=== PATIENT | male | born 1940 | race Caucasian/White ===

== ENCOUNTER → 2017-08-25 08:46 | Outpatient (CLI) | payer MEDICARE, OTHER, SELFPAY ==
[2017-08-25 14:05] LABS: Absolute Lymphocyte Count 1.41 X10^3/ul (0.83-4.51); Absolute Neutrophil Count 3.9 X10^3/uL (2.0-7.7); Basophil# 0.04 X10^3/uL; Basophil% 0.6 % (0-1); Eosinophil# 0.16 X10^3/uL; Eosinophils% 2.5 % (0-5); Hematocrit 42.9 % (40-54); Hemoglobin 13.5 g/dl (13.0-16.5); Lymphocyte # 1.41 X10^3/ul (4.0); Lymphocyte % 21.8 % (19-41); Mean Corp Hgb Conc 31.5 g/gl (32-36); Mean Corpuscular Hgb 29.1 pg (27.0-32.0); Mean Corpuscular Volume 92.5 fL (80-94); Mean Platelet Vol. 12.3 fl (6.2-12.0); Monocyte# 0.94 X10^3/uL; Monocyte% 14.6 % (0-10); Neutrophil % 60.3 % (47-70); Platelet Count 220 K/mm3 (150-450); RBC Distribution Width CV 14.9 % (11.6-14.6); RBC Distribution Width SD 48.9 fl (35.1-43.9); Red Blood Count 4.64 M/mm3 (4.6-6.2); White Blood Count 6.5 K/mm3 (4.4-11.0)
[2017-08-25 14:14] LABS: POSITIVE COUNT NO; POSITIVE DIFFERENTIAL NO; POSITIVE MORPHOLOGY NO
[2017-08-25 14:37] LABS: ALB/GLOB Ratio 0.9 RATIO (0.9-2.4); AST(SGOT) 18 U/L (15-37); Alanine Aminotransfer ALT/SGPT 31 U/L (16-61); Albumin, Serum 3.5 g/dL (3.2-5.0); Alkaline Phosphatase 128 U/L (45-117); Anion Gap 8 (5-15); BUN 23 mg/dL (7-18); BUN/Creat Ratio 13.1 RATIO (10-20); Calcium,Total 8.6 mg/dL (8.5-10.1); Chloride 105 mmol/L (98-107); Creatinine, Serum 1.75 mg/dL (0.70-1.30); EST Glomerular Filtration Rate 40 mL/min (>60); Est Glom Filt Rate - Afr Amer 49 mL/min (>60); Glucose 99 mg/dL (74-106); Potassium 4.3 mmol/L (3.5-5.1); Protein, Total 7.5 g/dL (6.4-8.2); Sodium Level 139 mmol/L (136-145); Thyroid Stim Hormone (TSH) 3.28 uIU/mL (0.358-3.74)
== END ==
PROVIDERS: Family Provider Family Medicine Geriatric Medicine; PCP Family Medicine Geriatric Medicine; Visit Provider Family Medicine Geriatric Medicine
DX: I10 Essential (primary) hypertension (principal)
CPT/HCPCS: 36415; 80053; 84443; 85025

== ENCOUNTER → 2017-09-16 11:05 | Outpatient (CLI) | payer MEDICARE, OTHER, SELFPAY ==
--- NOTE | 2017-09-16 11:10 | RAD_ITS ---
XR Spine Lumbar 2 or 3 Views INDICATION: LOW BACK PAIN X 3 DAYS COMPARISON: None TECHNIQUE: Frontal and lateral views of the lumbar spine and coned-down view of the lumbosacral junction FINDINGS: There are 5 lumbar type nonrib-bearing vertebral bodies. There is normal lumbar lordosis and no evidence of scoliosis. Height of the vertebral bodies is preserved. Disc spaces are decreased at multiple levels and marginal osteophytes are present. RAD/Lumbar Spine 2 or 3 Views IMPRESSION: Findings suggestive of degenerative disc disease at multiple levels. Consider further evaluation with MRI if clinical symptoms persist. at 2008 Reported and signed by: Elis Kan MD Electronically Signed: Elis Kan MD at 19:06 EST Tel , Service support ,
== END ==
PROVIDERS: Family Provider Family Medicine Geriatric Medicine; PCP Family Medicine Geriatric Medicine; Visit Provider Family Medicine Geriatric Medicine
DX: M54.5 Low back pain (principal)
CPT/HCPCS: 72100

== ENCOUNTER → 2017-10-08 07:41 | Outpatient (CLI) | payer MEDICARE, OTHER, SELFPAY ==
[2017-10-08 08:45] VITALS: PULSE 100; PULSE 102; PULSE 111; PULSE 112; PULSE 114; PULSE 117; O2SAT 84; O2SAT 86; O2SAT 89; O2SAT 90; O2SAT 91; O2SAT 98
--- NOTE | 2017-10-08 09:30 | CPS ---
PT ARRIVED ON ROOM AIR. TESTING INITIATED ON ROOM AIR. AT THE ONE MINUTE CHECK PT SPO2 WAS 84% AND WAS PLACED ON 2L WITH LITTLE IMPROVEMENT AND WAS INCREASED TO 3L TO RECOVER. THE WALK WAS THEN CONTINUED AND AT MINUTE THREE PT HAD TO BE INCREASED TO 4L. AT MINUTE FIVE PT ONCE AGAIN HAD TO BE INCREASED TO 6L DUE TO LOW SPO2. PT TOLERATED WELL AND JESSE BINGO CALLER WAS CALLED FOR FACE TO FACE. [facility] ALSO CALLED FOR NEW OXYGEN SET UP. PT THEN TAKEN TO WAITING ROOM FOR CHEST X-RAY THAT WAS ORDERED TODAY WELL.
--- NOTE | 2017-10-08 09:30 | RAD_ITS ---
STUDY: X-RAY CHEST REASON FOR EXAM: Male, 77 years old. Increased shortness of breath x1 month TECHNIQUE: PA and lateral views of the chest. COMPARISON: 12/11/2016 FINDINGS: There is hyperinflation of the lungs consistent with chronic obstructive lung disease (COPD). Slightly increased interstitial prominence in the lung bases since 2017, this may be worsening of chronic interstitial disease versus superimposed mild pulmonary edema. Continued blunting of the left costophrenic angle. Sternal cerclage wires are present from a prior sternotomy. Mild cardiomegaly. Normal mediastinum and edward. Normal visualized pulmonary arteries. Normal visualized aortic arch and descending thoracic aorta. There are diffuse degenerative changes of the visualized thoracic spine. There is degenerative osteoarthritis of the bilateral shoulders. There is no demonstrated abnormality of the visualized soft tissue structures of the upper abdomen. RAD/Chest PA and Lateral IMPRESSION: Increased interstitial prominence in the lung bases since 2017; this may represent worsening chronic interstitial disease versus superimposed mild pulmonary edema. Continued blunting of the left costophrenic angle. Electronically Signed: Ole Ramirez DO at 10:53 EDT Tel , Service support ,
--- NOTE | 2017-10-09 07:49 | WT_ITS ---
PSN 6 Minute Walk Test - 6 Minute Walk Test 6 Minute Walk Test: 6 Minute Walk Test PSN:6-Minute Walk Test Start: 10/08/17 09: 34 Freq: Status: Active Protocol: [id number] Document 10/08/17 08:45 [facility] (Rec: 10/08/17 09:41 [facility] [id number]) 6 Minute Walk Test Date Performed 10/08/17 Time Performed 08:45 Height 6 ft Weight: 240 lb 1.75 oz Weight in Pounds 240.[address]: Justyna Falcon Assistive device used: None Pre-test Oxygen Delivery Method Room Air Pulse Ox (%) 90 Pulse Rate (60-100 beats/min) 102 H Dyspnea Vinnie Scale (0-10) 0 Exertion Vinnie Scale (6-20) 6 1st minute Oxygen Delivery Method Room Air Pulse Ox (%) 84 Number of Rests Taken 0 2nd minute Oxygen Flow Rate (L/min) (L/min) 3 Oxygen Delivery Method Nasal Cannula Pulse Ox (%) 91 Pulse Rate (60-100 beats/min) 112 H Number of Rests Taken 0 3rd minute Oxygen Flow Rate (L/min) (L/min) 3 Oxygen Delivery Method Nasal Cannula Pulse Ox (%) 86 Pulse Rate (60-100 beats/min) 114 H Number of Rests Taken 0 4th minute Oxygen Flow Rate (L/min) (L/min) 4 Oxygen Delivery Method Nasal Cannula Pulse Ox (%) 89 Pulse Rate (60-100 beats/min) 112 H Number of Rests Taken 0 5th minute Oxygen Flow Rate (L/min) (L/min) 4 Oxygen Delivery Method Nasal Cannula Pulse Ox (%) 86 Pulse Rate (60-100 beats/min) 111 H Number of Rests Taken 0 6th minute Oxygen Flow Rate (L/min) (L/min) 6 Oxygen Delivery Method Nasal Cannula Pulse Ox (%) 90 Pulse Rate (60-100 beats/min) 117 H Number of Rests Taken 0 Post-test Oxygen Flow Rate (L/min) (L/min) 6 Oxygen Delivery Method Nasal Cannula Pulse Ox (%) 98 Pulse Rate (60-100 beats/min) 100 Dyspnea Vinnie Scale (0-10) 3 Exertion Vinnie Scale (6-20) 12 Full Laps Walked 14 Partial Lap, Number of Tiles Walked 0 Total Distance Walked (ft) 826 10/08/17 09:30 (created 10/08/17 09:38) Cardiopulmonary Services by Yanni Patiño PT ARRIVED ON ROOM AIR. TESTING INITIATED ON ROOM AIR. AT THE ONE MINUTE CHECK PT SPO2 WAS 84% AND WAS PLACED ON 2L WITH LITTLE IMPROVEMENT AND WAS INCREASED TO 3L TO RECOVER. THE WALK WAS THEN CONTINUED AND AT MINUTE THREE PT HAD TO BE INCREASED TO 4L. AT MINUTE FIVE PT ONCE AGAIN HAD TO BE INCREASED TO 6L DUE TO LOW SPO2. PT TOLERATED WELL AND JESSE BRIDGE GAME DIRECTOR WAS CALLED FOR FACE TO FACE. [facility] [place]SO CALLED FOR NEW OXYGEN SET UP. PT THEN TAKEN TO WAITING ROOM FOR CHEST X- RAY THAT WAS ORDERED TODAY WELL. Initialized on 10/08/17 09:38 - END OF NOTE - Interpretation Interpretation: The patient ambulated 826 feet over the course of 6 minutes beginning on room air without assistive devices or breaks. Pretesting oxygen saturation was noted to be 90% on room air. With ambulation, the patient experienced significant exertional oxygen desaturation at multiple points throughout testing , requiring the initiation and subsequent upward titration of supplemental oxygen. At 6 L/min, the patient was able to complete testing while maintaining oxygen saturations at or above 88%. The patient was notably tachycardic throughout the test. - Recommendations Recommendations: 6 L/min of supplemental oxygen should be utilized with exertion.
== END ==
PROVIDERS: Family Provider Family Medicine Geriatric Medicine; PCP Family Medicine Geriatric Medicine; Visit Provider Nurse Practitioner Acute Care
DX: R06.09 Other forms of dyspnea (principal)
CPT/HCPCS: 71046; 94618

== ENCOUNTER → 2017-10-21 07:37 | Outpatient (CLI) | payer MEDICARE, OTHER, SELFPAY ==
--- NOTE | 2017-10-22 08:42 | PFT ---
INTRODUCTION: The patient is a 77-year-old male currently under the care of Justyna Falcon NP that presents for pulmonary function testing secondary to a diagnosis of dyspnea. Respiratory therapy reports good patient effort and reports no other concerns. Bronchodilators were used during testing. INTERPRETATION: Forced expiration spirometry demonstrates no evidence of a large airways obstructive ventilatory defect. There was no significant response to aerosolized bronchodilators, based upon strict ATS criteria. Spirograms are of good quality and plateau normally. The respiratory flow volume loop appears normal. Body plethysmography was performed and reveals a decreased TLC to 4.49 L, 65% of predicted, indicative of a moderate restrictive ventilatory defect. The remainder of the lung volumes are symmetrically reduced. Diffusing capacity by single breath CO is severely reduced at 33% of predicted. When compared to previous pulmonary function studies from 2017, the patient has had a significant reduction in FEV1, TLC and DLCO. IMPRESSION: These pulmonary function studies demonstrate the presence of a moderate restrictive ventilatory impairment with a disproportionate severe reduction in diffusing capacity. There has been significant worsening since PFTs were last completed in 2017.
== END ==
PROVIDERS: Family Provider Family Medicine Geriatric Medicine; PCP Family Medicine Geriatric Medicine; Visit Provider Nurse Practitioner Acute Care
DX: R06.09 Other forms of dyspnea (principal)
CPT/HCPCS: 94060; 94726; 94729

== ENCOUNTER → 2017-10-23 08:36 | Outpatient (CLI) | payer MEDICARE, OTHER, SELFPAY ==
--- NOTE | 2017-10-23 08:37 | ECHOCS_ITS ---
Reason For Study: DYSPNEA/SOB Procedure This was a 2D Doppler, Color Flow transthoracic echocardiogram. The exam was of poor technical quality due to body habitus. The study was technically difficult. Contrast injection was performed. Exam performed in department. Left Ventricle Normal LV size. Left ventricular systolic function is normal. The estimated ejection fraction is 60 %. No evidence for diastolic dysfunction. No regional wall motion abnormalities noted. Right Ventricle Normal RV size. Normal systolic function. Atria The left atrium is mildly enlarged. Normal right atrium. No doppler evidence for ASD. Mitral Valve There is mild mitral annular calcification. Normal mitral valve. Tricuspid Valve Normal tricuspid valve. Trivial tricuspid valve insufficiency. Right ventricular systolic pressure estimated to be 24 mmHg. Aortic Valve Trisinus/trileaflet aortic valve. Mild focal aortic valve thickening. Moderate focal aortic valve calcification. Trivial aortic valve insufficiency. Pulmonic Valve The pulmonic valve is not well visualized. Trivial pulmonic valve insufficiency. Great Vessels Normal sized aortic root. Pericardium/Pleural No pericardial effusion. Medication Diluted definity 3.0ml given slow IV push to enhance endocardial definition. MMode/2D Measurements & Calculations LVIDd: 4.6 cm IVSd: 1.3 cm Ao root diam: 3.3 cm LVIDs: 3.2 cm LVPWd: 1.2 cm LA dimension: 5.3 cm RVDd: 3.4 cm FS: 30.5 % LAV(MOD-bp): 63.1 ml LA A4 area: 21.2 cm2 RA A4 area: 13.3 cm2 LAV(MOD-bp) Indexed: 27.9 ml/m2 LAV(MOD-sp2): 60.6 ml LAV(MOD-sp4): 61.0 ml Doppler Measurements & Calculations MV E max von: 57.1 cm/sec Lat Peak E' Von: 6.6 cm/sec Med Peak E' Von: 6.9 cm/sec MV A max von: 81.8 cm/sec E/E' lat: 8.6 E/E' med: 8.3 MV E/A: 0.70 Ao V2 max: 118.1 cm/sec LV V1 max: 100.7 cm/sec PA V2 max: 80.0 cm/sec Ao max P.6 mmHg LV V1 max P.1 mmHg TR max von: 229.9 cm/sec TR max P.1 mmHg Interpretation Summary The study was technically difficult. Contrast injection was performed. Left ventricular systolic function is normal. The estimated ejection fraction is 60 %. The left atrium is mildly enlarged. There is mild mitral annular calcification. Trivial tricuspid valve insufficiency. Mild focal aortic valve thickening. Moderate focal aortic valve calcification. Trivial pulmonic valve insufficiency. Right ventricular systolic pressure estimated to be 24 mmHg. No evidence for diastolic dysfunction. Ordering Physician: Justyna Falcon Referring Physician: Daniel Samayoa Chi Performed By: Belle Avila, IRAIS, RVT
== END ==
PROVIDERS: Family Provider Family Medicine Geriatric Medicine; PCP Family Medicine Geriatric Medicine; Visit Provider Nurse Practitioner Acute Care
DX: R06.09 Other forms of dyspnea (principal); R06.02 Shortness of breath
CPT/HCPCS: 93306; Q9957; A4216; C8929

== ENCOUNTER → 2017-10-25 08:32 | Outpatient (CLI) | payer MEDICARE, OTHER, SELFPAY ==
--- NOTE | 2017-10-25 08:36 | CT_ITS ---
STUDY: CT CHEST WITHOUT CONTRAST REASON FOR EXAM: Male, 77 years old. Shortness of breath follow-up nodule from CT chest prior year. RADIATION DOSAGE (If Supplied By Facility): CTDIvol = ( 19.10 ) mGy, DLP = ( 649.24 ) mGycm TECHNIQUE: Transaxial imaging was performed without the administration of intravenous contrast material. Multiplanar coronal and sagittal images were reformatted. Individualized dose optimization techniques were used for this CT. COMPARISON: Chest x-ray October 08, 2017, June 13, 2017 CT scan chest FINDINGS: There is a pattern of peripheral interseptal thickening. There is mild bronchiectasis within the right lung base. There is bronchiectasis in the remaining left lung base and postoperative change with a swirl-like fluid or scarlike collection in the left lung base which is stable since the prior study. When compared to the prior study the peripheral interstitial prominence subtle groundglass opacity appears worse allowing for differences in technique. There are dense coronary calcifications. There is a AP window lymph node measuring 1.2 x 1.2 cm. This is slightly smaller than the prior study. There are multiple subcentimeter paratracheal lymph nodes. There is a lymph node between the esophagus and the knee medial side of the pulmonary artery measuring 1.2 x 1.1 cm stable since prior study. There is a subcarinal lymph node measuring 8 x 8 mm also stable since prior study. Normal hilar regions. Normal unenhanced pulmonary arteries. There is atherosclerotic calcification of the aortic arch with tortuosity and elongation of the aortic arch and descending thoracic aorta. There are multi-level degenerative changes of the thoracic spine. Tenotomy wires are seen midline. The kidneys are of the [id number] on this study today. Surgical clips are seen in the gallbladder fossa status post cholecystectomy. There are old left-sided rib fractures or postoperative change.. CT/Chest without Contrast IMPRESSION: Since the prior study there is a relative worsened appearance of the peripheral interstitial nodularity and subtle groundglass of pattern. Could consider worsening chronic process versus a superimposed atypical infiltrate or potentially hypersensitivity pneumonitis. Recommend correlation with history. There is stable postoperative change left lower lobe fluid. There is no definitive particular focal consolidation or air bronchograms. Multiple small mediastinal lymph nodes one of which is smaller than prior study. Status post sternotomy Dense coronary calcifications. Status post cholecystectomy Degenerative changes of thoracolumbar spine. Electronically Signed: Danae Lee MD at 9:33 EDT Tel , Service support ,
== END ==
PROVIDERS: Family Provider Family Medicine Geriatric Medicine; PCP Family Medicine Geriatric Medicine; Visit Provider Nurse Practitioner Acute Care
DX: R06.09 Other forms of dyspnea (principal)
CPT/HCPCS: 71250

== ENCOUNTER → 2017-10-29 09:57 | Outpatient (CLI) | payer MEDICARE, OTHER, SELFPAY ==
[2017-10-29 11:18] LABS: Rheumatoid Factor < 10.0 IU/mL (<15)
[2017-10-29 11:24] LABS: BNP,B-Type NATRIURETIC PEPTIDE 83.3 pg/mL (0-100)
[2017-10-31 03:07] LABS: Cytoplasmic Ab (C-ANCA) <1:20 titer (Neg:<1:20)
[2017-10-31 11:17] LABS: CCP IgG Antibodies 6 units (0-19); Perinuclear Ab (P-ANCA) <1:20 titer (Neg:<1:20)
== END ==
PROVIDERS: Family Provider Family Medicine Geriatric Medicine; PCP Family Medicine Geriatric Medicine; Visit Provider Internal Medicine Critical Care Medicine
DX: R06.09 Other forms of dyspnea (principal)
CPT/HCPCS: 83880; 86200; 86256; 86431

== ENCOUNTER → 2017-11-17 06:48 | Outpatient (CLI) | payer MEDICARE, OTHER, SELFPAY ==
[2017-11-17 08:06] LABS: AST(SGOT) 21 U/L (15-37); Alanine Aminotransfer ALT/SGPT 32 U/L (16-61); Albumin, Serum 3.3 g/dL (3.2-5.0); Alkaline Phosphatase 92 U/L (45-117); Bilirubin, Direct 0.29 mg/dL (0.00-0.30); Cholesterol 168 mg/dL (200); Globulin 3.6 g/dL (2.2-4.2); High Density Lipoprotein 51 mg/dL; Protein, Total 6.9 g/dL (6.4-8.2); T4 Total, Thyroxin 11.6 ug/dL (4.5-12.1); Thyroid Stim Hormone (TSH) 2.04 uIU/mL (0.358-3.74); Triglycerides 176 mg/dL; Very Low Density Lipoprotein 35 mg/dL (5-40)
[2017-11-18 17:17] LABS: ANTINUCLEAR ANTIBODIES DIRECT Negative (Negative)
== END ==
PROVIDERS: Internal Medicine Critical Care Medicine; Family Provider Family Medicine Geriatric Medicine; PCP Family Medicine Geriatric Medicine; Visit Provider Internal Medicine Cardiovascular Disease
DX: I48.0 Paroxysmal atrial fibrillation (principal); I25.810 Atherosclerosis of coronary artery bypass graft(s) without angina pectoris; I10 Essential (primary) hypertension; E78.5 Hyperlipidemia, unspecified; R09.02 Hypoxemia; Z79.899 Other long term (current) drug therapy
CPT/HCPCS: 36415; 80061; 80076; 84436; 84443; 86038; 86225; 86235

== ENCOUNTER → 2018-01-05 14:02 | Outpatient (CLI) | payer MEDICARE, OTHER, SELFPAY ==
[2018-01-05 14:39] LABS: Erythrocyte Sedimentation Rate 18 mm/hr (0-20)
[2018-01-05 14:41] LABS: Absolute Lymphocyte Count 1.79 X10^3/ul (0.83-4.51); Absolute Neutrophil Count 5.5 X10^3/uL (2.0-7.7); Basophil# 0.03 X10^3/uL; Basophil% 0.4 % (0-1); Eosinophil# 0.11 X10^3/uL; Eosinophils% 1.4 % (0-5); Hematocrit 43.6 % (40-54); Hemoglobin 13.4 g/dl (13.0-16.5); Lymphocyte # 1.79 X10^3/ul (4.0); Lymphocyte % 22.2 % (19-41); Mean Corp Hgb Conc 30.7 g/gl (32-36); Mean Corpuscular Hgb 29.5 pg (27.0-32.0); Mean Corpuscular Volume 95.8 fL (80-94); Mean Platelet Vol. 12.1 fl (6.2-12.0); Monocyte# 0.57 X10^3/uL; Monocyte% 7.1 % (0-10); Neutrophil # 5.54 X10^3/uL (2.7-7.7); Neutrophil % 68.8 % (47-70); Platelet Count 220 K/mm3 (150-450); RBC Distribution Width CV 14.6 % (11.6-14.6); RBC Distribution Width SD 51.2 fl (35.1-43.9); Red Blood Count 4.55 M/mm3 (4.6-6.2); White Blood Count 8.1 K/mm3 (4.4-11.0)
[2018-01-05 14:42] LABS: POSITIVE COUNT NO; POSITIVE DIFFERENTIAL NO; POSITIVE MORPHOLOGY NO
[2018-01-05 15:05] LABS: Anion Gap 7 (5-15); BUN 24 mg/dL (7-18); BUN/Creat Ratio 14.2 RATIO (10-20); CPK Total, Creatine Kinase 49 U/L (39-308); Calcium,Total 8.8 mg/dL (8.5-10.1); Chloride 110 mmol/L (98-107); Creatinine, Serum 1.69 mg/dL (0.70-1.30); EST Glomerular Filtration Rate 42 mL/min (>60); Est Glom Filt Rate - Afr Amer 51 mL/min (>60); Glucose 108 mg/dL (74-106); Sodium Level 144 mmol/L (136-145)
[2018-01-05 15:13] LABS: D-Dimer Quantitative (DVT/PE) 1.61 FEU/ug/m (0.27-0.49)
[2018-01-05 15:26] LABS: BNP,B-Type NATRIURETIC PEPTIDE 101.2 pg/mL (0-100)
[2018-01-06 10:51] LABS: Myoglobin, Serum 41 ng/mL (28-72)
== END ==
PROVIDERS: Family Provider Family Medicine Geriatric Medicine; PCP Family Medicine Geriatric Medicine; Visit Provider Family Medicine Geriatric Medicine
DX: M10.9 Gout, unspecified (principal); R06.02 Shortness of breath; R07.9 Chest pain, unspecified
CPT/HCPCS: 36415; 80048; 82550; 83874; 83880; 84484; 85025; 85379; 85652; 86140

== ENCOUNTER → 2018-01-05 14:27 | Outpatient (CLI) | payer MEDICARE, OTHER, SELFPAY ==
--- NOTE | 2018-01-05 14:33 | CT_ITS ---
STUDY: CT ABDOMEN AND PELVIS WITH CONTRAST REASON FOR EXAM: Male, 77 years old. Abdominal pain RADIATION DOSAGE (If Supplied By Facility): CTDIvol = ( ) mGy, DLP = ( 2123.77 ) mGycm TECHNIQUE: Transaxial images were obtained from the dome of the diaphragm to the symphysis pubis without oral contrast. 100ML ml of Isovue 370 contrast was administered. Sagittal and coronal images were reconstructed. Individualized dose optimization techniques were used for this CT. COMPARISON: None. FINDINGS: There is a small left pleural effusion and atelectasis in left lower lobe. There are multiple subcentimeter nodules at the right lung base.. Heart is enlarged and there is multivessel coronary artery calcification. The liver is normal size. There are multiple hypodense nodules the largest of which are clearly simple cysts. The smaller nodules are too small to adequately characterize due to volume averaging. Gallbladder has been removed surgically.. Normal spleen. The mid to distal body of the pancreas demonstrates a slightly hypoattenuated appearance. Possibility of neoplasm not excluded as there are no signs of acute inflammation observed... Would recommend MRI/MRCP for further assessment Normal bilateral adrenal glands. There are 3 nonobstructing calculi in left kidney. There is also mild pelvocaliectasis in association with extrarenal pelvis. Cannot exclude coexisting parapelvic cysts.. Right kidney is normal. Normal visualized stomach. Normal small intestine. Normal colon. The appendix is visualized and appears normal. Atherosclerotic changes of the aorta without evidence for aneurysm. Normal inferior vena cava. Normal retroperitoneum. Nonspecific enlargement of the prostate encroaching upon the base of the bladder which is incompletely distended Small bilateral fat-containing inguinal hernias. Lumbar spine demonstrates spondylosis CT/Abdomen/Pelvis WITH Contrast IMPRESSION: Multiple hepatic nodules largest of which are clearly cystic. The others are too small to adequately characterize. Status post cholecystectomy Hypoattenuated nonspecific appearance to the mid to distal body of the pancreas. Cannot exclude possibility of neoplasm. MRI/MRCP recommended Electronically Signed: Kapil Carter MD at 18:34 EDT , Service support ,
--- NOTE | 2018-01-05 16:00 | CT_ITS ---
STUDY: CTA CHEST REASON FOR EXAM: Male, 77 years old. Elevated d-dimer Status post CABG and left lobectomy RADIATION DOSAGE (If Supplied By Facility): CTDIvol = ( 19.63 ) mGy, DLP = ( 2123.77 ) mGycm TECHNIQUE: The examination was performed with the intravenous administration of 75ML ml of Isovue 370 contrast material. Post-processing of the angiographic images was performed, with multiplanar reformation and 3D reconstruction. Individualized dose optimization techniques were used for this CT. COMPARISON: October 25, 2017 FINDINGS: Normal enhancement of the main pulmonary artery and right and left pulmonary arteries. There are linear filling defects within a proximal segmental branch of the left pulmonary artery consistent with thrombus Atherosclerotic changes of the aorta without evidence for aneurysm. There is no demonstrated aortic dissection. Heart is normal size and there is multivessel coronary artery calcification There is a node in the anterior prevascular space measuring 1.27 cm which may be consistent with neoplasm. This also a node in the aortopulmonary window measuring 9 mm in size.. There are smaller pretracheal right paratracheal and subcarinal nodes. Normal visualized trachea and bronchi. The lungs are well expanded. Mild nonspecific interstitial thickening is seen. There appears to be traction bronchiectasis at the right base. There is a small compressive atelectasis at the left base.. There are tiny noncalcified nodules in the right lower lobe measuring in the 4 to 5 mm size range. There is a larger 9.6 mm nodule in the right lower lobe Status post median sternotomy and CABG. Dorsal spine demonstrates moderate spondylosis Gallbladder has been removed surgically. CT/CTA Chest W/WO Contrast IMPRESSION: Pulmonary embolus to the subsegmental vessels of the left lower lobe. Incidental finding of tiny subcentimeter nodules in the right lung and mildly enlarged nodes. Possibility of neoplasm not excluded. PET scan would be helpful for further evaluation if indicated. Electronically Signed: Kapil Carter MD at 18:24 EDT , Service support ,
== END ==
PROVIDERS: Family Provider Family Medicine Geriatric Medicine; PCP Family Medicine Geriatric Medicine; Visit Provider Family Medicine Geriatric Medicine
DX: R10.9 Unspecified abdominal pain (principal); R07.9 Chest pain, unspecified; M10.9 Gout, unspecified; R06.02 Shortness of breath
CPT/HCPCS: 36415; 71275; 74177; 80048; 82550; 83874; 83880; 84484; 85025; 85379; 85652; 86140; Q9967

== ENCOUNTER → 2018-01-08 06:07 | Outpatient (CLI) | payer MEDICARE, OTHER, SELFPAY ==
--- NOTE | 2018-01-08 06:36 | MRI_ITS ---
STUDY: MRI ABDOMEN WITH AND WITHOUT CONTRAST REASON FOR EXAM: Male, 77 years old. Abdominal pain. Pancreatic cyst. Abnormal CT. Prior cholecystectomy TECHNIQUE: Standardized fat and water weighted pulse sequences were obtained in all 3 orthogonal planes post contrast administration. 10 ml of Gadavist contrast material was administered intravenously for the contrast portion of the examination. COMPARISON: CT January 05, 2018 FINDINGS: There is left lower lung airspace consolidation with small pleural effusion. The visualized portions of the heart are within normal limits. There is hepatomegaly with diffuse hepatic enlargement. There are multiple, at least 10, peripherally enhancing mild T2 signal hyperintensity lesions in the right and left lobe of the liver measuring 1.0 to 1.6 cm. There are surgical clips in the gallbladder fossa consistent with a prior cholecystectomy. There is mild splenomegaly. There is 1.7 cm mass at the medial aspect of the spleen. There is heterogeneously enhancing 5.0 cm mass of the body of the pancreas, series 1101 image 60/100. Normal bilateral adrenal glands. There are parapelvic cysts of the kidneys.. Normal visualized stomach. Normal small intestine. Normal colon. There is non-visualization of the appendix. Normal abdominal aorta. Normal inferior vena cava. Normal retroperitoneum. Normal abdominal wall. Degenerative change of the spine. There are sternal wires. MRI/MRI Abd WITH and W/O Contrast IMPRESSION: Mass of the body of the pancreas with multiple hepatic masses consistent with metastatic pancreatic cancer. Mass of the spleen with possible metastasis. There is left pleural effusion and lower lung consolidation. Hepatosplenomegaly. N.B. : The above information has been verbally conveyed by Wilfrid Reed MD to Dr. Samayoa , Referring Physician, on 01/08/2018 20:14:18 (ET). Electronically Signed: Wilfrid Reed MD at 17:13 EDT , Service support , N.B. : The above information has been verbally conveyed by Wilfrid Reed MD to Dr. Samayoa , Referring Physician, on 01/08/2018 20:14:18 (ET).
== END ==
PROVIDERS: Family Provider Family Medicine Geriatric Medicine; PCP Family Medicine Geriatric Medicine; Visit Provider Family Medicine Geriatric Medicine
DX: K86.2 Cyst of pancreas (principal); R93.3 Abnormal findings on diagnostic imaging of other parts of digestive tract
CPT/HCPCS: 74183; A9585

== ENCOUNTER → 2018-01-13 06:38 | Outpatient (CLI) | payer MEDICARE, OTHER, SELFPAY ==
--- NOTE | 2018-01-13 14:48 | PFT ---
INTRODUCTION: The patient is a 77-year-old male that presents for pulmonary function testing secondary to a diagnosis of history of malignant neoplasm. Respiratory therapy reports good patient effort. Bronchodilators were used during testing. INTERPRETATION: Forced expiration spirometry demonstrates no evidence of a large airways obstructive ventilatory impairment. There was no significant response to aerosolized bronchodilators. Spirograms are of good quality and plateau normally. Body plethysmography was performed and reveals evidence of a mild restrictive ventilatory impairment. The remainder of the lung volumes are symmetrically reduced. The significantly reduced ERV could be a consequence of the patient's body habitus. Diffusing capacity by single breath CO is moderately reduced at 49% of predicted. When compared to previous pulmonary function studies dated November 2016 there has been symmetric reductions in the patient's FVC and FEV1. DLCO has decreased by 31%. IMPRESSION: These pulmonary function studies demonstrate the presence of a mild restrictive ventilatory impairment with a moderate reduction in diffusing capacity.
== END ==
PROVIDERS: Family Provider Family Medicine Geriatric Medicine; PCP Family Medicine Geriatric Medicine; Visit Provider Internal Medicine Critical Care Medicine
DX: Z85.118 Personal history of other malignant neoplasm of bronchus and lung (principal)
CPT/HCPCS: 94060; 94726; 94729

== ENCOUNTER → 2018-01-19 09:07 | Outpatient (CLI) | payer MEDICARE, OTHER, SELFPAY ==
--- NOTE | 2018-01-19 09:26 | PET_ITS ---
EXAMINATION: FDG PET CT INDICATIONS: A 77-year-old male with history of carcinoma of the lung presenting for restaging examination. COMPARISON EXAMINATION: CT of the chest, abdomen and pelvis report dated 01/05/18, previous FDG PET study dated 10/21/16. INDEX LESION SIZE SUV INTERPRETATION NEW: Mid abdominal retroperitoneum pancreatic body-tail 4.5 cm x 2.8 cm (frame 166) 6.2 Fulfills quantitative criteria for viable neoplasm NEW: Left and right lobe hepatic parenchyma 32.3 mm largest (frame 186) 4.7 (max) ratio > 2.0 Fulfills quantitative criteria for viable neoplasm NEW: Right lower hemithorax pulmonary parenchyma, right lower lobe 10.4 mm (frame 196) 2.3 Fulfills borderline quantitative criteria for viable neoplasm PREVIOUS: Left lower hemithorax pulmonary parenchyma, left lower lobe Demonstrates metabolic resolution on the current examination TECHNIQUE: Following the intravenous administration of 14.5 mCi of F-18 deoxyglucose via the right antecubital fossa, multiplanar image acquisitions of the neck, chest, abdomen and pelvis to level of mid thigh, obtained at one hour post radiopharmaceutical administration contemporaneously interpreted with the current CT of the neck, chest, abdomen and pelvis to level of mid thigh, dated 01/19/[address] of the chest, abdomen and pelvis report dated 01/05/18, previous FDG PET study dated 10/21/16 reveal: SERUM GLUCOSE LEVEL: 102 mg/dl. HEIGHT: 72 inches. WEIGHT: 230 lbs. FINDINGS: 1. Persistently defined increased glucose metabolism is manifest in the left paramedian abdominal retroperitoneum demonstrating a calculated maximum standard uptake value of 6.2 compared 3.0 defined on the FDG PET study dated 10/21/16. The maximal axial diameter of the corresponding metabolic, morphologic abnormality, which appears contiguous to the pancreatic body-tail is 4.5 cm (transverse) x 28. Cm (AP). 2. Multiple foci of increased glucose concentration are presently visualized in the left and right lobe of the hepatic parenchyma (3.7/2.8) generating a calculated maximum standard uptake value of 4.7 with a lesion to liver background ratio greater than 2.0. The maximal axial diameter of the largest individual hypermetabolic abnormality on review of CT of the abdomen dated 01/19/18 is 32.3 mm (transverse). 3. Focal increased glucose concentration is currently visualized in the right lower posteromedial hemithorax pulmonary parenchyma, right lower lobe rendering a calculated maximum standard uptake value of 2.3. The maximal axial diameter of the corresponding nodular parenchymal density on review of CT of the thorax dated 01/19/18 is 10.4 mm (transverse). 4. Normal physiologic distribution of the radiopharmaceutical is apparent in the splenic parenchyma, both renal units, bladder and visualized intestinal tract. There is uniform distribution of the radiopharmaceutical concentration compared on the cerebellar hemispheres and cerebral cortex. Diffuse intestinal tract activity is noted throughout all four quadrants of the abdominal-pelvic retroperitoneum, mesentery consistent with normal physiologic distribution of the radiopharmaceutical. Prominent glucose metabolism is demonstrated in the descending thoracic, as well as abdominal aorta. Pooling of the radiopharmaceutical appears evident in the distribution of the prostatic urethra. The previously identified left lower hemithorax pulmonary parenchymal, left lower lobe hypermetabolic abnormality noted on the FDG PET study dated 10/21/16 is not apparent on the current examination. Pertinent CT findings are as follows. CHEST: Additional parenchymal changes noted in the right lower hemithorax, right lower lobe demonstrate no evidence of increased glucose metabolism. Atherosclerotic calcification is defined in the thoracic aorta without evidence of dilatation, aneurysm formation. Coronary arterial calcification is observed. There is evidence of prior median sternotomy. Bilateral axillary and mediastinal soft tissue densities with fatty hilus formation are non-glucose avid. The left hemithorax pleural effusion demonstrates no evidence quantitatively significant enhanced glucose metabolism. ABDOMEN AND PELVIS: The gallbladder is surgically absent. There is borderline fatty metamorphosis defined within the hepatic parenchyma. Atherosclerotic calcification is defined in the abdominal aorta without evidence of dilatation, aneurysm formation. Abdominal-pelvic arterial calcification is observed. There is evidence of an apparent peripelvic cyst formation involving the left kidney. Calcifications are noted within the left renal unit. Bilateral fat-containing inguinal hernias are demonstrated. Subcentimeter right and left inguinal soft tissue densities are ametabolic. SKELETAL: Degenerative changes defined in the cervical, thoracic and lumbar spine demonstrate no evidence for glucose hypermetabolism. PET/PET/CT Tumor Base -Thigh Init IMPRESSION: 1. Increased glucose metabolism manifest in the mid abdominal retroperitoneum contiguous to the pancreatic body-tail fulfills quantitative criteria for viable neoplasm. Definitive histopathologic analysis is recommended. 2. Multifocal increased radiopharmaceutical concentration observed in the left and right lobe hepatic parenchyma fulfills quantitative criteria for viable neoplasm. (Delbeke et al, Archives of Surgery, 133:510 1998). 3. Facilitated FDG uptake presently noted in the right lower posteromedial lung zone, right lower lobe fulfills borderline quantitative criteria for viable neoplasm. (Sapna et al, Annals of Internal Medicine, 138:724, 2003). 4. Enhanced glucose metabolism manifest in the descending thoracic, as well as abdominal aorta is commensurate with activated leukocytes associated with atherosclerotic plaque formation. (James et al, Clinical Nuclear Medicine 29:93, 2004). 5. There is interim metabolic resolution of the prior defined left lower lung zone, left lower lobe hypermetabolic abnormality. 6. Overall, compared to the prior FDG PET study dated 10/21/16, there is current evidence of defined viable neoplastic disease within the context of the pancreatic body-tail, as well as right-left lobe of the hepatic parenchyma. Borderline quantitative criteria for viable neoplasm are currently defined in the right lower posteromedial lung zone, right lower lobe hypermetabolic focus. Electronic Signature Armando Crisostomo D.O. Electronically Signed: Armando Crisostomo DO at 7:23 EDT Tel , Service support ,
[2018-01-20 08:22] LABS: Carbohydrate AG 19-9 16 U/mL (0-35); Carcinoembryonic Antigen 18.8 ng/mL (0.0-4.7)
== END ==
PROVIDERS: Family Provider Family Medicine Geriatric Medicine; PCP Family Medicine Geriatric Medicine; Visit Provider Family Medicine Geriatric Medicine
DX: C34.90 Malignant neoplasm of unspecified part of unspecified bronchus or lung (principal); R91.1 Solitary pulmonary nodule; C25.9 Malignant neoplasm of pancreas, unspecified
CPT/HCPCS: 36415; 78815; 82378; 86301; A9552; A4216

== ENCOUNTER → 2018-01-29 08:24 | Outpatient (CLI) | payer MEDICARE, OTHER, SELFPAY ==
[2018-01-29] VITALS (9 sets, daily range): BP systolic 116–147; BP diastolic 67–109; PULSE 73–84; RESP 14–25; O2SAT 95–98; BMI 31.1
--- NOTE | 2018-01-29 | ASPIGT_PTH ---
PATIENT: VONNIE BLOCK LOC: CT U#:[id number] AGE/SX: 84/M ROOM: RE01/29/[address]: Dr. Randall Pederson MD : 1940 BED: DIS: SPEC #: [id number] RECD: 01/29/18 11:53 STATUS: SAMARIA REShayy #: [id number] CHRISTOPHER: 01/29/18 00:[address]: Randall Pederson DEPT: SURGICAL PATHOLOGY RECD BY: Armando Echols ENTERED: 01/29/18 11:53 SP TYPE: ASP RAD OTHR DR: Dr. Daniel Samayoa MD Tissues: Liver, NOS Procedures: PAS with Diastase (control) FNA Specimen Adequacy Trichrome (control) Special Stain Group II PAS Stain (control) Surgery Specimen Level V Retic (control) Iron Stain (control) Imprint (control) HEADER OPERATION: CT-guided liver biopsy PRE-OP DIAGNOSIS: Liver mass TISSUE SUBMITTED: Right lobe liver 18g core x6 MICROSCOPIC DIAGNOSIS Right lobe liver, CT-guided core biopsy: Negative for malignancy. Liver parenchymal tissue with steatosis and mild lobular and portal chronic inflammation. See microscopic description and comment. SJ:lizzeth 01/30/18 COMMENT The specimen is evaluated at the time of liver biopsy by Dr. Maxwell. Immediate Evaluation: Set #1 - Negative for malignant cells. Hepatocytes noted. Set #2 ? A few atypical hepatocytes are noted. Clinical correlation and appropriate follow up are necessary. If there is a high suspicion of malignancy, rebiopsy is suggested if clinically indicated. MICROSCOPIC DESCRIPTION Slides are reviewed. The specimen shows liver parenchymal tissue with preserved lobular architecture. The hepatocytes show moderate macrovesicular steatosis. Mild lobular chronic inflammation is also noted. Portal area also shows mild chronic inflammation. Focal dilatation of sinusoid is also noted. Iron stain show absent iron. Reticulin stain is unremarkable. Trichrome stain shows mild increase of portal, focal minimal bridging fibrosis. No evidence of cirrhosis is noted. PAS with and without diastase does not show any abnormal accumulation of protein. All stains were performed with appropriate matched controls. No evidence of malignancy. GROSS DESCRIPTION Received in fixative is one container labeled with the patient's name and designated liver. The specimen consists of multiple elongated fragments of bronson soft tissue that in aggregate measure 2 x 0.5 x 0.1 cm. The specimen is totally submitted in one cassette. Two smears were obtained at the time of biopsy, both stained with DQ. / YADY:lizzeth 01/29/18 TC:5 CPT: 08053, 90901, 20493, 51886 x5
--- NOTE | 2018-01-29 08:38 | CT_ITS ---
PROCEDURE: CT DIRECTED CORE LIVER BIOPSY INDICATION: Male, 77 years old. January 29, 2018. PHYSICIAN: Dr. Stephon HOOVER CONSENT: Written informed consent was obtained having explained the risks, benefits and alternatives in detail with the patient who accepted the risks and agreed to proceed. Laboratory review and clinical assessment was performed. CONSCIOUS SEDATION PROTOCOL: The Drugs used were: 2 mg Versed, IV., and 50 mcg Fentanyl, IV. The sedation time was: 28 minutes. Conscious sedation was started at 9:59 AM and terminated at 10:27 AM. The conscious sedation protocol was independently monitored. RADIATION DOSAGE (If Supplied By Facility): CTDIvol = ( 16 ) mGy, DLP = ( 410.86 ) mGycm Individualized dose optimization techniques were used for this CT. TECHNIQUE: Using CT image guidance with image documentation, a suitable location in the right lobe of the liver was identified. Using a right lateral approach, puncture of the liver was uneventful with an 18-gauge core needle system. Six 18-gauge core samples were obtained of the small hypodense nodule in the inferior aspect of the right lobe of the liver, and submitted in formalin to the pathologist for further assessment. Followup CT scan revealed no distinct sequelae. CT/Biopsy/Inj or Needle Placement IMPRESSION: 1. CT directed core needle biopsy of the liver, using CT image guidance with image documentation as described. 2. Conscious Sedation protocol utilized with independent monitoring. Electronically Signed: Charles Szymanski MD at 10:55 EDT Tel [phone], Service support ,
[2018-01-29 08:54] LABS: International Normalized Ratio 1.1; Prothrombin Time (Protime)PT. 13.7 SECONDS (11.7-14.9)
[2018-01-29 08:55] LABS: Partial Thromboplast Time 28.3 Seconds (24.1-36.2)
== END ==
PROVIDERS: Family Provider Family Medicine Geriatric Medicine; PCP Family Medicine Geriatric Medicine; Visit Provider Internal Medicine Hematology & Oncology
DX: Z01.812 Encounter for preprocedural laboratory examination (principal); K76.0 Fatty (change of) liver, not elsewhere classified; K76.89 Other specified diseases of liver; K86.9 Disease of pancreas, unspecified; I25.10 Atherosclerotic heart disease of native coronary artery without angina pectoris; I25.2 Old myocardial infarction; E66.9 Obesity, unspecified; Z68.32 Body mass index [BMI] 32.0-32.9, adult; M19.90 Unspecified osteoarthritis, unspecified site; J84.10 Pulmonary fibrosis, unspecified; I12.9 Hypertensive chronic kidney disease with stage 1 through stage 4 chronic kidney disease, or unspecified chronic kidney disease; N18.9 Chronic kidney disease, unspecified; Z85.118 Personal history of other malignant neoplasm of bronchus and lung; Z86.711 Personal history of pulmonary embolism; Z86.79 Personal history of other diseases of the circulatory system; Z86.39 Personal history of other endocrine, nutritional and metabolic disease; Z87.19 Personal history of other diseases of the digestive system; Z86.2 Personal history of diseases of the blood and blood-forming organs and certain disorders involving the immune mechanism; Z90.49 Acquired absence of other specified parts of digestive tract; Z95.1 Presence of aortocoronary bypass graft
CPT/HCPCS: 47000; 36415; 77012; 85610; 85730; 88172; 88305; 88307; 88313; 99156; 99157; J7040; A4216

== ENCOUNTER → 2018-02-11 07:36 | Outpatient (CLI) | payer MEDICARE, OTHER, SELFPAY ==
[2018-02-11] VITALS (9 sets, daily range): BP systolic 118–181; BP diastolic 64–86; PULSE 59–82; RESP 12–27; TEMP 36.7; O2SAT 89–100; BMI 31.1
--- NOTE | 2018-02-11 | ASPIGT_PTH ---
PATIENT: VONNIE BLOCK LOC: AR U#:[id number] AGE/SX: 84/M ROOM: RE02/11/[address]: Dr. Randall Pederson MD : 1940 BED: DIS: SPEC #: [id number] RECD: 02/11/18 12:05 STATUS: SAMARIA YASMINE #: [id number] CHRISTOPHER: 02/11/18 00:[address]: Ranadll Pederson DEPT: SURGICAL PATHOLOGY RECD BY: Claudia Contreras ENTERED: 02/11/18 12:06 SP TYPE: ASP RAD OTHR DR: Dr. Daniel Samayoa MD Tissues: Liver, NOS Procedures: FNA Specimen Adequacy Special Stain Group II Surgery Specimen Level V Diff Quik Stain (control) Imprint (control) HEADER OPERATION: CT-guided liver biopsy PRE-OP DIAGNOSIS: Liver lesion TISSUE SUBMITTED: Liver lesion, CT-guided core biopsy MICROSCOPIC DIAGNOSIS Liver lesion, CT-guided core biopsy: Metastatic non-small cell carcinoma. See comment. YADY:lizzeth 02/12/18 COMMENT The specimen is evaluated at the time of CT-guided liver biopsy by Dr. Maxwell. Immediate Evaluation: Set 1 (3 smears) - Negative for malignant cells. Hepatocytes present. Set 2 (2 smears) - Negative for malignant cells. Hepatocytes present. Set 3 (1 smear) ? Malignant cells present. Immunohistochemistry ([id number]) supports the above diagnosis. The IHC favors upper gastrointestinal tract and pancreatic primary. Clinical correlation and appropriate follow up are necessary. This case has been reviewed in consultation with Dr. Echeverria who concurs with the above diagnosis. MICROSCOPIC DESCRIPTION Slides are reviewed. GROSS DESCRIPTION Received in fixative is one container labeled with the patient's name and designated liver, CT-guided core biopsy. The specimen consists of multiple elongated fragments of bronson soft tissue that in aggregate measure 2 x 0.5 x 0.1 cm. The specimen is totally submitted in one cassette. Six smears stained with Diff-Quik were obtained at the time of biopsy. / YADY:lizzeth 02/11/18 TC:0 CPT: 20051, 27058, 53150 x2
--- NOTE | 2018-02-11 | IMM_PTH ---
PATIENT: VONNIE BLOCK LOC: CT U#:[id number] AGE/SX: 84/M ROOM: RE02/11/[address]: Dr. Randall Pederson MD : 1940 BED: DIS: SPEC #: [id number] RECD: 02/12/18 11:22 STATUS: SAMARIA REShayy #: [id number] CHRISTOPHER: 02/11/18 00:[address]: Randall Pederson DEPT: IMMUNOHISTOCHEMISTRY RECD BY: Della Hill ENTERED: 02/12/18 11:24 SP TYPE: IMMUNO OTHR DR: Dr. Daniel Samayoa MD Tissues: Liver, NOS Procedures: RCC (add) NAPSIN A (add) CK20 (add) CK5-6 (add) CK8 (add) GUPTA-2 (add) HEP PAR (add) PSA (add) TTF1 (add) P40 (add) CDX2 (add) CK7 (initial) PHYSICIAN & [place] [phone] SPECIMEN INFORMATION: Tissue Source: Liver lesion Clinical Info: Liver lesion Specimen Number: [id number] CPT code: 98898, 30044 x11 METHODOLOGY: Deparaffinized sections of prefer/formalin-fixed tissue or PAP/DQ stained slides are incubated with monoclonal/polyclonal antibodies/oligonucleotide probes. Localization is made via biotin free immunoperoxidase method. Appropriate controls are performed and reacted as expected. Results on target cell population are indicated in the following table: RESULTS: ANTIBODY / CLONE RESULT CK7 (OV-TL12/30) positive CK8 (49bqnpT18) positive CK20 (KS20.8) positive, focal CDX2 (APG4632N) positive, focal and weak TTF-1 (8G7G3/1) negative Napsin A (Rabbit Polyclonal) negative HepPar (OCh1E5) negative RCC (PN-15) negative PSA (ER-PR8) negative CK5-6 (D5 & 1684) positive, focal P40 (BC28) positive, rare cells, weak GUPTA-2 (SP21) positive, weak These tests were developed and their performance characteristics determined by [facility]. They may not have been cleared or approved by the U.S. Food and Drug Administration. The FDA has determined that such clearance or approval is not necessary. INTERPRETATION: Liver lesion, CT-guided core biopsy: Non-small carcinoma, favor adenocarcinoma. SJ:lizzeth 02/13/18 The IHC profile favors upper gastrointestinal tract or pancreatic primary. Case has been reviewed in consultation with Dr. Echeverria who concurs with the above diagnosis. IDC:[email or web address]
--- NOTE | 2018-02-11 07:48 | CT_ITS ---
PROCEDURE: CT DIRECTED CORE LIVER BIOPSY INDICATION: Male, 77 years old. Liver lesions. PHYSICIAN: Dr. Stephon HOOVER. CONSENT: Written informed consent was obtained having explained the risks, benefits and alternatives in detail with the patient who accepted the risks and agreed to proceed. Laboratory review and clinical assessment was performed. CONSCIOUS SEDATION PROTOCOL: The Drugs used were: 2 mg Versed, IV., and 50 mcg Fentanyl, IV. The sedation time was: 28 minutes. Conscious sedation was started at 8:27 AM and terminated at 8:55 AM. The conscious sedation protocol was independently monitored. RADIATION DOSAGE (If Supplied By Facility): CTDIvol = ( 16.6 ) mGy, DLP = ( 382.05 ) mGycm Individualized dose optimization techniques were used for this CT. TECHNIQUE: Using CT image guidance with image documentation, a suitable location in the lateral inferior aspect of the right lobe of the liver was identified. Using a right lateral approach, puncture of the liver was uneventful with an 18-gauge core needle system. [id number] core samples were obtained, and submitted in formalin to the pathologist for further assessment. Followup CT scan revealed no distinct sequelae. CT/Biopsy/Inj or Needle Placement IMPRESSION: 1. CT directed core needle biopsy of the liver, using CT image guidance with image documentation as described. 2. Conscious Sedation protocol utilized with independent monitoring. Electronically Signed: Charles Szymanski MD at 10:58 EDT Tel [phone], Service support ,
== END ==
PROVIDERS: Family Provider Family Medicine Geriatric Medicine; PCP Family Medicine Geriatric Medicine; Visit Provider Internal Medicine Hematology & Oncology
DX: K76.9 Liver disease, unspecified (principal); K86.9 Disease of pancreas, unspecified; Z85.118 Personal history of other malignant neoplasm of bronchus and lung
CPT/HCPCS: 47000; 77012; 88172; 88307; 88313; 88341; 88342; 99156; 99157; J7040; A4216

== ENCOUNTER → 2018-02-26 10:17 | Outpatient (CLI) | payer MEDICARE, OTHER, SELFPAY ==
[2018-02-26 13:05] LABS: ALB/GLOB Ratio 0.7 RATIO (0.9-2.4); AST(SGOT) 41 U/L (15-37); Alanine Aminotransfer ALT/SGPT 43 U/L (16-61); Albumin, Serum 3.1 g/dL (3.2-5.0); Alkaline Phosphatase 147 U/L (45-117); Anion Gap 7 (5-15); BUN 36 mg/dL (7-18); BUN/Creat Ratio 21.8 RATIO (10-20); Calcium,Total 8.6 mg/dL (8.5-10.1); Chloride 110 mmol/L (98-107); Creatinine, Serum 1.65 mg/dL (0.70-1.30); EST Glomerular Filtration Rate 43 mL/min (>60); Est Glom Filt Rate - Afr Amer 52 mL/min (>60); Globulin 4.2 g/dL (2.2-4.2); Glucose 125 mg/dL (74-106); Potassium 4.4 mmol/L (3.5-5.1); Protein, Total 7.3 g/dL (6.4-8.2); Sodium Level 142 mmol/L (136-145); Thyroid Stim Hormone (TSH) 1.55 uIU/mL (0.358-3.74)
[2018-02-26 14:08] LABS: Absolute Lymphocyte Count 0.83 X10^3/ul (0.83-4.51); Absolute Neutrophil Count 7.5 X10^3/uL (2.0-7.7); Basophil# 0.02 X10^3/uL; Basophil% 0.2 % (0-1); Eosinophil# 0.08 X10^3/uL; Eosinophils% 0.8 % (0-5); Hematocrit 40.8 % (40-54); Hemoglobin 12.7 g/dl (13.0-16.5); Lymphocyte # 0.83 X10^3/ul (4.0); Lymphocyte % 8.5 % (19-41); Mean Corp Hgb Conc 31.1 g/gl (32-36); Mean Corpuscular Hgb 29.7 pg (27.0-32.0); Mean Corpuscular Volume 95.6 fL (80-94); Mean Platelet Vol. 12.7 fl (6.2-12.0); Monocyte% 14.3 % (0-10); Neutrophil # 7.45 X10^3/uL (2.7-7.7); Platelet Count 230 K/mm3 (150-450); RBC Distribution Width CV 14.1 % (11.6-14.6); RBC Distribution Width SD 47.4 fl (35.1-43.9); Red Blood Count 4.27 M/mm3 (4.6-6.2); White Blood Count 9.8 K/mm3 (4.4-11.0)
[2018-02-26 14:09] LABS: POSITIVE COUNT NO; POSITIVE DIFFERENTIAL NO; POSITIVE MORPHOLOGY NO
[2018-02-27 08:33] LABS: Vitamin D,25 Hydroxy 26.2 ng/mL (29.95-100.01)
== END ==
PROVIDERS: Family Provider Family Medicine Geriatric Medicine; PCP Family Medicine Geriatric Medicine; Visit Provider Family Medicine Geriatric Medicine
DX: I10 Essential (primary) hypertension (principal); E55.9 Vitamin D deficiency, unspecified
CPT/HCPCS: 36415; 80053; 82306; 84443; 85025

== ENCOUNTER 2018-03-10 12:38 | Day surgery (SDC) | payer MEDICARE, OTHER, SELFPAY ==
[2018-03-10] VITALS (7 sets, daily range): BP systolic 86–148; BP diastolic 45–137; PULSE 89–103; RESP 16–24; TEMP 36.3–36.6; O2SAT 94–95; BMI 30.5
[2018-03-10] MEDS: Cefazolin 2 GM in 0.9% Normal Saline 100 ML IV (14:20)
[2018-03-10] MEDS: Bupivacaine Mpf 0.5% 30 ML VIAL (14:40)
--- NOTE | 2018-03-10 15:10 | PCM.DC.POR ---
Discharge Diet: No Restrictions - Pain medication may cause nausea. You should typically eat light foods as you take your pain medication. Discharge Activity: Return to Normal Activity, May Shower - with your bandage in place in 1-2 days after surgery. DO NOT SHOWER WHEN YOUR PORT IS ACCESSED. Call your doctor if your incision/area has: Continuous Slow Oozing, Sudden Increased Bleeding, Increased Pain/ Swelling, Increased Redness Call your doctor if you observe: Fever of 101 or Higher Remove Dressing in (days):: 3 - When you remove the bandage, leave the steri-strips intact until they fall off. Additional Instructions: Resume Xarelto Allergies/Adverse Reactions: Allergies niacin Allergy (Mild, Verified 03/10/18 13:04) Rash atorvastatin calcium [From Lipitor] Adverse Reaction (Intermediate, Verified 03/10/18 13:04) Swelling Medications to take at Discharge [place]-3 Fatty Acids/Fish Oil [[place] 3 Fish Oil Softgel] 1 ea PO BID 05/13/15 isosorbide mononitrate ER 60 mg tablet,extended release 24 hr 60 mg PO DAILY #90 tab 08/18/17 lovastatin 20 mg tablet 20 mg PO QHS #90 tab 08/18/17 metoprolol tartrate 50 mg tablet 50 mg PO BID #180 tab 12/23/17 levothyroxine 50 mcg tablet 50 mcg PO DAILY #90 tab 02/16/18 Lisinopril [Zestril] 20 mg PO DAILY 03/04/18 Lidocaine/Prilocaine [Lidocaine-Prilocaine Cream] 30 gm TP DAILY PRN PRN 30 Days #1 cream..g. 03/09/18 Rivaroxaban [Xarelto] 20 mg PO DAILY 03/09/18 Hydrocodone/Acetaminophen [[place] 5-325 Tablet] 1 each PO Q6H PRN PRN 7 Days #5 tablet 03/10/18 The following prescriptions were given: Hydrocodone/Acetaminophen [[place] 5-325 Tablet] 1 each PO Q6H PRN PRN 7 Days #5 tablet PRN Reason: Pain Primary Care Physician: Daniel Samayoa Chi, MD [Primary Care Provider] - Test Results: Test results from this visit will be discussed in further detail at your follow-up appointment, if applicable. Please Follow Up With: Noah Gupta MD When: Call tomorrow for 7-10 day appt for suture removal [phone]
--- NOTE | 2018-03-10 15:20 | PCM.OPRPT ---
Problem List (1) Encounter for insertion of venous access port Status: Acute (2) Pancreas cancer Status: Acute Qualifiers: Pancreatic malignancy location: unspecified Report of Operation Date of Procedure: 03/10/18 Pre-Operative Diagnosis: 1. Pancreatic cancer. 2. Need for vascular access device Post-Operative Diagnosis: Same Surgery/Procedure Performed:: Ultrasound and fluoroscopy-guided right chest port placement utilizing right IJ Description of Procedure: After obtaining informed consent patient was brought back to the operating room MAC anesthesia was induced and the right chest and neck were prepped in normal sterile fashion. Ultrasound was used to evaluate both IJ is in the right IJ was selected. Next, using a needle, the right IJ was accessed and a guidewire was passed on into the superior vena cava under fluoroscopy guidance. A small incision was made over the puncture site and the dilator introducer was placed over the guidewire. Next this was capped and the pocket was made for the port. 1% lidocaine with epinephrine was injected in the proposed port site. An incision was made with scalpel. Electrocautery was used to make a pocket under the skin and subcutaneous tissue. Hemostasis was obtained. Next, the catheter was tunneled up to the neck incision site and placed through the introducer. The peel-away introducer was removed and the position of the catheter was confirmed on fluoroscopy. Next, the catheter was trimmed and attached to the port with the locking device. Interrupted 2-0 Vicryl sutures were used to anchor the port to the chest wall and then the port was placed inside the pocket. The pocket was then flushed with saline and the port irrigated with saline. There was good blood return and the port flushed easily. Next, heparin was injected into the port. The skin was closed with subcutaneous interrupted 3-0 Vicryl sutures and interrupted skin 3-0 nylon sutures. A single 3-0 Vicryl sutures placed under the skin at the neck incision site. Steri-Strips were placed as well as op sites. Patient tolerated procedure well, was taken to PACU in stable condition. Chest x-ray will be obtained. Grafts/Implants Used: 8 [employer]
== END 2018-03-10 16:17 | disposition hospice, home (50) ==
LOC: SDC 12:41 → AC 13:22
PROVIDERS: Family Provider Family Medicine Geriatric Medicine; PCP Family Medicine Geriatric Medicine; Visit Provider Surgery
PROC: (CPT 36561; principal; 2018-03-10 14:15)
DX: C25.9 Malignant neoplasm of pancreas, unspecified (principal); Z45.2 Encounter for adjustment and management of vascular access device; I48.91 Unspecified atrial fibrillation; I25.10 Atherosclerotic heart disease of native coronary artery without angina pectoris; I10 Essential (primary) hypertension; E78.5 Hyperlipidemia, unspecified; E03.2 Hypothyroidism due to medicaments and other exogenous substances; N40.0 Benign prostatic hyperplasia without lower urinary tract symptoms; M19.90 Unspecified osteoarthritis, unspecified site; E66.9 Obesity, unspecified; Z68.32 Body mass index [BMI] 32.0-32.9, adult; I25.2 Old myocardial infarction; Z86.711 Personal history of pulmonary embolism; Z79.01 Long term (current) use of anticoagulants; Z79.899 Other long term (current) drug therapy; Z85.118 Personal history of other malignant neoplasm of bronchus and lung; Z87.19 Personal history of other diseases of the digestive system; Z95.1 Presence of aortocoronary bypass graft; Z95.5 Presence of coronary angioplasty implant and graft; Z90.2 Acquired absence of lung [part of]
CPT/HCPCS: 36561; 76937; 71045; 77001; J7120; C1788

== ENCOUNTER 2018-03-19 15:32 | Inpatient (IN) | payer MEDICARE, OTHER, SELFPAY ==
[2018-03-19] VITALS (13 sets, daily range): BP systolic 97–121; BP diastolic 54–74; PULSE 95–162; RESP 16–30; TEMP 37.7–38.8; O2SAT 95–98; BMI 30.9
--- NOTE | 2018-03-19 16:09 | ED.VISSUMM ---
- ER Visit Summary Date of Service: 03/19/18 Chief Complaint: Fever History of Present Illness: The patient is a 77 M history of pancreatic CA with liver metastases. Also history of prior IA with cardiac stents. Patient underwent his first chemotherapy on 03/17. Developed a fever today of 102.1. Also chills. No significant cough. Physical Examination: Vital signs are stable. The patient is a fever 102.1.. Pulse ox 98% room air no signs of hypoxia. Patient does not look septic or toxic. No distress. HEENT exam unremarkable. Neck nontender. Lungs clear to auscultation bilaterally. Heart tachycardic no murmur. Abdomen soft nontender. Normal bowel sounds no peritoneal signs. Moving all 4 extremities. Neurovascularly intact. Neurologically is awake alert with no focal motor deficits. Back nontender. Skin no rashes. Test Results: While the patient was in the ER he developed a tachycardia and EKG was obtained that was A. fib RVR. CBC shows a white count of 9.6 hemoglobin 10.5 hematocrit 33. No bands electrolytes unremarkable get a BUN of 38 and creatinine 1.5 consistent with his chronic renal insufficiency. Liver enzymes are elevated today. UA is negative. Troponin is 0.053 and his chest x-ray shows small left pleural effusion prominent markings. Read both myself the radiologist. Emergency Department Course and Treatment: Gentleman under chemotherapy for pancreatic CA with metastases with a fever. Treated with IV fluids and p.o. Tylenol. Multiple repeat exams patient is doing well. Currently his heart rates between 101 20. Treatment Plan: Due to the patient's A. fib RVR he will be admitted on a Cardize drip. I have already spoken to the hospitalist will be admitted to PCU. The hospice may choose to start him on antibiotics due to his fever. Disposition: Admission Impression: Acute Fever of uncertain etiology. Hx of Pancreatic Ca with Mets just started chemotherapy A. fib RVR Chronic renal insufficiency This note was generated with [employer] dictation software. It may contain incorrect words, spelling, and punctuation that were not noted in review of the chart prior to signing ED Disposition - Plan for ED Patient: Chief Complaint: Fever Referrals: Daniel Samayoa Chi, MD [Primary Care Provider] -
[2018-03-19] MEDS: Acetaminophen 500 MG Tablet 1000 MG PO (16:19)
[2018-03-19] MEDS: 0.9% Normal Saline 1,000 ML 999 ML IV ×2 (16:19→18:00)
--- NOTE | 2018-03-19 16:21 | ED.DCSUM_ITS ---
- ER Visit Summary Date of Service: 03/19/18 Chief Complaint: Fever History of Present Illness: The patient is a 77 M history of pancreatic CA with liver metastases. Also history of prior NE with cardiac stents. Patient underwent his first chemotherapy on 03/17. Developed a fever today of 102.1. Also chills. No significant cough. Physical Examination: Vital signs are stable. The patient is a fever 102.1.. Pulse ox 98% room air no signs of hypoxia. Patient does not look septic or toxic. No distress. HEENT exam unremarkable. Neck nontender. Lungs clear to auscultation bilaterally. Heart tachycardic no murmur. Abdomen soft nontender. Normal bowel sounds no peritoneal signs. Moving all 4 extremities. Neurovascularly intact. Neurologically is awake alert with no focal motor deficits. Back nontender. Skin no rashes. Test Results: While the patient was in the ER he developed a tachycardia and EKG was obtained that was A. fib RVR. CBC shows a white count of 9.6 hemoglobin 10.5 hematocrit 33. No bands electrolytes unremarkable get a BUN of 38 and creatinine 1.5 consistent with his chronic renal insufficiency. Liver enzymes are elevated today. UA is negative. Troponin is 0.053 and his chest x- ray shows small left pleural effusion prominent markings. Read both myself the radiologist. Emergency Department Course and Treatment: Gentleman under chemotherapy for pancreatic CA with metastases with a fever. Treated with IV fluids and p.o. Tylenol. Multiple repeat exams patient is doing well. Currently his heart rates between 101 20. Treatment Plan: Due to the patient's A. fib RVR he will be admitted on a Cardize drip. I have already spoken to the hospitalist will be admitted to PCU. The hospice may choose to start him on antibiotics due to his fever. Disposition: Admission Impression: Acute Fever of uncertain etiology. Hx of Pancreatic Ca with Mets just started chemotherapy A. fib RVR Chronic renal insufficiency This note was generated with Edgeware dictation software. It may contain incorrect words, spelling, and punctuation that were not noted in review of the chart prior to signing ED Disposition - Plan for ED Patient: Chief Complaint: Fever Referrals: Daniel Samayoa Chi, MD [Primary Care Provider] -
--- NOTE | 2018-03-19 16:25 | EKG12_ITS ---
Test Reason : TACHYCARDIA Blood Pressure : / mmHG Vent. Rate : 170 BPM Atrial Rate : 163 BPM P-R Int : 000 ms QRS Dur : 072 ms QT Int : 240 ms P-R-T Axes : 000 -14 196 degrees QTc Int : 403 ms Atrial fibrillation with rapid ventricular response with premature ventricular or aberrantly conducte d complexes Inferior infarct , age undetermined ST & T wave abnormality, consider lateral ischemia Abnormal ECG Confirmed by MARKUS RANGEL ([id number]), clinical editor HERIBERTO MELTON ([id number]) on 03/24/2018 2:48:48 PM Referred By: Yg Oneil Confirmed By:MARKUS RANGEL
[2018-03-19] MEDS: dilTIAZem 25 MG/5 ML Vial IV BOLUS (16:46)
[2018-03-19 17:30] LABS: Absolute Lymphocyte Count 0.43 X10^3/ul (0.83-4.51); Eosinophil# 0.01 X10^3/uL; Eosinophils% 0.1 % (0-5); Hematocrit 33.9 % (40-54); Hemoglobin 10.5 g/dl (13.0-16.5); Lymphocyte # 0.43 X10^3/ul (4.0); Lymphocyte % 4.5 % (19-41); Mean Corpuscular Hgb 28.5 pg (27.0-32.0); Mean Corpuscular Volume 91.9 fL (80-94); Mean Platelet Vol. 12.3 fl (6.2-12.0); Monocyte# 0.19 X10^3/uL; Neutrophil # 8.97 X10^3/uL (2.7-7.7); Neutrophil % 93.3 % (47-70); Platelet Count 146 K/mm3 (150-450); RBC Distribution Width CV 14.2 % (11.6-14.6); RBC Distribution Width SD 47.7 fl (35.1-43.9); Red Blood Count 3.69 M/mm3 (4.6-6.2); White Blood Count 9.6 K/mm3 (4.4-11.0)
[2018-03-19 17:31] LABS: POSITIVE COUNT NO; POSITIVE MORPHOLOGY NO
[2018-03-19 17:42] LABS: ALB/GLOB Ratio 0.7 RATIO (0.9-2.4); AST(SGOT) 93 U/L (15-37); Alanine Aminotransfer ALT/SGPT 73 U/L (16-61); Albumin, Serum 2.4 g/dL (3.2-5.0); Alkaline Phosphatase 162 U/L (45-117); Anion Gap 10 (5-15); BUN 38 mg/dL (7-18); BUN/Creat Ratio 24.5 RATIO (10-20); Calcium,Total 7.7 mg/dL (8.5-10.1); Chloride 112 mmol/L (98-107); Creatinine, Serum 1.55 mg/dL (0.70-1.30); EST Glomerular Filtration Rate 46 mL/min (>60); Est Glom Filt Rate - Afr Amer 56 mL/min (>60); Globulin 3.5 g/dL (2.2-4.2); Glucose 105 mg/dL (74-106); Potassium 4.3 mmol/L (3.5-5.1); Protein, Total 5.9 g/dL (6.4-8.2); Sodium Level 145 mmol/L (136-145)
[2018-03-19 19:10] LABS: POSITIVE DIFFERENTIAL YES
[2018-03-19 19:11] LABS: Platelet Estimate ADEQUATE (ADEQ)
[2018-03-19 19:19] LABS: Color, Urine Yellow (Yellow); Glucose, Dipstick Normal (Normal); Ketone-Dipstick Negative (Negative); Leukocyte Esterase-Dipstick 25 /ul (Negative); Nitrite-Dipstick Negative (Negative); Occult Blood-Urine 25 /ul (Negative); Protein-Dipstick 15 mg/dl (Negative); Specific Gravity, Urine 1.015 (1.002-1.030); Urine Bilirubin Dipstick Negative (Negative); Urine Clarity Clear (Clear); Urine Urobilinogen 1 mg/dl (Normal)
[2018-03-19 19:46] LABS: Bacteria RARE /hpf (None Seen); Mucous, Urine RARE /hpf (<or=2+); Red Blood Cells-Urine 0-5 SEEN /hpf (0-5); Squamous Epithelial Cells - UA 0-5 SEEN /hpf (0-5); White Blood Cells 0-5 SEEN /hpf (0-5)
--- NOTE | 2018-03-19 20:36 | NURSING ---
Called [facility] charge nursepawan to send patient to the floor.
--- NOTE | 2018-03-19 20:58 | PCM.HP.STD ---
Problem List (1) Fever Status: Acute (2) Metastasis from pancreatic cancer Status: Chronic (3) Encounter for insertion of venous access port Status: Inactive (4) Educational circumstance Status: Chronic (5) Hypoxia Status: Resolved (6) HORN (dyspnea on exertion) Status: Inactive History of Present Illness Date of Admission: 03/20/18 Chief Complaint: Fever and chills ?1 day. The patient is a 77 year old M with a significant history of pancreatic cancer with metastatic to the liver;.CKD stage IIIA; prior DVT ; A. fib;CAD with stents and CABG on chronic Xarelto use who came in with fever and chills ?1 day. At home his measured temperature increased from 101 to 102. Patient is on chemotherapy for pancreatic cancer. Last time he received chemotherapy was 03/17/2018. Patient follows up with Dr. Pederson; oncologist for pancreatic cancer. At emergency department patient was found out to be in A. fib with rapid response with ventricular rate of 170 Past Medical History Past Medical History (Chronic Problems): Chronic Problems (Last Reviewed 03/20/18 @ 09:36 by Yg Oneil MD) Metastasis from pancreatic cancer (Chronic) Educational circumstance (Chronic) A-fib (Chronic) Atherosclerosis of coronary artery bypass graft without angina pectoris (Chronic) CAD (coronary artery disease) (Chronic) 02/16/99 x 2 MARTINEZ to LAD, SVG to diagonal HTN (hypertension) (Chronic) Hyperlipidemia (Chronic) Obesity (Chronic) CAD (coronary artery disease) (Chronic) History of lung cancer (Chronic) s/p left lower lobectomy Medical History: Medical History (Last Reviewed 03/20/18 @ 09:36 by Yg Oneil MD) A-fib (Chronic) I48.91 Atherosclerosis of coronary artery bypass graft without angina pectoris (Chronic) I25.810 CAD (coronary artery disease) (Chronic) I25.10 02/16/99 x 2 MARTINEZ to LAD, SVG to diagonal HTN (hypertension) (Chronic) I10 Hyperlipidemia (Chronic) E78.5 History of lung cancer (Chronic) Z85.118 s/p left lower lobectomy GI bleed K92.2 Hx of myocardial infarction I25.2 non Q wave Lung cancer C34.90 Abnormal pulmonary function test R94.2 Anemia D64.9 BMI 32.0-32.9,adult Z68.32 BPH (benign prostatic hyperplasia) N40.0 Chest pain, unspecified R07.9 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 Ischemic colitis K55.9 Malignant neoplasm C80.1 Nonspecific abnormal unspecified cardiovascular function study R94.30 Obesity E66.9 Osteoarthritis M19.90 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 Pulmonary nodule R91.1 Renal disease N28.9 Renal insufficiency N28.9 Restrictive lung disease J98.4 Allergies niacin Allergy (Mild, Verified 03/19/18 15:36) Rash atorvastatin calcium [From Lipitor] Adverse Reaction (Intermediate, Verified 03/19/18 15:36) Swelling Home Medications: Ambulatory Orders Medication Instructions Recorded isosorbide mononitrate ER 60 mg 60 mg PO DAILY #90 tab 08/18/17 tablet,extended release 24 hr lovastatin 20 mg tablet 20 mg PO QHS #90 tab 08/18/17 metoprolol tartrate 50 mg tablet 50 mg PO BID #180 tab 12/23/17 levothyroxine 50 mcg tablet 50 mcg PO DAILY #90 tab 02/16/18 Lisinopril [Zestril] 20 mg PO DAILY 03/04/18 Lidocaine/Prilocaine 30 gm TP DAILY PRN PRN 30 Days #1 03/09/18 [Lidocaine-Prilocaine Cream] cream..g. Rivaroxaban [Xarelto] 20 mg PO DAILY 03/09/18 Hydrocodone/Acetaminophen [[place] 1 tab PO Q6H PRN PRN 03/19/18 5-325 Tablet] Linacolotide [Linzess] 145 mcg PO PRN PRN 03/19/18 Surgical History: Surgical History (Last Reviewed 03/20/18 @ 09:36 by Yg Oneil MD) History of liver biopsy (Resolved) H54.40 Aortocoronary bypass status Z95.1 H/O angioplasty Z98.62 02/15/06 angioplasty/stent of CX, 11/20/05 drug eluting stent placement H/O coronary angioplasty Z98.61 percut transluminal cor angplsty sts Hx of CABG Z95.1 02/16/99 x 2 MARTINEZ to LAD, SVG to diagonal S/P cholecystectomy Z90.49 S/P lobectomy of lung Z90.2 left lower Lives: Spouse/ Significant Other Smoking Status: Never smoker - *Family History Maternal Family History: Family History (Last Reviewed 03/20/18 @ 09:39 by Yg Oneil MD) Brother Diabetes Heart disease Hypertension Father Cancer Review of Systems Constitutional: Reports: Chills, Fever HEENT: Denies: Head Aches, Sinus Congestion, Sinus Drainage Cardiovascular: Denies: Chest Pain, Palpitations Respiratory: Denies: Cough, Shortness of breath at rest, Sputum production Gastrointestinal: Denies: Abdominal Pain, Nausea, Vomiting Genitourinary: Denies: Dysuria Musculoskeletal: Denies: Joint Pain, Joint Tenderness Skin: Denies: Rash, Wounds Neurological: Denies: Numbness, Tingling, Focal weakness Psychiatric: Denies: Anxiety, Depression, Homicidal Ideations, Suicidal Ideations Hematologic/ Lymphatic: Denies: Easy Bruising, Easy Bleeding VTE Information - Inpt Only VTE Present on Admission: No VTE Mechan Device Prophylaxis: None VTE Pharm Prophylaxis ordered?: Yes Patient Problems: Active and Suspected Problems (Last Reviewed 03/20/18 @ 09:36 by Yg Oneil MD) Fever (Acute) - Physical Exam General: Alert, Oriented x3, Cooperative HEENT: Atraumatic, PERRLA, EOMI, Normocephalic Neck: Supple, No JVD, Negative Carotid Bruits Lungs: Clear to auscultation Cardiovascular: Irregular Rate, Tachycardic Abdomen: Bowel Sounds Present, Soft, Non Tender Extremities: No edema, Capillary Refill Less than 3 Seconds Skin: No rashes, No breakdown Musculoskeletal: No Tenderness to Palpation of Joints or Extremities Neurological: Cranial nerves II-XII grossly intact Psych/Mental Status: Normal Affect, Appropriate Vital Signs Temp Pulse Resp BP Pulse Ox 99.9 F H 128 H 25 H 111/69 95 03/19/18 17:34 03/19/18 19:11 03/19/18 19:11 03/19/18 19:11 03/19/18 18:35 Assessment/Plan All Active Problems (Last Reviewed 03/20/18 @ 09:36 by Yg Oneil MD) Fever (Acute) Liver metastases (Acute) Pancreas cancer (Acute) History of liver biopsy (Resolved) Liver lesion (Acute) Hypoxia (Resolved) The patient is a 77 year old M with a significant history of pancreatic cancer with metastatic to the liver;. CKD stage IIIA; prior DVT; A. fib; CAD with stents and CABG on chronic Xarelto use who came in with fever and chills and found to be in A. fib with RVR. Fever and chills Highest temperature at the hospital is 102.7 Because of increased risk factors of age and cancer; Zosyn started. Blood cultures pending Respiratory pathogen panel ordered Trend CBC Trend vitals Tylenol 325?2 times was given for fever A. fib with RVR The patient takes Xarelto. Family report that patient was on Plavix but oncologist wanted anticoagulation; after port placement. Xarelto continued. Started on a Cardizem bolus and drip for emergency department; Cardizem continued Patient is a known patient of Dr. Rodriguez; Dr. Rodriguez, blanket weaver consulted. Review of previous records showed that last echocardiogram was on 0 18 showed normal EF with no diastolic function. It had mild left atrial enlargement and mild mitral annular calcification. TSH unremarkable Hypothyroidism TSH unremarkable Synthroid continued Hypertension blood pressure within range of admission Lisinopril and Imdur continued Hyperlipidemia lovastatin continued Metastatic pancreatic cancer. As needed Kirby continued Oncology consult CKD stage IIIA Creatinine stable Constipation Linzess continue DVT prophylaxis On Xarelto. Code Visit Inpatient E&M: 34342 Init Hosp L3
[2018-03-19] MEDS: Metoprolol Tartrate 50 MG Tablet PO (21:55)
[2018-03-19] MEDS: Piperacil/Tazobactam 3.375 GM/50 ML ML IV (22:15)
[2018-03-19 22:24] LABS: Magnesium 2.2 mg/dL (1.6-2.6); Thyroid Stim Hormone (TSH) 1.55 uIU/mL (0.358-3.74)
[2018-03-20] VITALS (36 sets, daily range): BP systolic 97–133; BP diastolic 42–77; PULSE 74–125; RESP 14–35; TEMP 37.2–39.3; O2SAT 90–98
[2018-03-20] MEDS: 0.9% NaCl Peripheral Flush Adult/Peds IV ×3 (00:15→18:57)
[2018-03-20] MEDS: Acetaminophen 325 MG Tablet PO ×2 (00:22→05:29)
[2018-03-20] MEDS: 0.9% Normal Saline 1,000 ML 100 ML IV ×3 (01:33→23:01)
[2018-03-20 02:10] LABS: Lactic Acid 1.9 mmol/L (0.4-2.0)
[2018-03-20 04:04] LABS: Anion Gap 11 (5-15); BUN 33 mg/dL (7-18); Calcium,Total 7.5 mg/dL (8.5-10.1); Chloride 115 mmol/L (98-107); Creatinine, Serum 1.57 mg/dL (0.70-1.30); EST Glomerular Filtration Rate 46 mL/min (>60); Est Glom Filt Rate - Afr Amer 55 mL/min (>60); Estimated Creatinine Clearance 43.25 ml/min; Glucose 128 mg/dL (74-106); Potassium 4.3 mmol/L (3.5-5.1); Sodium Level 148 mmol/L (136-145)
[2018-03-20] MEDS: Levothyroxine 50 MCG Tablet PO (05:29)
[2018-03-20] MEDS: Piperacil/Tazobactam 3.375 GM/50 ML ML IV ×3 (05:30→22:59)
--- NOTE | 2018-03-20 05:53 | EKG12_ITS ---
Test Reason : RHYTHM CHANGE Blood Pressure : / mmHG Vent. Rate : 110 BPM Atrial Rate : 117 BPM P-R Int : 000 ms QRS Dur : 068 ms QT Int : 340 ms P-R-T Axes : 000 -06 226 degrees QTc Int : 460 ms Atrial fibrillation with rapid ventricular response Inferior infarct , age undetermined ST & T wave abnormality, consider anterolateral ischemia Abnormal ECG When compared with ECG of 20-MAR-2018 06:57, MANUAL COMPARISON REQUIRED, DATA IS UNCONFIRMED Confirmed by KINGS HOOVER, NIKKI ([id number]), acquisitions editor HERIBERTO MELTON ([id number]) on 03/25/2018 2:02:12 PM Referred By: Yg Oneil Confirmed By:NIKKI KU MD
[2018-03-20] MEDS: Lisinopril 20 MG Tablet PO (09:30)
[2018-03-20] MEDS: Rivaroxaban 20 MG Tablet PO (09:30)
[2018-03-20] MEDS: Metoprolol Tartrate 50 MG Tablet PO ×2 (09:30→18:29)
[2018-03-20] MEDS: Isosorbide Mononitrate 60 MG Tablet PO (09:30)
[2018-03-20] MEDS: Acetaminophen 325 MG Tablet 650 MG PO ×2 (11:17→22:56)
--- NOTE | 2018-03-20 12:15 | ONC.CONS.INP ---
Subjective Date of Service:: 03/20/18 Chief Complaint: Fever History of Present Illness: Patient is a 77-year-old male with a past medical history notable for coronary artery disease status post CABG and stent more than 10 years earlier and carcinoma of the left lower lobe of the lung status post resection at [facility] in November 2016 (left lower lobe adenocarcinoma measuring 2.2 cm in maximum diameter involve the visceral pleura and no rhea metastases) who presented in December 2017 with intermittent upper abdominal pain and an acute onset shortness of breath. CTA of the chest January 05, 2018 showed pulmonary embolus to the subsegmental vessels of the left lower lobe. (On Xarelto) Incidental finding of tiny subcentimeter nodules in the right lung and mildly enlarged nodes. PET CT obtained 01/19/18 demonstrated evidence of defined viable neoplastic disease within the context of the pancreatic body-tail, as well as right-left lobe of the hepatic parenchyma. Borderline quantitative criteria for viable neoplasm are currently defined in the right lower posteromedial lung zone, right lower lobe hypermetabolic focus. CT-guided liver biopsy (second attempt) 02/11/18 confirmed metastatic adenocarcinoma most consistent with a pancreatic or GI origin by IHC. Received cycle 1 day 1 Gemzar/Abraxane in the context of palliative therapy on 03/17/18. Patient presented to [facility] ED yesterday subsequent to call made from his spouse to our clinic noting patient c/o fever/chills and headache. Found to be in A fib with RVR and admitted for management. Upon assessment, endorsing frontal headaches daily accompanied by worsening forgetfulness x 2 weeks. In fact, patient cannot recall experiencing a fever or the events that occurred yesterday prior to going to ED. Denies blurring vision, N/V, unsteady gait and numbness/tingling of his extremities. Further denies dysuria, hematuria, urinary frequency, urgency and incontinence. Appetite good. Past Medical History: Chronic Problems (Last Reviewed 03/20/18 @ 09:36 by Yg Oneil MD) Metastasis from pancreatic cancer (Chronic) Educational circumstance (Chronic) A-fib (Chronic) Atherosclerosis of coronary artery bypass graft without angina pectoris (Chronic) CAD (coronary artery disease) (Chronic) 02/16/99 x 2 MARTINEZ to LAD, SVG to diagonal HTN (hypertension) (Chronic) Hyperlipidemia (Chronic) Obesity (Chronic) CAD (coronary artery disease) (Chronic) History of lung cancer (Chronic) s/p left lower lobectomy Past Medical/Surgical History: Past Medical History - Most Recent Inpatient Visit Past Medical History Start: 03/19/18 21:26 Text: Status: Complete Freq: ONCE Protocol: Document 03/19/18 22:58 MAGDALENA (Rec: 03/19/18 23:02 MAGDALENA [id number]) BMI Required to complete PMH What is Patient's BMI 30.9 Past Medical History Unable History Recalled Yes Query Text:Pt Unable/Family Not Present Neurologic Medical History Hx Stroke/TIA No Hx Dementia/Alzheimer's No Hx Parkinson's Disease No Hx Seizures No Hx Multiple Sclerosis No Hx Migraines No Cardiac Medical History VTE Present on Admission No Hx of Deep Vein Thrombosis/VTE/PE Yes Hx Hypertension Yes: ON MEDS, CONTROLLED Hx Chest Pain/Angina No Hx Heart Attack Yes Hx Cardiac Surgery/Stents/Etc. Yes: CABG 1998, STENTS 2005 Hx Heart Failure No Hx Pacemaker/AICD No Hx Irregular Heartbeat and/or Afib Yes: Frederick MOTA [id number] Hx Pain in Legs when Walking/Leg Cramps No Respiratory Medical History Hx COPD No: left lower lobectomy Hx Emphysema No Hx Smoking No: pt denies Smoking Status Never smoker Hx Tobacco Use in last 12 months No Hx Sleep Apnea No Do you snore loudly (louder than talking No or can be heard through closed doors)? Do you often feel tired/ fatigued/ Yes sleepy during daytime? Has anyone observed you stop breathing No during sleep? STOP Results Positive GI Medical History Hx Ulcer No Hx Hepatitis No Hx Cirrhosis No Hx GI Bleed Yes: PER HISTORY Hx Unplanned Weight Loss Yes: 10 pounds Genitourinary Medical History Indwelling Catheter in Place on Arrival/ No Admission Hx Renal Disease No Hx Dialysis No Musculoskeletal History Hx Arthritis Yes: OA Hx Rheumatoid Arthritis No Endocrine Medical History Hx Diabetes No Hx Thyroid Disease Yes: ON MED Hematologic Medical History Hx of Blood Transfusion No Hx of Transfusion in last 3 Months No Ever experience any problems with No transfusion(s)? Hx of Preganancy in last 3 Months N/A Nurse Filling Out Transfusion & ZBEAM Questions: Date: 03/19/18 Time: 22:58 Psycho/Social Medical History Hx Depression No Hx Anxiety No Hx Behavior Disorder No Hx Alcohol Use No Hx Substance Use No Other Medical History Hx Blood Disorders No Hx Anemia Yes: PER HX Hx Cancer Yes: pancreatic w/ liver mets- lung cancer w/ lobectomy Hx Drug Resistant Organism No Wound/Pressure Injury Present on Arrival No: to be assessed per primary /Admission rn Query Text:If yes, chart assessment in Shift/Clinical Findings Central Line/PICC/VAD Present on Arrival Yes /Admission Antibiotics within last 7 days? No Risk for Readmission Number of Risk Factors 6 At Risk for Readmission Patient is At Risk For Readmission Patient is eligible for Call Back Y Past Medical History (Last Reviewed 03/20/18 @ 09:36 by Yg Oneil MD) A-fib (Chronic) Atherosclerosis of coronary artery bypass graft without angina pectoris (Chronic) CAD (coronary artery disease) (Chronic) HTN (hypertension) (Chronic) Hyperlipidemia (Chronic) History of lung cancer (Chronic) GI bleed (Acute) Hx of myocardial infarction (Acute) Lung cancer (Acute) Abnormal pulmonary function test (Chronic) Anemia (Chronic) BMI 32.0-32.9,adult (Chronic) BPH (benign prostatic hyperplasia) (Chronic) Chest pain, unspecified (Chronic) Iatrogenic hypothyroidism (Chronic) Ischemic colitis (Chronic) Malignant neoplasm (Chronic) Nonspecific abnormal unspecified cardiovascular function study (Chronic) Obesity (Chronic) Osteoarthritis (Chronic) Pulmonary interstitial fibrosis (Chronic) Pulmonary nodule (Chronic) Renal disease (Chronic) Renal insufficiency (Chronic) Restrictive lung disease (Chronic) Past Surgical History (Last Reviewed 03/20/18 @ 09:36 by Yg Oneil MD) History of liver biopsy (Resolved) Aortocoronary bypass status (Resolved) H/O angioplasty (Resolved) H/O coronary angioplasty (Resolved) Hx of CABG (Resolved) S/P cholecystectomy (Resolved) S/P lobectomy of lung (Resolved) Maternal Family History: Family History (Last Reviewed 03/20/18 @ 09:39 by Yg Oneil MD) Brother Diabetes Heart disease Hypertension Father Cancer - Social History Lives: Spouse/ Significant Other Smoking Status: Never smoker Allergies/Adverse Reactions: Allergy/AdvReac Type Severity Reaction Status Date / Time niacin Allergy Mild Rash Verified 03/19/18 15:36 atorvastatin calcium AdvReac Intermediate Swelling Verified 03/19/18 15:36 [From Lipitor] Review of Systems Constitutional:: Reports: Weakness, Fatigue, Weight loss. Denies: Fever, Sweats, Appetite change, Chills Cardiovascular:: Denies: Chest pain, Palpitations, Dyspnea on exertion, Orthopnea, PND, Shortness of breath Respiratory: Denies: Cough, Hemoptysis, Shortness of Breath, Wheezing Gastrointestinal:: Denies: Abdominal pain, Nausea, Vomiting, Diarrhea, Constipation - LBM 03/19/18, Melena, Hematochezia Genitourinary: Denies: Incontinence, Dysuria, Hematuria, Urinary frequency, Flank pain Skin: Denies: Rash, Skin Changes, Wounds Neurological:: Reports: Headache. Denies: Dizziness, Numbness, Tingling, Visual changes, Tinnitus, Hearing loss Psychiatric: Denies: Anxiety, Depression, Homicidal Ideations, Suicidal Ideations Vital Signs Height 6 ft 0.83 in Weight: 233 lb 7.512 oz Weight in Pounds 233.5 lbs Pulse Ox 95 Temperature 100.8 F Pulse Rate 87 Respiratory Rate 18 Blood Pressure [BP] 122/53 Blood Pressure 114/60 Blood Pressure Position [BP] Semi-Fowlers Blood Pressure Position Semi-Fowlers - Physical Exam General: Alert, Oriented x3, No apparent distress HEENT: Atraumatic, Normocephalic Oropharynx:: Negative for: Dry mucosa, Ulcerated lesions Neck:: Supple, Trachea midline. Negative for: JVD, bilateral Cardiac:: Normal S1, Normal S2. Negative for: Regular rhythm Lungs: Clear to auscultation, Excusion symmetrical. Negative for: Rhonchi, Wheezes Abdomen:: Bowel sounds x 4, Soft, Non-tender, Non-distended. Negative for: Hepatosplenomegaly Extremities:: Negative for: Cyanosis, Edema Neurological: Neuro grossly intact Skin:: Negative for: Lesions, Rash, Petechiae, Ecchymosis Psychiatric:: Poor memory, Appropriate affect, Euthymic Lymphatics:: Negative for: Cervical lymphadenopathy, Supraclavicular lymphadenopathy, Axillary lymphadenopathy Laboratory Data: Microbiology 03/19/18 22:48 Respiratory Panel (PCR) - Final Mucosa - Nasopharyngeal Laboratory Tests 03/20/18 03/20/18 03/20/18 Range/Units 03:30 03:30 01:35 Sodium 148 H (136-145) mmol/L Potassium 4.3 (3.5-5.1) mmol/L Chloride 115 H (98-107) mmol/L Carbon Dioxide 22.0 (21.0-32.0) mmol/L Anion Gap 11 (5-15) BUN 33 H (7-18) mg/dL Creatinine 1.57 H (0.70-1.30) mg/dL Estim Creat Clear Calc 43.25 ml/min Est GFR (MDRD) Af Amer 55 L (>60) mL/min Est GFR (MDRD) Non-Af 46 L (>60) mL/min BUN/Creatinine Ratio 21.0 H (10-20) RATIO Glucose 128 H (74-106) mg/dL Lactic Acid 1.9 (0.4-2.0) mmol/L Calcium 7.5 L (8.5-10.1) mg/dL Magnesium (1.6-2.6) mg/dL Troponin I 0.049 H (<0.045) ng/mL TSH (0.358-3.74) uIU/mL 03/20/18 03/19/18 Range/Units 00:10 21:41 Sodium (136-145) mmol/L Potassium (3.5-5.1) mmol/L Chloride (98-107) mmol/L Carbon Dioxide (21.0-32.0) mmol/L Anion Gap (5-15) BUN (7-18) mg/dL Creatinine (0.70-1.30) mg/dL Estim Creat Clear Calc ml/min Est GFR (MDRD) Af Amer (>60) mL/min Est GFR (MDRD) Non-Af (>60) mL/min BUN/Creatinine Ratio (10-20) RATIO Glucose (74-106) mg/dL Lactic Acid (0.4-2.0) mmol/L Calcium (8.5-10.1) mg/dL Magnesium 2.2 (1.6-2.6) mg/dL Troponin I 0.052 H 0.052 H (<0.045) ng/mL TSH 1.55 (0.358-3.74) uIU/mL Diagnostic Data: Diagnostic Data Chest X-Ray 03/19/18 15:58 IMPRESSION: 1. Mildly prominent markings in lungs unchanged from prior study. 2. Small left pleural effusion. 3. No other interval change. Electronically Signed: Travis Wilsk DO at 17:15 EDT Tel [phone], Service support , Assessment and Plan 77-year-old gentleman who presented with abdominal pain and unprovoked pulmonary embolism in December 2017. Abdominal imaging reveals a pancreatic mass and multiple lesions involving both lobes of the liver. 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 He received one dose of palliative systemic chemotherapy, Gemzar/Abraxane on 03/17/18. Developed fever/chills and headache which prompted presentation to [facility] ED 03/19/18. 1. Stage IV pancreatic adenocarcinoma- Presently receiving systemic chemotherapy with a palliative and a modest survival benefit. Cycle 1 day 1 Gemzar/Abraxane administered on 03/17/18. Next clinic OV and tentatively scheduled for c1 d8 03/24/18. Advised chemotherapy will not be given in the presence of an active infection. 2. Fever/chills- ANC 9. Highest temperature at the hospital has been 102.7. Receiving Zosyn. Blood cultures pending. Repeat CBC with diff daily. May consider sending urine for culture given UA positive for blood, leuks and protein. Defer management to primary team. 3. PE- The patient takes Xarelto as was found to have PE 01/05/18. Systemic anticoagulation continue long-term Xarelto due to malignancy induced hypercoagulability. May continue ASA and Xarelto as long as platelet >50,000. 4. Daily headaches- Describes as mainly frontal accompanied by worsening forgetfulness x 2 weeks. No imbalance, no N/V. Will obtain MRI brain to r/o ART OBJECTS SUPERVISOR involvement. Patient and spouse were in agreement with the aforementioned plan. Cassia Kumar, NANETTE, EXTRUSION PROCESS OPERATOR-C, AOCNP Medications: Prescriptions This Visit Medication Instructions Recorded Hydrocodone/Acetaminophen [[place] 1 tab PO Q6H PRN PRN 03/19/18 5-325 Tablet] Linacolotide [Linzess] 145 mcg PO PRN PRN 03/19/18 Medications Added to Medication List This Visit Category Date Time Status Acetaminophen [Tylenol] Med 03/20/18 10:39 Active 650 mg PO Q6H PRN PRN Isosorbide Mononitrate [Imdur] Med 09/07/18 10:00 Active 60 mg PO DAILY Levothyroxine [Synthroid] Med 03/20/18 06:00 Active 50 mcg PO DAILY@0600 Lisinopril [Zestril] Med 03/20/18 10:00 Active 20 mg PO DAILY Rivaroxaban [Xarelto] Med 03/20/18 08:00 Active 20 mg PO DAILYCM Primary Care Provider: Daniel Samayoa Referring Provider: Yg Oneil MD - Problem List (1) Metastasis from pancreatic cancer Status: Chronic (2) Fever Status: Acute Qualifiers: Qualified Code(s): R50.81 - Fever presenting with conditions classified elsewhere (3) Pancreas cancer Status: Acute Qualifiers: Qualified Code(s): C25.9 - Malignant neoplasm of pancreas, unspecified
--- NOTE | 2018-03-20 12:20 | CON.PCM_ITS ---
Subjective Date of Service:: 03/20/18 Chief Complaint: Fever History of Present Illness: Patient is a 77-year-old male with a past medical history notable for coronary artery disease status post CABG and stent more than 10 years earlier and carcinoma of the left lower lobe of the lung status post resection at [facility] in November 2016 (left lower lobe adenocarcinoma measuring 2.2 cm in maximum diameter involve the visceral pleura and no rhea metastases) who presented in December 2017 with intermittent upper abdominal pain and an acute onset shortness of breath. CTA of the chest January 05, 2018 showed pulmonary embolus to the subsegmental vessels of the left lower lobe. (On Xarelto) Incidental finding of tiny subcentimeter nodules in the right lung and mildly enlarged nodes. PET CT obtained 01/19/18 demonstrated evidence of defined viable neoplastic disease within the context of the pancreatic body-tail, as well as right-left lobe of the hepatic parenchyma. Borderline quantitative criteria for viable neoplasm are currently defined in the right lower posteromedial lung zone, right lower lobe hypermetabolic focus. CT-guided liver biopsy (second attempt) 02/11/18 confirmed metastatic adenocarcinoma most consistent with a pancreatic or GI origin by IHC. Received cycle 1 day 1 Gemzar /Abraxane in the context of palliative therapy on 03/17/18. Patient presented to [facility] ED yesterday subsequent to call made from his spouse to our clinic noting patient c/o fever/chills and headache. Found to be in A fib with RVR and admitted for management. Upon assessment, endorsing frontal headaches daily accompanied by worsening forgetfulness x 2 weeks. In fact, patient cannot recall experiencing a fever or the events that occurred yesterday prior to going to ED. Denies blurring vision, N/V, unsteady gait and numbness/tingling of his extremities. Further denies dysuria, hematuria, urinary frequency, urgency and incontinence. Appetite good. Past Medical History: Chronic Problems (Last Reviewed 03/20/18 @ 09:36 by Yg Oneil MD) Metastasis from pancreatic cancer (Chronic) Educational circumstance (Chronic) A-fib (Chronic) Atherosclerosis of coronary artery bypass graft without angina pectoris (Chronic ) CAD (coronary artery disease) (Chronic) 02/16/99 x 2 MARTINEZ to LAD, SVG to diagonal HTN (hypertension) (Chronic) Hyperlipidemia (Chronic) Obesity (Chronic) CAD (coronary artery disease) (Chronic) History of lung cancer (Chronic) s/p left lower lobectomy Past Medical/Surgical History: Past Medical History - Most Recent Inpatient Visit Past Medical History Start: 03/19/18 21: 26 Text: Status: Complete Freq: ONCE Protocol: Document 03/19/18 22:58 MAGDALENA (Rec: 03/19/18 23:02 MAGDALENA [id number]) BMI Required to complete PMH What is Patient's BMI 30.9 Past Medical History Unable History Recalled Yes Query Text:Pt Unable/Family Not Present Neurologic Medical History Hx Stroke/TIA No Hx Dementia/Alzheimer's No Hx Parkinson's Disease No Hx Seizures No Hx Multiple Sclerosis No Hx Migraines No Cardiac Medical History VTE Present on Admission No Hx of Deep Vein Thrombosis/VTE/PE Yes Hx Hypertension Yes: ON MEDS, CONTROLLED Hx Chest Pain/Angina No Hx Heart Attack Yes Hx Cardiac Surgery/Stents/Etc. Yes: CABG 1998, STENTS 2005 Hx Heart Failure No Hx Pacemaker/AICD No Hx Irregular Heartbeat and/or Afib Yes: Frederick MOTA [id number] Hx Pain in Legs when Walking/Leg Cramps No Respiratory Medical History Hx COPD No: left lower lobectomy Hx Emphysema No Hx Smoking No: pt denies Smoking Status Never smoker Hx Tobacco Use in last 12 months No Hx Sleep Apnea No Do you snore loudly (louder than talking No or can be heard through closed doors)? Do you often feel tired/ fatigued/ Yes sleepy during daytime? Has anyone observed you stop breathing No during sleep? STOP Results Positive GI Medical History Hx Ulcer No Hx Hepatitis No Hx Cirrhosis No Hx GI Bleed Yes: PER HISTORY Hx Unplanned Weight Loss Yes: 10 pounds Genitourinary Medical History Indwelling Catheter in Place on Arrival/ No Admission Hx Renal Disease No Hx Dialysis No Musculoskeletal History Hx Arthritis Yes: OA Hx Rheumatoid Arthritis No Endocrine Medical History Hx Diabetes No Hx Thyroid Disease Yes: ON MED Hematologic Medical History Hx of Blood Transfusion No Hx of Transfusion in last 3 Months No Ever experience any problems with No transfusion(s)? Hx of Preganancy in last 3 Months N/A Nurse Filling Out Transfusion & ZBEAM Questions: Date: 03/19/18 Time: 22:58 Psycho/Social Medical History Hx Depression No Hx Anxiety No Hx Behavior Disorder No Hx Alcohol Use No Hx Substance Use No Other Medical History Hx Blood Disorders No Hx Anemia Yes: PER HX Hx Cancer Yes: pancreatic w/ liver mets- lung cancer w/ lobectomy Hx Drug Resistant Organism No Wound/Pressure Injury Present on Arrival No: to be assessed per primary /Admission rn Query Text:If yes, chart assessment in Shift/Clinical Findings Central Line/PICC/VAD Present on Arrival Yes /Admission Antibiotics within last 7 days? No Risk for Readmission Number of Risk Factors 6 At Risk for Readmission Patient is At Risk For Readmission Patient is eligible for Call Back Y Past Medical History (Last Reviewed 03/20/18 @ 09:36 by Yg Oneil MD) A-fib (Chronic) Atherosclerosis of coronary artery bypass graft without angina pectoris (Chronic ) CAD (coronary artery disease) (Chronic) HTN (hypertension) (Chronic) Hyperlipidemia (Chronic) History of lung cancer (Chronic) GI bleed (Acute) Hx of myocardial infarction (Acute) Lung cancer (Acute) Abnormal pulmonary function test (Chronic) Anemia (Chronic) BMI 32.0-32.9,adult (Chronic) BPH (benign prostatic hyperplasia) (Chronic) Chest pain, unspecified (Chronic) Iatrogenic hypothyroidism (Chronic) Ischemic colitis (Chronic) Malignant neoplasm (Chronic) Nonspecific abnormal unspecified cardiovascular function study (Chronic) Obesity (Chronic) Osteoarthritis (Chronic) Pulmonary interstitial fibrosis (Chronic) Pulmonary nodule (Chronic) Renal disease (Chronic) Renal insufficiency (Chronic) Restrictive lung disease (Chronic) Past Surgical History (Last Reviewed 03/20/18 @ 09:36 by Yg Oneil MD) History of liver biopsy (Resolved) Aortocoronary bypass status (Resolved) H/O angioplasty (Resolved) H/O coronary angioplasty (Resolved) Hx of CABG (Resolved) S/P cholecystectomy (Resolved) S/P lobectomy of lung (Resolved) Maternal Family History: Family History (Last Reviewed 03/20/18 @ 09:39 by Yg Oneil MD) Brother Diabetes Heart disease Hypertension Father Cancer - Social History Lives: Spouse/ Significant Other Smoking Status: Never smoker Allergies/Adverse Reactions: Allergy/AdvReac Type Severity Reaction Status Date / Time niacin Allergy Mild Rash Verified 03/19/18 15:36 atorvastatin calcium AdvReac Intermediate Swelling Verified 03/19/18 15:36 [From Lipitor] Review of Systems Constitutional:: Reports: Weakness, Fatigue, Weight loss. Denies: Fever, Sweats , Appetite change, Chills Cardiovascular:: Denies: Chest pain, Palpitations, Dyspnea on exertion, Orthopnea, PND, Shortness of breath Respiratory: Denies: Cough, Hemoptysis, Shortness of Breath, Wheezing Gastrointestinal:: Denies: Abdominal pain, Nausea, Vomiting, Diarrhea, Constipation - LBM 03/19/18, Melena, Hematochezia Genitourinary: Denies: Incontinence, Dysuria, Hematuria, Urinary frequency, Flank pain Skin: Denies: Rash, Skin Changes, Wounds Neurological:: Reports: Headache. Denies: Dizziness, Numbness, Tingling, Visual changes, Tinnitus, Hearing loss Psychiatric: Denies: Anxiety, Depression, Homicidal Ideations, Suicidal Ideations Vital Signs Height 6 ft 0.83 in Weight: 233 lb 7.512 oz Weight in Pounds 233.5 lbs Pulse Ox 95 Temperature 100.8 F Pulse Rate 87 Respiratory Rate 18 Blood Pressure [BP] 122/53 Blood Pressure 114/60 Blood Pressure Position [BP] Semi-Fowlers Blood Pressure Position Semi-Fowlers - Physical Exam General: Alert, Oriented x3, No apparent distress HEENT: Atraumatic, Normocephalic Oropharynx:: Negative for: Dry mucosa, Ulcerated lesions Neck:: Supple, Trachea midline. Negative for: JVD, bilateral Cardiac:: Normal S1, Normal S2. Negative for: Regular rhythm Lungs: Clear to auscultation, Excusion symmetrical. Negative for: Rhonchi, Wheezes Abdomen:: Bowel sounds x 4, Soft, Non-tender, Non-distended. Negative for: Hepatosplenomegaly Extremities:: Negative for: Cyanosis, Edema Neurological: Neuro grossly intact Skin:: Negative for: Lesions, Rash, Petechiae, Ecchymosis Psychiatric:: Poor memory, Appropriate affect, Euthymic Lymphatics:: Negative for: Cervical lymphadenopathy, Supraclavicular lymphadenopathy, Axillary lymphadenopathy Laboratory Data: Microbiology 03/19/18 22:48 Respiratory Panel (PCR) - Final Mucosa - Nasopharyngeal Laboratory Tests 3 03/20/18 03/20/18 03/20/18 Range/Units 03:30 03:30 01:35 Sodium 148 H (136-145) mmol/L Potassium 4.3 (3.5-5.1) mmol/L Chloride 115 H (98-107) mmol/L Carbon Dioxide 22.0 (21.0-32.0) mmol/L Anion Gap 11 (5-15) BUN 33 H (7-18) mg/dL Creatinine 1.57 H (0.70-1.30) mg/dL Estim Creat Clear Calc 43.25 ml/min Est GFR (MDRD) Af Amer 55 L (>60) mL/min Est GFR (MDRD) Non-Af 46 L (>60) mL/min BUN/Creatinine Ratio 21.0 H (10-20) RATIO Glucose 128 H (74-106) mg/dL Lactic Acid 1.9 (0.4-2.0) mmol/L Calcium 7.5 L (8.5-10.1) mg/dL Magnesium (1.6-2.6) mg/dL Troponin I 0.049 H (<0.045) ng/mL TSH (0.358-3.74) uIU/mL 3 03/20/18 03/19/18 Range/Units 00:10 21:41 Sodium (136-145) mmol/L Potassium (3.5-5.1) mmol/L Chloride (98-107) mmol/L Carbon Dioxide (21.0-32.0) mmol/L Anion Gap (5-15) BUN (7-18) mg/dL Creatinine (0.70-1.30) mg/dL Estim Creat Clear Calc ml/min Est GFR (MDRD) Af Amer (>60) mL/min Est GFR (MDRD) Non-Af (>60) mL/min BUN/Creatinine Ratio (10-20) RATIO Glucose (74-106) mg/dL Lactic Acid (0.4-2.0) mmol/L Calcium (8.5-10.1) mg/dL Magnesium 2.2 (1.6-2.6) mg/dL Troponin I 0.052 H 0.052 H (<0.045) ng/mL TSH 1.55 (0.358-3.74) uIU/mL Diagnostic Data: Diagnostic Data Chest X-Ray 03/19/18 15:58 IMPRESSION: 1. Mildly prominent markings in lungs unchanged from prior study. 2. Small left pleural effusion. 3. No other interval change. Electronically Signed: Travis Wilks DO at 17:15 EDT Tel [phone], Service support , Assessment and Plan 77-year-old gentleman who presented with abdominal pain and unprovoked pulmonary embolism in December 2017. Abdominal imaging reveals a pancreatic mass and multiple lesions involving both lobes of the liver. 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 He received one dose of palliative systemic chemotherapy, Gemzar/Abraxane on 03/17/18. Developed fever/ chills and headache which prompted presentation to [facility] ED 03/19/18. 1. Stage IV pancreatic adenocarcinoma- Presently receiving systemic chemotherapy with a palliative and a modest survival benefit. Cycle 1 day 1 Gemzar/Abraxane administered on 03/17/18. Next clinic OV and tentatively scheduled for c1 d8 03/24/18. Advised chemotherapy will not be given in the presence of an active infection. 2. Fever/chills- ANC 9. Highest temperature at the hospital has been 102.7. Receiving Zosyn. Blood cultures pending. Repeat CBC with diff daily. May consider sending urine for culture given UA positive for blood, leuks and protein. Defer management to primary team. 3. PE- The patient takes Xarelto as was found to have PE 01/05/18. Systemic anticoagulation continue long-term Xarelto due to malignancy induced hypercoagulability. May continue ASA and Xarelto as long as platelet >50,000. 4. Daily headaches- Describes as mainly frontal accompanied by worsening forgetfulness x 2 weeks. No imbalance, no N/V. Will obtain MRI brain to r/o CAVALRY SCOUT involvement. Patient and spouse were in agreement with the aforementioned plan. Cassia Kumar, NANETTE, [employer]TER[employer], AOCNP Medications: Prescriptions This Visit Medication Instructions Recorded Hydrocodone/Acetaminophen [[place] 1 tab PO Q6H PRN PRN 03/19/18 5-325 Tablet] Linacolotide [Linzess] 145 mcg PO PRN PRN 03/19/18 Medications Added to Medication List This Visit Category Date Time Status Acetaminophen [Tylenol] Med 03/20/18 10:39 Active 650 mg PO Q6H PRN PRN Isosorbide Mononitrate [Imdur] Med 03/20/18 10:00 Active 60 mg PO DAILY Levothyroxine [Synthroid] Med 03/20/18 06:00 Active 50 mcg PO DAILY@0600 Lisinopril [Zestril] Med 03/20/18 10:00 Active 20 mg PO DAILY Rivaroxaban [Xarelto] Med 03/20/18 08:00 Active 20 mg PO DAILYCM Primary Care Provider: Daniel Samayoa Referring Provider: Yg Oneil MD - Problem List (1) Metastasis from pancreatic cancer Status: Chronic (2) Fever Status: Acute Qualifiers: Qualified Code(s): R50.81 - Fever presenting with conditions classified elsewhere (3) Pancreas cancer Status: Acute Qualifiers: Qualified Code(s): C25.9 - Malignant neoplasm of pancreas, unspecified
--- NOTE | 2018-03-20 13:02 | PCM.CONS.C ---
Problem List (1) A-fib Status: Chronic Qualifiers: Atrial fibrillation type: paroxysmal Qualified Code(s): I48.0 - Paroxysmal atrial fibrillation (2) Atherosclerosis of coronary artery bypass graft without angina pectoris Status: Chronic (3) CAD (coronary artery disease) Status: Chronic Comment: 02/16/99 x 2 MARTINEZ to LAD, SVG to diagonal (4) HTN (hypertension) Status: Chronic Qualifiers: Hypertension type: essential hypertension Qualified Code(s): I10 - Essential (primary) hypertension (5) Hyperlipidemia Status: Chronic Qualifiers: Hyperlipidemia type: pure hypercholesterolemia Qualified Code(s): E78.00 - Pure hypercholesterolemia, unspecified; E78.0 - Pure hypercholesterolemia Reason for Consult Date of Consultation: 03/20/18 Reason for Consultation: Coronary disease, status post CABG, paroxysmal atrial fibrillation, status post lung cancer with pancreatic metastases. History of Present Illness: Patient is a 77-year-old male with a past medical history notable for coronary artery disease status post CABG and stent more than 10 years earlier (He has a history of coronary artery disease with bypass surgery in 1998. He had an MARTINEZ to the LAD, SVG to the diagonal.) He also has a history of hypertension, hyperlipidemia and atrial fibrillation. and carcinoma of the left lower lobe of the lung status post resection at [facility] in November 2016 (left lower lobe adenocarcinoma measuring 2.2 cm in maximum diameter involving the visceral pleura and no rhea metastases) who presented in December 2017 with intermittent upper abdominal pain and an acute onset shortness of breath. CTA of the chest January 05, 2018 showed pulmonary embolus to the subsegmental vessels of the left lower lobe. (On Xarelto) Incidental finding of tiny subcentimeter nodules in the right lung and mildly enlarged nodes. PET CT obtained 01/19/18 demonstrated evidence of defined viable neoplastic disease within the context of the pancreatic body-tail, as well as right-left lobe of the hepatic parenchyma. Borderline quantitative criteria for viable neoplasm are currently defined in the right lower posteromedial lung zone, right lower lobe hypermetabolic focus. CT-guided liver biopsy (second attempt) 02/11/18 confirmed metastatic adenocarcinoma most consistent with a pancreatic or GI origin by IHC. Received cycle 1 day 1 Gemzar/Abraxane in the context of palliative therapy on 03/17/18. In addition he has a history of chronic renal insufficiency. Patient was in normal health up until this past week when he developed fevers and chills, as well as some confusion. He sought medical attention at [facility] ER where he was found to be in atrial fibrillation with rapid ventricular response, PVCs. He was placed on a Cardizem drip, and spontaneously converted to normal sinus rhythm. He is remained in normal sinus rhythm. He denies any chest pain, angina, or missing any medications. Patient underwent his first chemotherapy on 03/17/18 with subsequent fever yesterday evening. Patient underwent a 2D echo with Doppler which showed normal LV size and function, with an RVSP of 32 mmHg, no appreciable change from previous echocardiogram. Peak troponin thus far 0.05. Past Medical History Allergies/Adverse Reactions: Allergies niacin Allergy (Mild, Verified 03/19/18 15:36) Rash atorvastatin calcium [From Lipitor] Adverse Reaction (Intermediate, Verified 03/19/18 15:36) Swelling Home Medications: Ambulatory Orders Medication Instructions Recorded isosorbide mononitrate ER 60 mg 60 mg PO DAILY #90 tab 08/18/17 tablet,extended release 24 hr lovastatin 20 mg tablet 20 mg PO QHS #90 tab 08/18/17 metoprolol tartrate 50 mg tablet 50 mg PO BID #180 tab 12/23/17 levothyroxine 50 mcg tablet 50 mcg PO DAILY #90 tab 02/16/18 Lisinopril [Zestril] 20 mg PO DAILY 03/04/18 Lidocaine/Prilocaine 30 gm TP DAILY PRN PRN 30 Days #1 03/09/18 [Lidocaine-Prilocaine Cream] cream..g. Rivaroxaban [Xarelto] 20 mg PO DAILY 03/09/18 Hydrocodone/Acetaminophen [[place] 1 tab PO Q6H PRN PRN 03/19/18 5-325 Tablet] Linacolotide [Linzess] 145 mcg PO PRN PRN 03/19/18 Past Medical History (Chronic Problems): Chronic Problems (Last Reviewed 03/20/18 @ 09:36 by Yg Oneil MD) Metastasis from pancreatic cancer (Chronic) Educational circumstance (Chronic) A-fib (Chronic) Atherosclerosis of coronary artery bypass graft without angina pectoris (Chronic) CAD (coronary artery disease) (Chronic) 02/16/99 x 2 MARTINEZ to LAD, SVG to diagonal HTN (hypertension) (Chronic) Hyperlipidemia (Chronic) Obesity (Chronic) CAD (coronary artery disease) (Chronic) History of lung cancer (Chronic) s/p left lower lobectomy - *Family History Maternal Family History: Family History (Last Reviewed 03/20/18 @ 09:39 by Yg Oneil MD) Brother Diabetes Heart disease Hypertension Father Cancer Lives: Spouse/ Significant Other Smoking Status: Never smoker Review of Systems - Review of Systems General: Reports: Fever, Fatigue, Chills. Denies: Night Sweats Cardiovascular: Denies: Chest Discomfort, Shortness of Breath, Orthopnea, PND, Peripheral Edema, Palpitations, Lightheadedness, Dizziness, Near Syncope, Syncope Respiratory: Denies: Cough, Sputum Production, Hemoptysis Gastrointestinal: Denies: Hematemesis, Hematochezia, Melena Genitourinary: Denies: Dysuria, Hematuria Skin: Denies: Rash Subjectve: Patient laying in bed, no acute distress. Objective: Vital Signs Temp Pulse Resp BP Pulse Ox 100.8 F H 87 18 114/60 95 03/20/18 11:00 03/20/18 11:00 03/20/18 11:00 03/20/18 11:00 03/20/18 11:00 Oxygen Flow Rate (L/min) 2 Oxygen Delivery Method Room Air Weight: 233 lb 7.512 oz Body Mass Index (BMI) 30.9 Intake and Output for Last 24 Hours 03/18/18 03/19/18 03/20/18 23:59 23:59 23:59 Intake Total 120 / 120 1147 / 1147 Balance 120 / 120 1147 / 1147 03/19/18 21:41: Magnesium 2.2, Troponin I 0.052 H 03/20/18 00:10: Troponin I 0.052 H 03/20/18 01:35: Lactic Acid 1.9 03/20/18 03:30: Sodium 148 H, Potassium 4.3, Chloride 115 H, Carbon Dioxide 22.0, Anion Gap 11, BUN 33 H, Creatinine 1.57 H, Est GFR (MDRD) Af Amer 55 L, Est GFR (MDRD) Non-Af 46 L, BUN/Creatinine Ratio 21.0 H, Glucose 128 H, Calcium 7.5 L 03/20/18 03:30: Troponin I 0.049 H Rhythm: EKG: Normal sinus rhythm, no acute changes. ECHO: As above Stress Test: Cardiac Cath: PCI: CT Surgery: Holter monitor: EPS: PPM: CXR: Chest CT Scan: Assessment/Plan 1. Paroxysmal atrial fibrillation: Patient is converted to normal sinus rhythm with Cardizem therapy. This most likely was in response to his recent chemotherapy. His LV function is normal by echocardiogram and has no evidence of pericardial effusion. He is currently on Xarelto for previously diagnosed pulmonary emboli in January 2018. Would recommend continuing Lopressor 50 mg p.o. twice daily, lisinopril, Imdur, and discontinuation of Cardizem drip now that he is converted back to normal sinus rhythm. Recommend continuing lifelong Xarelto for his hypercoagulable state in light of his long and pancreatic cancers. No indication for stress testing or diagnostic catheterization at this time. TSH is normal. 2. Coronary artery disease: No anginal symptoms at this time. Continue baby aspirin, beta blockers, lisinopril and Imdur. 3. Thank you very much for the opportunity to participate in the cardiac care of your patient. We will sign off. Please contact if any questions. Consultation time took place between 845 and 9:15 AM. Code Visit Inpatient E&M: [id number] Init Hosp L2
--- NOTE | 2018-03-20 13:33 | CASEMGMT ---
RN CM assessment completed. See Link. -Intro role of CM to patient in room. He states he wears home O2 prn only, has walker but is independent in ADL's. Drives, and denies any dc needs at this time. -PT/OT evaluations pending. Deng LOGANN RN ACM
--- NOTE | 2018-03-20 13:37 | PCM.PROGNOTE ---
<Jose Thomas - Last Filed: 03/20/18 13:37> Patient Problems: Active and Suspected Problems (Last Reviewed 03/20/18 @ 09:36 by Yg Oneil MD) Fever (Acute) Subjective: Pt resting comfortably in bed no complaints. No subjective fevers or chills. No CP, palp, pressure, tightness. No cough/sob. No abdominal pain. No n/v/d. No dysuria. WEEKS and forgetfullness per . Recent all over rash post chemo has resolved per pt. - Physical Exam General: Alert, Oriented x3, Cooperative HEENT: Atraumatic, PERRLA, EOMI, Normocephalic Neck: Supple, No JVD, Negative Carotid Bruits Lungs: Clear to auscultation, Normal air movement Cardiovascular: Regular rate, No murmurs Abdomen: Bowel Sounds Present, Soft, Non Tender Extremities: No edema, Capillary Refill Less than 3 Seconds Skin: No rashes, No breakdown Musculoskeletal: No Tenderness to Palpation of Joints or Extremities Neurological: Cranial nerves II-XII grossly intact Psych/Mental Status: Normal Affect, Appropriate, Alert and oriented to time, place, person, mood and affect Vital Signs Temp Pulse Resp BP Pulse Ox 100.8 F H 87 18 114/60 95 03/20/18 11:00 03/20/18 11:00 03/20/18 11:00 03/20/18 11:00 03/20/18 11:00 Oxygen Flow Rate (L/min) 2 Oxygen Delivery Method Room Air Weight: 233 lb 7.512 oz Body Mass Index (BMI) 30.9 Intake and Output for Last 24 Hours 03/18/18 03/19/18 03/20/18 23:59 23:59 23:59 Intake Total 120 / 120 1147 / 1147 Balance 120 / 120 1147 / 1147 Microbiology Past 72 Hours 03/19/18 22:48 Respiratory Panel (PCR) - Final Mucosa - Nasopharyngeal Laboratory Tests Past 24 Hrs 03/19/18 03/20/18 03/20/18 21:41 00:10 01:35 Sodium Potassium Chloride Carbon Dioxide Anion Gap BUN Creatinine Estim Creat Clear Calc Est GFR (MDRD) Af Amer Est GFR (MDRD) Non-Af BUN/Creatinine Ratio Glucose Lactic Acid 1.9 Calcium Magnesium 2.2 Troponin I 0.052 H 0.052 H TSH 1.55 03/20/18 03/20/18 03:30 03:30 Sodium 148 H Potassium 4.3 Chloride 115 H Carbon Dioxide 22.0 Anion Gap 11 BUN 33 H Creatinine 1.57 H Estim Creat Clear Calc 43.25 Est GFR (MDRD) Af Amer 55 L Est GFR (MDRD) Non-Af 46 L BUN/Creatinine Ratio 21.0 H Glucose 128 H Lactic Acid Calcium 7.5 L Magnesium Troponin I 0.049 H TSH Medical Necessity - Tobacco Use Smoking Status: Never smoker Assessment/Plan All Active Problems (Last Reviewed 03/20/18 @ 09:36 by Yg Oneil MD) Fever (Acute) Liver metastases (Acute) Pancreas cancer (Acute) History of liver biopsy (Resolved) Liver lesion (Acute) Hypoxia (Resolved) 1. Fever of unknown etiology -zosyn. Fevers continue. Asymptomatic: CXR neg, ua nonspecific, blood cx pending, no wounds. Recent rash resolved. Cassia does not feel this is chemo induced. 2. Afib with RVR - off cardizem. NSR. Rate controlled 3. Indeterminate troponin - cardiology following. Echo EF65, RVSP 32, st1 diastolic, normal LV size/thickness, no wall abnormalities. 4. Pancreatic CA with known mets to liver, lung - care per Dr. Pederson. 1st round of chemo for pancreatic ca 3 days ago. 5. Confusion, Headache - MRI per onc. 6. CAD - asa, bb, leda, imdur 7. PE - xarelto. DVT ppx: xarelto DC planning: follow cx. PTOT. This patient was seen by Jose Thomas PA-C under the supervision of Doctor Kade. <Charlie Braun - Last Filed: 03/20/18 14:59> - Physical Exam General: Alert, Cooperative HEENT: Atraumatic, Normocephalic Oral: Moist Mucosa, No Gingival or Mucosal Lesions/ Ulcerations Neck: No JVD, Negative Hepatojugular Reflux Lungs: Clear to auscultation, Normal air movement, No rhonchi, No wheeze Cardiovascular: Regular rate, Regular Rhythm, Normal S1, Normal S2, No murmurs Abdomen: Bowel Sounds Present, Soft, Non Tender, Non-Distended Extremities: No edema, No Calf Tenderness Skin: No rashes, No breakdown Neurological: Cranial nerves II-XII grossly intact Psych/Mental Status: Normal Affect, Appropriate Vital Signs Temp Pulse Resp BP Pulse Ox 38.2 C H 87 18 114/60 95 03/20/18 11:00 03/20/18 11:00 03/20/18 11:00 03/20/18 11:00 03/20/18 11:00 Oxygen Flow Rate (L/min) 2 Oxygen Delivery Method Room Air Weight: 105.9 kg Body Mass Index (BMI) 30.9 Intake and Output for Last 24 Hours 03/18/18 03/19/18 03/20/18 23:59 23:59 23:59 Intake Total 120 / 120 1147 / 1147 Balance 120 / 120 1147 / 1147 Microbiology Past 72 Hours 03/19/18 22:48 Respiratory Panel (PCR) - Final Mucosa - Nasopharyngeal Laboratory Tests Past 24 Hrs 03/19/18 03/20/18 03/20/18 21:41 00:10 01:35 Sodium Potassium Chloride Carbon Dioxide Anion Gap BUN Creatinine Estim Creat Clear Calc Est GFR (MDRD) Af Amer Est GFR (MDRD) Non-Af BUN/Creatinine Ratio Glucose Lactic Acid 1.9 Calcium Magnesium 2.2 Troponin I 0.052 H 0.052 H TSH 1.55 03/20/18 03/20/18 03:30 03:30 Sodium 148 H Potassium 4.3 Chloride 115 H Carbon Dioxide 22.0 Anion Gap 11 BUN 33 H Creatinine 1.57 H Estim Creat Clear Calc 43.25 Est GFR (MDRD) Af Amer 55 L Est GFR (MDRD) Non-Af 46 L BUN/Creatinine Ratio 21.0 H Glucose 128 H Lactic Acid Calcium 7.5 L Magnesium Troponin I 0.049 H TSH Assessment/Plan Patient seen and examined independently. Data reviewed. I agree with the above note by the physician syrup mixer assistant. 1. FUO: work up so far negative continue Zosyn Infectious work up being pursued, but could be malignancy/VTE induced. 2. Afib w RVR Now NSR on Coreg and Dig anticoagulated with Dig 3. NTEMI likely a type 2 event d/t afib w RVR and FUO Code Visit Inpatient E&M: 51490 Subs Hosp L3
--- NOTE | 2018-03-20 14:26 | CASEMGMT ---
SW was told by extension service specialist in charge that patient's was asking for healthcare power of claims attorney and living will papers. SW spoke with patient and his . Introduced self and role at [facility]. SW explained documents. Patient's wanted to complete them. SW explained patient should not sign until there are 2 non family witnesses in the room. They verbalized understanding. They will ask for SW when they are ready. Rona WOO MSW
--- NOTE | 2018-03-20 17:24 | EKG12_ITS ---
Test Reason : CONVERTED Blood Pressure : / mmHG Vent. Rate : 092 BPM Atrial Rate : 092 BPM P-R Int : 142 ms QRS Dur : 072 ms QT Int : 376 ms P-R-T Axes : 034 000 -68 degrees QTc Int : 464 ms Sinus rhythm with occasional Premature ventricular complexes Cannot rule out Inferior infarct (cited on or before 21-MAY-2009) ST & T wave abnormality, consider anterolateral ischemia Abnormal ECG Confirmed by KINGS [place], NIKKI ([id number]), editorial cartoonist HERIBERTO MELTON ([id number]) on 03/25/2018 2:03:14 PM Referred By: Yg Oneil Confirmed By:NIKKI KU MD
[2018-03-20] MEDS: HYDROcodone Bitartrate/Apap 5/325 Tablet PO (18:29)
[2018-03-20] MEDS: dilTIAZem 25 MG/5 ML Vial 10 MG IV BOLUS (18:57)
[2018-03-21] VITALS (31 sets, daily range): BP systolic 94–128; BP diastolic 39–77; PULSE 94–157; RESP 18–30; TEMP 37.2–38.3; O2SAT 93–98
[2018-03-21] MEDS: Linacolotide 145 MCG CAPSULE PO (00:03)
[2018-03-21] MEDS: 0.9% NaCl Peripheral Flush Adult/Peds IV ×2 (04:58→19:36)
[2018-03-21] MEDS: Levothyroxine 50 MCG Tablet PO (05:18)
[2018-03-21 05:20] LABS: Absolute Lymphocyte Count 0.25 X10^3/ul (0.83-4.51); Absolute Neutrophil Count 6.1 X10^3/uL (2.0-7.7); Basophil# 0.01 X10^3/uL; Basophil% 0.2 % (0-1); Differential Indicated SCAN CRITERIA MET; Eosinophil# 0.08 X10^3/uL; Eosinophils% 1.2 % (0-5); Hematocrit 28.4 % (40-54); Lymphocyte # 0.25 X10^3/ul (4.0); Lymphocyte % 3.9 % (19-41); Mean Corp Hgb Conc 31.7 g/gl (32-36); Mean Corpuscular Hgb 29.5 pg (27.0-32.0); Mean Corpuscular Volume 93.1 fL (80-94); Mean Platelet Vol. 13.2 fl (6.2-12.0); Monocyte# 0.04 X10^3/uL; Monocyte% 0.6 % (0-10); Neutrophil # 6.08 X10^3/uL (2.7-7.7); Neutrophil % 93.9 % (47-70); POSITIVE COUNT NO; POSITIVE DIFFERENTIAL YES; POSITIVE MORPHOLOGY NO; Platelet Count 105 K/mm3 (150-450); RBC Distribution Width CV 14.2 % (11.6-14.6); Red Blood Count 3.05 M/mm3 (4.6-6.2); White Blood Count 6.5 K/mm3 (4.4-11.0)
[2018-03-21] MEDS: Piperacil/Tazobactam 3.375 GM/50 ML ML IV ×3 (05:20→22:08)
[2018-03-21 05:25] LABS: Anion Gap 9 (5-15); BUN 28 mg/dL (7-18); BUN/Creat Ratio 20.4 RATIO (10-20); Calcium,Total 7.6 mg/dL (8.5-10.1); Chloride 113 mmol/L (98-107); Creatinine, Serum 1.37 mg/dL (0.70-1.30); EST Glomerular Filtration Rate 54 mL/min (>60); Est Glom Filt Rate - Afr Amer 65 mL/min (>60); Estimated Creatinine Clearance 49.56 ml/min; Glucose 123 mg/dL (74-106); Potassium 4.4 mmol/L (3.5-5.1); Sodium Level 145 mmol/L (136-145)
[2018-03-21 05:34] LABS: Differential Comment SCANNED
[2018-03-21] MEDS: Isosorbide Mononitrate 60 MG Tablet PO (07:41)
[2018-03-21] MEDS: Metoprolol Tartrate 50 MG Tablet PO (07:41)
[2018-03-21] MEDS: Lisinopril 20 MG Tablet PO (07:41)
[2018-03-21] MEDS: Rivaroxaban 20 MG Tablet PO (07:41)
[2018-03-21] MEDS: 0.9% Normal Saline 1,000 ML 100 ML IV ×2 (07:42→19:35)
--- NOTE | 2018-03-21 09:21 | PCM.PN.CARD ---
Subjectve: Patient was doing well up until yesterday evening when he developed recurrent atrial fibrillation with rapid ventricular response. The patient was given IV Cardizem and his Lopressor early however his rhythm remained atrial fibrillation. His heart rate did improve but now is back up into the 1 teens. He denies any chest pain and is asymptomatic. Echocardiogram results yesterday showed normal LV size and function with an EF of 65%, RVSP of 32 mmHg. He is on chronic Xarelto therapy for history of pulmonary embolism and paroxysmal atrial fibrillation. Objective: Vital Signs Temp Pulse Resp BP Pulse Ox 99.4 F H 126 H 18 124/73 H 94 03/21/18 03:30 03/21/18 07:41 03/21/18 03:30 03/21/18 03:30 03/21/18 03:30 Oxygen Flow Rate (L/min) 2 Oxygen Delivery Method Room Air Weight: 233 lb 7.512 oz Body Mass Index (BMI) 30.9 Intake and Output for Last 24 Hours 03/19/18 03/20/18 03/21/18 23:59 23:59 23:59 Intake Total 120 / 120 2350 / 2350 1084 / 1084 Balance 120 / 120 2350 / 2350 1084 / 1084 General: Awake, Alert, Oriented x 3 HEENT: PERRL, EOMI, Sclera Non Icteric Neck: Supple, Good ROM, No Lymph Node Enlargement Lungs: Clear to auscultation Cardiovascular: Irregular Rhythm, Normal S1, Normal S2, No Murmurs, No Rubs, No Gallops Vascular: No Carotid Bruits, Normal Femoral Pulses, Normal Radial Pulses, Normal Dorsalis Pedal Pulse, Normal Posterior Tibial Pulses Abdomen: Bowel Sounds Present, Soft, Non Tender, No HSM, No Organomegaly Extremities: No Cyanosis, No Clubbing, No edema Neurological: No Focal Motor or Sensory Deficit 03/21/18 04:55: WBC 6.5, RBC 3.05 L, Hgb 9.0 L, Hct 28.4 L, MCV 93.1, MCH 29.5, MCHC 31.7 L, RDW 14.2, RDW Differential 47.0 H, Plt Count 105 L, MPV 13.2 H, Immature Gran % (Auto) 0.200, Neut % (Auto) 93.9 H, Lymph % (Auto) 3.9 L, [place] % (Auto) 0.6, Eos % (Auto) 1.2, Baso % (Auto) 0.2, Absolute Neuts (auto) 6.1, Total Counted Not Reportable 03/21/18 04:55: Sodium 145, Potassium 4.4, Chloride 113 H, Carbon Dioxide 23.0, Anion Gap 9, BUN 28 H, Creatinine 1.37 H, Est GFR (MDRD) Af Amer 65, Est GFR (MDRD) Non-Af 54 L, BUN/Creatinine Ratio 20.4 H, Glucose 123 H, Calcium 7.6 L Rhythm: EKG: ECHO: Stress Test: Cardiac Cath: PCI: CT Surgery: Holter monitor: EPS: PPM: CXR: Chest CT Scan: Medical Necessity - Tobacco Use Smoking Status: Never smoker Assessment/Plan 1. Paroxysmal atrial fibrillation: Patient is converted to normal sinus rhythm with Cardizem therapy initially, then reverted back to atrial fibrillation with RVR.. This most likely was in response to his recent chemotherapy. His LV function is normal by echocardiogram and has no evidence of pericardial effusion. He is currently on Xarelto for previously diagnosed pulmonary emboli in January 2018. Would recommend increasing Lopressor to 100 mg p.o. twice daily, and tingling his lisinopril, Imdur. Hopefully with time, and inflammation resolution he will revert back to normal sinus rhythm. If the patient becomes hypotensive with a higher dose of Lopressor, would recommend switching him back to Lopressor 50 mg p.o. twice daily and trying combination beta-lula and Cardizem CD 120 mg p.o. daily. I recommend continuing lifelong Xarelto for his hypercoagulable state in light of his long and pancreatic cancers. No indication for stress testing or diagnostic catheterization at this time. TSH is normal. 2. Coronary artery disease: No anginal symptoms at this time. Continue baby aspirin, beta blockers, lisinopril and Imdur. 3. Thank you very much for the opportunity to participate in the cardiac care of your patient. Will check in on patient tomorrow to see if he is converted back to normal sinus rhythm with elevated dose of beta-lula. Code Visit Inpatient E&M: 76650 Subs Hosp L2
--- NOTE | 2018-03-21 11:38 | CASEMGMT ---
SW completed advance directives with patient and his . Copies were made and a set of each placed in chart and other copies along with original given to patient and his . Rona WOO MSW
[2018-03-21] MEDS: Metoprolol Tartrate 100 MG Tablet PO ×2 (13:12→22:11)
--- NOTE | 2018-03-21 13:12 | PCM.PROGNOTE ---
<Jose Thomas - Last Filed: 03/21/18 13:12> Patient Problems: Active and Suspected Problems (Last Reviewed 03/20/18 @ 09:36 by Yg Oneil MD) Fever (Acute) Subjective: Pt resting comfortably in bed NAD. Did complain of diarrhea x1 this AM, none since. - no pain, distention, N/V. No fevers or chills. No dizziness, LH. No CP, pressure tightness, flutters. No swelling BLE. - Physical Exam General: Alert, Oriented x3, Cooperative HEENT: Atraumatic, PERRLA, EOMI, Normocephalic Neck: Supple, No JVD, Negative Carotid Bruits Lungs: Clear to auscultation, Normal air movement Cardiovascular: Irregular Rate Abdomen: Bowel Sounds Present, Soft, Non Tender Extremities: No edema, Capillary Refill Less than 3 Seconds Skin: No rashes, No breakdown Musculoskeletal: No Tenderness to Palpation of Joints or Extremities Neurological: Cranial nerves II-XII grossly intact Psych/Mental Status: Normal Affect, Appropriate, Alert and oriented to time, place, person, mood and affect Vital Signs Temp Pulse Resp BP Pulse Ox 99 F 118 H 18 123/55 H 95 03/21/18 09:20 03/21/18 10:54 03/21/18 09:20 03/21/18 09:20 03/21/18 09:20 Oxygen Flow Rate (L/min) 2 Oxygen Delivery Method Room Air Weight: 233 lb 7.512 oz Body Mass Index (BMI) 30.9 Intake and Output for Last 24 Hours 03/19/18 03/20/18 03/21/18 23:59 23:59 23:59 Intake Total 120 / 120 2350 / 2350 2048 Balance 120 / 120 2350 / 2350 2048 Microbiology Past 72 Hours 03/19/18 22:48 Respiratory Panel (PCR) - Final Mucosa - Nasopharyngeal Laboratory Tests Past 24 Hrs 03/21/18 03/21/18 04:55 04:55 WBC 6.5 RBC 3.05 L Hgb 9.0 L Hct 28.4 L MCV 93.1 MCH 29.5 MCHC 31.7 L RDW 14.2 RDW Differential 47.0 H Plt Count 105 L MPV 13.2 H Immature Gran % (Auto) 0.200 Neut % (Auto) 93.9 H Lymph % (Auto) 3.9 L [place] % (Auto) 0.6 Eos % (Auto) 1.2 Baso % (Auto) 0.2 Absolute Neuts (auto) 6.1 Absolute Lymphs (auto) 0.25 L Total Counted Not Reportable Differential Comment SCANNED Sodium 145 Potassium 4.4 Chloride 113 H Carbon Dioxide 23.0 Anion Gap 9 BUN 28 H Creatinine 1.37 H Estim Creat Clear Calc 49.56 Est GFR (MDRD) Af Amer 65 Est GFR (MDRD) Non-Af 54 L BUN/Creatinine Ratio 20.4 H Glucose 123 H Calcium 7.6 L Medical Necessity - Tobacco Use Smoking Status: Never smoker Assessment/Plan All Active Problems (Last Reviewed 03/20/18 @ 09:36 by Yg Oneil MD) Fever (Acute) Liver metastases (Acute) Pancreas cancer (Acute) History of liver biopsy (Resolved) Liver lesion (Acute) Hypoxia (Resolved) 1. Fever of unknown etiology -zosyn. last fever 101.3 last evening 2048. Asymptomatic: CXR neg, ua nonspecific, blood cx pending, no wounds. Recent rash resolved. 2. Afib with RVR - rate increased again, cardiology increased lopressor. on xarelto. 3. Indeterminate troponin/NSTEMI type 2 - cardiology following. No plans for further workup. Echo EF65, RVSP 32, st1 diastolic, normal LV size/thickness, no wall abnormalities. 4. Pancreatic CA with known mets to liver, lung - care per Dr. Pederson. 1st round of chemo for pancreatic ca 4 days ago. 5. 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 - He is on xarelto. We do not have a prior for comparison. 6. CAD - asa, bb, leda, imdur 7. PE - xarelto. 8. CKD III - stable. DVT ppx: xarelto DC planning: follow cx. PTOT. This patient was seen by Jose Thomas PA-C under the supervision of Doctor Kade. <Charlie Braun - Last Filed: 03/21/18 13:37> - Physical Exam General: Alert, Cooperative HEENT: Atraumatic, PERRLA, Normocephalic Neck: No Nuchal Rigidity, Thyroid Normal Size and Texture Lungs: - - bibasilar crackles Cardiovascular: Irregular Rate Abdomen: Bowel Sounds Present, Soft, Non Tender Skin: No rashes, No breakdown Musculoskeletal: No Tenderness to Palpation of Joints or Extremities Psych/Mental Status: Appropriate, Flat Affect Vital Signs Temp Pulse Resp BP Pulse Ox 37.2 C 103 H 18 123/55 H 95 03/21/18 09:20 03/21/18 13:12 03/21/18 09:20 03/21/18 09:20 03/21/18 09:20 Oxygen Flow Rate (L/min) 2 Oxygen Delivery Method Room Air Weight: 105.9 kg Body Mass Index (BMI) 30.9 Intake and Output for Last 24 Hours 03/19/18 03/20/18 03/21/18 23:59 23:59 23:59 Intake Total 120 / 120 2350 / 2350 2048 / 2048 Balance 120 / 120 2350 / 2350 2048 Microbiology Past 72 Hours 03/19/18 22:48 Respiratory Panel (PCR) - Final Mucosa - Nasopharyngeal Laboratory Tests Past 24 Hrs 03/21/18 03/21/18 04:55 04:55 WBC 6.5 RBC 3.05 L Hgb 9.0 L Hct 28.4 L MCV 93.1 MCH 29.5 MCHC 31.7 L RDW 14.2 RDW Differential 47.0 H Plt Count 105 L MPV 13.2 H Immature Gran % (Auto) 0.200 Neut % (Auto) 93.9 H Lymph % (Auto) 3.9 L [place] % (Auto) 0.6 Eos % (Auto) 1.2 Baso % (Auto) 0.2 Absolute Neuts (auto) 6.1 Absolute Lymphs (auto) 0.25 L Total Counted Not Reportable Differential Comment SCANNED Sodium 145 Potassium 4.4 Chloride 113 H Carbon Dioxide 23.0 Anion Gap 9 BUN 28 H Creatinine 1.37 H Estim Creat Clear Calc 49.56 Est GFR (MDRD) Af Amer 65 Est GFR (MDRD) Non-Af 54 L BUN/Creatinine Ratio 20.4 H Glucose 123 H Calcium 7.6 L Assessment/Plan Patient seen and examined independently. Data reviewed. I agree with the above note by the physician assistant infant toddler teacher. 1. FUO: Fever improved work up so far negative continue Zosyn Infectious work up being pursued, but could be malignancy/VTE induced. 2. Afib w RVR on Metoprolol 100 BID anticoagulated with Xarelto 3. NTEMI likely a type 2 event d/t afib w RVR and FUO 4. 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 Pancreatic cancer stage IV Had first cycle of chemo on 03/17. Remaining chemo on hold pending infectious work up. Palliative chemo Poor prognosis. Would prefer to defer life expectancy discussion to his oncology team. He does not seem to grasp that this a terminal diagnosis. 6. VTE on Xarelto DW family at bedside. Reviewed MRI findings with them. Code Visit Inpatient E&M: 97402 Subs Hosp L3
[2018-03-21] MEDS: HYDROcodone Bitartrate/Apap 5/325 Tablet PO (15:52)
[2018-03-21] MEDS: dilTIAZem 25 MG/5 ML Vial 5 MG IV BOLUS (19:35)
[2018-03-21] MEDS: Acetaminophen 325 MG Tablet 650 MG PO (20:18)
[2018-03-22] VITALS (34 sets, daily range): BP systolic 92–138; BP diastolic 50–73; PULSE 72–104; RESP 16–25; TEMP 36.6–37.3; O2SAT 94–979
[2018-03-22] MEDS: 0.9% NaCl Peripheral Flush Adult/Peds IV (05:51)
[2018-03-22] MEDS: Piperacil/Tazobactam 3.375 GM/50 ML ML IV ×3 (06:03→20:40)
[2018-03-22] MEDS: Levothyroxine 50 MCG Tablet PO (06:03)
[2018-03-22 06:11] LABS: Absolute Lymphocyte Count 0.31 X10^3/ul (0.83-4.51); Absolute Neutrophil Count 2.7 X10^3/uL (2.0-7.7); Eosinophil# 0.05 X10^3/uL; Eosinophils% 1.6 % (0-5); Hematocrit 28.7 % (40-54); Lymphocyte # 0.31 X10^3/ul (4.0); Lymphocyte % 9.8 % (19-41); Mean Corp Hgb Conc 31.4 g/gl (32-36); Mean Corpuscular Volume 92.6 fL (80-94); Mean Platelet Vol. 12.3 fl (6.2-12.0); Monocyte# 0.06 X10^3/uL; Monocyte% 1.9 % (0-10); Neutrophil # 2.68 X10^3/uL (2.7-7.7); Neutrophil % 85.1 % (47-70); Platelet Count 107 K/mm3 (150-450); RBC Distribution Width CV 14.4 % (11.6-14.6); RBC Distribution Width SD 47.2 fl (35.1-43.9); White Blood Count 3.2 K/mm3 (4.4-11.0)
[2018-03-22 06:21] LABS: Differential Indicated SCAN CRITERIA MET; POSITIVE COUNT NO; POSITIVE DIFFERENTIAL YES; POSITIVE MORPHOLOGY NO
[2018-03-22 06:44] LABS: Anion Gap 9 (5-15); BUN 27 mg/dL (7-18); BUN/Creat Ratio 19.7 RATIO (10-20); Calcium,Total 7.6 mg/dL (8.5-10.1); Chloride 113 mmol/L (98-107); Creatinine, Serum 1.37 mg/dL (0.70-1.30); EST Glomerular Filtration Rate 54 mL/min (>60); Est Glom Filt Rate - Afr Amer 65 mL/min (>60); Estimated Creatinine Clearance 49.56 ml/min; Glucose 122 mg/dL (74-106); Potassium 4.1 mmol/L (3.5-5.1); Sodium Level 144 mmol/L (136-145)
[2018-03-22] MEDS: Metoprolol Tartrate 100 MG Tablet PO ×2 (08:37→20:40)
[2018-03-22] MEDS: Lisinopril 20 MG Tablet PO (08:37)
[2018-03-22] MEDS: Isosorbide Mononitrate 60 MG Tablet PO (08:38)
[2018-03-22] MEDS: Rivaroxaban 20 MG Tablet PO (08:38)
[2018-03-22] MEDS: Acetaminophen 325 MG Tablet 650 MG PO ×3 (08:43→23:26)
--- NOTE | 2018-03-22 10:42 | PCM.PN.CARD ---
Subjectve: Patient sitting in a chair today, no acute distress. Telemetry still atrial fibrillation with controlled ventricular response. Objective: Vital Signs Temp Pulse Resp BP Pulse Ox 99.1 F 72 16 92/52 L 96 03/22/18 09:00 03/22/18 10:00 03/22/18 10:00 03/22/18 10:00 03/22/18 10:00 Oxygen Flow Rate (L/min) 2 Oxygen Delivery Method Room Air Weight: 233 lb 7.512 oz Body Mass Index (BMI) 30.9 Intake and Output for Last 24 Hours 03/20/18 03/21/18 03/22/18 23:59 23:59 23:59 Intake Total 2350 / 2350 3333.1 / 3333.1 390.3 / 390.3 Balance 2350 / 2350 3333.1 / 3333.1 390.3 / 390.3 General: Awake, Alert, Oriented x 3 HEENT: PERRL, EOMI, Sclera Non Icteric Neck: Supple, Good ROM, No Lymph Node Enlargement Lungs: Clear to auscultation Cardiovascular: Irregular Rhythm, Normal S1, Normal S2, No Murmurs, No Rubs, No Gallops Vascular: No Carotid Bruits, Normal Femoral Pulses, Normal Radial Pulses, Normal Dorsalis Pedal Pulse, Normal Posterior Tibial Pulses Abdomen: Bowel Sounds Present, Soft, Non Tender, No HSM, No Organomegaly Extremities: No Cyanosis, No Clubbing, No edema Neurological: No Focal Motor or Sensory Deficit 03/22/18 05:50: WBC 3.2 L, RBC 3.10 L, Hgb 9.0 L, Hct 28.7 L, MCV 92.6, MCH 29.0, MCHC 31.4 L, RDW 14.4, RDW Differential 47.2 H, Plt Count 107 L, MPV 12.3 H, Immature Gran % (Auto) 1.600 H, Neut % (Auto) 85.1 H, Lymph % (Auto) 9.8 L, [place] % (Auto) 1.9, Eos % (Auto) 1.6, Baso % (Auto) 0.0, Absolute Neuts (auto) 2.7, Total Counted Not Reportable 03/22/18 05:50: Sodium 144, Potassium 4.1, Chloride 113 H, Carbon Dioxide 22.0, Anion Gap 9, BUN 27 H, Creatinine 1.37 H, Est GFR (MDRD) Af Amer 65, Est GFR (MDRD) Non-Af 54 L, BUN/Creatinine Ratio 19.7, Glucose 122 H, Calcium 7.6 L Rhythm: EKG: ECHO: Stress Test: Cardiac Cath: PCI: CT Surgery: Holter monitor: EPS: PPM: CXR: Chest CT Scan: Medical Necessity - Tobacco Use Smoking Status: Never smoker Assessment/Plan 1. Paroxysmal atrial fibrillation: Patient is converted to normal sinus rhythm with Cardizem therapy initially, then reverted back to atrial fibrillation with RVR.. This most likely was in response to his recent chemotherapy. His LV function is normal by echocardiogram and has no evidence of pericardial effusion. He is currently on Xarelto for previously diagnosed pulmonary emboli in January 2018. Would recommend continuing Lopressor to 100 mg p.o. twice daily, and continuing his lisinopril, Imdur. Hopefully with time, and inflammation resolution he will revert back to normal sinus rhythm. If the patient becomes hypotensive with a higher dose of Lopressor, would recommend switching him back to Lopressor 50 mg p.o. twice daily and trying combination beta-lula and Cardizem CD 120 mg p.o. daily. I recommend continuing lifelong Xarelto for his hypercoagulable state in light of his lung and pancreatic cancers. No indication for stress testing or diagnostic catheterization at this time. TSH is normal. 2. Coronary artery disease: No anginal symptoms at this time. Continue baby aspirin, beta blockers, lisinopril and Imdur. 3. Thank you very much for the opportunity to participate in the cardiac care of your patient. Will check in on patient tomorrow to see if he is converted back to normal sinus rhythm with elevated dose of beta-lula. We will sign off. Please call with any questions. Code Visit Inpatient E&M: 48247 Subs Hosp L2
--- NOTE | 2018-03-22 13:37 | PCM.PROGNOTE ---
<Jose Thomas - Last Filed: 03/22/18 13:37> Patient Problems: Active and Suspected Problems (Last Reviewed 03/20/18 @ 09:36 by Yg Oneil MD) Fever (Acute) Subjective: Pt did have a headache this AM, however it improved with tylenol only. He denies dizziness/LH. He did continue to have rapid heart rate and tele shows Afib. He was restarted on cardizem drip with good response. He has not had palpitations this AM. No chest pain, tightness or heaviness. Last fever yesterday at 2044 up to 100.4. - Physical Exam General: Alert, Oriented x3, Cooperative HEENT: Atraumatic, PERRLA, EOMI, Normocephalic Neck: Supple, No JVD, Negative Carotid Bruits Lungs: Clear to auscultation, Normal air movement Cardiovascular: Regular rate, No murmurs Abdomen: Bowel Sounds Present, Soft, Non Tender Extremities: No edema, Capillary Refill Less than 3 Seconds Skin: No rashes, No breakdown Musculoskeletal: No Tenderness to Palpation of Joints or Extremities Neurological: Cranial nerves II-XII grossly intact Psych/Mental Status: Normal Affect, Appropriate, Alert and oriented to time, place, person, mood and affect Vital Signs Temp Pulse Resp BP Pulse Ox 98.0 F 83 18 107/60 97 03/22/18 13:13 03/22/18 13:13 03/22/18 13:13 03/22/18 13:13 03/22/18 13:13 Oxygen Flow Rate (L/min) 2 Oxygen Delivery Method Room Air Weight: 233 lb 7.512 oz Body Mass Index (BMI) 30.9 Intake and Output for Last 24 Hours 03/20/18 03/21/18 03/22/18 23:59 23:59 23:59 Intake Total 2350 / 2350 3333.1 / 3333.1 898.3 / 898.3 Balance 2350 / 2350 3333.1 / 3333.1 898.3 / 898.3 Microbiology Past 72 Hours 03/19/18 22:48 Respiratory Panel (PCR) - Final Mucosa - Nasopharyngeal Laboratory Tests Past 24 Hrs 03/22/18 03/22/18 05:50 05:50 WBC 3.2 L RBC 3.10 L Hgb 9.0 L Hct 28.7 L MCV 92.6 MCH 29.0 MCHC 31.4 L RDW 14.4 RDW Differential 47.2 H Plt Count 107 L MPV 12.3 H Immature Gran % (Auto) 1.600 H Neut % (Auto) 85.1 H Lymph % (Auto) 9.8 L [place] % (Auto) 1.9 Eos % (Auto) 1.6 Baso % (Auto) 0.0 Absolute Neuts (auto) 2.7 Absolute Lymphs (auto) 0.31 L Total Counted Not Reportable Differential Comment Sodium 144 Potassium 4.1 Chloride 113 H Carbon Dioxide 22.0 Anion Gap 9 BUN 27 H Creatinine 1.37 H Estim Creat Clear Calc 49.56 Est GFR (MDRD) Af Amer 65 Est GFR (MDRD) Non-Af 54 L BUN/Creatinine Ratio 19.7 Glucose 122 H Calcium 7.6 L Medical Necessity - Tobacco Use Smoking Status: Never smoker Assessment/Plan All Active Problems (Last Reviewed 03/20/18 @ 09:36 by Yg Oneil MD) Fever (Acute) Liver metastases (Acute) Pancreas cancer (Acute) History of liver biopsy (Resolved) Liver lesion (Acute) Hypoxia (Resolved) 1. Fever of unknown etiology -zosyn. last fever 100.4 last evening 2044 - again. Asymptomatic: CXR neg, ua nonspecific, no wounds. Recent rash resolved. WEEKS this AM resolved with tylenol. -Blood cx negative. 2. Afib with RVR - recurrent - converted with cardizem. Back to PO lopressor only. Xarelto. 3. Indeterminate troponin/NSTEMI type 2 - cardiology following. No plans for further workup. Echo EF65, RVSP 32, st1 diastolic, normal LV size/thickness, no wall abnormalities. 4. Pancreatic CA with known mets to liver, lung - care per Dr. Pederson. 1st round of chemo for pancreatic ca 5 days ago. 5. 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 - He is on xarelto. We do not have a prior for comparison. 6. CAD - asa, bb, leda, imdur 7. PE - xarelto. 8. CKD III - stable. DVT ppx: xarelto DC planning: follow cx. PTOT. This patient was seen by Jose Thomas PA-C under the supervision of Doctor Kade. <Charlie Braun - Last Filed: 03/22/18 13:52> - Physical Exam General: Alert, Cooperative HEENT: Atraumatic, Normocephalic Oral: Moist Mucosa, No Gingival or Mucosal Lesions/ Ulcerations Neck: No Nodes, Thyroid Normal Size and Texture Lungs: Normal air movement, - - RLL crackles. Cardiovascular: Regular rate, Regular Rhythm, Normal S1, Normal S2, No murmurs Abdomen: Bowel Sounds Present, Soft, Non Tender, Non-Distended Extremities: No edema, No Calf Tenderness Skin: No rashes, No breakdown Psych/Mental Status: Normal Affect, Appropriate Vital Signs Temp Pulse Resp BP Pulse Ox 36.7 C 83 18 107/60 97 03/22/18 13:13 03/22/18 13:13 03/22/18 13:13 03/22/18 13:13 03/22/18 13:13 Oxygen Flow Rate (L/min) 2 Oxygen Delivery Method Room Air Weight: 105.9 kg Body Mass Index (BMI) 30.9 Intake and Output for Last 24 Hours 03/20/18 03/21/18 03/22/18 23:59 23:59 23:59 Intake Total 2350 / 2350 3333.1 / 3333.1 898.3 / 898.3 Balance 2350 / 2350 3333.1 / 3333.1 898.3 / 898.3 Microbiology Past 72 Hours 03/19/18 22:48 Respiratory Panel (PCR) - Final Mucosa - Nasopharyngeal Laboratory Tests Past 24 Hrs 03/22/18 03/22/18 05:50 05:50 WBC 3.2 L RBC 3.10 L Hgb 9.0 L Hct 28.7 L MCV 92.6 MCH 29.0 MCHC 31.4 L RDW 14.4 RDW Differential 47.2 H Plt Count 107 L MPV 12.3 H Immature Gran % (Auto) 1.600 H Neut % (Auto) 85.1 H Lymph % (Auto) 9.8 L [place] % (Auto) 1.9 Eos % (Auto) 1.6 Baso % (Auto) 0.0 Absolute Neuts (auto) 2.7 Absolute Lymphs (auto) 0.31 L Total Counted Not Reportable Differential Comment Sodium 144 Potassium 4.1 Chloride 113 H Carbon Dioxide 22.0 Anion Gap 9 BUN 27 H Creatinine 1.37 H Estim Creat Clear Calc 49.56 Est GFR (MDRD) Af Amer 65 Est GFR (MDRD) Non-Af 54 L BUN/Creatinine Ratio 19.7 Glucose 122 H Calcium 7.6 L Assessment/Plan Patient seen and examined independently. Data reviewed. I agree with the above note by the physician assistant purchasing manager. 1. FUO: Fever improved work up so far negative, though CXR suggestive of infiltrate continue Zosyn Infectious work up being pursued, but could be malignancy/VTE induced. 2. Afib w RVR on Metoprolol 100 BID anticoagulated with Xarelto stop diltiazem gtt and monitor 3. NTEMI likely a type 2 event d/t afib w RVR and FUO 4. 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 Pancreatic cancer stage IV Had first cycle of chemo on 03/17. Remaining chemo on hold pending infectious work up. Palliative chemo Poor prognosis. Would prefer to defer life expectancy discussion to his oncology team. He does not seem to grasp that this a terminal diagnosis. 6. VTE on Xarelto Code Visit Inpatient E&M: 94692 Subs Hosp L3
[2018-03-22] MEDS: 0.9% Normal Saline 1,000 ML 75 ML IV (20:40)
[2018-03-23] VITALS (8 sets, daily range): BP systolic 105–127; BP diastolic 54–78; PULSE 90–123; RESP 14–16; TEMP 37.3–37.4; O2SAT 94–97
[2018-03-23 05:21] LABS: Absolute Lymphocyte Count 0.33 X10^3/ul (0.83-4.51); Absolute Neutrophil Count 3.5 X10^3/uL (2.0-7.7); Basophil# 0.01 X10^3/uL; Basophil% 0.2 % (0-1); Eosinophil# 0.09 X10^3/uL; Eosinophils% 2.2 % (0-5); Hematocrit 28.2 % (40-54); Lymphocyte # 0.33 X10^3/ul (4.0); Lymphocyte % 8.2 % (19-41); Mean Corp Hgb Conc 31.9 g/gl (32-36); Mean Corpuscular Hgb 29.4 pg (27.0-32.0); Mean Corpuscular Volume 92.2 fL (80-94); Mean Platelet Vol. 12.2 fl (6.2-12.0); Monocyte# 0.11 X10^3/uL; Monocyte% 2.7 % (0-10); Neutrophil # 3.47 X10^3/uL (2.7-7.7); Platelet Count 100 K/mm3 (150-450); RBC Distribution Width CV 14.5 % (11.6-14.6); RBC Distribution Width SD 47.8 fl (35.1-43.9); Red Blood Count 3.06 M/mm3 (4.6-6.2)
[2018-03-23 05:24] LABS: Anion Gap 10 (5-15); BUN 27 mg/dL (7-18); BUN/Creat Ratio 18.4 RATIO (10-20); Calcium,Total 7.8 mg/dL (8.5-10.1); Chloride 112 mmol/L (98-107); Creatinine, Serum 1.47 mg/dL (0.70-1.30); EST Glomerular Filtration Rate 49 mL/min (>60); Est Glom Filt Rate - Afr Amer 60 mL/min (>60); Estimated Creatinine Clearance 46.19 ml/min; Glucose 134 mg/dL (74-106); Potassium 4.2 mmol/L (3.5-5.1); Sodium Level 144 mmol/L (136-145)
--- NOTE | 2018-03-23 05:44 | NURSING ---
spoke with on the phone and gave her an update on patient.
[2018-03-23 05:55] LABS: POSITIVE COUNT NO; POSITIVE MORPHOLOGY NO
[2018-03-23] MEDS: 0.9% NaCl Peripheral Flush Adult/Peds IV ×2 (06:04→14:49)
[2018-03-23] MEDS: Levothyroxine 50 MCG Tablet PO (06:04)
[2018-03-23] MEDS: Piperacil/Tazobactam 3.375 GM/50 ML ML IV (06:04)
[2018-03-23 07:09] LABS: Differential Comment SCANNED; Differential Indicated SCAN CRITERIA MET; POSITIVE DIFFERENTIAL YES
[2018-03-23] MEDS: Rivaroxaban 20 MG Tablet PO (08:41)
[2018-03-23] MEDS: Lisinopril 20 MG Tablet PO (08:41)
[2018-03-23] MEDS: Metoprolol Tartrate 100 MG Tablet PO (08:41)
[2018-03-23] MEDS: HYDROcodone Bitartrate/Apap 5/325 Tablet PO (11:13)
[2018-03-23] MEDS: Ondansetron 8 MG Tablet PO (11:14)
[2018-03-23] MEDS: Isosorbide Mononitrate 60 MG Tablet PO (11:14)
--- NOTE | 2018-03-23 12:59 | PCM.DC ---
- Discharge Diagnoses Current Active Problems: Current Active and Chronic Problems (Last Reviewed 03/20/18 @ 09:36 by Yg Oneil MD) Fever (Acute) Metastasis from pancreatic cancer (Chronic) You will use the following diet at home:: No restrictions Your food should be the consistency of: Regular Your liquids should be the consistency of: Regular/Thin Discharge Activity: Return to Normal Activity Allergies/Adverse Reactions: Allergies niacin Allergy (Mild, Verified 03/19/18 15:36) Rash atorvastatin calcium [From Lipitor] Adverse Reaction (Intermediate, Verified 03/19/18 15:36) Swelling Medications to take at Discharge isosorbide mononitrate ER 60 mg tablet,extended release 24 hr 60 mg PO DAILY #90 tab 08/18/17 lovastatin 20 mg tablet 20 mg PO QHS #90 tab 08/18/17 levothyroxine 50 mcg tablet 50 mcg PO DAILY #90 tab 02/16/18 Lisinopril [Zestril] 20 mg PO DAILY 03/04/18 Lidocaine/Prilocaine [Lidocaine-Prilocaine Cream] 30 gm TP DAILY PRN PRN 30 Days #1 cream..g. 03/09/18 Rivaroxaban [Xarelto] 20 mg PO DAILY 03/09/18 Hydrocodone/Acetaminophen [[place] 5-325 Tablet] 1 tab PO Q6H PRN PRN 03/19/18 Linacolotide [Linzess] 145 mcg PO PRN PRN 03/19/18 Acetaminophen [Tylenol Tablet] 650 mg PO Q6H PRN PRN tablet 03/23/18 Metoprolol Tartrate [Lopressor (beta lula)] 100 mg PO BID #60 tab 03/23/18 Ondansetron [Zofran] 8 mg PO Q8H PRN PRN #21 tab 03/23/18 The following prescriptions were given: Metoprolol Tartrate [Lopressor (beta lula)] 100 mg PO BID #60 tab Ondansetron [Zofran] 8 mg PO Q8H PRN PRN #21 tab PRN Reason: NAUSEA Primary Care Physician: Daniel Samayoa Chi, MD [Primary Care Provider] - Please follow up with your Primary Care Physician in: 2 weeks Test Results: Test results from this visit will be discussed in further detail at your follow-up appointment, if applicable. Please Follow Up With: Randall Pedreson MD - Keep current appointment When: As directed Proposed Discharge Date: 03/23/18
--- NOTE | 2018-03-23 15:14 | PCM.DC.SUM ---
<Jose Thomas - Last Filed: 03/23/18 15:21> Discharge Date and Diagnosis Date of Admission: 03/20/18 Date of Discharge: 03/23/18 - Primary Discharge Diagnosis Fever of unknown etiology, suspect viral illness Metastatic pancreatic cancer Atrial fibrillation with rapid ventricular response NSTEMI type 2 2/2 AFib RVR CAD Known PE CKD III Old infarcts evident on MRI - Secondary Discharge Diagnosis Chronic Problems (Last Reviewed 03/20/18 @ 09:36 by Yg Oneil MD) Metastasis from pancreatic cancer (Chronic) Educational circumstance (Chronic) A-fib (Chronic) Atherosclerosis of coronary artery bypass graft without angina pectoris (Chronic) CAD (coronary artery disease) (Chronic) 02/16/99 x 2 MARTINEZ to LAD, SVG to diagonal HTN (hypertension) (Chronic) Hyperlipidemia (Chronic) Obesity (Chronic) CAD (coronary artery disease) (Chronic) History of lung cancer (Chronic) s/p left lower lobectomy Hospital Course and Treatment Imaging Results: Interpretation Summary The study was technically difficult. Left ventricular systolic function is normal. The estimated ejection fraction is 65 %. Moderate concentric left ventricular hypertrophy. Trivial mitral valve insufficiency. Trivial tricuspid valve insufficiency. Unable to estimate RV systolic pressure/pulmonary artery pressure due to technically difficult study. Unable to assess diastolic dysfunction. Echo: Interpretation Summary The estimated ejection fraction is 65 %. Stage 1 diastolic dysfunction. The left atrium is moderately enlarged. Trivial eccentric mitral valve insufficiency. Trivial tricuspid valve insufficiency. Right ventricular systolic pressure estimated to be 32 mmHg. Mild (1+) aortic valve insufficiency. Compared to echo report dated 10/23/2017, no appreciable changes noted. The study was technically difficult. Contrast injection was performed. MRI/Brain W/WO Contrast IMPRESSION: Multiple bilateral cerebral hemispheric white matter lesions and lesion within the right cerebellar hemisphere which demonstrate restricted diffusion without enhancement most likely representing ischemic changes due to embolic disease. No definitive evidence for metastatic disease or inflammatory process. Consults: [facility] - oncology [facility] - cardiology Operations: None Procedures: 2-D Echocardiogram Summary of Care Provided: Physical exam on day of discharge: General: Resting comfortably NAD Psych: A/Ox3 normal affect HEENT: PEARRLA AT NC Neck: Supple NT CV: RRR no m/t/r/g/h Resp: CTA Abd: [id number] Soft NT no guarding or rigidity Ext: DP2+= no edema Skin: W/D normal turgor Lymph/Heme: No active bleeding or adenopathy Neuro: CN2-12 intact Hospital course: The patient is a 77 year old M with a history of stage IV pancreatic cancer with metastases known to the liver and lung who had his first chemo treatment with Dr. Pederson several days prior to admission, also with a history of CAD, PE on Xarelto, CKD stage III, who presented to the emergency room with chief complaint of fever and chills ?1 day. He was found to have a fever and also atrial fibrillation with rapid ventricular response. His CBC did not reveal neutropenia. Troponin was indeterminate, and on repeat remained so. Cardiology and oncology were consulted. He was placed on a Cardizem drip and transition to Lopressor at a higher dose. He was placed on Zosyn for broad spectrum antibiotic coverage. His infectious workup was unremarkable. He was felt to have likely had a viral illness. He did have intermittent return of his rapid ventricular response but ultimately was stabilized on 100 mg of Lopressor twice daily. He did have some recurrent headaches and forgetfulness so an MRI was obtained which revealed old strokes, probably embolic from his history of A. fib. We will continue his Xarelto. His indeterminate troponins were likely secondary to non-ST segment elevation myocardial infarction type II from atrial fibrillation with RVR. An echocardiogram was obtained which revealed EF of 65%, normal LV size and thickness, stage I diastolic dysfunction. No further intervention or workup was indicated by cardiology. After resolution of his fevers antibiotics were discontinued and he was discharged home in stable condition. He will need to follow-up with oncology and resume chemotherapy as directed. Please also follow-up with cardiology and with your PCP. This patient was seen by Jose Thomas PA-C under the supervision of Doctor Turk . [] Discharge Diet: No Restrictions Discharge Activity: Return to Normal Activity Home Medications: Medications to take at Discharge isosorbide mononitrate ER 60 mg tablet,extended release 24 hr 60 mg PO DAILY #90 tab 08/18/17 lovastatin 20 mg tablet 20 mg PO QHS #90 tab 08/18/17 levothyroxine 50 mcg tablet 50 mcg PO DAILY #90 tab 02/16/18 Lisinopril [Zestril] 20 mg PO DAILY 03/04/18 Lidocaine/Prilocaine [Lidocaine-Prilocaine Cream] 30 gm TP DAILY PRN PRN 30 Days #1 cream..g. 03/09/18 Rivaroxaban [Xarelto] 20 mg PO DAILY 03/09/18 Hydrocodone/Acetaminophen [[place] 5-325 Tablet] 1 tab PO Q6H PRN PRN 03/19/18 Linacolotide [Linzess] 145 mcg PO PRN PRN 03/19/18 Acetaminophen [Tylenol Tablet] 650 mg PO Q6H PRN PRN tablet 03/23/18 Metoprolol Tartrate [Lopressor (beta lula)] 100 mg PO BID #60 tab 03/23/18 Ondansetron [Zofran] 8 mg PO Q8H PRN PRN #21 tab 03/23/18 Following Prescrptions Were Given to Patient: Metoprolol Tartrate [Lopressor (beta lula)] 100 mg PO BID #60 tab Ondansetron [Zofran] 8 mg PO Q8H PRN PRN #21 tab PRN Reason: NAUSEA Primary Care Physician: Daniel Samayoa Chi, MD [Primary Care Provider] - Please follow up with your Primary Care Physician in: 2 weeks Please Follow Up With: Randall Pederson MD When: As directed Please Follow Up With: Daniel Samayoa Chi, MD Please Follow Up With: Jay Shankar MD When: 1-2 weeks Disposition: Home Minutes spent on discharge:: 35 Patient Condition:: Stable Medical Necessity - Tobacco Use Smoking Status: Never smoker Meaningful Use Info Meaningful Use Diagnoses (Choose all that apply): None applicable <Bin Turk - Last Filed: 03/23/18 17:34> Discharge Date and Diagnosis - Secondary Discharge Diagnosis Chronic Problems (Last Reviewed 03/20/18 @ 09:36 by Yg Oneil MD) Metastasis from pancreatic cancer (Chronic) Educational circumstance (Chronic) A-fib (Chronic) Atherosclerosis of coronary artery bypass graft without angina pectoris (Chronic) CAD (coronary artery disease) (Chronic) 02/16/99 x 2 MARTINEZ to LAD, SVG to diagonal HTN (hypertension) (Chronic) Hyperlipidemia (Chronic) Obesity (Chronic) CAD (coronary artery disease) (Chronic) History of lung cancer (Chronic) s/p left lower lobectomy Hospital Course and Treatment Summary of Care Provided: Addendum: Dr. Turk I personally examined the patient and reviewed the chart. I agree with the above. H/o stage 4 pancreatic cancer and underwent his first chemo treatment. Fevers have resolved and he completed 5 days of zosyn as an inpatient. Likely d/t a virus and he was discharged with close PCP and oncology follow-up. Code Visit Inpatient E&M: 06392 Disch Hosp
--- NOTE | 2018-03-23 15:21 | DS.PCM_ITS ---
<Jose Thomas - Last Filed: 03/23/18 15:21> Discharge Date and Diagnosis Date of Admission: 03/20/18 Date of Discharge: 03/23/18 - Primary Discharge Diagnosis Fever of unknown etiology, suspect viral illness Metastatic pancreatic cancer Atrial fibrillation with rapid ventricular response NSTEMI type 2 2/2 AFib RVR CAD Known PE CKD III Old infarcts evident on MRI - Secondary Discharge Diagnosis Chronic Problems (Last Reviewed 03/20/18 @ 09:36 by Yg Oneil MD) Metastasis from pancreatic cancer (Chronic) Educational circumstance (Chronic) A-fib (Chronic) Atherosclerosis of coronary artery bypass graft without angina pectoris (Chronic ) CAD (coronary artery disease) (Chronic) 02/16/99 x 2 MARTINEZ to LAD, SVG to diagonal HTN (hypertension) (Chronic) Hyperlipidemia (Chronic) Obesity (Chronic) CAD (coronary artery disease) (Chronic) History of lung cancer (Chronic) s/p left lower lobectomy Hospital Course and Treatment Imaging Results: Interpretation Summary The study was technically difficult. Left ventricular systolic function is normal. The estimated ejection fraction is 65 %. Moderate concentric left ventricular hypertrophy. Trivial mitral valve insufficiency. Trivial tricuspid valve insufficiency. Unable to estimate RV systolic pressure/pulmonary artery pressure due to technically difficult study. Unable to assess diastolic dysfunction. Echo: Interpretation Summary The estimated ejection fraction is 65 %. Stage 1 diastolic dysfunction. The left atrium is moderately enlarged. Trivial eccentric mitral valve insufficiency. Trivial tricuspid valve insufficiency. Right ventricular systolic pressure estimated to be 32 mmHg. Mild (1+) aortic valve insufficiency. Compared to echo report dated 10/23/2017, no appreciable changes noted. The study was technically difficult. Contrast injection was performed. MRI/Brain W/WO Contrast IMPRESSION: Multiple bilateral cerebral hemispheric white matter lesions and lesion within the right cerebellar hemisphere which demonstrate restricted diffusion without enhancement most likely representing ischemic changes due to embolic disease. No definitive evidence for metastatic disease or inflammatory process. Consults: [facility] - oncology [facility] - cardiology Operations: None Procedures: 2-D Echocardiogram Summary of Care Provided: Physical exam on day of discharge: General: Resting comfortably NAD Psych: A/Ox3 normal affect HEENT: PEARRLA AT NC Neck: Supple NT CV: RRR no m/t/r/g/h Resp: CTA Abd: [id number] Soft NT no guarding or rigidity Ext: DP2+= no edema Skin: W/D normal turgor Lymph/Heme: No active bleeding or adenopathy Neuro: CN2-12 intact Hospital course: The patient is a 77 year old M with a history of stage IV pancreatic cancer with metastases known to the liver and lung who had his first chemo treatment with Dr. Pederson several days prior to admission, also with a history of CAD, PE on Xarelto, CKD stage III, who presented to the emergency room with chief complaint of fever and chills ?1 day. He was found to have a fever and also atrial fibrillation with rapid ventricular response. His CBC did not reveal neutropenia. Troponin was indeterminate, and on repeat remained so. Cardiology and oncology were consulted. He was placed on a Cardizem drip and transition to Lopressor at a higher dose. He was placed on Zosyn for broad spectrum antibiotic coverage. His infectious workup was unremarkable. He was felt to have likely had a viral illness. He did have intermittent return of his rapid ventricular response but ultimately was stabilized on 100 mg of Lopressor twice daily. He did have some recurrent headaches and forgetfulness so an MRI was obtained which revealed old strokes, probably embolic from his history of A. fib. We will continue his Xarelto. His indeterminate troponins were likely secondary to non-ST segment elevation myocardial infarction type II from atrial fibrillation with RVR. An echocardiogram was obtained which revealed EF of 65%, normal LV size and thickness, stage I diastolic dysfunction. No further intervention or workup was indicated by cardiology. After resolution of his fevers antibiotics were discontinued and he was discharged home in stable condition. He will need to follow-up with oncology and resume chemotherapy as directed. Please also follow-up with cardiology and with your PCP. This patient was seen by Jose Thomas PA-C under the supervision of Doctor Turk . [] Discharge Diet: No Restrictions Discharge Activity: Return to Normal Activity Home Medications: Medications to take at Discharge isosorbide mononitrate ER 60 mg tablet,extended release 24 hr 60 mg PO DAILY # 90 tab 08/18/17 lovastatin 20 mg tablet 20 mg PO QHS #90 tab 08/18/17 levothyroxine 50 mcg tablet 50 mcg PO DAILY #90 tab 02/16/18 Lisinopril [Zestril] 20 mg PO DAILY 03/04/18 Lidocaine/Prilocaine [Lidocaine-Prilocaine Cream] 30 gm TP DAILY PRN PRN 30 Days #1 cream..g. 03/09/18 Rivaroxaban [Xarelto] 20 mg PO DAILY 03/09/18 Hydrocodone/Acetaminophen [[place] 5-325 Tablet] 1 tab PO Q6H PRN PRN 03/19/18 Linacolotide [Linzess] 145 mcg PO PRN PRN 03/19/18 Acetaminophen [Tylenol Tablet] 650 mg PO Q6H PRN PRN tablet 03/23/18 Metoprolol Tartrate [Lopressor (beta lula)] 100 mg PO BID #60 tab 03/23/18 Ondansetron [Zofran] 8 mg PO Q8H PRN PRN #21 tab 03/23/18 Following Prescrptions Were Given to Patient: Metoprolol Tartrate [Lopressor (beta lula)] 100 mg PO BID #60 tab Ondansetron [Zofran] 8 mg PO Q8H PRN PRN #21 tab PRN Reason: NAUSEA Primary Care Physician: Daniel Samayoa Chi, MD [Primary Care Provider] - Please follow up with your Primary Care Physician in: 2 weeks Please Follow Up With: Randall Pederson MD When: As directed Please Follow Up With: Daniel Samayoa Chi, MD Please Follow Up With: Jay Shankar MD When: 1-2 weeks Disposition: Home Minutes spent on discharge:: 35 Patient Condition:: Stable Medical Necessity - Tobacco Use Smoking Status: Never smoker Meaningful Use Info Meaningful Use Diagnoses (Choose all that apply): None applicable <Bin Turk - Last Filed: 03/23/18 17:34> Discharge Date and Diagnosis - Secondary Discharge Diagnosis Chronic Problems (Last Reviewed 03/20/18 @ 09:36 by Yg Oneil MD) Metastasis from pancreatic cancer (Chronic) Educational circumstance (Chronic) A-fib (Chronic) Atherosclerosis of coronary artery bypass graft without angina pectoris (Chronic ) CAD (coronary artery disease) (Chronic) 02/16/99 x 2 MARTINEZ to LAD, SVG to diagonal HTN (hypertension) (Chronic) Hyperlipidemia (Chronic) Obesity (Chronic) CAD (coronary artery disease) (Chronic) History of lung cancer (Chronic) s/p left lower lobectomy Hospital Course and Treatment Summary of Care Provided: Addendum: Dr. Turk I personally examined the patient and reviewed the chart. I agree with the above. H/o stage 4 pancreatic cancer and underwent his first chemo treatment. Fevers have resolved and he completed 5 days of zosyn as an inpatient. Likely d/ t a virus and he was discharged with close PCP and oncology follow-up. Code Visit Inpatient E&M: 54457 Disch Hosp
--- NOTE | 2018-03-24 14:13 | CASEMGMT ---
LEE REICH DC PHONE CALL. DC DATE: 03/23/18 LACE 4 Disposition: home Intro role of CM. answered phone- No questions re: dc instructions, f/u appointments or medications. No concerns noted. 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 RN RACHANA thanked her for her time. Deng HOWARD CM ACM
== END 2018-03-23 14:49 | disposition home or self-care (01) | DRG 865 ==
LOC: ED 16:36 → PCU 21:32
PROVIDERS: Admitting Provider Hospitalist; Emergency Provider Emergency Medicine; Family Provider Family Medicine Geriatric Medicine; PCP Family Medicine Geriatric Medicine; Visit Provider Family Medicine
DX: B34.9 Viral infection, unspecified (principal); I21.A1 Myocardial infarction type 2; C25.9 Malignant neoplasm of pancreas, unspecified; C78.7 Secondary malignant neoplasm of liver and intrahepatic bile duct; I48.0 Paroxysmal atrial fibrillation; E03.2 Hypothyroidism due to medicaments and other exogenous substances; E78.5 Hyperlipidemia, unspecified; I12.9 Hypertensive chronic kidney disease with stage 1 through stage 4 chronic kidney disease, or unspecified chronic kidney disease; N18.3 Chronic kidney disease, stage 3 (moderate); I25.10 Atherosclerotic heart disease of native coronary artery without angina pectoris; E66.9 Obesity, unspecified; Z68.30 Body mass index [BMI] 30.0-30.9, adult; Z79.899 Other long term (current) drug therapy; Z95.1 Presence of aortocoronary bypass graft; Z95.5 Presence of coronary angioplasty implant and graft; Z79.01 Long term (current) use of anticoagulants; Z90.2 Acquired absence of lung [part of]; Z86.711 Personal history of pulmonary embolism; I25.2 Old myocardial infarction; Z85.118 Personal history of other malignant neoplasm of bronchus and lung; K59.00 Constipation, unspecified
CPT/HCPCS: 36415; 36591; 70553; 71046; 80048; 80053; 81001; 83605; 83735; 84443; 84484; 85025; 87040; 87633; 93005; 93306; 96367; 96368; 96413; 96417; 97110; 97116; 97162; 97166; 97535; 99283; A9585; J7030; J7040; J7050; Q9957; A4216; C8929; J2405; J3490; J9201; J9264

== ENCOUNTER 2018-03-28 09:53 | Inpatient (IN) | payer MEDICARE, OTHER, SELFPAY ==
[2018-03-28] VITALS (22 sets, daily range): BP systolic 88–139; BP diastolic 34–81; PULSE 70–171; RESP 17–33; TEMP 36.7–38.8; O2SAT 92–100; BMI 31.1; BMI 32.4
--- NOTE | 2018-03-28 10:03 | RAD_ITS ---
STUDY: X-RAY CHEST REASON FOR EXAM: Male, 77 years old. Sore throat x3 days with intermittent fever TECHNIQUE: Single AP portable view of the chest. COMPARISON: 03/19/2018 FINDINGS: Lungs are adequately inflated. Again noted is interstitial prominence throughout the lungs with mild interstitial edema. Appearance of pulmonary micronodules as well. Continued small left pleural effusion. Stable right chest wall Mediport. Sternal cerclage wires are present from a prior sternotomy. Mild cardiomegaly. Normal mediastinum and edward. Normal visualized pulmonary arteries. Normal visualized aortic arch and descending thoracic aorta. There are diffuse degenerative changes of the visualized thoracic spine. There is degenerative osteoarthritis of the bilateral shoulders. There is no demonstrated abnormality of the visualized soft tissue structures of the upper abdomen. RAD/Chest 1 View (Portable) IMPRESSION: Adequately inflated lungs with continued prominent lung markings throughout with questionable superimposed pulmonary micronodules. Metastatic involvement of the lungs cannot be excluded. Continued left lower lobe airspace disease with small effusion. Electronically Signed: Ole Ramirez DO at 10:23 EDT Tel , Service support ,
--- NOTE | 2018-03-28 10:04 | EKG12_ITS ---
Test Reason : SORE THROAT Blood Pressure : / mmHG Vent. Rate : 148 BPM Atrial Rate : 375 BPM P-R Int : 000 ms QRS Dur : 072 ms QT Int : 298 ms P-R-T Axes : 000 -05 169 degrees QTc Int : 467 ms Atrial fibrillation with rapid ventricular response Inferior infarct , age undetermined ST & T wave abnormality, consider anterior ischemia Abnormal ECG Confirmed by KINGS HOOVER, NIKKI ([id number]), managing editor HERIBERTO MELTON ([id number]) on 03/30/2018 3:29:22 PM Referred By: Daniel Samayoa Confirmed By:NIKKI KU MD
--- NOTE | 2018-03-28 10:10 | ED.VISSUMM ---
- ER Visit Summary Date of Service: 03/28/18 Chief Complaint: Fevers, chills, myalgias History of Present Illness: The patient is a 77 M with history of metastatic pancreatic cancer presents to the emergency department with fevers, chills, and myalgias. Patient had chemotherapy on the . He states over the past 2 days, has had intermittent fevers. states it was 102 last night. He is also complaining of increased sore throat and a scant cough. He states that he has had some body aches and generalized malaise. Patient was recently admitted on the sixth of this month for fever. He was given 5 days of Zosyn and had resolution of his symptoms. He states he doing well until 2 days ago. He has had some scant diarrhea. He denies any other systemic symptoms. Physical Examination: Vital signs reviewed General: Well-nourished, well-developed Head: Normocephalic, atraumatic Eyes: Pupils equal and reactive, extraocular muscles intact, scleral icterus Oropharynx: Mucous members are dry, there are adherent white plaques consistent with thrush in the posterior pharynx Neck, supple, no lymphadenopathy Heart: Regular rate and rhythm Respiratory: No distress, clear bilaterally Abdomen: Soft, nontender, mildly distended, no peritoneal signs Back: Nontender Extremities: Nontender, no edema, no cords Skin: Normal color no rash Neuro: Alert and oriented, no focal or lateralizing deficits Test Results: [] Emergency Department Course and Treatment: EKG was obtained on patient arrival. He was in atrial fibrillation with rapid ventricular response. I did not want to institute acute rate control as I do feel this is likely secondary to sepsis. He was given 2 L of IV fluid. Blood cultures were obtained. Screening labs do show worsening of his liver function tests. He also has a lactic acidosis of 4. I am unsure if this is because of hypoperfusion or his known liver metastases. With his worsening liver functions and no pink-red cancer, I did obtain a CT of his abdomen and pelvis. There is no evidence of obstruction of his biliary tree. There is worsening metastasis. He also has evidence of colitis. Patient was initially started on meropenem. He has spontaneously converted into sinus rhythm. He has maintained mean arterial pressures greater than 70. Given his significant neutropenia, fever, and evidence of colitis I do feel that he is going require admission. Patient was discussed with the hospitalist and will be admitted time. Treatment Plan: [] Disposition: Admission Impression: 1. Severe sepsis 2. Acute colitis 3. Neutropenic fever 4. Atrial fibrillation with rapid ventricular response This note was generated with [employer] dictation software. It may contain incorrect words, spelling, and punctuation that were not noted in review of the chart prior to signing ED Disposition - Plan for ED Patient: Chief Complaint: Sore Throat Referrals: Daniel Samayoa Chi, MD [Primary Care Provider] -
[2018-03-28] MEDS: Ondansetron 4 MG/2 ML Vial IV (10:25)
[2018-03-28] MEDS: fentaNYL 100 MCG/2 ML Ampul 25 MCG IV (10:25)
[2018-03-28] MEDS: 0.9% Normal Saline 1,000 ML 1000 ML IV (10:25)
[2018-03-28 10:50] LABS: Absolute Lymphocyte Count 0.06 X10^3/ul (0.83-4.51); Absolute Neutrophil Count 0.1 X10^3/uL (2.0-7.7); Basophil# 0.01 X10^3/uL; Eosinophil# 0.01 X10^3/uL; Hematocrit 24.9 % (40-54); Lymphocyte # 0.06 X10^3/ul (4.0); Mean Corp Hgb Conc 32.1 g/gl (32-36); Mean Corpuscular Hgb 28.8 pg (27.0-32.0); Mean Corpuscular Volume 89.6 fL (80-94); Neutrophil # 0.13 X10^3/uL (2.7-7.7); POSITIVE COUNT YES; POSITIVE DIFFERENTIAL YES; POSITIVE MORPHOLOGY YES; Platelet Count 64 K/mm3 (150-450); RBC Distribution Width CV 14.8 % (11.6-14.6); RBC Distribution Width SD 47.1 fl (35.1-43.9); Red Blood Count 2.78 M/mm3 (4.6-6.2)
[2018-03-28 10:51] LABS: Differential Indicated SCAN CRITERIA MET
[2018-03-28 10:54] LABS: ALB/GLOB Ratio 0.5 RATIO (0.9-2.4); AST(SGOT) 119 U/L (15-37); Alanine Aminotransfer ALT/SGPT 176 U/L (16-61); Albumin, Serum 1.7 g/dL (3.2-5.0); Alkaline Phosphatase 173 U/L (45-117); Anion Gap 12 (5-15); BUN 43 mg/dL (7-18); BUN/Creat Ratio 23.9 RATIO (10-20); Calcium,Total 7.5 mg/dL (8.5-10.1); Chloride 108 mmol/L (98-107); EST Glomerular Filtration Rate 39 mL/min (>60); Est Glom Filt Rate - Afr Amer 47 mL/min (>60); Estimated Creatinine Clearance 37.72 ml/min; Globulin 3.6 g/dL (2.2-4.2); Glucose 157 mg/dL (74-106); Potassium 4.4 mmol/L (3.5-5.1); Protein, Total 5.3 g/dL (6.4-8.2); Sodium Level 140 mmol/L (136-145)
--- NOTE | 2018-03-28 10:57 | CT_ITS ---
STUDY: CT ABDOMEN AND PELVIS WITH CONTRAST REASON FOR EXAM: Male, 77 years old. History of pancreatic cancer with liver metastases. RADIATION DOSAGE (If Supplied By Facility): CTDIvol = ( 15.38 ) mGy, DLP = ( 1436.77 ) mGycm TECHNIQUE: Transaxial images were obtained from the dome of the diaphragm to the symphysis pubis without oral contrast. 75 ml of Isovue 300 contrast was administered. Sagittal and coronal images were reconstructed. Individualized dose optimization techniques were used for this CT. COMPARISON: 01/05/2018. FINDINGS: The visualized portions of lung bases demonstrate multiple pulmonary nodules more on the right side, the largest measures about 1.8 cm increased in size and number since the previous exam. There are coronary calcifications. The heart size is normal. There are multiple low-density liver lesions increased in size and number since previous examination, the largest is in the left lobe of the liver measuring about 4 cm. There are surgical clips in the gallbladder fossa consistent with a prior cholecystectomy. Normal spleen. There again is a low-density area/mass in the distal body of the pancreas measuring at this time about 5.7 x 3.6 cm consistent with the known pancreatic cancer. Normal bilateral adrenal glands. There are atrophic changes in the right kidney and prominence of the right renal pelvis. There are atrophic changes in the left kidney. There again is a nonobstructing stone in the lower pole of the left kidney measuring about 8 mm. There is prominence of the left collecting system. Normal visualized stomach. There is no evidence of bowel obstruction. There is thickening of the colon particularly of the sigmoid colon. The remainder of the colon is also somewhat thickened. The appendix is visualized and appears normal. There is diffuse atherosclerotic calcification of the abdominal aorta, without a demonstrated aneurysm. Normal inferior vena cava. Normal retroperitoneum. The urinary bladder is suboptimally distended. The prostate is somewhat heterogeneous and slightly prominent. There are prostatic calcifications. Normal abdominal wall. There are diffuse degenerative changes of the visualized lumbar spine. CT/Abdomen/Pelvis W IV Cont ONLY IMPRESSION: 1. Multiple pulmonary nodules consistent with metastases increased in size and number since the previous exam. 2. Metastatic liver lesions again in size and number since previous exam. 3. Pancreatic mass increased in size. 4. Diffuse thickening of the colon particularly of the sigmoid colon which could be due to underdistention. Colitis cannot be excluded. 5. Persistent nonobstructing stone in the left kidney with mild prominence of the collecting system unchanged. Electronically Signed: Shai Sousa MD at 12:24 EDT Tel , Service support ,
--- NOTE | 2018-03-28 11:07 | ED.RN ---
lactic 4.0 called from the lab. dr li aware
[2018-03-28 11:21] LABS: White Blood Count 0.3 K/mm3 (4.4-11.0)
--- NOTE | 2018-03-28 11:24 | ED.RN ---
wbc 0.3 called from the lab. dr li aware
[2018-03-28 11:38] LABS: Color, Urine Amber (Yellow); Glucose, Dipstick Normal (Normal); Ketone-Dipstick 5 mg/dl (Negative); Leukocyte Esterase-Dipstick 25 /ul (Negative); Nitrite-Dipstick Negative (Negative); Occult Blood-Urine 25 /ul (Negative); Protein-Dipstick 30 mg/dl (Negative); Specific Gravity, Urine 1.025 (1.002-1.030); Urine Clarity Clear (Clear); Urine Urobilinogen 8 mg/dl (Normal)
[2018-03-28] MEDS: 0.9% Normal Saline 1,000 ML 999 ML IV ×4 (11:38→19:55)
[2018-03-28 11:40] LABS: Urine Bilirubin Dipstick 6 mg/dL (Negative)
[2018-03-28 11:45] LABS: Differential Comment SCANNED
[2018-03-28 11:48] LABS: Platelet Estimate MOD DEC (ADEQ)
[2018-03-28 14:29] LABS: Reflex Lactate? Y
[2018-03-28 15:26] LABS: Lactic Acid 3.1 mmol/L (0.4-2.0)
[2018-03-28] MEDS: TBO-FILGRASTIM 480 MCG/0.8 ML ML SC (16:49)
[2018-03-28] MEDS: HYDROcodone Bitartrate/Apap 5/325 Tablet PO (16:55)
--- NOTE | 2018-03-28 17:30 | PCM.RX.CS ---
Consult Pharmacy has been consulted to manage selected antiobiotic: Vancomycin Type of Consult: New start Suspected Infection: Other Prior Doses of Antibiotics Received/Current Regimen: Received 1500mg IV x1 in E.D. at 14:43 today. Labs: Sodium 140 mmol/L (136-145) 03/28/18 10:20 Potassium 4.4 mmol/L (3.5-5.1) 03/28/18 10:20 Chloride 108 mmol/L (98-107) H 03/28/18 10:20 Carbon Dioxide 20.0 mmol/L (21.0-32.0) L 03/28/18 10:20 Anion Gap 12 (5-15) 03/28/18 10:20 BUN 43 mg/dL (7-18) H 03/28/18 10:20 Creatinine 1.80 mg/dL (0.70-1.30) H 03/28/18 10:20 Est GFR (MDRD) Af Amer 47 mL/min (>60) L 03/28/18 10:20 Est GFR (MDRD) Non-Af 39 mL/min (>60) L 03/28/18 10:20 BUN/Creatinine Ratio 23.9 RATIO (10-20) H 03/28/18 10:20 Glucose 157 mg/dL (74-106) H 03/28/18 10:20 Weight used for dosin kg Estimated Creatinine Clearance: 38 ml/min Goal Trough: 15-20 mcg/mL Pharmacy Plan for Drug Dosing: After initial dose was given in the E.D., plan to continue at 1500mg IV q24h per [facility] pharmacist dosing protocol. Pharmacy Service will continue to monitor and adjust dosing as required. Follow-Up Labs: Trough Vancomycin Labs to be done on [date and time ordered]: 03/30/18 at 14:30 before the 3rd total dose
--- NOTE | 2018-03-28 17:34 | PHA.PHARE_ITS ---
Consult Pharmacy has been consulted to manage selected antiobiotic: Vancomycin Type of Consult: New start Suspected Infection: Other Prior Doses of Antibiotics Received/Current Regimen: Received 1500mg IV x1 in E.D. at 14:43 today. Labs: Sodium 140 mmol/L (136-145) 03/28/18 10:20 Potassium 4.4 mmol/L (3.5-5.1) 03/28/18 10:20 Chloride 108 mmol/L (98-107) H 03/28/18 10:20 Carbon Dioxide 20.0 mmol/L (21.0-32.0) L 03/28/18 10:20 Anion Gap 12 (5-15) 03/28/18 10:20 BUN 43 mg/dL (7-18) H 03/28/18 10:20 Creatinine 1.80 mg/dL (0.70-1.30) H 03/28/18 10:20 Est GFR (MDRD) Af Amer 47 mL/min (>60) L 03/28/18 10:20 Est GFR (MDRD) Non-Af 39 mL/min (>60) L 03/28/18 10:20 BUN/Creatinine Ratio 23.9 RATIO (10-20) H 03/28/18 10:20 Glucose 157 mg/dL (74-106) H 03/28/18 10:20 Weight used for dosin kg Estimated Creatinine Clearance: 38 ml/min Goal Trough: 15-20 mcg/mL Pharmacy Plan for Drug Dosing: After initial dose was given in the E.D., plan to continue at 1500mg IV q24h per [facility] pharmacist dosing protocol. Pharmacy Service will continue to monitor and adjust dosing as required. Follow-Up Labs: Trough Vancomycin Labs to be done on [date and time ordered]: 03/30/18 at 14:30 before the 3rd total dose
[2018-03-28] MEDS: Acetaminophen 325 MG Tablet 650 MG PO (17:47)
--- NOTE | 2018-03-28 17:56 | EKG12_ITS ---
Test Reason : Blood Pressure : / mmHG Vent. Rate : 169 BPM Atrial Rate : 166 BPM P-R Int : 000 ms QRS Dur : 076 ms QT Int : 264 ms P-R-T Axes : 000 019 202 degrees QTc Int : 442 ms Atrial fibrillation with rapid ventricular response with premature ventricular or aberrantly conducte d complexes Low voltage QRS ST & T wave abnormality, consider anterolateral ischemia Abnormal ECG When compared with ECG of 28-MAR-2018 10:18, MANUAL COMPARISON REQUIRED, DATA IS UNCONFIRMED Confirmed by KINGS HOOVER, NIKKI ([id number]), society editor HERIBERTO MELTON ([id number]) on 04/01/2018 3:28:31 PM Referred By: Daniel Samayoa Confirmed By:NIKKI KU MD
--- NOTE | 2018-03-28 18:11 | PCM.HP.STD ---
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 States that for the last few weeks he has had a fever but however in the last few days is worsened and he has felt more ill as well. Complains of anorexia, weakness, nausea, vomiting and diarrhea with several BMs a day. Admits to having a cough and SOB. Admits to abdominal pain and malaise In the ED patient was hypotensive and had to be bolused with 2L of crystalloids. i went ahead to order another 2L to be given in the ED. Known to have Afib and was in RVR transiently but at the time of my assessment is once again in RVR in the 140s - 170s [] Past Medical History Past Medical History (Chronic Problems): Chronic Problems (Last Reviewed 03/24/18 @ 09:19 by Smita Barth) Metastasis from pancreatic cancer (Chronic) Educational circumstance (Chronic) A-fib (Chronic) Atherosclerosis of coronary artery bypass graft without angina pectoris (Chronic) CAD (coronary artery disease) (Chronic) 02/16/99 x 2 MARTINEZ to LAD, SVG to diagonal HTN (hypertension) (Chronic) Hyperlipidemia (Chronic) Obesity (Chronic) CAD (coronary artery disease) (Chronic) History of lung cancer (Chronic) s/p left lower lobectomy Medical History: Medical History (Last Reviewed 03/24/18 @ 09:19 by Smita Barth) A-fib (Chronic) I48.91 Atherosclerosis of coronary artery bypass graft without angina pectoris (Chronic) I25.810 CAD (coronary artery disease) (Chronic) I25.10 02/16/99 x 2 MARTINEZ to LAD, SVG to diagonal HTN (hypertension) (Chronic) I10 Hyperlipidemia (Chronic) E78.5 History of lung cancer (Chronic) Z85.118 s/p left lower lobectomy GI bleed K92.2 Hx of myocardial infarction I25.2 non Q wave Lung cancer C34.90 Abnormal pulmonary function test R94.2 Anemia D64.9 BMI 32.0-32.9,adult Z68.32 BPH (benign prostatic hyperplasia) N40.0 Chest pain, unspecified R07.9 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 Ischemic colitis K55.9 Malignant neoplasm C80.1 Nonspecific abnormal unspecified cardiovascular function study R94.30 Obesity E66.9 Osteoarthritis M19.90 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 Pulmonary nodule R91.1 Renal disease N28.9 Renal insufficiency N28.9 Restrictive lung disease J98.4 Allergies niacin Allergy (Mild, Verified 03/28/18 09:54) Rash atorvastatin calcium [From Lipitor] Adverse Reaction (Intermediate, Verified 03/28/18 09:54) Swelling Home Medications: Ambulatory Orders Medication Instructions Recorded isosorbide mononitrate ER 60 mg 60 mg PO DAILY #90 tab 08/18/17 tablet,extended release 24 hr lovastatin 20 mg tablet 20 mg PO QHS #90 tab 08/18/17 levothyroxine 50 mcg tablet 50 mcg PO DAILY #90 tab 02/16/18 Lisinopril [Zestril] 20 mg PO DAILY 03/04/18 Lidocaine/Prilocaine 30 gm TP DAILY PRN PRN 30 Days #1 03/09/18 [Lidocaine-Prilocaine Cream] cream..g. Rivaroxaban [Xarelto] 20 mg PO DAILY 03/09/18 Hydrocodone/Acetaminophen [[place] 1 tab PO Q6H PRN PRN 03/19/18 5-325 Tablet] Linacolotide [Linzess] 145 mcg PO PRN PRN 03/19/18 Acetaminophen [Tylenol Tablet] 650 mg PO Q6H PRN PRN tablet 03/23/18 Metoprolol Tartrate [Lopressor 100 mg PO BID #60 tab 03/23/18 (beta lula)] Ondansetron [Zofran] 8 mg PO Q8H PRN PRN #21 tab 03/23/18 Surgical History: Surgical History (Last Reviewed 03/24/18 @ 09:19 by Smita Barth) History of liver biopsy (Resolved) H54.40 Aortocoronary bypass status Z95.1 H/O angioplasty Z98.62 02/15/06 angioplasty/stent of CX, 11/20/05 drug eluting stent placement H/O coronary angioplasty Z98.61 percut transluminal cor angplsty sts Hx of CABG Z95.1 02/16/99 x 2 MARTINEZ to LAD, SVG to diagonal S/P cholecystectomy Z90.49 S/P lobectomy of lung Z90.2 left lower Smoking Status: Never smoker Tobacco Use: Non-smoker Review of Systems Constitutional: Reports: Anorexia, Chills, Fever, Night Sweats, Malaise, Weakness, Fatigue Cardiovascular: Reports: Chest Pain, Chest Pressure, Chest Tightness, Heaviness Respiratory: Reports: Cough, Pleuritic Pain, Shortness of Breath, Shortness of breath at rest, Shortness of breath upon exertion Gastrointestinal: Reports: Abdominal Pain, Diarrhea, Nausea, Vomiting Skin: Reports: Jaundice Comment: rest of the ROS is negative VTE Information - Inpt Only VTE Present on Admission: No Patient Problems: Active and Suspected Problems (Last Reviewed 03/24/18 @ 09:19 by Smita Barth) WENDY (acute kidney injury) (Acute) Severe sepsis (Acute) Atrial fibrillation with rapid ventricular response (Acute) - Physical Exam General: Alert, Oriented x3, Cooperative - Acutely ill looking and in distress, chills and rigors noted, Lethargic HEENT: - - jaundiced sclera Oral: Dry Mucosa Neck: Supple Lungs: Tachypneic, - - crackles in both lung bases Cardiovascular: Irregular Rate, Tachycardic Abdomen: Soft, Obese - vague tenderness Extremities: No cyanosis Skin: - - icteric Neurological: Cranial nerves II-XII grossly intact, Neuro grossly intact Psych/Mental Status: Anxious, Restless Vital Signs Temp Pulse Resp BP Pulse Ox 101.8 F H 171 H 18 131/53 H 98 03/28/18 17:33 03/28/18 17:33 03/28/18 17:33 03/28/18 17:33 03/28/18 17:33 Oxygen Flow Rate (L/min) 4 Oxygen Delivery Method Nasal Cannula Weight: 108.409 kg Body Mass Index (BMI) 32.4 Intake and Output for Last 24 Hours 03/26/18 03/27/18 03/28/18 23:59 23:59 23:59 Intake Total 351 / 351 Balance 351 / 351 Laboratory Tests Past 24 Hrs 03/28/18 14:40 Lactic Acid 3.1 H Assessment/Plan All Active Problems (Last Reviewed 03/24/18 @ 09:19 by Smita Arney) Fever (Acute) WENDY (acute kidney injury) (Acute) Severe sepsis (Acute) Atrial fibrillation with rapid ventricular response (Acute) Liver metastases (Acute) Pancreas cancer (Acute) History of liver biopsy (Resolved) Liver lesion (Acute) Hypoxia (Resolved) 1. Severe sepsis. Patient immunocompromised with advanced, pancreatic cancer, chemotherapy and leukopenia. Lactic acidosis of 4 on presentation. Will transfer to ICU. Started on IV antibiotics. Trend lactic acid. Continue aggressive IVF resuscitation. Consult furniture technician 2. WENDY on CKD III. Secondary to severe sepsis and volume depletion from diarrhea. Expect to improve with treatment of sepsis and resuscitation. 3. Atrial fibrillation with RVR. RVR response secondary to sepsis. Will start rate control with amiodarone. Cardizem bolus of 20mg x 1 Consult cardiology. 4. Stage IV pancreatic cancer with mets to liver and lungs. Worsening liver function may be due to worsening mets or chemotherapy. Will monitor Consult oncology 5. Pancytopenia with leukopenia. May be secondary to recent chemotherapy and/or severe sepsis. Suspect the former. Will treat with Granix and erythropoietin. 6. Code status. Initiated discussion with patient. Son present in the room and angry and upset with this physician for having this discussion at this time. Explained that patient critically ill and no such document present or available at hand or in the chart. Patient initially says no to intubation or resuscitation. Nurse went back later when family left and patient alone in the room and he essentially states he would like to be full code. Greater than 65 mins of critical care time spent and includes face to face time evaluating patient, counselling and speaking with family and coordinating care for ultimate transfer to the ICU Code Visit Procedures: 00198 Critial Care 1st Hr
--- NOTE | 2018-03-28 18:17 | HP.PCM_ITS ---
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 States that for the last few weeks he has had a fever but however in the last few days is worsened and he has felt more ill as well. Complains of anorexia, weakness, nausea, vomiting and diarrhea with several BMs a day. Admits to having a cough and SOB. Admits to abdominal pain and malaise In the ED patient was hypotensive and had to be bolused with 2L of crystalloids. i went ahead to order another 2L to be given in the ED. Known to have Afib and was in RVR transiently but at the time of my assessment is once again in RVR in the 140s - 170s [] Past Medical History Past Medical History (Chronic Problems): Chronic Problems (Last Reviewed 03/24/18 @ 09:19 by Smita Barth) Metastasis from pancreatic cancer (Chronic) Educational circumstance (Chronic) A-fib (Chronic) Atherosclerosis of coronary artery bypass graft without angina pectoris (Chronic ) CAD (coronary artery disease) (Chronic) 02/16/99 x 2 MARTINEZ to LAD, SVG to diagonal HTN (hypertension) (Chronic) Hyperlipidemia (Chronic) Obesity (Chronic) CAD (coronary artery disease) (Chronic) History of lung cancer (Chronic) s/p left lower lobectomy Medical History: Medical History (Last Reviewed 03/24/18 @ 09:19 by Smita Barth) A-fib (Chronic) I48.91 Atherosclerosis of coronary artery bypass graft without angina pectoris (Chronic ) I25.810 CAD (coronary artery disease) (Chronic) I25.10 02/16/99 x 2 [place]ART[place]Z to LAD, SVG to diagonal HTN (hypertension) (Chronic) I10 Hyperlipidemia (Chronic) E78.5 History of lung cancer (Chronic) Z85.118 s/p left lower lobectomy GI bleed K92.2 Hx of myocardial infarction I25.2 non Q wave Lung cancer C34.90 Abnormal pulmonary function test R94.2 Anemia D64.9 BMI 32.0-32.9,adult Z68.32 BPH (benign prostatic hyperplasia) N40.0 Chest pain, unspecified R07.9 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 Ischemic colitis K55.9 Malignant neoplasm C80.1 Nonspecific abnormal unspecified cardiovascular function study R94.30 Obesity E66.9 Osteoarthritis M19.90 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 Pulmonary nodule R91.1 Renal disease N28.9 Renal insufficiency N28.9 Restrictive lung disease J98.4 Allergies niacin Allergy (Mild, Verified 03/28/18 09:54) Rash atorvastatin calcium [From Lipitor] Adverse Reaction (Intermediate, Verified 09:54) Swelling Home Medications: Ambulatory Orders Medication Instructions Recorded isosorbide mononitrate ER 60 mg 60 mg PO DAILY #90 tab 08/18/17 tablet,extended release 24 hr lovastatin 20 mg tablet 20 mg PO QHS #90 tab 08/18/17 levothyroxine 50 mcg tablet 50 mcg PO DAILY #90 tab 02/16/18 Lisinopril [Zestril] 20 mg PO DAILY 03/04/18 Lidocaine/Prilocaine 30 gm TP DAILY PRN PRN 30 Days #1 03/09/18 [Lidocaine-Prilocaine Cream] cream..g. Rivaroxaban [Xarelto] 20 mg PO DAILY 03/09/18 Hydrocodone/Acetaminophen [[place] 1 tab PO Q6H PRN PRN 03/19/18 5-325 Tablet] Linacolotide [Linzess] 145 mcg PO PRN PRN 03/19/18 Acetaminophen [Tylenol Tablet] 650 mg PO Q6H PRN PRN tablet 03/23/18 Metoprolol Tartrate [Lopressor 100 mg PO BID #60 tab 03/23/18 (beta lula)] Ondansetron [Zofran] 8 mg PO Q8H PRN PRN #21 tab 03/23/18 Surgical History: Surgical History (Last Reviewed 03/24/18 @ 09:19 by Smita Barth) History of liver biopsy (Resolved) H54.40 Aortocoronary bypass status Z95.1 H/O angioplasty Z98.62 02/15/06 angioplasty/stent of CX, 11/20/05 drug eluting stent placement H/O coronary angioplasty Z98.61 percut transluminal cor angplsty sts Hx of CABG Z95.1 02/16/99 x 2 MARTINEZ to LAD, SVG to diagonal S/P cholecystectomy Z90.49 S/P lobectomy of lung Z90.2 left lower Smoking Status: Never smoker Tobacco Use: Non-smoker Review of Systems Constitutional: Reports: Anorexia, Chills, Fever, Night Sweats, Malaise, Weakness, Fatigue Cardiovascular: Reports: Chest Pain, Chest Pressure, Chest Tightness, Heaviness Respiratory: Reports: Cough, Pleuritic Pain, Shortness of Breath, Shortness of breath at rest, Shortness of breath upon exertion Gastrointestinal: Reports: Abdominal Pain, Diarrhea, Nausea, Vomiting Skin: Reports: Jaundice Comment: rest of the ROS is negative VTE Information - Inpt Only VTE Present on Admission: No Patient Problems: Active and Suspected Problems (Last Reviewed 03/24/18 @ 09:19 by Smita Barth) WENDY (acute kidney injury) (Acute) Severe sepsis (Acute) Atrial fibrillation with rapid ventricular response (Acute) - Physical Exam General: Alert, Oriented x3, Cooperative - Acutely ill looking and in distress, chills and rigors noted, Lethargic HEENT: - - jaundiced sclera Oral: Dry Mucosa Neck: Supple Lungs: Tachypneic, - - crackles in both lung bases Cardiovascular: Irregular Rate, Tachycardic Abdomen: Soft, Obese - vague tenderness Extremities: No cyanosis Skin: - - icteric Neurological: Cranial nerves II-XII grossly intact, Neuro grossly intact Psych/Mental Status: Anxious, Restless Vital Signs Temp Pulse Resp BP Pulse Ox 101.8 F H 171 H 18 131/53 H 98 03/28/18 17:33 03/28/18 17:33 03/28/18 17:33 03/28/18 17:33 03/28/18 17:33 Oxygen Flow Rate (L/min) 4 Oxygen Delivery Method Nasal Cannula Weight: 108.409 kg Body Mass Index (BMI) 32.4 Intake and Output for Last 24 Hours 03/26/18 03/27/18 03/28/18 23:59 23:59 23:59 Intake Total 351 / 351 Balance 351 / 351 Laboratory Tests Past 24 Hrs 03/28/18 14:40 Lactic Acid 3.1 H Assessment/Plan All Active Problems (Last Reviewed 03/24/18 @ 09:19 by Smita Arney) Fever (Acute) WENDY (acute kidney injury) (Acute) Severe sepsis (Acute) Atrial fibrillation with rapid ventricular response (Acute) Liver metastases (Acute) Pancreas cancer (Acute) History of liver biopsy (Resolved) Liver lesion (Acute) Hypoxia (Resolved) 1. Severe sepsis. Patient immunocompromised with advanced, pancreatic cancer, chemotherapy and leukopenia. Lactic acidosis of 4 on presentation. Will transfer to ICU. Started on IV antibiotics. Trend lactic acid. Continue aggressive IVF resuscitation. 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 WENDY on CKD III. Secondary to severe sepsis and volume depletion from diarrhea. Expect to improve with treatment of sepsis and resuscitation. 3. Atrial fibrillation with RVR. RVR response secondary to sepsis. Will start rate control with amiodarone. Cardizem bolus of 20mg x 1 Consult cardiology. 4. Stage IV pancreatic cancer with mets to liver and lungs. Worsening liver function may be due to worsening mets or chemotherapy. Will monitor Consult oncology 5. Pancytopenia with leukopenia. May be secondary to recent chemotherapy and/or severe sepsis. Suspect the former. Will treat with Granix and erythropoietin. 6. Code status. Initiated discussion with patient. Son present in the room and angry and upset with this physician for having this discussion at this time. Explained that patient critically ill and no such document present or available at hand or in the chart. Patient initially says no to intubation or resuscitation. Nurse went back later when family left and patient alone in the room and he essentially states he would like to be full code. Greater than 65 mins of critical care time spent and includes face to face time evaluating patient, counselling and speaking with family and coordinating care for ultimate transfer to the ICU Code Visit Procedures: 09314 Critial Care 1st Hr
[2018-03-28] MEDS: dilTIAZem 25 MG/5 ML Vial 20 MG IV BOLUS (18:20)
[2018-03-28 18:35] LABS: Magnesium 2.2 mg/dL (1.6-2.6); Phosphorus 3.1 mg/dL (2.5-4.9)
[2018-03-28 19:22] LABS: Lactic Acid 2.6 mmol/L (0.4-2.0)
--- NOTE | 2018-03-28 19:30 | EKG12_ITS ---
Test Reason : TACHY Blood Pressure : / mmHG Vent. Rate : 161 BPM Atrial Rate : 187 BPM P-R Int : 000 ms QRS Dur : 080 ms QT Int : 290 ms P-R-T Axes : 000 -13 190 degrees QTc Int : 474 ms Atrial fibrillation Low voltage QRS Inferior infarct , age undetermined ST & T wave abnormality, consider lateral ischemia Abnormal ECG When compared with ECG of 28-MAR-2018 17:40, MANUAL COMPARISON REQUIRED, DATA IS UNCONFIRMED Confirmed by KINGS HOOVER, NIKKI ([id number]), market editor HERIBERTO MELTON ([id number]) on 04/01/2018 3:32:37 PM Referred By: Daniel Samayoa Confirmed By:NIKKI KU MD
[2018-03-28] MEDS: Metoprolol Tartrate 100 MG Tablet PO (21:51)
[2018-03-28] MEDS: 0.9% NaCl Peripheral Flush Adult/Peds IV (21:53)
[2018-03-28 22:36] LABS: Reflex Lactate? Y
[2018-03-29] VITALS (43 sets, daily range): BP systolic 91–173; BP diastolic 27–92; PULSE 88–147; RESP 19–34; TEMP 36.6–37.8; O2SAT 94–99
[2018-03-29] MEDS: HYDROcodone Bitartrate/Apap 5/325 Tablet PO (00:18)
[2018-03-29] MEDS: 0.9% NaCl Peripheral Flush Adult/Peds IV ×3 (02:00→05:11)
[2018-03-29] MEDS: dilTIAZem 25 MG/5 ML Vial 5 MG IV BOLUS (02:35)
[2018-03-29] MEDS: Loperamide 2 MG Capsule 4 MG PO (02:36)
[2018-03-29] MEDS: CHLORHEXIDINE GLUC 2% CLOTH 1 EACH TOWELETTE TOPICAL (02:48)
[2018-03-29] MEDS: Levothyroxine 50 MCG Tablet PO (05:11)
[2018-03-29 05:19] LABS: ALB/GLOB Ratio 0.4 RATIO (0.9-2.4); AST(SGOT) 84 U/L (15-37); Alanine Aminotransfer ALT/SGPT 126 U/L (16-61); Albumin, Serum 1.4 g/dL (3.2-5.0); Alkaline Phosphatase 155 U/L (45-117); Anion Gap 11 (5-15); BUN 38 mg/dL (7-18); Calcium,Total 6.9 mg/dL (8.5-10.1); Chloride 114 mmol/L (98-107); Creatinine, Serum 1.46 mg/dL (0.70-1.30); EST Glomerular Filtration Rate 50 mL/min (>60); Est Glom Filt Rate - Afr Amer 60 mL/min (>60); Estimated Creatinine Clearance 46.51 ml/min; Globulin 3.4 g/dL (2.2-4.2); Glucose 203 mg/dL (74-106); Phosphorus 2.6 mg/dL (2.5-4.9); Potassium 4.6 mmol/L (3.5-5.1); Protein, Total 4.8 g/dL (6.4-8.2); Sodium Level 144 mmol/L (136-145)
[2018-03-29 05:28] LABS: Hematocrit 23.9 % (40-54); Hemoglobin 7.5 g/dl (13.0-16.5); Mean Corp Hgb Conc 31.4 g/gl (32-36); Mean Corpuscular Hgb 27.7 pg (27.0-32.0); Mean Corpuscular Volume 88.2 fL (80-94); Mean Platelet Vol. 13.5 fl (6.2-12.0); Platelet Count 59 K/mm3 (150-450); RBC Distribution Width CV 15.4 % (11.6-14.6); RBC Distribution Width SD 49.5 fl (35.1-43.9); Red Blood Count 2.71 M/mm3 (4.6-6.2)
[2018-03-29 06:53] LABS: Differential Indicated MANUAL DIFF; POSITIVE COUNT YES; POSITIVE DIFFERENTIAL NO; POSITIVE MORPHOLOGY YES; White Blood Count 0.1 K/mm3 (4.4-11.0)
--- NOTE | 2018-03-29 07:02 | PCM.CON.CC ---
Problem List (1) Metastasis from pancreatic cancer Status: Chronic (2) WENDY (acute kidney injury) Status: Acute (3) Severe sepsis Status: Acute (4) Atrial fibrillation with rapid ventricular response Status: Acute (5) Liver metastases Status: Acute (6) Pancreas cancer Status: Acute Qualifiers: Pancreatic malignancy location: unspecified Qualified Code(s): C25.9 - Malignant neoplasm of pancreas, unspecified (7) Atherosclerosis of coronary artery bypass graft without angina pectoris Status: Chronic Qualifiers: [place] vs. transplanted heart: [place] heart Qualified Code(s): I25.810 - Atherosclerosis of coronary artery bypass graft(s) without angina pectoris (8) CAD (coronary artery disease) Status: Chronic Comment: 02/16/99 x 2 MARTINEZ to LAD, SVG to diagonal (9) Hyperlipidemia Status: Chronic Qualifiers: Hyperlipidemia type: pure hypercholesterolemia Qualified Code(s): E78.00 - Pure hypercholesterolemia, unspecified; E78.0 - Pure hypercholesterolemia (10) Obesity Status: Chronic Qualifiers: Obesity type: due to excess calories Obesity classification: adult class 1 (BMI 30 - 34.9) Serious obesity comorbidity presence: with serious comorbidity Body mass index: BMI 33.0-33.9 Qualified Code(s): E66.09 - Other obesity due to excess calories; Z68.33 - Body mass index (BMI) 33.0-33.9, adult (11) History of lung cancer Status: Chronic Comment: s/p left lower lobectomy Reason for Consult Date of Consultation: 03/29/18 Reason for Consultation: Severe sepsis, A. fib with RVR History of Present Illness: The patient is a 77 year old M, with past medical history listed below, who presented to [facility] on 03/28/2018 secondary to fever, chills and myalgias. Patient is currently on chemotherapy secondary to pancreatic cancer and had noted 2 days of intermittent fevers. Patient's noted a temperature of 102?F overnight and patient had reported sore throat and scant cough. Patient was admitted for a similar type of presentation earlier in the month where he received 5 days of Zosyn with complete resolution of his symptoms. In the emergency department, patient was noted to be in A. fib with RVR that was not responsive to fluid resuscitation. Patient did have a CT of the abdomen and pelvis showing worsening metastasis in all areas and of the pancreatic mass. There was no evidence of obstruction of the biliary tree noted. Patient was noted to have significant neutropenia and was admitted to the intensive care unit for further monitoring. Overnight, patient continued to have significant issues with A. fib with RVR. Patient was initiated on amiodarone drip with little improvement. Patient was then given a Cardizem bolus and placed on a Cardizem drip. Heart rate has been moderately controlled, but still spikes with any movement. Patient reports I feel awful. Patient is reporting some nausea and nursing has reported significant diarrhea overnight. C. difficile evaluation was negative. Patient has not had to be initiated on pressors, but has received a total of 4 L of IV fluids. Patient is not able to provide a significant review of systems at this time. Past Medical History Past Medical History (Chronic Problems): Chronic Problems (Last Reviewed 03/24/18 @ 09:19 by Smita Barth) Metastasis from pancreatic cancer (Chronic) Educational circumstance (Chronic) A-fib (Chronic) Atherosclerosis of coronary artery bypass graft without angina pectoris (Chronic) CAD (coronary artery disease) (Chronic) 02/16/99 x 2 MARTINEZ to LAD, SVG to diagonal HTN (hypertension) (Chronic) Hyperlipidemia (Chronic) Obesity (Chronic) CAD (coronary artery disease) (Chronic) History of lung cancer (Chronic) s/p left lower lobectomy Medical History: Medical History (Last Reviewed 03/24/18 @ 09:19 by Smita Barth) A-fib (Chronic) I48.91 Atherosclerosis of coronary artery bypass graft without angina pectoris (Chronic) I25.810 CAD (coronary artery disease) (Chronic) I25.10 02/16/99 x 2 MARTINEZ to LAD, SVG to diagonal HTN (hypertension) (Chronic) I10 Hyperlipidemia (Chronic) E78.5 History of lung cancer (Chronic) Z85.118 s/p left lower lobectomy GI bleed K92.2 Hx of myocardial infarction I25.2 non Q wave Lung cancer C34.90 Abnormal pulmonary function test R94.2 Anemia D64.9 BMI 32.0-32.9,adult Z68.32 BPH (benign prostatic hyperplasia) N40.0 Chest pain, unspecified R07.9 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 Ischemic colitis K55.9 Malignant neoplasm C80.1 Nonspecific abnormal unspecified cardiovascular function study R94.30 Obesity E66.9 Osteoarthritis M19.90 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 Pulmonary nodule R91.1 Renal disease N28.9 Renal insufficiency N28.9 Restrictive lung disease J98.4 Allergies niacin Allergy (Mild, Verified 03/28/18 09:54) Rash atorvastatin calcium [From Lipitor] Adverse Reaction (Intermediate, Verified 03/28/18 09:54) Swelling Home Medications: Ambulatory Orders Medication Instructions Recorded isosorbide mononitrate ER 60 mg 60 mg PO DAILY #90 tab 08/18/17 tablet,extended release 24 hr lovastatin 20 mg tablet 20 mg PO QHS #90 tab 08/18/17 levothyroxine 50 mcg tablet 50 mcg PO DAILY #90 tab 02/16/18 Lisinopril [Zestril] 20 mg PO DAILY 03/04/18 Lidocaine/Prilocaine 30 gm TP DAILY PRN PRN 30 Days #1 03/09/18 [Lidocaine-Prilocaine Cream] cream..g. Rivaroxaban [Xarelto] 20 mg PO DAILY 03/09/18 Hydrocodone/Acetaminophen [[place] 1 tab PO Q6H PRN PRN 03/19/18 5-325 Tablet] Linacolotide [Linzess] 145 mcg PO PRN PRN 03/19/18 Acetaminophen [Tylenol Tablet] 650 mg PO Q6H PRN PRN tablet 03/23/18 Metoprolol Tartrate [Lopressor 100 mg PO BID #60 tab 03/23/18 (beta lula)] Ondansetron [Zofran] 8 mg PO Q8H PRN PRN #21 tab 03/23/18 Surgical History: Surgical History (Last Reviewed 03/24/18 @ 09:19 by Smita Barth) History of liver biopsy (Resolved) H54.40 Aortocoronary bypass status Z95.1 H/O angioplasty Z98.62 02/15/06 angioplasty/stent of CX, 11/20/05 drug eluting stent placement H/O coronary angioplasty Z98.61 percut transluminal cor angplsty sts Hx of CABG Z95.1 02/16/99 x 2 MARTINEZ to LAD, SVG to diagonal S/P cholecystectomy Z90.49 S/P lobectomy of lung Z90.2 left lower Smoking Status: Never smoker Tobacco Use: Non-smoker Review of Systems Comment: See HPI Patient Problems: Active and Suspected Problems (Last Reviewed 03/24/18 @ 09:19 by Smita Barth) WENDY (acute kidney injury) (Acute) Severe sepsis (Acute) Atrial fibrillation with rapid ventricular response (Acute) Objective: All imaging was personally reviewed and I agree with formal interpretation. Patient does have multiple enlarging metastatic lesions noted in multiple organs. Chest x-ray shows multiple metastatic lesions and a probable left effusion. - Physical Exam General: Alert, Oriented x3, Cooperative, - - Mild distress. Obese. Speaking in full sentences. Slightly terse. HEENT: Atraumatic, PERRLA, EOMI, Normocephalic, - - No scleral icterus or injection noted. Oral: No Gingival or Mucosal Lesions/ Ulcerations, Dry Mucosa Neck: Supple, No JVD, No Nodes, Trachea Midline Lungs: No rhonchi, No wheeze, Diminished, Rales - Bilateral, - - Symmetric expansion. No dullness to percussion. Cardiovascular: Normal S1, Normal S2, No murmurs, Irregular Rate, No rub noted, No Gallop, Tachycardic Abdomen: Bowel Sounds Present, Soft, Non Tender, Non-Distended, Obese Extremities: No clubbing, No cyanosis, Edema - 2+ lower extremities Skin: No rashes, No breakdown Musculoskeletal: No Tenderness to Palpation of Joints or Extremities Lymphatic: No Cervical, Supraclavicular, or Inguinal Adenopathy Neurological: Cranial nerves II-XII grossly intact, Neuro grossly intact, Motor Exam 5/5 strength throughout Psych/Mental Status: Restless Vital Signs Temp Pulse Resp BP Pulse Ox 37.1 C 107 H 27 H 113/44 L 98 03/29/18 06:00 03/29/18 06:00 03/29/18 06:00 03/29/18 06:00 03/29/18 06:00 Oxygen Flow Rate (L/min) 3 Oxygen Delivery Method Nasal Cannula Weight: 112 kg Body Mass Index (BMI) 32.4 Intake and Output for Last 24 Hours 03/27/18 03/28/18 03/29/18 23:59 23:59 23:59 Intake Total 3904.6 / 3904.6 1075 / 1075 Output Total 275 / 275 300 / 300 Balance 3629.6 / 3629.6 775 / 775 Microbiology Past 72 Hours 03/28/18 23:30 C. difficile DNA Amplification - Final Stool Laboratory Tests Past 24 Hrs 03/28/18 03/28/18 03/29/18 14:40 18:35 04:40 WBC 0.1 L* RBC 2.71 L Hgb 7.5 L Hct 23.9 L MCV 88.2 MCH 27.7 MCHC 31.4 L RDW 15.4 H RDW Differential 49.5 H Plt Count 59 L MPV 13.5 H Neut % (Auto) Not Reportable Absolute Neuts (auto) Not Reportable Total Counted Pending Sodium Potassium Chloride Carbon Dioxide Anion Gap BUN Creatinine Estim Creat Clear Calc Est GFR (MDRD) Af Amer Est GFR (MDRD) Non-Af BUN/Creatinine Ratio Glucose Lactic Acid 3.1 H 2.6 H Calcium Phosphorus Total Bilirubin AST ALT Alkaline Phosphatase Total Protein Albumin Globulin Albumin/Globulin Ratio 03/29/18 04:40 WBC RBC Hgb Hct MCV MCH MCHC RDW RDW Differential Plt Count MPV Neut % (Auto) Absolute Neuts (auto) Total Counted Sodium 144 Potassium 4.6 Chloride 114 H Carbon Dioxide 19.0 L Anion Gap 11 BUN 38 H Creatinine 1.46 H Estim Creat Clear Calc 46.51 Est GFR (MDRD) Af Amer 60 Est GFR (MDRD) Non-Af 50 L BUN/Creatinine Ratio 26.0 H Glucose 203 H Lactic Acid Calcium 6.9 L Phosphorus 2.6 Total Bilirubin 3.20 H AST 84 H ALT 126 H Alkaline Phosphatase 155 H Total Protein 4.8 L Albumin 1.4 L Globulin 3.4 Albumin/Globulin Ratio 0.4 L Clinical Impression(s) from Imaging Studies Chest X-Ray 03/28/18 10:03 IMPRESSION: Adequately inflated lungs with continued prominent lung markings throughout with questionable superimposed pulmonary micronodules. Metastatic involvement of the lungs cannot be excluded. Continued left lower lobe airspace disease with small effusion. Electronically Signed: Ole Ramirez DO at 10:23 EDT Tel , Service support , Abdomen/Pelvis CT 03/28/18 10:57 IMPRESSION: 1. Multiple pulmonary nodules consistent with metastases increased in size and number since the previous exam. 2. Metastatic liver lesions again in size and number since previous exam. 3. Pancreatic mass increased in size. 4. Diffuse thickening of the colon particularly of the sigmoid colon which could be due to underdistention. Colitis cannot be excluded. 5. Persistent nonobstructing stone in the left kidney with mild prominence of the collecting system unchanged. Electronically Signed: Shai Sousa MD at 12:24 EDT Tel , Service support , Assessment/Plan Active and Suspected Problems (Last Reviewed 03/24/18 @ 09:19 by Smita Barth) WENDY (acute kidney injury) (Acute) Severe sepsis (Acute) Atrial fibrillation with rapid ventricular response (Acute) RECOMMENDATIONS: 1. Obtain MRSA screen, discontinue vancomycin if negative 2. Await cardiology recommendations, continue amiodarone and Cardizem 3. Continue aggressive fluid resuscitation 4. Consider oncology consultation for prognostic discussion 5. Cannot exclude the need for pressors in the next 24-48 hours 6. Initiate nystatin swish and swallow, avoid Diflucan given patient's elevated transaminases IMPRESSIONS: 1. Severe sepsis secondary to probable gram-negative UTI/thrush Patient already with one blood culture showing positive bacteria. Await species and sensitivities. Patient is on broad-spectrum antibiotics at this time. Will obtain an MRSA swab. If negative and blood cultures show gram-negative, will discontinue vancomycin. Patient does have a history of diastolic dysfunction, so further fluid resuscitation will need to be done cautiously. Will use nystatin swish and swallow for now. We will try to avoid Diflucan as patient already has elevation of liver enzymes. 2. A. fib with RVR Patient currently on amiodarone and Cardizem with marginal rate control. Cardiology has been consulted, but has not seen the patient at this time. Patient is also receiving baseline beta-lula, so we will have to watch for possible heart block. Recent echocardiogram did show stage I diastolic dysfunction, which will be exacerbated by elevated heart rates. Patient also with elevated right ventricular systolic pressures previously. 3. Stage IV pancreatic cancer, not responding to chemotherapy/elevated transaminases/thrombocytopenia Patient last received chemotherapy on March 24. Patient has multiple enlarging masses in multiple organs, including the primary site. Consider consultation with oncology to discuss prognosis. It is likely inappropriate the patient remains a full code despite the likelihood that gram-negative infection will be treated with antibiotics. Unclear if patient's elevated transaminases are secondary to metastases versus decreased perfusion from severe sepsis. Decreased platelet count likely secondary to acute condition. Patient does not need any transfusions at this time. 4. Acute hypoxic respiratory insufficiency Patient is requiring 3 L nasal cannula oxygen to maintain saturations. Patient has received significant amounts of fluid and albumin is depressed secondary to chronic illness. Will likely have to hold off on further boluses of fluid. Cannot exclude the need for pressors. Patient is reportedly a full code despite progressing pancreatic cancer on chemotherapy. 5. Coronary artery disease/hypertension/hyperlipidemia/obesity Complicates care, management, recovery and prognosis. Hold antihypertensives for now given patient's need for rate control and gram-negative infection. Will hold statin therapy if patient's hepatic function continues to deteriorate. Patient is on heparin DVT prophylaxis. TIME: 33 minutes critical care time spent addressing patient's A. fib with RVR, acute hypoxic respiratory insufficiency, severe sepsis, thrush, review of all data and collaboration with care team. (6:30 AM to 7:30 AM) Code Visit 9xxxx: [id number] Critical care first hour
--- NOTE | 2018-03-29 07:07 | CON.PCM_ITS ---
Problem List (1) Metastasis from pancreatic cancer Status: Chronic (2) WENDY (acute kidney injury) Status: Acute (3) Severe sepsis Status: Acute (4) Atrial fibrillation with rapid ventricular response Status: Acute (5) Liver metastases Status: Acute (6) Pancreas cancer Status: Acute Qualifiers: Pancreatic malignancy location: unspecified Qualified Code(s): C25.9 - Malignant neoplasm of pancreas, unspecified (7) Atherosclerosis of coronary artery bypass graft without angina pectoris Status: Chronic Qualifiers: [place] vs. transplanted heart: [place] heart Qualified Code(s): I25.810 - Atherosclerosis of coronary artery bypass graft(s) without angina pectoris (8) CAD (coronary artery disease) Status: Chronic Comment: 02/16/99 x 2 MARTINEZ to LAD, SVG to diagonal (9) Hyperlipidemia Status: Chronic Qualifiers: Hyperlipidemia type: pure hypercholesterolemia Qualified Code(s): E78.00 - Pure hypercholesterolemia, unspecified; E78.0 - Pure hypercholesterolemia (10) Obesity Status: Chronic Qualifiers: Obesity type: due to excess calories Obesity classification: adult class 1 (BMI 30 - 34.9) Serious obesity comorbidity presence: with serious comorbidity Body mass index: BMI 33.0-33.9 Qualified Code(s): E66.09 - Other obesity due to excess calories; Z68.33 - Body mass index (BMI) 33.0-33.9, adult (11) History of lung cancer Status: Chronic Comment: s/p left lower lobectomy Reason for Consult Date of Consultation: 03/29/18 Reason for Consultation: Severe sepsis, A. fib with RVR History of Present Illness: The patient is a 77 year old M, with past medical history listed below, who presented to [facility] on 03/28/2018 secondary to fever, chills and myalgias. Patient is currently on chemotherapy secondary to pancreatic cancer and had noted 2 days of intermittent fevers. Patient's noted a temperature of 102?F overnight and patient had reported sore throat and scant cough. Patient was admitted for a similar type of presentation earlier in the month where he received 5 days of Zosyn with complete resolution of his symptoms. In the emergency department, patient was noted to be in A. fib with RVR that was not responsive to fluid resuscitation. Patient did have a CT of the abdomen and pelvis showing worsening metastasis in all areas and of the pancreatic mass. There was no evidence of obstruction of the biliary tree noted. Patient was noted to have significant neutropenia and was admitted to the intensive care unit for further monitoring. Overnight, patient continued to have significant issues with A. fib with RVR. Patient was initiated on amiodarone drip with little improvement. Patient was then given a Cardizem bolus and placed on a Cardizem drip. Heart rate has been moderately controlled, but still spikes with any movement. Patient reports I feel awful. Patient is reporting some nausea and nursing has reported significant diarrhea overnight. C. difficile evaluation was negative. Patient has not had to be initiated on pressors, but has received a total of 4 L of IV fluids. Patient is not able to provide a significant review of systems at this time. Past Medical History Past Medical History (Chronic Problems): Chronic Problems (Last Reviewed 03/24/18 @ 09:19 by Smita Barth) Metastasis from pancreatic cancer (Chronic) Educational circumstance (Chronic) A-fib (Chronic) Atherosclerosis of coronary artery bypass graft without angina pectoris (Chronic ) CAD (coronary artery disease) (Chronic) 02/16/99 x 2 MARTINEZ to LAD, SVG to diagonal HTN (hypertension) (Chronic) Hyperlipidemia (Chronic) Obesity (Chronic) CAD (coronary artery disease) (Chronic) History of lung cancer (Chronic) s/p left lower lobectomy Medical History: Medical History (Last Reviewed 03/24/18 @ 09:19 by Smita Barth) A-fib (Chronic) I48.91 Atherosclerosis of coronary artery bypass graft without angina pectoris (Chronic ) I25.810 CAD (coronary artery disease) (Chronic) I25.10 02/16/99 x 2 MARTINEZ to LAD, SVG to diagonal HTN (hypertension) (Chronic) I10 Hyperlipidemia (Chronic) E78.5 History of lung cancer (Chronic) Z85.118 s/p left lower lobectomy GI bleed K92.2 Hx of myocardial infarction I25.2 non Q wave Lung cancer C34.90 Abnormal pulmonary function test R94.2 Anemia D64.9 BMI 32.0-32.9,adult Z68.32 BPH (benign prostatic hyperplasia) N40.0 Chest pain, unspecified R07.9 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 Ischemic colitis K55.9 Malignant neoplasm C80.1 Nonspecific abnormal unspecified cardiovascular function study R94.30 Obesity E66.9 Osteoarthritis M19.90 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 Pulmonary nodule R91.1 Renal disease N28.9 Renal insufficiency N28.9 Restrictive lung disease J98.4 Allergies niacin Allergy (Mild, Verified 03/28/18 09:54) Rash atorvastatin calcium [From Lipitor] Adverse Reaction (Intermediate, Verified 09:54) Swelling Home Medications: Ambulatory Orders Medication Instructions Recorded isosorbide mononitrate ER 60 mg 60 mg PO DAILY #90 tab 08/18/17 tablet,extended release 24 hr lovastatin 20 mg tablet 20 mg PO QHS #90 tab 08/18/17 levothyroxine 50 mcg tablet 50 mcg PO DAILY #90 tab 02/16/18 Lisinopril [Zestril] 20 mg PO DAILY 03/04/18 Lidocaine/Prilocaine 30 gm TP DAILY PRN PRN 30 Days #1 03/09/18 [Lidocaine-Prilocaine Cream] cream..g. Rivaroxaban [Xarelto] 20 mg PO DAILY 03/09/18 Hydrocodone/Acetaminophen [[place] 1 tab PO Q6H PRN PRN 03/19/18 5-325 Tablet] Linacolotide [Linzess] 145 mcg PO PRN PRN 03/19/18 Acetaminophen [Tylenol Tablet] 650 mg PO Q6H PRN PRN tablet 03/23/18 Metoprolol Tartrate [Lopressor 100 mg PO BID #60 tab 03/23/18 (beta lula)] Ondansetron [Zofran] 8 mg PO Q8H PRN PRN #21 tab 03/23/18 Surgical History: Surgical History (Last Reviewed 03/24/18 @ 09:19 by Smita Barth) History of liver biopsy (Resolved) H54.40 Aortocoronary bypass status Z95.1 H/O angioplasty Z98.62 02/15/06 angioplasty/stent of CX, 11/20/05 drug eluting stent placement H/O coronary angioplasty Z98.61 percut transluminal cor angplsty sts Hx of CABG Z95.1 02/16/99 x 2 MARTINEZ to LAD, SVG to diagonal S/P cholecystectomy Z90.49 S/P lobectomy of lung Z90.2 left lower Smoking Status: Never smoker Tobacco Use: Non-smoker Review of Systems Comment: See HPI Patient Problems: Active and Suspected Problems (Last Reviewed 03/24/18 @ 09:19 by Smita Barth) WENDY (acute kidney injury) (Acute) Severe sepsis (Acute) Atrial fibrillation with rapid ventricular response (Acute) Objective: All imaging was personally reviewed and I agree with formal interpretation. Patient does have multiple enlarging metastatic lesions noted in multiple organs. Chest x-ray shows multiple metastatic lesions and a probable left effusion. - Physical Exam General: Alert, Oriented x3, Cooperative, - - Mild distress. Obese. Speaking in full sentences. Slightly terse. HEENT: Atraumatic, PERRLA, EOMI, Normocephalic, - - No scleral icterus or injection noted. Oral: No Gingival or Mucosal Lesions/ Ulcerations, Dry Mucosa Neck: Supple, No JVD, No Nodes, Trachea Midline Lungs: No rhonchi, No wheeze, Diminished, Rales - Bilateral, - - Symmetric expansion. No dullness to percussion. Cardiovascular: Normal S1, Normal S2, No murmurs, Irregular Rate, No rub noted, No Gallop, Tachycardic Abdomen: Bowel Sounds Present, Soft, Non Tender, Non-Distended, Obese Extremities: No clubbing, No cyanosis, Edema - 2+ lower extremities Skin: No rashes, No breakdown Musculoskeletal: No Tenderness to Palpation of Joints or Extremities Lymphatic: No Cervical, Supraclavicular, or Inguinal Adenopathy Neurological: Cranial nerves II-XII grossly intact, Neuro grossly intact, Motor Exam 5/5 strength throughout Psych/Mental Status: Restless Vital Signs Temp Pulse Resp BP Pulse Ox 37.1 C 107 H 27 H 113/44 L 98 03/29/18 06:00 03/29/18 06:00 03/29/18 06:00 03/29/18 06:00 03/29/18 06:00 Oxygen Flow Rate (L/min) 3 Oxygen Delivery Method Nasal Cannula Weight: 112 kg Body Mass Index (BMI) 32.4 Intake and Output for Last 24 Hours 03/27/18 03/28/18 03/29/18 23:59 23:59 23:59 Intake Total 3904.6 / 3904.6 1075 / 1075 Output Total 275 / 275 300 / 300 Balance 3629.6 / 3629.6 775 / 775 Microbiology Past 72 Hours 03/28/18 23:30 C. difficile DNA Amplification - Final Stool Laboratory Tests Past 24 Hrs 03/28/18 03/28/18 03/29/18 14:40 18:35 04:40 WBC 0.1 L* RBC 2.71 L Hgb 7.5 L Hct 23.9 L MCV 88.2 MCH 27.7 MCHC 31.4 L RDW 15.4 H RDW Differential 49.5 H Plt Count 59 L MPV 13.5 H Neut % (Auto) Not Reportable Absolute Neuts (auto) Not Reportable Total Counted Pending Sodium Potassium Chloride Carbon Dioxide Anion Gap BUN Creatinine Estim Creat Clear Calc Est GFR (MDRD) Af Amer Est GFR (MDRD) Non-Af BUN/Creatinine Ratio Glucose Lactic Acid 3.1 H 2.6 H Calcium Phosphorus Total Bilirubin AST ALT Alkaline Phosphatase Total Protein Albumin Globulin Albumin/Globulin Ratio 03/29/18 04:40 WBC RBC Hgb Hct MCV MCH MCHC RDW RDW Differential Plt Count MPV Neut % (Auto) Absolute Neuts (auto) Total Counted Sodium 144 Potassium 4.6 Chloride 114 H Carbon Dioxide 19.0 L Anion Gap 11 BUN 38 H Creatinine 1.46 H Estim Creat Clear Calc 46.51 Est GFR (MDRD) Af Amer 60 Est GFR (MDRD) Non-Af 50 L BUN/Creatinine Ratio 26.0 H Glucose 203 H Lactic Acid Calcium 6.9 L Phosphorus 2.6 Total Bilirubin 3.20 H AST 84 H ALT 126 H Alkaline Phosphatase 155 H Total Protein 4.8 L Albumin 1.4 L Globulin 3.4 Albumin/Globulin Ratio 0.4 L Clinical Impression(s) from Imaging Studies Chest X-Ray 03/28/18 10:03 IMPRESSION: Adequately inflated lungs with continued prominent lung markings throughout with questionable superimposed pulmonary micronodules. Metastatic involvement of the lungs cannot be excluded. Continued left lower lobe airspace disease with small effusion. Electronically Signed: Ole Ramirez DO at 10:23 EDT Tel , Service support , Abdomen/Pelvis CT 03/28/18 10:57 IMPRESSION: 1. Multiple pulmonary nodules consistent with metastases increased in size and number since the previous exam. 2. Metastatic liver lesions again in size and number since previous exam. 3. Pancreatic mass increased in size. 4. Diffuse thickening of the colon particularly of the sigmoid colon which could be due to underdistention. Colitis cannot be excluded. 5. Persistent nonobstructing stone in the left kidney with mild prominence of the collecting system unchanged. Electronically Signed: Shai Sousa MD at 12:24 EDT Tel , Service support , Assessment/Plan Active and Suspected Problems (Last Reviewed 03/24/18 @ 09:19 by Smita Barth) WENDY (acute kidney injury) (Acute) Severe sepsis (Acute) Atrial fibrillation with rapid ventricular response (Acute) RECOMMENDATIONS: 1. Obtain MRSA screen, discontinue vancomycin if negative 2. Await cardiology recommendations, continue amiodarone and Cardizem 3. Continue aggressive fluid resuscitation 4. Consider oncology consultation for prognostic discussion 5. Cannot exclude the need for pressors in the next 24-48 hours 6. Initiate nystatin swish and swallow, avoid Diflucan given patient's elevated transaminases IMPRESSIONS: 1. Severe sepsis secondary to probable gram-negative UTI/thrush Patient already with one blood culture showing positive bacteria. Await species and sensitivities. Patient is on broad-spectrum antibiotics at this time. Will obtain an MRSA swab. If negative and blood cultures show gram- negative, will discontinue vancomycin. Patient does have a history of diastolic dysfunction, so further fluid resuscitation will need to be done cautiously. Will use nystatin swish and swallow for now. We will try to avoid Diflucan as patient already has elevation of liver enzymes. 2. A. fib with RVR Patient currently on amiodarone and Cardizem with marginal rate control. Cardiology has been consulted, but has not seen the patient at this time. Patient is also receiving baseline beta-lula, so we will have to watch for possible heart block. Recent echocardiogram did show stage I diastolic dysfunction, which will be exacerbated by elevated heart rates. Patient also with elevated right ventricular systolic pressures previously. 3. Stage IV pancreatic cancer, not responding to chemotherapy/elevated transaminases/thrombocytopenia Patient last received chemotherapy on March 24. Patient has multiple enlarging masses in multiple organs, including the primary site. Consider consultation with oncology to discuss prognosis. It is likely inappropriate the patient remains a full code despite the likelihood that gram-negative infection will be treated with antibiotics. Unclear if patient's elevated transaminases are secondary to metastases versus decreased perfusion from severe sepsis. Decreased platelet count likely secondary to acute condition. Patient does not need any transfusions at this time. 4. Acute hypoxic respiratory insufficiency Patient is requiring 3 L nasal cannula oxygen to maintain saturations. Patient has received significant amounts of fluid and albumin is depressed secondary to chronic illness. Will likely have to hold off on further boluses of fluid. Cannot exclude the need for pressors. Patient is reportedly a full code despite progressing pancreatic cancer on chemotherapy. 5. Coronary artery disease/hypertension/hyperlipidemia/obesity Complicates care, management, recovery and prognosis. Hold antihypertensives for now given patient's need for rate control and gram- negative infection. Will hold statin therapy if patient's hepatic function continues to deteriorate. Patient is on heparin DVT prophylaxis. TIME: 33 minutes critical care time spent addressing patient's A. fib with RVR, acute hypoxic respiratory insufficiency, severe sepsis, thrush, review of all data and collaboration with care team. (6:30 AM to 7:30 AM) Code Visit [id number]: [id number] Critical care first hour
[2018-03-29 07:12] LABS: Total Cells Counted 0 (MANUAL DIFF)
[2018-03-29] MEDS: Digoxin 250 MCG/ML Ampul 500 MCG IV (08:33)
[2018-03-29] MEDS: Furosemide 40 MG/4 ML Vial IV (08:35)
--- NOTE | 2018-03-29 08:43 | PCM.CONS.C ---
Reason for Consult Date of Consultation: 03/29/18 Reason for Consultation: Atrial fibrillation with rapid ventricular response rate History of Present Illness: The patient is a 77 year old M with a history of coronary artery disease status post coronary bypass surgery in 1998 with a saphenous vein graft to the diagonal vessel in the left internal mammary artery to the left anterior descending artery. He also has a history of hypertension hyperlipidemia and atrial fibrillation. He is a patient of Dr. Shankar of the [facility]. He has also been recently diagnosed with carcinoma of the left lobe of the lung status post resection at [facility] in November 2016. He also in December 2017 developed a pulmonary embolism to his left lower lobe and was placed on anticoagulation. In the summer of this year there was evidence of neoplastic disease noted within the pancreatic body and he is currently being treated by the oncology service as having metastatic adenocarcinoma of the pancreas. He recently received another dose of chemotherapy. He presented to the emergency room yesterday with palpitations shortness of breath and generally not feeling well. He was noted to be in atrial for ablation with rapid ventricular response rate and was treated with intravenous amiodarone and now Cardizem. Cardiology was called to assist in further management. An echocardiogram which was performed earlier this month demonstrated an ejection fraction of 65% with stage I diastolic dysfunction. He denies any chest pain or paroxysmal nocturnal dyspnea. He has not had any dizzy spells. He apparently has been compliant with his medications though his diet has been poor. [] Past Medical History Allergies/Adverse Reactions: Allergies niacin Allergy (Mild, Verified 03/28/18 09:54) Rash atorvastatin calcium [From Lipitor] Adverse Reaction (Intermediate, Verified 03/28/18 09:54) Swelling Home Medications: Ambulatory Orders Medication Instructions Recorded isosorbide mononitrate ER 60 mg 60 mg PO DAILY #90 tab 08/18/17 tablet,extended release 24 hr lovastatin 20 mg tablet 20 mg PO QHS #90 tab 08/18/17 levothyroxine 50 mcg tablet 50 mcg PO DAILY #90 tab 02/16/18 Lisinopril [Zestril] 20 mg PO DAILY 03/04/18 Lidocaine/Prilocaine 30 gm TP DAILY PRN PRN 30 Days #1 03/09/18 [Lidocaine-Prilocaine Cream] cream..g. Rivaroxaban [Xarelto] 20 mg PO DAILY 03/09/18 Hydrocodone/Acetaminophen [[place] 1 tab PO Q6H PRN PRN 03/19/18 5-325 Tablet] Linacolotide [Linzess] 145 mcg PO PRN PRN 03/19/18 Acetaminophen [Tylenol Tablet] 650 mg PO Q6H PRN PRN tablet 03/23/18 Metoprolol Tartrate [Lopressor 100 mg PO BID #60 tab 03/23/18 (beta lula)] Ondansetron [Zofran] 8 mg PO Q8H PRN PRN #21 tab 03/23/18 Past Medical History (Chronic Problems): Chronic Problems (Last Reviewed 03/24/18 @ 09:19 by Smita Barth) Metastasis from pancreatic cancer (Chronic) Educational circumstance (Chronic) A-fib (Chronic) Atherosclerosis of coronary artery bypass graft without angina pectoris (Chronic) CAD (coronary artery disease) (Chronic) 02/16/99 x 2 MARTINEZ to LAD, SVG to diagonal HTN (hypertension) (Chronic) Hyperlipidemia (Chronic) Obesity (Chronic) CAD (coronary artery disease) (Chronic) History of lung cancer (Chronic) s/p left lower lobectomy Surgical History: coronary bypass surgery Smoking Status: Never smoker Tobacco Use: Non-smoker Alcohol: None Drugs: None Review of Systems - Review of Systems General: Reports: Fever, Fatigue, Malaise, Weakness, Decreased Appetite, Weight Loss. Denies: Night Sweats Cardiovascular: Reports: Palpitations. Denies: Chest Discomfort, Shortness of Breath, Orthopnea, PND, Peripheral Edema, Lightheadedness, Dizziness, Near Syncope, Syncope Respiratory: Reports: Shortness of Breath. Denies: Cough, Sputum Production, Hemoptysis Gastrointestinal: Denies: Hematemesis, Hematochezia, Melena Genitourinary: Denies: Dysuria, Hematuria Skin: Denies: Rash Subjectve: Elderly man looks unwell Objective: Vital Signs Temp Pulse Resp BP Pulse Ox 98.8 F 107 H 21 H 118/55 L 98 03/29/18 06:00 03/29/18 08:33 03/29/18 08:00 03/29/18 08:33 03/29/18 08:00 Oxygen Flow Rate (L/min) 3 Oxygen Delivery Method Nasal Cannula Weight: 246 lb 14.684 oz Body Mass Index (BMI) 32.4 Intake and Output for Last 24 Hours 03/27/18 03/28/18 03/29/18 23:59 23:59 23:59 Intake Total 3904.6 / 3904.6 1075 / 1075 Output Total 275 / 275 300 / 300 Balance 3629.6 / 3629.6 775 / 775 General: Awake, Ill Appearing HEENT: PERRL, EOMI, Sclera Non Icteric Neck: Supple, Good ROM, No Lymph Node Enlargement Lungs: Diminished Dami Bases Cardiovascular: Irregular Rhythm Vascular: No Carotid Bruits, Normal Femoral Pulses, Normal Radial Pulses, Normal Dorsalis Pedal Pulse, Normal Posterior Tibial Pulses Abdomen: Bowel Sounds Present, Soft, Non Tender, No HSM, No Organomegaly Extremities: No Cyanosis, No Clubbing, Bilateral Edema +2 Neurological: No Focal Motor or Sensory Deficit 03/28/18 14:40: Lactic Acid 3.1 H 03/28/18 18:35: Lactic Acid 2.6 H 03/29/18 04:40: WBC 0.1 L*, RBC 2.71 L, Hgb 7.5 L, Hct 23.9 L, MCV 88.2, MCH 27.7, MCHC 31.4 L, RDW 15.4 H, RDW Differential 49.5 H, Plt Count 59 L, MPV 13.5 H, Neut % (Auto) Not Reportable, Absolute Neuts (auto) Not Reportable, Total Counted 0 03/29/18 04:40: Sodium 144, Potassium 4.6, Chloride 114 H, Carbon Dioxide 19.0 L, Anion Gap 11, BUN 38 H, Creatinine 1.46 H, Est GFR (MDRD) Af Amer 60, Est GFR (MDRD) Non-Af 50 L, BUN/Creatinine Ratio 26.0 H, Glucose 203 H, Calcium 6.9 L, Phosphorus 2.6, Total Bilirubin 3.20 H Rhythm: EKG: Atrial fibrillation with rapid ventricular response rate of 169 bpm ECHO: Preserved ejection fraction of 65% from March 2018 Stress Test: Cardiac Cath: PCI: CT Surgery: Holter monitor: EPS: PPM: CXR: Chest CT Scan: Assessment/Plan 1. Paroxysmal atrial fibrillation. He does have a history of paroxysmal atrial fibrillation. The above is likely exacerbated by his current septic state. He does have preserved ejection fraction and my recommendation at this time would be to continue him on the intravenous Cardizem as well as the beta-lula. Though he does have preserved ejection fraction would recommend 1 dose of digoxin to see whether this would help improve his heart rate. After his heart rate improves he can be transitioned back to his beta-lula. The plan will be to continue anticoagulation if possible. 2. Coronary artery disease. Patient appears to be stable at this time with respect to the coronary artery disease we will continue to monitor carefully. 3. Diastolic heart failure Appears to have a component of diastolic heart failure likely secondary to the atrial for ablation with rapid ventricular response rate in the sepsis. I would like to administer 1 dose of intravenous Lasix as at this time he appears to have adequate blood pressure. We will continue to monitor him. His overall prognosis as you know he is dependent on his underlying malignancy. Thank you for allowing me to participate in the care of your patient. Please don't hesitate to call if any issues arise
[2018-03-29] MEDS: Enoxaparin 40 MG/0.4 ML Syringe SC (09:52)
[2018-03-29] MEDS: Metoprolol Tartrate 100 MG Tablet PO (09:52)
[2018-03-29] MEDS: NYSTATIN 500,000 UNIT/5 ML UDC 500000 UNIT PO ×2 (09:52→18:14)
[2018-03-29 10:09] LABS: M R Staph aureus DNA By PCR Negative (Negative); Probe Check PASS; Specimen Processing Control PASS
[2018-03-29] MEDS: TBO-FILGRASTIM 480 MCG/0.8 ML ML SC (11:27)
--- NOTE | 2018-03-29 14:50 | PCM.PN.HOSP ---
Patient Problems: Active and Suspected Problems (Last Reviewed 03/24/18 @ 09:19 by Smita Barth) WENDY (acute kidney injury) (Acute) Severe sepsis (Acute) Atrial fibrillation with rapid ventricular response (Acute) Subjective: f/u for severe sepsis patient seen and examined D/w spouse at the bedside and updated Informs me that she is his designated HCPOA and surrogate decision maker for now. States documents to that effect were made and signed about 1 week ago when patient was last here Vitals/I&O's: Vital Signs Temp Pulse Resp BP Pulse Ox 98.9 F 96 24 H 158/52 H 98 03/29/18 12:00 03/29/18 14:00 03/29/18 14:00 03/29/18 14:00 03/29/18 14:00 Oxygen Flow Rate (L/min) 3 Oxygen Delivery Method Nasal Cannula Weight: 112 kg Body Mass Index (BMI) 32.4 Intake and Output for Last 24 Hours 03/27/18 03/28/18 03/29/18 23:59 23:59 23:59 Intake Total 3904.6 / 3904.6 1809 / 1809 Output Total 275 / 275 1150 / 1150 Balance 3629.6 / 3629.6 659 / 659 General: Confused, Disoriented, Lethargic, - - acutely and chronically ill looking, jaundiced and pale HEENT: Atraumatic Oral: Moist Mucosa Neck: Supple Lungs: Tachypneic, - Cardiovascular: Irregular Rate Abdomen: Obese Extremities: No edema Skin: - - jaundice Psych/Mental Status: Agitated Microbiology Past 72 Hours 03/28/18 23:30 Stool C. difficile DNA Amplification - Final Laboratory Results 03/28/18 14:40: Lactic Acid 3.1 H 03/28/18 18:35: Lactic Acid 2.6 H 03/29/18 04:40: WBC 0.1 L*, RBC 2.71 L, Hgb 7.5 L, Hct 23.9 L, MCV 88.2, MCH 27.7, MCHC 31.4 L, RDW 15.4 H, RDW Differential 49.5 H, Plt Count 59 L, MPV 13.5 H, Neut % (Auto) Not Reportable, Absolute Neuts (auto) Not Reportable, Total Counted 0, Diff Path Review November03/29/18 04:40: Sodium 144, Potassium 4.6, Chloride 114 H, Carbon Dioxide 19.0 L, Anion Gap 11, BUN 38 H, Creatinine 1.46 H, Estim Creat Clear Calc 46.51, Est GFR (MDRD) Af Amer 60, Est GFR (MDRD) Non-Af 50 L, BUN/Creatinine Ratio 26.0 H, Glucose 203 H, Calcium 6.9 L, Phosphorus 2.6, Total Bilirubin 3.20 H, AST 84 H, ALT 126 H, Alkaline Phosphatase 155 H, Total Protein 4.8 L, Albumin 1.4 L, Globulin 3.4, Albumin/Globulin Ratio 0.4 L 03/29/18 08:00: MRSA (PCR) Negative Current Medications Acetaminophen (Tylenol) 650 mg PO Q6H PRN PRN PRN Reason: Fever Last Admin: 03/28/18 17:47 Dose: 650 mg Hydrocodone Bitart/Acetaminophen ([place] 5mg-325mg) 1 tablet PO Q6H PRN PRN PRN Reason: PAIN Last Admin: 03/29/18 00:18 Dose: 1 tablet Chlorhexidine Gluconate () 1 each TOPICAL DAILY ANH Last Admin: 03/29/18 02:48 Dose: 1 each Enoxaparin Sodium (Lovenox) 40 mg SC DAILY@1000 ANH Last Admin: 03/29/18 09:52 Dose: 40 mg Heparin Sodium (Beef Lung) (Heparin 500 Unit/5 Ml (100/Ml)) 500 unit IV UD PRN PRN Reason: HEPARIN FLUSH Vancomycin IV Pharmacy to Dose (1 ea/ Sodium Chloride) 500 mls @ 250 mls/hr IV X1 PRN; Protocol PRN Reason: Rx to Dose Vancomycin HCl 1,500 mg/ (Sodium Chloride) 530 mls @ 250 mls/hr IV Q24H [facility] Potassium Chloride/Dextrose/Sod Cl () 1,000 mls @ 150 mls/hr IV .Q6H40M [facility] Last Admin: 03/29/18 13:27 Dose: 150 mls/hr Amiodarone HCl/Dextrose (Nexterone 360 Mg/200 Ml Bag) 360 mg in 200 mls @ 16.667 mls/hr CONT INF .Q12H ANH PRN Reason: 0.5 MG/MIN Stop: 03/29/18 18:29 Last Admin: 03/29/18 10:52 Dose: 16.667 mls/hr Meropenem 1 gm/ Sodium (Chloride) 120 mls @ 33 mls/hr IV Q8 [facility] Last Admin: 03/29/18 13:27 Dose: 33 mls/hr Diltiazem HCl 125 mg/ Dextrose 125 mls @ 5 mls/hr IV .Q25H ANH; 5 MG/HR PRN Reason: Protocol Last Admin: 03/29/18 10:52 Dose: 5 mls/hr Levothyroxine Sodium (Synthroid) 50 mcg PO DAILY@0600 [facility] Last Admin: 03/29/18 05:11 Dose: 50 mcg Loperamide HCl (Imodium) 2 mg PO Q2H PRN PRN PRN Reason: Diarrhea Magnesium Hydroxide (Milk Of Magnesia) 30 ml PO DAILY PRN PRN Reason: Constipation Metoprolol Tartrate (Lopressor (Beta Lindy)) 100 mg PO BID [facility] Last Admin: 03/29/18 09:52 Dose: 100 mg Nutritional Formula (Lactose Free) (Ensure Enlive) 120 ml PO 4X/DAY [facility] Last Admin: 03/29/18 13:27 Dose: Not Given Nystatin (Nystatin) 500,000 unit PO 4X/DAY [facility] Last Admin: 03/29/18 13:46 Dose: Not Given Ondansetron HCl (Zofran) 4 mg IV Q6H PRN PRN PRN Reason: NAUSEA Sodium Chloride () 5 - 30 ml IV UD PRN PRN Reason: SALINE FLUSH Last Admin: 03/29/18 05:11 Dose: 10 ml Sodium Chloride () 10 ml IV UD PRN PRN Reason: VAD FLUSH Tbo-Filgrastim (Granix) 480 mcg SC DAILY [facility] Stop: 03/30/18 10:01 Last Admin: 03/29/18 11:27 Dose: 480 mcg Medical Necessity - Tobacco Use Smoking Status: Never smoker Tobacco Use: Non-smoker Assessment/Plan All Active Problems (Last Reviewed 03/24/18 @ 09:19 by Smita Barth) Fever (Acute) WENDY (acute kidney injury) (Acute) Severe sepsis (Acute) Atrial fibrillation with rapid ventricular response (Acute) Liver metastases (Acute) Pancreas cancer (Acute) History of liver biopsy (Resolved) Liver lesion (Acute) Hypoxia (Resolved) 1. Severe neutropenic sepsis. Patient immunocompromised with advanced, pancreatic cancer, chemotherapy and leukopenia/neutropenia. Lactic acidosis of 4 on presentation and now abut 2.6. Overall sepsis appears to be responding to current treatment Transferred to ICU last night. On bactericidal IV antibiotics. Consulted marble worker who is now following 2. WENDY on CKD III. Secondary to severe sepsis and volume depletion from diarrhea. Expect to improve with treatment of sepsis and resuscitation. 3. Atrial fibrillation with RVR. RVR response secondary to severity of sepsis. Started rate control with amiodarone given tenuous BP and hemodynamic state. Cardiology consulted and patient has been started on Cardizem drip as well Appreciate input from cardiology 4. Stage IV pancreatic cancer with mets to liver and lungs. Worsening liver function may be due to worsening mets or chemotherapy or severity of sepsis. Will continue to monitor Consulted oncology 5. Pancytopenia with leukopenia. May be secondary to recent chemotherapy and/or severe sepsis. Suspect the former. Started Granix and erythropoietin. Code Visit Inpatient E&M: 64740 Subs Hosp L3
--- NOTE | 2018-03-29 14:57 | PN_ITS ---
Patient Problems: Active and Suspected Problems (Last Reviewed 03/24/18 @ 09:19 by Smita Barth) WENDY (acute kidney injury) (Acute) Severe sepsis (Acute) Atrial fibrillation with rapid ventricular response (Acute) Subjective: f/u for severe sepsis patient seen and examined D/w spouse at the bedside and updated Informs me that she is his designated HCPOA and surrogate decision maker for now. States documents to that effect were made and signed about 1 week ago when patient was last here Vitals/I&O's: Vital Signs Temp Pulse Resp BP Pulse Ox 98.9 F 96 24 H 158/52 H 98 03/29/18 12:00 03/29/18 14:00 03/29/18 14:00 03/29/18 14:00 03/29/18 14:00 Oxygen Flow Rate (L/min) 3 Oxygen Delivery Method Nasal Cannula Weight: 112 kg Body Mass Index (BMI) 32.4 Intake and Output for Last 24 Hours 03/27/18 03/28/18 03/29/18 23:59 23:59 23:59 Intake Total 3904.6 / 3904.6 1809 / 1809 Output Total 275 / 275 1150 / 1150 Balance 3629.6 / 3629.6 659 / 659 General: Confused, Disoriented, Lethargic, - - acutely and chronically ill looking, jaundiced and pale HEENT: Atraumatic Oral: Moist Mucosa Neck: Supple Lungs: Tachypneic, - Cardiovascular: Irregular Rate Abdomen: Obese Extremities: No edema Skin: - - jaundice Psych/Mental Status: Agitated Microbiology Past 72 Hours 03/28/18 23:30 Stool C. difficile DNA Amplification - Final Laboratory Results 03/28/18 14:40: Lactic Acid 3.1 H 03/28/18 18:35: Lactic Acid 2.6 H 03/29/18 04:40: WBC 0.1 L*, RBC 2.71 L, Hgb 7.5 L, Hct 23.9 L, MCV 88.2, MCH 27.7, MCHC 31.4 L, RDW 15.4 H, RDW Differential 49.5 H, Plt Count 59 L, MPV 13.5 H, Neut % (Auto) Not Reportable, Absolute Neuts (auto) Not Reportable, Total Counted 0, Diff Path Review November03/29/18 04:40: Sodium 144, Potassium 4.6, Chloride 114 H, Carbon Dioxide 19.0 L , Anion Gap 11, BUN 38 H, Creatinine 1.46 H, Estim Creat Clear Calc 46.51, Est GFR (MDRD) Af Amer 60, Est GFR (MDRD) Non-Af 50 L, BUN/Creatinine Ratio 26.0 H, Glucose 203 H, Calcium 6.9 L, Phosphorus 2.6, Total Bilirubin 3.20 H, AST 84 H, ALT 126 H, Alkaline Phosphatase 155 H, Total Protein 4.8 L, Albumin 1.4 L, Globulin 3.4, Albumin/Globulin Ratio 0.4 L 03/29/18 08:00: MRSA (PCR) Negative Current Medications Acetaminophen (Tylenol) 650 mg PO Q6H PRN PRN PRN Reason: Fever Last Admin: 03/28/18 17:47 Dose: 650 mg Hydrocodone Bitart/Acetaminophen ([place] 5mg-325mg) 1 tablet PO Q6H PRN PRN PRN Reason: PAIN Last Admin: 03/29/18 00:18 Dose: 1 tablet Chlorhexidine Gluconate () 1 each TOPICAL DAILY ANH Last Admin: 03/29/18 02:48 Dose: 1 each Enoxaparin Sodium (Lovenox) 40 mg SC DAILY@1000 ANH Last Admin: 03/29/18 09:52 Dose: 40 mg Heparin Sodium (Beef Lung) (Heparin 500 Unit/5 Ml (100/Ml)) 500 unit IV UD PRN PRN Reason: HEPARIN FLUSH Vancomycin IV Pharmacy to Dose (1 ea/ Sodium Chloride) 500 mls @ 250 mls/hr IV X1 PRN; Protocol PRN Reason: Rx to Dose Vancomycin HCl 1,500 mg/ (Sodium Chloride) 530 mls @ 250 mls/hr IV Q24H [facility] Potassium Chloride/Dextrose/Sod Cl () 1,000 mls @ 150 mls/hr IV .Q6H40M [facility] Last Admin: 03/29/18 13:27 Dose: 150 mls/hr Amiodarone HCl/Dextrose (Nexterone 360 Mg/200 Ml Bag) 360 mg in 200 mls @ 16.667 mls/hr CONT INF .Q12H ANH PRN Reason: 0.5 MG/MIN Stop: 03/29/18 18:29 Last Admin: 03/29/18 10:52 Dose: 16.667 mls/hr Meropenem 1 gm/ Sodium (Chloride) 120 mls @ 33 mls/hr IV Q8 [facility] Last Admin: 03/29/18 13:27 Dose: 33 mls/hr Diltiazem HCl 125 mg/ Dextrose 125 mls @ 5 mls/hr IV .Q25H ANH; 5 MG/HR PRN Reason: Protocol Last Admin: 03/29/18 10:52 Dose: 5 mls/hr Levothyroxine Sodium (Synthroid) 50 mcg PO DAILY@0600 [facility] Last Admin: 03/29/18 05:11 Dose: 50 mcg Loperamide HCl (Imodium) 2 mg PO Q2H PRN PRN PRN Reason: Diarrhea Magnesium Hydroxide (Milk Of Magnesia) 30 ml PO DAILY PRN PRN Reason: Constipation Metoprolol Tartrate (Lopressor (Beta Lindy)) 100 mg PO BID [facility] Last Admin: 03/29/18 09:52 Dose: 100 mg Nutritional Formula (Lactose Free) (Ensure Enlive) 120 ml PO 4X/DAY [facility] Last Admin: 03/29/18 13:27 Dose: Not Given Nystatin (Nystatin) 500,000 unit PO 4X/DAY [facility] Last Admin: 03/29/18 13:46 Dose: Not Given Ondansetron HCl (Zofran) 4 mg IV Q6H PRN PRN PRN Reason: NAUSEA Sodium Chloride () 5 - 30 ml IV UD PRN PRN Reason: SALINE FLUSH Last Admin: 03/29/18 05:11 Dose: 10 ml Sodium Chloride () 10 ml IV UD PRN PRN Reason: VAD FLUSH Tbo-Filgrastim (Granix) 480 mcg SC DAILY [facility] Stop: 03/30/18 10:01 Last Admin: 03/29/18 11:27 Dose: 480 mcg Medical Necessity - Tobacco Use Smoking Status: Never smoker Tobacco Use: Non-smoker Assessment/Plan All Active Problems (Last Reviewed 03/24/18 @ 09:19 by Smita Barth) Fever (Acute) WENDY (acute kidney injury) (Acute) Severe sepsis (Acute) Atrial fibrillation with rapid ventricular response (Acute) Liver metastases (Acute) Pancreas cancer (Acute) History of liver biopsy (Resolved) Liver lesion (Acute) Hypoxia (Resolved) 1. Severe neutropenic sepsis. Patient immunocompromised with advanced, pancreatic cancer, chemotherapy and leukopenia/neutropenia. Lactic acidosis of 4 on presentation and now abut 2.6. Overall sepsis appears to be responding to current treatment Transferred to ICU last night. On bactericidal IV antibiotics. Consulted kettle girl who is now following 2. WENDY on CKD III. Secondary to severe sepsis and volume depletion from diarrhea. Expect to improve with treatment of sepsis and resuscitation. 3. Atrial fibrillation with RVR. RVR response secondary to severity of sepsis. Started rate control with amiodarone given tenuous BP and hemodynamic state. Cardiology consulted and patient has been started on Cardizem drip as well Appreciate input from cardiology 4. Stage IV pancreatic cancer with mets to liver and lungs. Worsening liver function may be due to worsening mets or chemotherapy or severity of sepsis. Will continue to monitor Consulted oncology 5. Pancytopenia with leukopenia. May be secondary to recent chemotherapy and/or severe sepsis. Suspect the former. Started Granix and erythropoietin. Code Visit Inpatient E&M: 75566 Subs Hosp L3
--- NOTE | 2018-03-29 21:04 | NURSING ---
/pt c/o [pain 6/10 all over, pt takes one bite of applesauce prior to pill, able to swallow plain applesauce, norco tab placed in applesauce, pt unable to swallow pill.
[2018-03-30] VITALS (40 sets, daily range): BP systolic 76–158; BP diastolic 28–102; PULSE 63–119; RESP 13–87; TEMP 36.3–37.6; O2SAT 93–100
[2018-03-30] MEDS: Morphine 2 MG/ML Syringe IV ×4 (00:07→17:27)
[2018-03-30] MEDS: 0.9% NaCl Peripheral Flush Adult/Peds IV (00:08)
[2018-03-30 06:16] LABS: Anion Gap 10 (5-15); BUN 41 mg/dL (7-18); BUN/Creat Ratio 24.6 RATIO (10-20); Chloride 119 mmol/L (98-107); Creatinine, Serum 1.67 mg/dL (0.70-1.30); EST Glomerular Filtration Rate 43 mL/min (>60); Est Glom Filt Rate - Afr Amer 52 mL/min (>60); Estimated Creatinine Clearance 40.66 ml/min; Glucose 178 mg/dL (74-106); Sodium Level 147 mmol/L (136-145)
[2018-03-30 06:30] LABS: AST(SGOT) 205 U/L (15-37); Alanine Aminotransfer ALT/SGPT 150 U/L (16-61); Albumin, Serum 1.2 g/dL (3.2-5.0); Alkaline Phosphatase 164 U/L (45-117); Bilirubin, Direct 2.24 mg/dL (0.00-0.30); Globulin 3.5 g/dL (2.2-4.2); Protein, Total 4.7 g/dL (6.4-8.2)
[2018-03-30 06:43] LABS: Absolute Lymphocyte Count 0.09 X10^3/ul (0.83-4.51); Hematocrit 22.4 % (40-54); Hemoglobin 7.2 g/dl (13.0-16.5); Lymphocyte # 0.09 X10^3/ul (4.0); Lymphocyte % 81.8 % (19-41); Mean Corp Hgb Conc 32.1 g/gl (32-36); Mean Corpuscular Hgb 28.2 pg (27.0-32.0); Mean Corpuscular Volume 87.8 fL (80-94); Monocyte# 0.01 X10^3/uL; Monocyte% 9.1 % (0-10); Neutrophil # 0.01 X10^3/uL (2.7-7.7); Neutrophil % 9.1 % (47-70); RBC Distribution Width CV 15.7 % (11.6-14.6); RBC Distribution Width SD 51.1 fl (35.1-43.9); Red Blood Count 2.55 M/mm3 (4.6-6.2)
[2018-03-30 06:44] LABS: Differential Indicated SCAN CRITERIA MET; POSITIVE COUNT YES; POSITIVE DIFFERENTIAL YES; POSITIVE MORPHOLOGY YES
--- NOTE | 2018-03-30 06:48 | PN_ITS ---
Subjective: Patient did okay overnight. Patient is refusing to take anything by mouth secondary to reported mouth pain. Patient has been saturating well on nasal cannula oxygen. Cardizem is slightly improved compared to yesterday, but Lopressor was held overnight secondary to refusal to take p.o. Patient reports subjective worsening compared to yesterday and attributes this to mouth pain. General: Alert, No apparent distress, Confused, - - Obese. Speaking in full sentences. HEENT: Atraumatic, PERRLA, EOMI, Normocephalic, - - No scleral icterus or injection noted. Oral: No Gingival or Mucosal Lesions/ Ulcerations, Dry Mucosa Neck: Supple, No JVD, No Nodes, Trachea Midline Lungs: No rhonchi, No wheeze, Diminished, Rales, - - Symmetric expansion. No dullness to percussion. Cardiovascular: Normal S1, Normal S2, No murmurs, Irregular Rate, No rub noted, No Gallop Abdomen: Bowel Sounds Present, Soft, Non Tender, Non-Distended, Obese Extremities: No clubbing, No cyanosis, Capillary Refill Less than 3 Seconds, Edema - 2+ anasarca Skin: No rashes, No breakdown Musculoskeletal: No Tenderness to Palpation of Joints or Extremities Lymphatic: No Cervical, Supraclavicular, or Inguinal Adenopathy Neurological: Cranial nerves II-XII grossly intact, Neuro grossly intact, Motor Exam 5/5 strength throughout Psych/Mental Status: Anxious, Restless Vital Signs Temp Pulse Resp BP Pulse Ox 37.6 C H 101 H 25 H 103/34 L 99 03/30/18 05:00 03/30/18 06:00 03/30/18 06:00 03/30/18 06:00 03/30/18 06:00 Oxygen Flow Rate (L/min) 4 Oxygen Delivery Method Nasal Cannula Weight: 112 kg Body Mass Index (BMI) 32.4 Intake and Output for Last 24 Hours 03/28/18 03/29/18 03/30/18 23:59 23:59 23:59 Intake Total 3904.6 / 3904.6 4223.5 / 4223.5 Output Total 275 / 275 1525 / 1525 Balance 3629.6 / 3629.6 2698.5 / 2698.5 Labs (Last 48 Hours) 03/28/18 03/28/18 03/29/18 14:40 18:35 04:40 WBC 0.1 L* RBC 2.71 L Hgb 7.5 L Hct 23.9 L MCV 88.2 MCH 27.7 MCHC 31.4 L RDW 15.4 H RDW Differential 49.5 H Plt Count 59 L MPV 13.5 H Neut % (Auto) Not Reportable Absolute Neuts (auto) Not Reportable Total Counted 0 Diff Path Review May foll Sodium Potassium Chloride Carbon Dioxide Anion Gap BUN Creatinine Estim Creat Clear Calc Est GFR (MDRD) Af Amer Est GFR (MDRD) Non-Af BUN/Creatinine Ratio Glucose Lactic Acid 3.1 H 2.6 H Calcium Phosphorus Total Bilirubin Direct Bilirubin AST ALT Alkaline Phosphatase Total Protein Albumin Globulin Albumin/Globulin Ratio MRSA (PCR) 03/29/18 03/29/18 03/30/18 04:40 08:00 05:45 WBC RBC Hgb Hct MCV MCH MCHC RDW RDW Differential Plt Count MPV Neut % (Auto) Absolute Neuts (auto) Total Counted Diff Path Review Sodium 144 147 H Potassium 4.6 5.0 Chloride 114 H 119 H Carbon Dioxide 19.0 L 18.0 L Anion Gap 11 10 BUN 38 H 41 H Creatinine 1.46 H 1.67 H Estim Creat Clear Calc 46.51 40.66 Est GFR (MDRD) Af Amer 60 52 L Est GFR (MDRD) Non-Af 50 L 43 L BUN/Creatinine Ratio 26.0 H 24.6 H Glucose 203 H 178 H Lactic Acid Calcium 6.9 L 7.0 L Phosphorus 2.6 Total Bilirubin 3.20 H Direct Bilirubin AST 84 H ALT 126 H Alkaline Phosphatase 155 H Total Protein 4.8 L Albumin 1.4 L Globulin 3.4 Albumin/Globulin Ratio 0.4 L MRSA (PCR) Negative 03/30/18 03/30/18 05:45 05:45 WBC Pending RBC Pending Hgb Pending Hct Pending MCV Pending MCH Pending MCHC Pending RDW Pending RDW Differential Pending Plt Count Pending MPV Neut % (Auto) Pending Absolute Neuts (auto) Pending Total Counted Pending Diff Path Review Sodium Potassium Chloride Carbon Dioxide Anion Gap BUN Creatinine Estim Creat Clear Calc Est GFR (MDRD) Af Amer Est GFR (MDRD) Non-Af BUN/Creatinine Ratio Glucose Lactic Acid Calcium Phosphorus Total Bilirubin 2.60 H Direct Bilirubin 2.24 H AST 205 H ALT 150 H Alkaline Phosphatase 164 H Total Protein 4.7 L Albumin 1.2 L Globulin 3.5 Albumin/Globulin Ratio MRSA (PCR) Microbiology 03/28/18 23:30 Stool C. difficile DNA Amplification - Final Medical Necessity - Tobacco Use Smoking Status: Never smoker Tobacco Use: Non-smoker Assessment/Plan All Active Problems (Last Reviewed 03/24/18 @ 09:19 by Smita Barth) Fever (Acute) WENDY (acute kidney injury) (Acute) Severe sepsis (Acute) Atrial fibrillation with rapid ventricular response (Acute) Liver metastases (Acute) Pancreas cancer (Acute) History of liver biopsy (Resolved) Liver lesion (Acute) Hypoxia (Resolved) RECOMMENDATIONS: 1. Obtain EKG to evaluate QT 2. Await cardiology recommendations, continue amiodarone and Cardizem 3. Condition IV fluids given hyperkalemia and hypernatremia 4. Consider oncology consultation for prognostic discussion 5. Cannot exclude the need for pressors in the next 24-48 hours 6. Continue nystatin swish and swallow, avoid Diflucan given high risk for QT prolongation IMPRESSIONS: 1. Severe sepsis secondary to E. coli UTI/thrush Patient's blood pressure has remained stable despite rhythm control. Patient is on appropriate antibiotics for E. coli, but will await sensitivities to see if antibiotic spectrum can be narrowed. MRSA swab was negative, so vancomycin will be discontinued. Patient is having significant oral discomfort secondary to thrush. Nystatin swish and swallow was initiated yesterday. Concern for dosing Diflucan given risk for QT prolongation with amiodarone and Zofran therapy. 2. A. fib with RVR Patient currently on amiodarone and Cardizem with marginal rate control. Defer to cardiology on transition of beta-lula to IV. Recent echocardiogram did show stage I diastolic dysfunction, which will be exacerbated by elevated heart rates. Patient also with elevated right ventricular systolic pressures previously. 3. Stage IV pancreatic cancer, not responding to chemotherapy/elevated transaminases/thrombocytopenia Patient last received chemotherapy on March 24. Patient has multiple enlarging masses in multiple organs, including the primary site. Consider consultation with oncology to discuss prognosis. It is likely inappropriate the patient remains a full code despite the likelihood that gram-negative infection will be treated with antibiotics. Unclear if patient's elevated transaminases are secondary to metastases versus decreased perfusion from severe sepsis. However they appear to be stable at this time. Decreased platelet count likely secondary to acute condition. Await CBC to see if transfusions would be indicated. 4. Acute hypoxic respiratory insufficiency Patient is requiring 3 L nasal cannula oxygen to maintain saturations. Patient has received significant amounts of fluid and albumin is depressed secondary to chronic illness. Wean oxygen as tolerated. Cannot exclude the need for pressors. Patient is reportedly a full code despite progressing pancreatic cancer on chemotherapy. 5. Coronary artery disease/hypertension/hyperlipidemia/obesity Complicates care, management, recovery and prognosis. Hold antihypertensives for now given patient's need for rate control and gram- negative infection. Will hold statin therapy if patient's hepatic function continues to deteriorate. Patient is on heparin DVT prophylaxis. TIME: 31 minutes critical care time spent addressing patient's A. fib with RVR, acute hypoxic respiratory insufficiency, severe sepsis, thrush, review of all data and collaboration with care team. (5:45 AM to 6:45 AM) Code Visit 9xxxx: [id number] Critical care first hour
[2018-03-30 07:18] LABS: Platelet Count 43 K/mm3 (150-450); White Blood Count 0.1 K/mm3 (4.4-11.0)
[2018-03-30 07:19] LABS: Platelet Estimate MKD DEC (ADEQ)
[2018-03-30] MEDS: Dext 5%-0.45% NS 1,000 ML 125 ML IV ×3 (07:58→23:06)
--- NOTE | 2018-03-30 08:34 | EKGRS_ITS ---
Test Reason : Blood Pressure : / mmHG Vent. Rate : 097 BPM Atrial Rate : 100 BPM P-R Int : 000 ms QRS Dur : 080 ms QT Int : 350 ms P-R-T Axes : 000 004 190 degrees QTc Int : 444 ms Atrial fibrillation Low voltage QRS Nonspecific ST and T wave abnormality Abnormal ECG When compared with ECG of 28-MAR-2018 18:23, MANUAL COMPARISON REQUIRED, DATA IS UNCONFIRMED Confirmed by KINGS HOOVER, NIKKI ([id number]), image editor HERIBERTO MELTON ([id number]) on 04/02/2018 2:36:05 PM Referred By: Daniel Samayoa Confirmed By:NIKKI KU MD
[2018-03-30 09:03] LABS: International Normalized Ratio 1.5
[2018-03-30 09:12] LABS: Fibrinogen 691 mg/dl (203-444)
[2018-03-30 09:18] LABS: D-Dimer Quantitative (DVT/PE) 3.94 FEU/ug/m (0.27-0.49)
[2018-03-30] MEDS: Enoxaparin 40 MG/0.4 ML Syringe SC (10:12)
[2018-03-30] MEDS: TBO-FILGRASTIM 480 MCG/0.8 ML ML SC (10:14)
[2018-03-30] MEDS: NYSTATIN 500,000 UNIT/5 ML UDC 500000 UNIT PO ×2 (13:58→20:26)
[2018-03-30] MEDS: BMX LIQUID 180 ML 20 ML PO ×2 (13:58→20:26)
[2018-03-30 14:44] LABS: Pathologist Review Reviewed
[2018-03-30 14:46] LABS: Pathologist Review Reviewed
[2018-03-30 14:47] LABS: Pathologist Review Reviewed
--- NOTE | 2018-03-30 15:18 | PN.CARD_ITS ---
Subjectve: Patient seen and evaluated. Is not looking well and does not feel well. Objective: Vital Signs Temp Pulse Resp BP Pulse Ox 99.6 F H 105 H 16 90/47 L 98 03/30/18 12:00 03/30/18 14:00 03/30/18 14:00 03/30/18 14:00 03/30/18 14:00 Oxygen Flow Rate (L/min) 3 Oxygen Delivery Method Nasal Cannula Weight: 252 lb 13.923 oz Body Mass Index (BMI) 32.4 Intake and Output for Last 24 Hours 03/28/18 03/29/18 03/30/18 23:59 23:59 23:59 Intake Total 3904.6 / 3904.6 4223.5 / 4223.5 2031 / 2031 Output Total 275 / 275 1525 / 1525 175 / 175 Balance 3629.6 / 3629.6 2698.5 / 2698.5 1857 / 1857 General: Awake, Alert, Oriented x 3, Ill Appearing HEENT: PERRL, EOMI, Sclera Non Icteric Neck: Supple, Good ROM, No Lymph Node Enlargement Lungs: Diminished Dami Bases Cardiovascular: Irregular Rhythm, Normal S1, Normal S2, No Murmurs, No Rubs, No Gallops Vascular: No Carotid Bruits, Normal Femoral Pulses, Normal Radial Pulses, Normal Dorsalis Pedal Pulse, Normal Posterior Tibial Pulses Abdomen: Bowel Sounds Present, Soft, Non Tender, No HSM, No Organomegaly Extremities: No Cyanosis, No Clubbing, No edema Neurological: No Focal Motor or Sensory Deficit 03/30/18 05:45: Sodium 147 H, Potassium 5.0, Chloride 119 H, Carbon Dioxide 18.0 L, Anion Gap 10, BUN 41 H, Creatinine 1.67 H, Est GFR (MDRD) Af Amer 52 L, Est GFR (MDRD) Non-Af 43 L, BUN/Creatinine Ratio 24.6 H, Glucose 178 H, Calcium 7.0 L 03/30/18 05:45: WBC 0.1 L*, RBC 2.55 L, Hgb 7.2 L, Hct 22.4 L, MCV 87.8, MCH 28.2, MCHC 32.1, RDW 15.7 H, RDW Differential 51.1 H, Plt Count 43 L*, Immature Gran % (Auto) 0.000, Neut % (Auto) 9.1 L, Lymph % (Auto) 81.8 H, [place] % (Auto) 9.1, Eos % (Auto) 0.0, Baso % (Auto) 0.0, Absolute Neuts (auto) 0.0 L, Total Counted Not Reportable 03/30/18 05:45: Total Bilirubin 2.60 H, Direct Bilirubin 2.24 H 03/30/18 08:45: PT 18.0 H, INR 1.5, APTT 47.0 H, D-Dimer Quant (PE/DVT) 3.94 H* Rhythm: EKG: ECHO: Stress Test: Cardiac Cath: PCI: CT Surgery: Holter monitor: EPS: PPM: CXR: Chest CT Scan: Medical Necessity - Tobacco Use Smoking Status: Never smoker Tobacco Use: Non-smoker Assessment/Plan 1. Paroxysmal atrial fibrillation. He does have a history of paroxysmal atrial fibrillation. The above is likely exacerbated by his current septic state. He does have preserved ejection fraction and my recommendation at this time would be to continue him on the intravenous Cardizem as well as the amiodarone. After his heart rate improves he can be transitioned back to his beta-lula. The plan will be to continue to hold anticoagulation if possible. 2. Coronary artery disease. Patient appears to be stable at this time with respect to the coronary artery disease we will continue to monitor carefully. 3. Diastolic heart failure Appears to have a component of diastolic heart failure likely secondary to the atrial for ablation with rapid ventricular response rate in the sepsis. I would like to administer 1 dose of intravenous Lasix as at this time he appears to have adequate blood pressure. We will continue to monitor him. His overall prognosis as you know he is dependent on his underlying malignancy. Thank you for allowing me to participate in the care of your patient. Please don't hesitate to call if any issues arise
[2018-03-30] MEDS: Furosemide 40 MG/4 ML Vial IV (15:22)
--- NOTE | 2018-03-30 15:50 | CASEMGMT ---
RN CM RE-ADMISSION NOTE: D/C PLAN: TBD. Admitted to PCU 03/20/18 w/fever of unknown etiology, suspect viral illness, Hx of Stage IV Metastatic pancreatic CA, A-fib w/RVR, NSTEMI Pt had just had his first chemo treatment with Dr Pederson several days prior to admission. Cardiology and oncology were consulted. Pt was treated and discharged home on 03/23/18. Re-admitted to ICU 03/28/18 w/Neutropenic sepsis. Intro self and RN CM role to pt's , Nasra, and daughter who are both present in pt's room. Pt sleeping and not disturbed at this time. Assessment completed with and daughter. Pt lives @ home with . states she has been caring for pt @ home, stating he has been needing assistance with all ADL's, including ambulation, bathing, dressing, meals, medications, ortho tech, bills/finances, and transportation. states has family support from their daughter and son who both live nearby. and daughter both agreeable to pt going to a SNF on discharge if needed and would like to discuss options of facilities before making a decision. CM to follow for discharge planning needs. Branden CLEMENTE RN CM
--- NOTE | 2018-03-30 16:01 | PCM.PN.HOSP ---
Patient Problems: Active and Suspected Problems (Last Updated 03/30/18 @ 13:13 by Randall Pederson MD) Lung metastases (Acute) Fever (Acute) Metastasis from pancreatic cancer (Acute) WENDY (acute kidney injury) (Acute) Severe sepsis (Acute) Atrial fibrillation with rapid ventricular response (Acute) Liver metastases (Acute) Pancreas cancer (Acute) Vitals/I&O's: Vital Signs Temp Pulse Resp BP Pulse Ox 99.6 F H 99 17 103/40 L 97 03/30/18 12:00 03/30/18 15:00 03/30/18 15:00 03/30/18 15:00 03/30/18 15:00 Oxygen Flow Rate (L/min) 3 Oxygen Delivery Method Nasal Cannula Weight: 114.7 kg Body Mass Index (BMI) 32.4 Intake and Output for Last 24 Hours 03/28/18 03/29/18 03/30/18 23:59 23:59 23:59 Intake Total 3904.6 / 3904.6 4223.5 / 4223.5 2031 / 2031 Output Total 275 / 275 1525 / 1525 175 / 175 Balance 3629.6 / 3629.6 2698.5 / 2698.5 1857 / 1857 General: Confused - acutely ill looking and in distress, Disoriented, Lethargic HEENT: Atraumatic Oral: Dry Mucosa Neck: Supple Lungs: Short of Breath, Tachypneic, Using Accessory Muscles, - - Transmitted sounds Cardiovascular: Irregular Rate Abdomen: - - MWR Extremities: Edema - involving UEs Psych/Mental Status: Depressed, Restless Microbiology Past 72 Hours 03/28/18 23:30 Urine, Clean Catch Urine Culture - Preliminary Culture exhibits no growth. 03/28/18 23:30 Stool C. difficile DNA Amplification - Final Laboratory Results 03/29/18 04:40: Diff Path Review Reviewed 03/30/18 05:45: Sodium 147 H, Potassium 5.0, Chloride 119 H, Carbon Dioxide 18.0 L, Anion Gap 10, BUN 41 H, Creatinine 1.67 H, Estim Creat Clear Calc 40.66, Est GFR (MDRD) Af Amer 52 L, Est GFR (MDRD) Non-Af 43 L, BUN/Creatinine Ratio 24.6 H, Glucose 178 H, Calcium 7.0 L 03/30/18 05:45: WBC 0.1 L*, RBC 2.55 L, Hgb 7.2 L, Hct 22.4 L, MCV 87.8, MCH 28.2, MCHC 32.1, RDW 15.7 H, RDW Differential 51.1 H, Plt Count 43 L*, Immature Gran % (Auto) 0.000, Neut % (Auto) 9.1 L, Lymph % (Auto) 81.8 H, Stevens % (Auto) 9.1, Eos % (Auto) 0.0, Baso % (Auto) 0.0, Absolute Neuts (auto) 0.0 L, Absolute Lymphs (auto) 0.09 L, Total Counted Not Reportable, Diff Path Review Reviewed, Platelet Estimate MKD 03/30/18 05:45: Total Bilirubin 2.60 H, Direct Bilirubin 2.24 H, AST 205 H, ALT 150 H, Alkaline Phosphatase 164 H, Total Protein 4.7 L, Albumin 1.2 L, Globulin 3.5 03/30/18 08:45: PT 18.0 H, INR 1.5, APTT 47.0 H, Fibrinogen 691 H, D-Dimer Quant (PE/DVT) 3.94 H* Current Medications Acetaminophen (Tylenol) 650 mg PO Q6H PRN PRN PRN Reason: Fever Last Admin: 03/28/18 17:47 Dose: 650 mg Hydrocodone Bitart/Acetaminophen ([place] 5mg-325mg) 1 tablet PO Q6H PRN PRN PRN Reason: PAIN Last Admin: 03/29/18 00:18 Dose: 1 tablet Chlorhexidine Gluconate () 1 each TOPICAL DAILY ANH Last Admin: 03/30/18 10:14 Dose: Not Given Meropenem 1 gm/ Sodium (Chloride) 120 mls @ 33 mls/hr IV Q8 [facility] Last Admin: 03/30/18 15:23 Dose: 33 mls/hr Diltiazem HCl 125 mg/ Dextrose 125 mls @ 5 mls/hr IV .Q25H AN[facility]; 5 MG/HR PRN Reason: Protocol Last Admin: 03/30/18 04:53 Dose: 5 mls/hr Dextrose/Sodium Chloride () 1,000 mls @ 125 mls/hr IV .Q8H [facility] Last Admin: 03/30/18 15:23 Dose: 125 mls/hr Fluconazole (Diflucan) 200 mg in 100 mls @ 50 mls/hr IV Q48 [facility] Last Admin: 03/30/18 11:16 Dose: 50 mls/hr Levothyroxine Sodium (Synthroid) 50 mcg PO DAILY@0600 [facility] Last Admin: 03/30/18 06:50 Dose: Not Given Lidocaine/Diphenhydr/Alum/Mg/Simeth () 20 ml PO Q4H [facility] Last Admin: 03/30/18 13:58 Dose: 20 ml Loperamide HCl (Imodium) 2 mg PO Q2H PRN PRN PRN Reason: Diarrhea Magnesium Hydroxide (Milk Of Magnesia) 30 ml PO DAILY PRN PRN Reason: Constipation Morphine Sulfate () 2 mg IV Q4H PRN PRN PRN Reason: SEVERE PAIN (6-1010) Last Admin: 03/30/18 12:55 Dose: 2 mg Nutritional Formula (Lactose Free) (Ensure Enlive) 120 ml PO 4X/DAY [facility] Last Admin: 03/30/18 10:10 Dose: Not Given Nystatin (Nystatin) 500,000 unit PO 0800,1200,1600,2000 [facility] Last Admin: 03/30/18 13:58 Dose: 500,000 unit Ondansetron HCl (Zofran) 4 mg IV Q6H PRN PRN PRN Reason: NAUSEA Sodium Chloride () 5 - 30 ml IV UD PRN PRN Reason: SALINE FLUSH Last Admin: 03/30/18 00:08 Dose: 10 ml Sodium Chloride () 10 ml IV UD PRN PRN Reason: VAD FLUSH Medical Necessity - Tobacco Use Smoking Status: Never smoker Tobacco Use: Non-smoker Assessment/Plan All Active Problems (Last Updated 03/30/18 @ 13:13 by Randall Pederson MD) Lung metastases (Acute) Fever (Acute) Metastasis from pancreatic cancer (Acute) WENDY (acute kidney injury) (Acute) Severe sepsis (Acute) Atrial fibrillation with rapid ventricular response (Acute) Liver metastases (Acute) Pancreas cancer (Acute) History of liver biopsy (Resolved) Liver lesion (Acute) Hypoxia (Resolved) 1. Severe neutropenic sepsis. Patient immunocompromised with advanced, pancreatic cancer, chemotherapy and leukopenia/neutropenia. Lactic acidosis of 4 on presentation. Patient hypotensive with wide pulse pressure. May have to hold Lasix. On bactericidal IV antibiotics. Community Engagement Representative following 2. WENDY on CKD III. Secondary to severe sepsis and volume depletion from diarrhea. Expect to improve with treatment of sepsis and resuscitation. 3. Atrial fibrillation with RVR. RVR response secondary to severity of sepsis. Started rate control with amiodarone given tenuous BP and hemodynamic state. Cardiology consulted and patient has been started on Cardizem drip as well Appreciate input from cardiology 4. Stage IV pancreatic cancer with mets to liver and lungs. Worsening liver function may be due to worsening mets or chemotherapy or severity of sepsis. Will continue to monitor Seen by oncology - Dr. Pederson with met with the family and has reiterated extremely grim prognosis as I am informed. Has advised patient be made Hospice. I recommend family be given at least 24 hours to process and come to terms with all this before approaching them about Hospice. 5. Pancytopenia with leukopenia. May be secondary to recent chemotherapy and/or severe sepsis. Suspect the former. Started Granix and erythropoietin. Platelets continue to decrease. Fibrinogen normal and so DIC unlikely. Will continue to monitor. Heparin discontinued. SCD for DVT prophylaxis. Has severe anemia. May benefit from bleed transfusion. Will defer to mechanical manager Code Visit Inpatient E&M: 02804 Subs Hosp L3
--- NOTE | 2018-03-30 16:10 | PN_ITS ---
Patient Problems: Active and Suspected Problems (Last Updated 03/30/18 @ 13:13 by Randall Pederson MD) Lung metastases (Acute) Fever (Acute) Metastasis from pancreatic cancer (Acute) WENDY (acute kidney injury) (Acute) Severe sepsis (Acute) Atrial fibrillation with rapid ventricular response (Acute) Liver metastases (Acute) Pancreas cancer (Acute) Vitals/I&O's: Vital Signs Temp Pulse Resp BP Pulse Ox 99.6 F H 99 17 103/40 L 97 03/30/18 12:00 03/30/18 15:00 03/30/18 15:00 03/30/18 15:00 03/30/18 15:00 Oxygen Flow Rate (L/min) 3 Oxygen Delivery Method Nasal Cannula Weight: 114.7 kg Body Mass Index (BMI) 32.4 Intake and Output for Last 24 Hours 03/28/18 03/29/18 03/30/18 23:59 23:59 23:59 Intake Total 3904.6 / 3904.6 4223.5 / 4223.5 2031 / 2031 Output Total 275 / 275 1525 / 1525 175 / 175 Balance 3629.6 / 3629.6 2698.5 / 2698.5 1857 / 1857 General: Confused - acutely ill looking and in distress, Disoriented, Lethargic HEENT: Atraumatic Oral: Dry Mucosa Neck: Supple Lungs: Short of Breath, Tachypneic, Using Accessory Muscles, - - Transmitted sounds Cardiovascular: Irregular Rate Abdomen: - - MWR Extremities: Edema - involving UEs Psych/Mental Status: Depressed, Restless Microbiology Past 72 Hours 03/28/18 23:30 Urine, Clean Catch Urine Culture - Preliminary Culture exhibits no growth. 03/28/18 23:30 Stool C. difficile DNA Amplification - Final Laboratory Results 03/29/18 04:40: Diff Path Review Reviewed 03/30/18 05:45: Sodium 147 H, Potassium 5.0, Chloride 119 H, Carbon Dioxide 18.0 L, Anion Gap 10, BUN 41 H, Creatinine 1.67 H, Estim Creat Clear Calc 40.66 , Est GFR (MDRD) Af Amer 52 L, Est GFR (MDRD) Non-Af 43 L, BUN/Creatinine Ratio 24.6 H, Glucose 178 H, Calcium 7.0 L 03/30/18 05:45: WBC 0.1 L*, RBC 2.55 L, Hgb 7.2 L, Hct 22.4 L, MCV 87.8, MCH 28.2, MCHC 32.1, RDW 15.7 H, RDW Differential 51.1 H, Plt Count 43 L*, Immature Gran % (Auto) 0.000, Neut % (Auto) 9.1 L, Lymph % (Auto) 81.8 H, Lyman % (Auto) 9.1, Eos % (Auto) 0.0, Baso % (Auto) 0.0, Absolute Neuts (auto) 0.0 L, Absolute Lymphs (auto) 0.09 L, Total Counted Not Reportable, Diff Path Review Reviewed, Platelet Estimate MKD 03/30/18 05:45: Total Bilirubin 2.60 H, Direct Bilirubin 2.24 H, AST 205 H, ALT 150 H, Alkaline Phosphatase 164 H, Total Protein 4.7 L, Albumin 1.2 L, Globulin 3.5 03/30/18 08:45: PT 18.0 H, INR 1.5, APTT 47.0 H, Fibrinogen 691 H, D-Dimer Quant (PE/DVT) 3.94 H* Current Medications Acetaminophen (Tylenol) 650 mg PO Q6H PRN PRN PRN Reason: Fever Last Admin: 03/28/18 17:47 Dose: 650 mg Hydrocodone Bitart/Acetaminophen ([place] 5mg-325mg) 1 tablet PO Q6H PRN PRN PRN Reason: PAIN Last Admin: 03/29/18 00:18 Dose: 1 tablet Chlorhexidine Gluconate () 1 each TOPICAL DAILY ANH Last Admin: 03/30/18 10:14 Dose: Not Given Meropenem 1 gm/ Sodium (Chloride) 120 mls @ 33 mls/hr IV Q8 [facility] Last Admin: 03/30/18 15:23 Dose: 33 mls/hr Diltiazem HCl 125 mg/ Dextrose 125 mls @ 5 mls/hr IV .Q25H ANH; 5 MG/HR PRN Reason: Protocol Last Admin: 03/30/18 04:53 Dose: 5 mls/hr Dextrose/Sodium Chloride () 1,000 mls @ 125 mls/hr IV .Q8H [facility] Last Admin: 03/30/18 15:23 Dose: 125 mls/hr Fluconazole (Diflucan) 200 mg in 100 mls @ 50 mls/hr IV Q48 [facility] Last Admin: 03/30/18 11:16 Dose: 50 mls/hr Levothyroxine Sodium (Synthroid) 50 mcg PO DAILY@0600 [facility] Last Admin: 03/30/18 06:50 Dose: Not Given Lidocaine/Diphenhydr/Alum/Mg/Simeth () 20 ml PO Q4H [facility] Last Admin: 03/30/18 13:58 Dose: 20 ml Loperamide HCl (Imodium) 2 mg PO Q2H PRN PRN PRN Reason: Diarrhea Magnesium Hydroxide (Milk Of Magnesia) 30 ml PO DAILY PRN PRN Reason: Constipation Morphine Sulfate () 2 mg IV Q4H PRN PRN PRN Reason: SEVERE PAIN (6-1010) Last Admin: 03/30/18 12:55 Dose: 2 mg Nutritional Formula (Lactose Free) (Ensure Enlive) 120 ml PO 4X/DAY [facility] Last Admin: 03/30/18 10:10 Dose: Not Given Nystatin (Nystatin) 500,000 unit PO 0800,1200,1600,2000 [facility] Last Admin: 03/30/18 13:58 Dose: 500,000 unit Ondansetron HCl (Zofran) 4 mg IV Q6H PRN PRN PRN Reason: NAUSEA Sodium Chloride () 5 - 30 ml IV UD PRN PRN Reason: SALINE FLUSH Last Admin: 03/30/18 00:08 Dose: 10 ml Sodium Chloride () 10 ml IV UD PRN PRN Reason: VAD FLUSH Medical Necessity - Tobacco Use Smoking Status: Never smoker Tobacco Use: Non-smoker Assessment/Plan All Active Problems (Last Updated 03/30/18 @ 13:13 by Randall Pederson MD) Lung metastases (Acute) Fever (Acute) Metastasis from pancreatic cancer (Acute) WENDY (acute kidney injury) (Acute) Severe sepsis (Acute) Atrial fibrillation with rapid ventricular response (Acute) Liver metastases (Acute) Pancreas cancer (Acute) History of liver biopsy (Resolved) Liver lesion (Acute) Hypoxia (Resolved) 1. Severe neutropenic sepsis. Patient immunocompromised with advanced, pancreatic cancer, chemotherapy and leukopenia/neutropenia. Lactic acidosis of 4 on presentation. Patient hypotensive with wide pulse pressure. May have to hold Lasix. On bactericidal IV antibiotics. Senior Property Accountant following 2. WENDY on CKD III. Secondary to severe sepsis and volume depletion from diarrhea. Expect to improve with treatment of sepsis and resuscitation. 3. Atrial fibrillation with RVR. RVR response secondary to severity of sepsis. Started rate control with amiodarone given tenuous BP and hemodynamic state. Cardiology consulted and patient has been started on Cardizem drip as well Appreciate input from cardiology 4. Stage IV pancreatic cancer with mets to liver and lungs. Worsening liver function may be due to worsening mets or chemotherapy or severity of sepsis. Will continue to monitor Seen by oncology - Dr. Pederson with met with the family and has reiterated extremely grim prognosis as I am informed. Has advised patient be made Hospice. I recommend family be given at least 24 hours to process and come to terms with all this before approaching them about Hospice. 5. Pancytopenia with leukopenia. May be secondary to recent chemotherapy and/or severe sepsis. Suspect the former. Started Granix and erythropoietin. Platelets continue to decrease. Fibrinogen normal and so DIC unlikely. Will continue to monitor. Heparin discontinued. SCD for DVT prophylaxis. Has severe anemia. May benefit from bleed transfusion. Will defer to project geophysicist Code Visit Inpatient E&M: 99329 Subs Hosp L3
--- NOTE | 2018-03-30 16:37 | ONC.CON.INP2 ---
- Problem List (1) Pancreas cancer Status: Acute Qualifiers: Pancreatic malignancy location: unspecified Qualified Code(s): C25.9 - Malignant neoplasm of pancreas, unspecified (2) Lung metastases Status: Acute (3) Liver metastases Status: Acute (4) Pancytopenia Status: Acute (5) Fever Status: Acute Qualifiers: Fever type: due to other condition Qualified Code(s): R50.81 - Fever presenting with conditions classified elsewhere Consult Referring Physician: ICU staff Consult Results: Metastatic progressive pancreatic cancer and pancytopenia post chemotherapy complicated with sepsis Subjective Date of Service:: 03/30/18 Chief Complaint: Fever History of Present Illness: 77-year-old gentleman who presented with abdominal pain and unprovoked pulmonary embolism in December 2017. Abdominal imaging reveals a pancreatic mass and multiple lesions involving both lobes of the liver. 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 Systemic chemotherapy gemcitabine and Abraxane) with a palliative and a modest survival intent was started March 17, 2018 (scheduled days 1, 8, 15 of a 28 day cycle). He was hospitalized following days 1 with a low-grade fever, was not neutropenic and cultures were negative for any infections and was discharged. He was able to receive day 8 of the cycle on March 24, 2018. However he was rehospitalized on March 28 with recurrent fevers, severe pancytopenia and sepsis. CT scan of the chest at this admission revealed progressive metastatic disease in the liver and progressive metastatic disease in the chest. His past medical history is notable for lung cancer status post resection in 2017, coronary artery disease, obesity, and DJD. 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 angina pectoris (Chronic) CAD (coronary artery disease) (Chronic) 02/16/99 x 2 MARTINEZ to LAD, SVG to diagonal HTN (hypertension) (Chronic) Hyperlipidemia (Chronic) Obesity (Chronic) CAD (coronary artery disease) (Chronic) History of lung cancer (Chronic) s/p left lower lobectomy Past Medical/Surgical History: Past Medical History - Most Recent Inpatient Visit Past Medical History Start: 03/28/18 14:16 Text: Status: Complete Freq: ONCE Protocol: Document 03/28/18 14:25 (Rec: 03/28/18 14:28 [id number]) BMI Required to complete PMH What is Patient's BMI 32.4 Neurologic Medical History Hx Stroke/TIA No Hx Dementia/Alzheimer's No Hx Parkinson's Disease No Hx Seizures No Hx Multiple Sclerosis No Hx Migraines No Cardiac Medical History VTE Present on Admission No Hx of Deep Vein Thrombosis/VTE/PE Yes Hx Hypertension Yes: ON MEDS, CONTROLLED Hx Chest Pain/Angina No Hx Heart Attack Yes Hx Cardiac Surgery/Stents/Etc. Yes: CABG 1998, STENTS 2005 Hx Heart Failure No Hx Pacemaker/AICD No Hx Irregular Heartbeat and/or Afib Yes: Frederick MOTA [id number] Hx Anticoagulant Therapy Yes: xarelto Query Text:(Coumadin, Aspirin, Plavix, Xarelto, etc.) Hx Pain in Legs when Walking/Leg Cramps No Respiratory Medical History Hx COPD No: left lower lobectomy Hx Emphysema No Hx Smoking No: pt denies Smoking Status Never smoker Tobacco Use Non-smoker Hx Tobacco Use in last 12 months No Hx Sleep Apnea No Do you snore loudly (louder than talking No or can be heard through closed doors)? Do you often feel tired/ fatigued/ No sleepy during daytime? Has anyone observed you stop breathing No during sleep? STOP Results Negative GI Medical History Hx Ulcer No Hx Hepatitis No Hx Cirrhosis No Hx GI Bleed Yes: PER HISTORY Hx Unplanned Weight Loss Yes: 10 pounds Genitourinary Medical History Indwelling Catheter in Place on Arrival/ No Admission Hx Renal Disease No Hx Dialysis No Musculoskeletal History Hx Arthritis Yes: OA Hx Rheumatoid Arthritis No Endocrine Medical History Hx Diabetes No Hx Thyroid Disease Yes: ON MED Hematologic Medical History Hx of Blood Transfusion No Hx of Transfusion in last 3 Months No Ever experience any problems with No transfusion(s)? Hx of Preganancy in last 3 Months N/A Nurse Filling Out Transfusion & JLENDON Questions: Date: 03/28/18 Time: 14:27 Psycho/Social Medical History Hx Depression No Hx Anxiety No Hx Behavior Disorder No Hx Alcohol Use No Hx Substance Use No Other Medical History Hx Blood Disorders No Hx Anemia Yes: PER HX Hx Cancer Yes: pancreatic w/ liver mets- lung cancer w/ lobectomy Hx Drug Resistant Organism No Wound/Pressure Injury Present on Arrival Yes /Admission Query Text:If yes, chart assessment in Shift/Clinical Findings Central Line/PICC/VAD Present on Arrival Yes /Admission Antibiotics within last 7 days? 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 pectoris (Chronic) CAD (coronary artery disease) (Chronic) HTN (hypertension) (Chronic) Hyperlipidemia (Chronic) History of lung cancer (Chronic) GI bleed (Acute) Hx of myocardial infarction (Acute) Lung cancer (Acute) Abnormal pulmonary function test (Chronic) Anemia (Chronic) BMI 32.0-32.9,adult (Chronic) BPH (benign prostatic hyperplasia) (Chronic) Chest pain, unspecified (Chronic) Iatrogenic hypothyroidism (Chronic) Ischemic colitis (Chronic) Malignant neoplasm (Chronic) Nonspecific abnormal unspecified cardiovascular function study (Chronic) Obesity (Chronic) Osteoarthritis (Chronic) Pulmonary interstitial fibrosis (Chronic) Pulmonary nodule (Chronic) Renal disease (Chronic) Renal insufficiency (Chronic) Restrictive lung disease (Chronic) Past Surgical History (Last Reviewed 03/24/18 @ 09:19 by Smita Barth) History of liver biopsy (Resolved) Aortocoronary bypass status (Resolved) H/O angioplasty (Resolved) H/O coronary angioplasty (Resolved) Hx of CABG (Resolved) S/P cholecystectomy (Resolved) S/P lobectomy of lung (Resolved) - Social History Smoking Status: Never smoker Tobacco Use: Non-smoker Alcohol: None Drugs: None Allergies/Adverse Reactions: Allergy/AdvReac Type Severity Reaction Status Date / Time niacin Allergy Mild Rash Verified 03/28/18 09:54 atorvastatin calcium AdvReac Intermediate Swelling Verified 03/28/18 09:54 [From Lipitor] Review of Systems Constitutional:: Reports: Weakness, Fatigue, Fever, Weight loss, Appetite change, Pain. Denies: Sweats, Chills Cardiovascular:: Reports: Dyspnea on exertion. Denies: Chest pain, Palpitations, Orthopnea, PND, Shortness of breath Respiratory: Reports: Shortness of breath upon exertion. Denies: Cough, Hemoptysis, Shortness of Breath, Wheezing Gastrointestinal:: Reports: Abdominal pain, Diarrhea, Dysphagia - Mouth sores. Denies: Nausea, Vomiting, Constipation, Hematochezia Genitourinary: Denies: Dysuria, Hematuria, 15, Flank pain Musculoskeletal:: Denies: Back pain, Myalgia, Arthralgia Skin: Reports: - - Easy bruising. Denies: Rash, Skin Changes, Wounds Neurological:: Reports: - - Delirious. Denies: Headache, Dizziness, Visual changes, Tinnitus, Hearing loss Psychiatric: Denies: Anxiety, Depression, Homicidal Ideations, Suicidal Ideations Comment: Systems review was obtained from and admission records Vital Signs Height 6 ft Weight: 114.7 kg Weight in Pounds 252.9 lbs Pulse Ox 97 Temperature 99.6 F Pulse Rate 99 Respiratory Rate 17 Blood Pressure [BP] 103/40 Blood Pressure 100/36 Blood Pressure Position [BP] Supine Blood Pressure Position Supine - Physical Exam General: Confused, Disoriented, Lethargic, - - Delirious, opens eyes when called by name, nodded yes for being in pain but otherwise was not communicating HEENT: Atraumatic, PERRLA, EOMI, Normocephalic Oropharynx:: Dry mucosa Neck:: Supple, Trachea midline. Negative for: JVD, bilateral Cardiac:: Regular rate, Regular rhythm, Normal S1, Normal S2 Lungs: Rales, Diminished, Shortness of breath, Excusion symmetrical. Negative for: Rhonchi, Wheezes Abdomen:: Soft, Non-tender, Non-distended. Negative for: Hepatosplenomegaly Extremities:: Edema. Negative for: Cyanosis Neurological: - - Delirious Skin:: Ecchymosis. Negative for: Lesions, Rash, Petechiae Psychiatric:: - - Delirious Lymphatics:: Negative for: Cervical lymphadenopathy, Supraclavicular lymphadenopathy Laboratory Data: Microbiology 03/28/18 23:30 Urine Culture - Preliminary Urine, Clean Catch Culture exhibits no growth. 03/28/18 23:30 C. difficile DNA Amplification - Final Stool Laboratory Tests 03/30/18 03/30/18 03/30/18 Range/Units 08:45 05:45 05:45 WBC 0.1 L* (4.4-11.0) K/mm3 RBC 2.55 L (4.6-6.2) M/mm3 Hgb 7.2 L (13.0-16.5) g/dl Hct 22.4 L (40-54) % MCV 87.8 (80-94) fL MCH 28.2 (27.0-32.0) pg MCHC 32.1 (32-36) g/gl RDW 15.7 H (11.6-14.6) % RDW Differential 51.1 H (35.1-43.9) fl Plt Count 43 L* (150-450) K/mm3 Immature Gran % (Auto) 0.000 (0.0-0.9) % Neut % (Auto) 9.1 L (47-70) % Lymph % (Auto) 81.8 H (19-41) % [place]iscoe % (Auto) 9.1 (0-10) % Eos % (Auto) 0.0 (0-5) % Baso % (Auto) 0.0 (0-1) % Absolute Neuts (auto) 0.0 L (2.0-7.7) X10^3/uL Absolute Lymphs (auto) 0.09 L (0.83-4.51) X10^3/ul Total Counted Not Reportable Diff Path Review Reviewed Platelet Estimate MKD DEC (ADEQ) PT 18.0 H (11.7-14.9) SECONDS INR 1.5 APTT 47.0 H (24.1-36.2) Seconds Fibrinogen 691 H (203-444) mg/dl D-Dimer Quant (PE/DVT) 3.94 H* (0.27-0.49) FEU/ug/m Sodium (136-145) mmol/L Potassium (3.5-5.1) mmol/L Chloride (98-107) mmol/L Carbon Dioxide (21.0-32.0) mmol/L Anion Gap (5-15) BUN (7-18) mg/dL Creatinine (0.70-1.30) mg/dL Estim Creat Clear Calc ml/min Est GFR (MDRD) Af Amer (>60) mL/min Est GFR (MDRD) Non-Af (>60) mL/min BUN/Creatinine Ratio (10-20) RATIO Glucose (74-106) mg/dL Calcium (8.5-10.1) mg/dL Total Bilirubin 2.60 H (0.20-1.00) mg/dL Direct Bilirubin 2.24 H (0.00-0.30) mg/dL AST 205 H (15-37) U/L ALT 150 H (16-61) U/L Alkaline Phosphatase 164 H (45-117) U/L Total Protein 4.7 L (6.4-8.2) g/dL Albumin 1.2 L (3.2-5.0) g/dL Globulin 3.5 (2.2-4.2) g/dL 03/30/18 03/29/18 Range/Units 05:45 04:40 WBC (4.4-11.0) K/mm3 RBC (4.6-6.2) M/mm3 Hgb (13.0-16.5) g/dl Hct (40-54) % MCV (80-94) fL MCH (27.0-32.0) pg MCHC (32-36) g/gl RDW (11.6-14.6) % RDW Differential (35.1-43.9) fl Plt Count (150-450) K/mm3 Immature Gran % (Auto) (0.0-0.9) % Neut % (Auto) (47-70) % Lymph % (Auto) (19-41) % Briscoe % (Auto) (0-10) % Eos % (Auto) (0-5) % Baso % (Auto) (0-1) % Absolute Neuts (auto) (2.0-7.7) X10^3/uL Absolute Lymphs (auto) (0.83-4.51) X10^3/ul Total Counted Diff Path Review Reviewed Platelet Estimate (ADEQ) PT (11.7-14.9) SECONDS INR APTT (24.1-36.2) Seconds Fibrinogen (203-444) mg/dl D-Dimer Quant (PE/DVT) (0.27-0.49) FEU/ug/m Sodium 147 H (136-145) mmol/L Potassium 5.0 (3.5-5.1) mmol/L Chloride 119 H (98-107) mmol/L Carbon Dioxide 18.0 L (21.0-32.0) mmol/L Anion Gap 10 (5-15) BUN 41 H (7-18) mg/dL Creatinine 1.67 H (0.70-1.30) mg/dL Estim Creat Clear Calc 40.66 ml/min Est GFR (MDRD) Af Amer 52 L (>60) mL/min Est GFR (MDRD) Non-Af 43 L (>60) mL/min BUN/Creatinine Ratio 24.6 H (10-20) RATIO Glucose 178 H (74-106) mg/dL Calcium 7.0 L (8.5-10.1) mg/dL Total Bilirubin (0.20-1.00) mg/dL Direct Bilirubin (0.00-0.30) mg/dL AST (15-37) U/L ALT (16-61) U/L Alkaline Phosphatase (45-117) U/L Total Protein (6.4-8.2) g/dL Albumin (3.2-5.0) g/dL Globulin (2.2-4.2) g/dL Diagnostic Data: Diagnostic Data Chest X-Ray 03/28/18 10:03 IMPRESSION: Adequately inflated lungs with continued prominent lung markings throughout with questionable superimposed pulmonary micronodules. Metastatic involvement of the lungs cannot be excluded. Continued left lower lobe airspace disease with small effusion. Electronically Signed: Ole Ramirez DO at 10:23 EDT Tel , Service support , Abdomen/Pelvis CT 03/28/18 10:57 IMPRESSION: 1. Multiple pulmonary nodules consistent with metastases increased in size and number since the previous exam. 2. Metastatic liver lesions again in size and number since previous exam. 3. Pancreatic mass increased in size. 4. Diffuse thickening of the colon particularly of the sigmoid colon which could be due to underdistention. Colitis cannot be excluded. 5. Persistent nonobstructing stone in the left kidney with mild prominence of the collecting system unchanged. Electronically Signed: Shai Sousa MD at 12:24 EDT Tel , Service support , I personally reviewed patient's CT images and concur with the impression of progression of his disease in the liver and more definite evidence of metastatic disease in the chest Assessment and Plan 77-year-old gentleman with: #1 newly diagnosed metastatic pancreas cancer to liver and lungs. Patient was able only to tolerate days 1 and 8 of the first cycle of systemic chemotherapy and hospitalized with severe bone marrow suppression complicated with sepsis. Within the short span from diagnosis and start of systemic chemotherapy he had definite rapid progression of his disease Indicative of a quite aggressive cancer. #2 severe pancytopenia secondary to systemic chemotherapy even though he was not able to complete the first cycle of treatment (3 weekly treatments of 4 weeks cycles) indicative of poor tolerance of standard palliative therapy. #3 Gram-negative sepsis. #4 Severe mucositis postchemotherapy. #5 Acute diarrhea probably secondary to mucositis plus or minus GI infection. Overall prognosis is quite poor with a rather aggressive rapidly progressive cancer and intolerance to standard systemic chemotherapy was excessive toxicities. I met with the patient's and daughter and updated them on the patient's rapid decline. Discussed advanced directives and living well. Patient's has a living will at home and will provide a copy for the records. She reported that she has power of marketing database analyst for health for her . My recommendations are to treat his infection and support him through the pancytopenia (growth factor, blood product transfusion if needed). If he were to recover he can go home on the home hospice program to spend the last days of his life surrounded by his family at his own home. If he were to continue to decline I advice comfort measures only and not subjecting him to resuscitative or life supporting measures due to an irreversible terminal metastatic cancer as the underlying cause for his downhill decline. Medications: Medications Added to Medication List This Visit Category Date Time Status Bmx Liquid Med 03/30/18 08:00 Active 20 ml PO Q4H Fluconazole [Diflucan] Med 03/30/18 10:00 Active 200 mg in 100 ml IV Q48 Nystatin Med 03/30/18 12:00 Active 500,000 unit PO 0800,1200,1600,2000 Primary Care Provider: Daniel Samayoa Referring Provider:
--- NOTE | 2018-03-30 16:40 | CON.PCM_ITS ---
- Problem List (1) Pancreas cancer Status: Acute Qualifiers: Pancreatic malignancy location: unspecified Qualified Code(s): C25.9 - Malignant neoplasm of pancreas, unspecified (2) Lung metastases Status: Acute (3) Liver metastases Status: Acute (4) Pancytopenia Status: Acute (5) Fever Status: Acute Qualifiers: Fever type: due to other condition Qualified Code(s): R50.81 - Fever presenting with conditions classified elsewhere Consult Referring Physician: ICU staff Consult Results: Metastatic progressive pancreatic cancer and pancytopenia post chemotherapy complicated with sepsis Subjective Date of Service:: 03/30/18 Chief Complaint: Fever History of Present Illness: 77-year-old gentleman who presented with abdominal pain and unprovoked pulmonary embolism in December 2017. Abdominal imaging reveals a pancreatic mass and multiple lesions involving both lobes of the liver. 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 Systemic chemotherapy gemcitabine and Abraxane) with a palliative and a modest survival intent was started March 17, 2018 (scheduled days 1, 8, 15 of a 28 day cycle). He was hospitalized following days 1 with a low-grade fever, was not neutropenic and cultures were negative for any infections and was discharged. He was able to receive day 8 of the cycle on March 24, 2018. However he was rehospitalized on March 28 with recurrent fevers, severe pancytopenia and sepsis. CT scan of the chest at this admission revealed progressive metastatic disease in the liver and progressive metastatic disease in the chest. His past medical history is notable for lung cancer status post resection in 2017, coronary artery disease, obesity, and DJD. 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 angina pectoris (Chronic ) CAD (coronary artery disease) (Chronic) 02/16/99 x 2 MARTINEZ to LAD, SVG to diagonal HTN (hypertension) (Chronic) Hyperlipidemia (Chronic) Obesity (Chronic) CAD (coronary artery disease) (Chronic) History of lung cancer (Chronic) s/p left lower lobectomy Past Medical/Surgical History: Past Medical History - Most Recent Inpatient Visit Past Medical History Start: 03/28/18 14: 16 Text: Status: Complete Freq: ONCE Protocol: Document 03/28/18 14:25 (Rec: 03/28/18 14:28 [id number]) BMI Required to complete PMH What is Patient's BMI 32.4 Neurologic Medical History Hx Stroke/TIA No Hx Dementia/Alzheimer's No Hx Parkinson's Disease No Hx Seizures No Hx Multiple Sclerosis No Hx Migraines No Cardiac Medical History VTE Present on Admission No Hx of Deep Vein Thrombosis/VTE/PE Yes Hx Hypertension Yes: ON MEDS, CONTROLLED Hx Chest Pain/Angina No Hx Heart Attack Yes Hx Cardiac Surgery/Stents/Etc. Yes: CABG 1998, STENTS 2005 Hx Heart Failure No Hx Pacemaker/AICD No Hx Irregular Heartbeat and/or Afib Yes: Frederick MOTA [id number] Hx Anticoagulant Therapy Yes: xarelto Query Text:(Coumadin, Aspirin, Plavix, Xarelto, etc.) Hx Pain in Legs when Walking/Leg Cramps No Respiratory Medical History Hx COPD No: left lower lobectomy Hx Emphysema No Hx Smoking No: pt denies Smoking Status Never smoker Tobacco Use Non-smoker Hx Tobacco Use in last 12 months No Hx Sleep Apnea No Do you snore loudly (louder than talking No or can be heard through closed doors)? Do you often feel tired/ fatigued/ No sleepy during daytime? Has anyone observed you stop breathing No during sleep? STOP Results Negative GI Medical History Hx Ulcer No Hx Hepatitis No Hx Cirrhosis No Hx GI Bleed Yes: PER HISTORY Hx Unplanned Weight Loss Yes: 10 pounds Genitourinary Medical History Indwelling Catheter in Place on Arrival/ No Admission Hx Renal Disease No Hx Dialysis No Musculoskeletal History Hx Arthritis Yes: OA Hx Rheumatoid Arthritis No Endocrine Medical History Hx Diabetes No Hx Thyroid Disease Yes: ON MED Hematologic Medical History Hx of Blood Transfusion No Hx of Transfusion in last 3 Months No Ever experience any problems with No transfusion(s)? Hx of Preganancy in last 3 Months N/A Nurse Filling Out Transfusion & JLENDON Questions: Date: 03/28/18 Time: 14:27 Psycho/Social Medical History Hx Depression No Hx Anxiety No Hx Behavior Disorder No Hx Alcohol Use No Hx Substance Use No Other Medical History Hx Blood Disorders No Hx Anemia Yes: PER HX Hx Cancer Yes: pancreatic w/ liver mets- lung cancer w/ lobectomy Hx Drug Resistant Organism No Wound/Pressure Injury Present on Arrival Yes /Admission Query Text:If yes, chart assessment in Shift/Clinical Findings Central Line/PICC/VAD Present on Arrival Yes /Admission Antibiotics within last 7 days? 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 pectoris (Chronic ) CAD (coronary artery disease) (Chronic) HTN (hypertension) (Chronic) Hyperlipidemia (Chronic) History of lung cancer (Chronic) GI bleed (Acute) Hx of myocardial infarction (Acute) Lung cancer (Acute) Abnormal pulmonary function test (Chronic) Anemia (Chronic) BMI 32.0-32.9,adult (Chronic) BPH (benign prostatic hyperplasia) (Chronic) Chest pain, unspecified (Chronic) Iatrogenic hypothyroidism (Chronic) Ischemic colitis (Chronic) Malignant neoplasm (Chronic) Nonspecific abnormal unspecified cardiovascular function study (Chronic) Obesity (Chronic) Osteoarthritis (Chronic) Pulmonary interstitial fibrosis (Chronic) Pulmonary nodule (Chronic) Renal disease (Chronic) Renal insufficiency (Chronic) Restrictive lung disease (Chronic) Past Surgical History (Last Reviewed 03/24/18 @ 09:19 by Smita Barth) History of liver biopsy (Resolved) Aortocoronary bypass status (Resolved) H/O angioplasty (Resolved) H/O coronary angioplasty (Resolved) Hx of CABG (Resolved) S/P cholecystectomy (Resolved) S/P lobectomy of lung (Resolved) - Social History Smoking Status: Never smoker Tobacco Use: Non-smoker Alcohol: None Drugs: None Allergies/Adverse Reactions: Allergy/AdvReac Type Severity Reaction Status Date / Time niacin Allergy Mild Rash Verified 03/28/18 09:54 atorvastatin calcium AdvReac Intermediate Swelling Verified 03/28/18 09:54 [From Lipitor] Review of Systems Constitutional:: Reports: Weakness, Fatigue, Fever, Weight loss, Appetite change , Pain. Denies: Sweats, Chills Cardiovascular:: Reports: Dyspnea on exertion. Denies: Chest pain, Palpitations , Orthopnea, PND, Shortness of breath Respiratory: Reports: Shortness of breath upon exertion. Denies: Cough, Hemoptysis, Shortness of Breath, Wheezing Gastrointestinal:: Reports: Abdominal pain, Diarrhea, Dysphagia - Mouth sores. Denies: Nausea, Vomiting, Constipation, Hematochezia Genitourinary: Denies: Dysuria, Hematuria, 15, Flank pain Musculoskeletal:: Denies: Back pain, Myalgia, Arthralgia Skin: Reports: - - Easy bruising. Denies: Rash, Skin Changes, Wounds Neurological:: Reports: - - Delirious. Denies: Headache, Dizziness, Visual changes, Tinnitus, Hearing loss Psychiatric: Denies: Anxiety, Depression, Homicidal Ideations, Suicidal Ideations Comment: Systems review was obtained from and admission records Vital Signs Height 6 ft Weight: 114.7 kg Weight in Pounds 252.9 lbs Pulse Ox 97 Temperature 99.6 F Pulse Rate 99 Respiratory Rate 17 Blood Pressure [BP] 103/40 Blood Pressure 100/36 Blood Pressure Position [BP] Supine Blood Pressure Position Supine - Physical Exam General: Confused, Disoriented, Lethargic, - - Delirious, opens eyes when called by name, nodded yes for being in pain but otherwise was not communicating HEENT: Atraumatic, PERRLA, EOMI, Normocephalic Oropharynx:: Dry mucosa Neck:: Supple, Trachea midline. Negative for: JVD, bilateral Cardiac:: Regular rate, Regular rhythm, Normal S1, Normal S2 Lungs: Rales, Diminished, Shortness of breath, Excusion symmetrical. Negative for: Rhonchi, Wheezes Abdomen:: Soft, Non-tender, Non-distended. Negative for: Hepatosplenomegaly Extremities:: Edema. Negative for: Cyanosis Neurological: - - Delirious Skin:: Ecchymosis. Negative for: Lesions, Rash, Petechiae Psychiatric:: - - Delirious Lymphatics:: Negative for: Cervical lymphadenopathy, Supraclavicular lymphadenopathy Laboratory Data: Microbiology 03/28/18 23:30 Urine Culture - Preliminary Urine, Clean Catch Culture exhibits no growth. 03/28/18 23:30 C. difficile DNA Amplification - Final Stool Laboratory Tests 3 03/30/18 03/30/18 03/30/18 Range/Units 08:45 05:45 05:45 WBC 0.1 L* (4.4-11.0) K/mm3 RBC 2.55 L (4.6-6.2) M/mm3 Hgb 7.2 L (13.0-16.5) g/dl Hct 22.4 L (40-54) % MCV 87.8 (80-94) fL MCH 28.2 (27.0-32.0) pg MCHC 32.1 (32-36) g/gl RDW 15.7 H (11.6-14.6) % RDW Differential 51.1 H (35.1-43.9) fl Plt Count 43 L* (150-450) K/mm3 Immature Gran % (Auto) 0.000 (0.0-0.9) % Neut % (Auto) 9.1 L (47-70) % Lymph % (Auto) 81.8 H (19-41) % [place] % (Auto) 9.1 (0-10) % Eos % (Auto) 0.0 (0-5) % Baso % (Auto) 0.0 (0-1) % Absolute Neuts (auto) 0.0 L (2.0-7.7) X10^3/uL Absolute Lymphs (auto) 0.09 L (0.83-4.51) X10^3/ul Total Counted Not Reportable Diff Path Review Reviewed Platelet Estimate MKD DEC (ADEQ) PT 18.0 H (11.7-14.9) SECONDS INR 1.5 APTT 47.0 H (24.1-36.2) Seconds Fibrinogen 691 H (203-444) mg/dl D-Dimer Quant (PE/DVT) 3.94 H* (0.27-0.49) FEU/ug/m Sodium (136-145) mmol/L Potassium (3.5-5.1) mmol/L Chloride (98-107) mmol/L Carbon Dioxide (21.0-32.0) mmol/L Anion Gap (5-15) BUN (7-18) mg/dL Creatinine (0.70-1.30) mg/dL Estim Creat Clear Calc ml/min Est GFR (MDRD) Af Amer (>60) mL/min Est GFR (MDRD) Non-Af (>60) mL/min BUN/Creatinine Ratio (10-20) RATIO Glucose (74-106) mg/dL Calcium (8.5-10.1) mg/dL Total Bilirubin 2.60 H (0.20-1.00) mg/dL Direct Bilirubin 2.24 H (0.00-0.30) mg/dL AST 205 H (15-37) U/L ALT 150 H (16-61) U/L Alkaline Phosphatase 164 H (45-117) U/L Total Protein 4.7 L (6.4-8.2) g/dL Albumin 1.2 L (3.2-5.0) g/dL Globulin 3.5 (2.2-4.2) g/dL 3 03/30/18 03/29/18 Range/Units 05:45 04:40 WBC (4.4-11.0) K/mm3 RBC (4.6-6.2) M/mm3 Hgb (13.0-16.5) g/dl Hct (40-54) % MCV (80-94) fL MCH (27.0-32.0) pg MCHC (32-36) g/gl RDW (11.6-14.6) % RDW Differential (35.1-43.9) fl Plt Count (150-450) K/mm3 Immature Gran % (Auto) (0.0-0.9) % Neut % (Auto) (47-70) % Lymph % (Auto) (19-41) % [place] % (Auto) (0-10) % Eos % (Auto) (0-5) % Baso % (Auto) (0-1) % Absolute Neuts (auto) (2.0-7.7) X10^3/uL Absolute Lymphs (auto) (0.83-4.51) X10^3/ul Total Counted Diff Path Review Reviewed Platelet Estimate (ADEQ) PT (11.7-14.9) SECONDS INR APTT (24.1-36.2) Seconds Fibrinogen (203-444) mg/dl D-Dimer Quant (PE/DVT) (0.27-0.49) FEU/ug/m Sodium 147 H (136-145) mmol/L Potassium 5.0 (3.5-5.1) mmol/L Chloride 119 H (98-107) mmol/L Carbon Dioxide 18.0 L (21.0-32.0) mmol/L Anion Gap 10 (5-15) BUN 41 H (7-18) mg/dL Creatinine 1.67 H (0.70-1.30) mg/dL Estim Creat Clear Calc 40.66 ml/min Est GFR (MDRD) Af Amer 52 L (>60) mL/min Est GFR (MDRD) Non-Af 43 L (>60) mL/min BUN/Creatinine Ratio 24.6 H (10-20) RATIO Glucose 178 H (74-106) mg/dL Calcium 7.0 L (8.5-10.1) mg/dL Total Bilirubin (0.20-1.00) mg/dL Direct Bilirubin (0.00-0.30) mg/dL AST (15-37) U/L ALT (16-61) U/L Alkaline Phosphatase (45-117) U/L Total Protein (6.4-8.2) g/dL Albumin (3.2-5.0) g/dL Globulin (2.2-4.2) g/dL Diagnostic Data: Diagnostic Data Chest X-Ray 03/28/18 10:03 IMPRESSION: Adequately inflated lungs with continued prominent lung markings throughout with questionable superimposed pulmonary micronodules. Metastatic involvement of the lungs cannot be excluded. Continued left lower lobe airspace disease with small effusion. Electronically Signed: Ole Ramirez DO at 10:23 EDT Tel , Service support , Abdomen/Pelvis CT 03/28/18 10:57 IMPRESSION: 1. Multiple pulmonary nodules consistent with metastases increased in size and number since the previous exam. 2. Metastatic liver lesions again in size and number since previous exam. 3. Pancreatic mass increased in size. 4. Diffuse thickening of the colon particularly of the sigmoid colon which could be due to underdistention. Colitis cannot be excluded. 5. Persistent nonobstructing stone in the left kidney with mild prominence of the collecting system unchanged. Electronically Signed: Shai Sousa MD at 12:24 EDT Tel , Service support , I personally reviewed patient's CT images and concur with the impression of progression of his disease in the liver and more definite evidence of metastatic disease in the chest Assessment and Plan 77-year-old gentleman with: #1 newly diagnosed metastatic pancreas cancer to liver and lungs. Patient was able only to tolerate days 1 and 8 of the first cycle of systemic chemotherapy and hospitalized with severe bone marrow suppression complicated with sepsis. Within the short span from diagnosis and start of systemic chemotherapy he had definite rapid progression of his disease Indicative of a quite aggressive cancer. #2 severe pancytopenia secondary to systemic chemotherapy even though he was not able to complete the first cycle of treatment (3 weekly treatments of 4 weeks cycles) indicative of poor tolerance of standard palliative therapy. #3 Gram-negative sepsis. #4 Severe mucositis postchemotherapy. #5 Acute diarrhea probably secondary to mucositis plus or minus GI infection. Overall prognosis is quite poor with a rather aggressive rapidly progressive cancer and intolerance to standard systemic chemotherapy was excessive toxicities. I met with the patient's and daughter and updated them on the patient's rapid decline. Discussed advanced directives and living well. Patient's has a living will at home and will provide a copy for the records. She reported that she has power of sports attorney for health for her . My recommendations are to treat his infection and support him through the pancytopenia (growth factor, blood product transfusion if needed). If he were to recover he can go home on the home hospice program to spend the last days of his life surrounded by his family at his own home. If he were to continue to decline I advice comfort measures only and not subjecting him to resuscitative or life supporting measures due to an irreversible terminal metastatic cancer as the underlying cause for his downhill decline. Medications: Medications Added to Medication List This Visit Category Date Time Status Bmx Liquid Med 03/30/18 08:00 Active 20 ml PO Q4H Fluconazole [Diflucan] Med 03/30/18 10:00 Active 200 mg in 100 ml IV Q48 Nystatin Med 03/30/18 12:00 Active 500,000 unit PO 0800,1200,1600,2000 Primary Care Provider: Dnaiel Samayoa Referring Provider:
[2018-03-31] VITALS (47 sets, daily range): BP systolic 88–152; BP diastolic 33–78; PULSE 103–125; RESP 16–32; TEMP 36.1–37.4; O2SAT 90–100
[2018-03-31] MEDS: BMX LIQUID 180 ML 20 ML PO ×6 (00:42→22:19)
[2018-03-31] MEDS: Morphine 2 MG/ML Syringe IV (03:40)
[2018-03-31 03:56] LABS: Absolute Lymphocyte Count 0.19 X10^3/ul (0.83-4.51); Basophil# 0.01 X10^3/uL; Basophil% 3.1 % (0-1); Hematocrit 22.7 % (40-54); Hemoglobin 7.2 g/dl (13.0-16.5); Lymphocyte # 0.19 X10^3/ul (4.0); Lymphocyte % 59.4 % (19-41); Mean Corp Hgb Conc 31.7 g/gl (32-36); Mean Corpuscular Hgb 28.1 pg (27.0-32.0); Mean Corpuscular Volume 88.7 fL (80-94); Monocyte# 0.12 X10^3/uL; Monocyte% 37.5 % (0-10); RBC Distribution Width CV 15.6 % (11.6-14.6); Red Blood Count 2.56 M/mm3 (4.6-6.2)
[2018-03-31 04:00] LABS: Differential Indicated SCAN CRITERIA MET; POSITIVE COUNT YES; POSITIVE DIFFERENTIAL YES; POSITIVE MORPHOLOGY YES
[2018-03-31 04:09] LABS: ALB/GLOB Ratio 0.4 RATIO (0.9-2.4); AST(SGOT) 161 U/L (15-37); Alanine Aminotransfer ALT/SGPT 132 U/L (16-61); Albumin, Serum 1.2 g/dL (3.2-5.0); Alkaline Phosphatase 187 U/L (45-117); Anion Gap 10 (5-15); BUN 49 mg/dL (7-18); BUN/Creat Ratio 20.9 RATIO (10-20); Calcium,Total 7.2 mg/dL (8.5-10.1); Chloride 117 mmol/L (98-107); Creatinine, Serum 2.34 mg/dL (0.70-1.30); EST Glomerular Filtration Rate 29 mL/min (>60); Est Glom Filt Rate - Afr Amer 35 mL/min (>60); Estimated Creatinine Clearance 29.02 ml/min; Globulin 3.3 g/dL (2.2-4.2); Glucose 161 mg/dL (74-106); Potassium 5.1 mmol/L (3.5-5.1); Protein, Total 4.5 g/dL (6.4-8.2); Sodium Level 145 mmol/L (136-145)
[2018-03-31 04:19] LABS: Differential Comment SEE COMMENTS; Hypochromasia 1+; Platelet Estimate MKD DEC (ADEQ)
[2018-03-31 04:20] LABS: Ovalocyte RARE; Tear Drop Cell RARE
[2018-03-31 04:24] LABS: Platelet Count 35 K/mm3 (150-450); White Blood Count 0.3 K/mm3 (4.4-11.0)
[2018-03-31] MEDS: CHLORHEXIDINE GLUC 2% CLOTH 1 EACH TOWELETTE TOPICAL (06:05)
--- NOTE | 2018-03-31 06:12 | EKG12_ITS ---
Test Reason : QT PROLONGATION Blood Pressure : / mmHG Vent. Rate : 118 BPM Atrial Rate : 192 BPM P-R Int : 000 ms QRS Dur : 072 ms QT Int : 296 ms P-R-T Axes : 000 -01 167 degrees QTc Int : 414 ms Atrial fibrillation Low voltage QRS Abnormal ECG When compared with ECG of 30-MAR-2018 09:16, MANUAL COMPARISON REQUIRED, DATA IS UNCONFIRMED Confirmed by KINGS HOOVER, NIKKI ([id number]), newspaper photo editor HERIBERTO MELTON ([id number]) on 04/08/2018 9:40:14 AM Referred By: Daniel Samayoa Confirmed By:INKKI KU MD
[2018-03-31] MEDS: Hydrocortisone Sod Succinate 100 MG/2 ML Vial IV ×3 (06:29→22:18)
[2018-03-31] MEDS: Dext 5%-0.45% NS 1,000 ML 125 ML IV (06:29)
--- NOTE | 2018-03-31 06:58 | PN_ITS ---
Subjective: Patient with difficulty overnight secondary to a decreased urine output. Patient did not respond to fluid bolus or Lasix therapy. Patient was initiated on pressor therapy and has had slightly increased urine output since that time, but it is still marginal. Patient reports little change in his subjective assessment. Patient denies any abdominal pain. No bowel movements have been noted. Objective: EKG this morning showed a QTC of 414. General: Alert, No apparent distress, Confused, Disoriented, - - Obese. Speaking in full sentences. HEENT: Atraumatic, PERRLA, EOMI, Normocephalic, - - Slight scleral injection without icterus Oral: Moist Mucosa, No Gingival or Mucosal Lesions/ Ulcerations Neck: Supple, No Nodes, Trachea Midline, JVD, Right Lungs: No rhonchi, No wheeze, Diminished, Rales, - - Symmetric expansion. No dullness to percussion. Cardiovascular: Normal S1, Normal S2, No murmurs, Irregular Rate, No rub noted, No Gallop Abdomen: Bowel Sounds Present, Soft, Distended, Obese, Tender - Right upper quadrant Extremities: No clubbing, No cyanosis, Capillary Refill Less than 3 Seconds, Edema Skin: - - No significant change compared to previous Musculoskeletal: No Tenderness to Palpation of Joints or Extremities, No Muscle Wasting Lymphatic: No Cervical, Supraclavicular, or Inguinal Adenopathy Neurological: Cranial nerves II-XII grossly intact, Neuro grossly intact, Motor Exam 5/5 strength throughout Psych/Mental Status: Flat Affect, Impulsive Vital Signs Temp Pulse Resp BP Pulse Ox 36.6 C 106 H 20 H 114/43 L 100 03/31/18 06:00 03/31/18 06:00 03/31/18 06:00 03/31/18 06:00 03/31/18 06:00 Oxygen Flow Rate (L/min) 4 Oxygen Delivery Method Nasal Cannula Weight: 115.7 kg Body Mass Index (BMI) 32.4 Intake and Output for Last 24 Hours 03/29/18 03/30/18 03/31/18 23:59 23:59 23:59 Intake Total 4223.5 / 4223.5 3132 / 3132 1544 / 1544 Output Total 1525 / 1525 225 / 225 95 / 95 Balance 2698.5 / 2698.5 2907 / 2907 1449 / 1449 Labs (Last 48 Hours) 03/29/18 03/29/18 03/30/18 04:40 08:00 05:45 WBC 0.1 L* RBC 2.71 L Hgb 7.5 L Hct 23.9 L MCV 88.2 MCH 27.7 MCHC 31.4 L RDW 15.4 H RDW Differential 49.5 H Plt Count 59 L MPV 13.5 H Immature Gran % (Auto) Neut % (Auto) Not Reportable Lymph % (Auto) [place] % (Auto) Eos % (Auto) Baso % (Auto) Absolute Neuts (auto) Not Reportable Absolute Lymphs (auto) Total Counted 0 Differential Comment Diff Path Review Reviewed Platelet Estimate Hypochromasia Tear Drop Cells Ovalocytes PT INR APTT Fibrinogen D-Dimer Quant (PE/DVT) Sodium 147 H Potassium 5.0 Chloride 119 H Carbon Dioxide 18.0 L Anion Gap 10 BUN 41 H Creatinine 1.67 H Estim Creat Clear Calc 40.66 Est GFR (MDRD) Af Amer 52 L Est GFR (MDRD) Non-Af 43 L BUN/Creatinine Ratio 24.6 H Glucose 178 H Calcium 7.0 L Total Bilirubin Direct Bilirubin AST ALT Alkaline Phosphatase Total Protein Albumin Globulin Albumin/Globulin Ratio MRSA (PCR) Negative 03/30/18 03/30/18 03/30/18 05:45 05:45 08:45 WBC 0.1 L* RBC 2.55 L Hgb 7.2 L Hct 22.4 L MCV 87.8 MCH 28.2 MCHC 32.1 RDW 15.7 H RDW Differential 51.1 H Plt Count 43 L* MPV Immature Gran % (Auto) 0.000 Neut % (Auto) 9.1 L Lymph % (Auto) 81.8 H [place] % (Auto) 9.1 Eos % (Auto) 0.0 Baso % (Auto) 0.0 Absolute Neuts (auto) 0.0 L Absolute Lymphs (auto) 0.09 L Total Counted Not Reportable Differential Comment Diff Path Review Reviewed Platelet Estimate MKD DEC Hypochromasia Tear Drop Cells Ovalocytes PT 18.0 H INR 1.5 APTT 47.0 H Fibrinogen 691 H D-Dimer Quant (PE/DVT) 3.94 H* Sodium Potassium Chloride Carbon Dioxide Anion Gap BUN Creatinine Estim Creat Clear Calc Est GFR (MDRD) Af Amer Est GFR (MDRD) Non-Af BUN/Creatinine Ratio Glucose Calcium Total Bilirubin 2.60 H Direct Bilirubin 2.24 H AST 205 H ALT 150 H Alkaline Phosphatase 164 H Total Protein 4.7 L Albumin 1.2 L Globulin 3.5 Albumin/Globulin Ratio MRSA (PCR) 03/31/18 03/31/18 03:40 03:40 WBC 0.3 L* RBC 2.56 L Hgb 7.2 L Hct 22.7 L MCV 88.7 MCH 28.1 MCHC 31.7 L RDW 15.6 H RDW Differential 49.0 H Plt Count 35 L* MPV TNP Immature Gran % (Auto) 0.000 Neut % (Auto) 0.0 L Lymph % (Auto) 59.4 H [place] % (Auto) 37.5 H Eos % (Auto) 0.0 Baso % (Auto) 3.1 H Absolute Neuts (auto) 0.0 L Absolute Lymphs (auto) 0.19 L Total Counted Not Reportable Differential Comment SEE COMMENTS Diff Path Review May foll Platelet Estimate MKD DEC Hypochromasia 1+ Tear Drop Cells RARE Ovalocytes RARE PT INR APTT Fibrinogen D-Dimer Quant (PE/DVT) Sodium 145 Potassium 5.1 Chloride 117 H Carbon Dioxide 18.0 L Anion Gap 10 BUN 49 H Creatinine 2.34 H Estim Creat Clear Calc 29.02 Est GFR (MDRD) Af Amer 35 L Est GFR (MDRD) Non-Af 29 L BUN/Creatinine Ratio 20.9 H Glucose 161 H Calcium 7.2 L Total Bilirubin 3.50 H Direct Bilirubin AST 161 H ALT 132 H Alkaline Phosphatase 187 H Total Protein 4.5 L Albumin 1.2 L Globulin 3.3 Albumin/Globulin Ratio 0.4 L MRSA (PCR) Microbiology 03/28/18 23:30 Urine, Clean Catch Urine Culture - Preliminary Culture exhibits no growth. Medical Necessity - Tobacco Use Smoking Status: Never smoker Tobacco Use: Non-smoker Assessment/Plan All Active Problems (Last Updated 03/30/18 @ 13:13 by Randall Pederson MD) Lung metastases (Acute) Fever (Acute) Metastasis from pancreatic cancer (Acute) WENDY (acute kidney injury) (Acute) Severe sepsis (Acute) Atrial fibrillation with rapid ventricular response (Acute) Liver metastases (Acute) Pancreas cancer (Acute) History of liver biopsy (Resolved) Liver lesion (Acute) Hypoxia (Resolved) RECOMMENDATIONS: 1. Obtain EKG daily to evaluate QT while on fluconazole 2. Await cardiology recommendations, continue amiodarone and Cardizem 3. Continue with antibiotics as ordered 4. Await oncology consultation for prognostic discussion 5. Continue pressor therapy, limit additional IV fluids. 6. Address CODE STATUS later with patient's IMPRESSIONS: 1. Septic shock secondary to E. coli UTI/thrush Patient's blood pressure did drop overnight secondary E. coli UTI. Clinical suspicion for reconstitution of the immune system leading to increased extravasation and need for pressor therapy. Patient is significantly fluid positive. Will attempt to limit IV fluids. Cannot actively diuresis given pressor requirements. Patient is on appropriate antibiotics. Patient appears to be tolerating the fluconazole well and QTC is acceptable. Thrush looks visibly better, but patient continues to report sore throat. Patient was placed on stress dose steroids given multiple metastasis noted from pancreatic cancer. 2. A. fib with RVR Patient currently on amiodarone and Cardizem with marginal rate control. Defer to cardiology. Recent echocardiogram did show stage I diastolic dysfunction, which will be exacerbated by elevated heart rates. Patient also with elevated right ventricular systolic pressures previously. 3. Stage IV pancreatic cancer, not responding to chemotherapy/elevated transaminases/thrombocytopenia Patient last received chemotherapy on March 24. Patient has multiple enlarging masses in multiple organs, including the primary site. Patient was seen by oncology yesterday, but no notes are available for review. Patient is confused at this time, but will await patient's spouse arrival later today. 4. Acute hypoxic respiratory insufficiency Patient is requiring 3-4 L nasal cannula oxygen to maintain saturations. Patient has received significant amounts of fluid and albumin is depressed secondary to chronic illness. Wean oxygen as tolerated. Continue with pressors. Patient is reportedly a full code despite progressing pancreatic cancer on chemotherapy. 5. Coronary artery disease/hypertension/hyperlipidemia/obesity Complicates care, management, recovery and prognosis. Hold antihypertensives for now given patient's need for rate control and gram- negative infection. Will hold statin therapy if patient's hepatic function continues to deteriorate. Patient is on heparin DVT prophylaxis. TIME: 35 minutes critical care time spent addressing patient's A. fib with RVR, acute hypoxic respiratory insufficiency, septic shock, thrush, review of all data and collaboration with care team. (6 AM to 7 AM) Code Visit 9xxxx: [id number] Critical care first hour
[2018-03-31] MEDS: NYSTATIN 500,000 UNIT/5 ML UDC 500000 UNIT PO ×4 (09:53→22:19)
[2018-03-31] MEDS: fentaNYL 100 MCG/2 ML Ampul 50 MCG IV ×5 (10:00→22:07)
[2018-03-31] MEDS: 0.9% NaCl Peripheral Flush Adult/Peds IV ×7 (10:29→22:18)
--- NOTE | 2018-03-31 10:39 | ONC.PN.INPT ---
- Problem List (1) Pancreas cancer Status: Acute Qualifiers: Pancreatic malignancy location: unspecified Qualified Code(s): C25.9 - Malignant neoplasm of pancreas, unspecified (2) Lung metastases Status: Acute (3) Liver metastases Status: Acute (4) Pancytopenia Status: Acute (5) Fever Status: Acute Qualifiers: Fever type: due to other condition Qualified Code(s): R50.81 - Fever presenting with conditions classified elsewhere (6) Jaundice Status: Acute (7) WENDY (acute kidney injury) Status: Acute (8) Severe sepsis Status: Acute Subjective Date of Service:: 03/31/18 Fever 77-year-old gentleman who presented with abdominal pain and unprovoked pulmonary embolism in December 2017. Abdominal imaging reveals a pancreatic mass and multiple lesions involving both lobes of the liver. 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 Systemic chemotherapy gemcitabine and Abraxane) with a palliative and a modest survival intent was started March 17, 2018 (scheduled days 1, 8, 15 of a 28 day cycle). He was hospitalized following days 1 with a low-grade fever, was not neutropenic and cultures were negative for any infections and was discharged. He was able to receive day 8 of the cycle on March 24, 2018. However he was rehospitalized on March 28 with recurrent fevers, severe pancytopenia and sepsis. CT scan of the chest at this admission revealed progressive metastatic disease in the liver and progressive metastatic disease in the chest. His past medical history is notable for lung cancer status post resection in 2016, coronary artery disease, obesity, and DJD. Subjectively appears more comfortable and in no pain. Overnight required IV fluid boluses and is on pressor support to sustain his blood pressure 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 angina pectoris (Chronic) CAD (coronary artery disease) (Chronic) 02/16/99 x 2 MARTINEZ to LAD, SVG to diagonal HTN (hypertension) (Chronic) Hyperlipidemia (Chronic) Obesity (Chronic) CAD (coronary artery disease) (Chronic) History of lung cancer (Chronic) s/p left lower lobectomy Past Medical History - Most Recent Inpatient Visit Past Medical History Start: 03/28/18 14:16 Text: Status: Complete Freq: ONCE Protocol: Document 03/28/18 14:25 JAKI (Rec: 03/28/18 14:28 JAKI [id number]) BMI Required to complete PMH What is Patient's BMI 32.4 Neurologic Medical History Hx Stroke/TIA No Hx Dementia/Alzheimer's No Hx Parkinson's Disease No Hx Seizures No Hx Multiple Sclerosis No Hx Migraines No Cardiac Medical History VTE Present on Admission No Hx of Deep Vein Thrombosis/VTE/PE Yes Hx Hypertension Yes: ON MEDS, CONTROLLED Hx Chest Pain/Angina No Hx Heart Attack Yes Hx Cardiac Surgery/Stents/Etc. Yes: CABG 1998, STENTS 2005 Hx Heart Failure No Hx Pacemaker/AICD No Hx Irregular Heartbeat and/or Afib Yes: Frederick MOTA [id number] Hx Anticoagulant Therapy Yes: xarelto Query Text:(Coumadin, Aspirin, Plavix, Xarelto, etc.) Hx Pain in Legs when Walking/Leg Cramps No Respiratory Medical History Hx COPD No: left lower lobectomy Hx Emphysema No Hx Smoking No: pt denies Smoking Status Never smoker Tobacco Use Non-smoker Hx Tobacco Use in last 12 months No Hx Sleep Apnea No Do you snore loudly (louder than talking No or can be heard through closed doors)? Do you often feel tired/ fatigued/ No sleepy during daytime? Has anyone observed you stop breathing No during sleep? STOP Results Negative GI Medical History Hx Ulcer No Hx Hepatitis No Hx Cirrhosis No Hx GI Bleed Yes: PER HISTORY Hx Unplanned Weight Loss Yes: 10 pounds Genitourinary Medical History Indwelling Catheter in Place on Arrival/ No Admission Hx Renal Disease No Hx Dialysis No Musculoskeletal History Hx Arthritis Yes: OA Hx Rheumatoid Arthritis No Endocrine Medical History Hx Diabetes No Hx Thyroid Disease Yes: ON MED Hematologic Medical History Hx of Blood Transfusion No Hx of Transfusion in last 3 Months No Ever experience any problems with No transfusion(s)? Hx of Preganancy in last 3 Months N/A Nurse Filling Out Transfusion & JLENDON Questions: Date: 03/28/18 Time: 14:27 Psycho/Social Medical History Hx Depression No Hx Anxiety No Hx Behavior Disorder No Hx Alcohol Use No Hx Substance Use No Other Medical History Hx Blood Disorders No Hx Anemia Yes: PER HX Hx Cancer Yes: pancreatic w/ liver mets- lung cancer w/ lobectomy Hx Drug Resistant Organism No Wound/Pressure Injury Present on Arrival Yes /Admission Query Text:If yes, chart assessment in Shift/Clinical Findings Central Line/PICC/VAD Present on Arrival Yes /Admission Antibiotics within last 7 days? 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 pectoris (Chronic) CAD (coronary artery disease) (Chronic) HTN (hypertension) (Chronic) Hyperlipidemia (Chronic) History of lung cancer (Chronic) GI bleed (Acute) Hx of myocardial infarction (Acute) Lung cancer (Acute) Abnormal pulmonary function test (Chronic) Anemia (Chronic) BMI 32.0-32.9,adult (Chronic) BPH (benign prostatic hyperplasia) (Chronic) Chest pain, unspecified (Chronic) Iatrogenic hypothyroidism (Chronic) Ischemic colitis (Chronic) Malignant neoplasm (Chronic) Nonspecific abnormal unspecified cardiovascular function study (Chronic) Obesity (Chronic) Osteoarthritis (Chronic) Pulmonary interstitial fibrosis (Chronic) Pulmonary nodule (Chronic) Renal disease (Chronic) Renal insufficiency (Chronic) Restrictive lung disease (Chronic) Past Surgical History (Last Reviewed 03/24/18 @ 09:19 by Smita Barth) History of liver biopsy (Resolved) Aortocoronary bypass status (Resolved) H/O angioplasty (Resolved) H/O coronary angioplasty (Resolved) Hx of CABG (Resolved) S/P cholecystectomy (Resolved) S/P lobectomy of lung (Resolved) - Social History Smoking Status: Never smoker Tobacco Use: Non-smoker Alcohol: None Drugs: None Review of Systems Comment: When seen was delirious but denied being in pain Vital Signs Height 6 ft Weight: 115.7 kg Weight in Pounds 255.1 lbs Pulse Ox 96 Temperature 98 F Pulse Rate 125 Respiratory Rate 27 Blood Pressure [BP] 127/57 Blood Pressure 100/49 Blood Pressure Position [BP] Semi-Fowlers Blood Pressure Position Semi-Fowlers - Physical Exam General: - - Delirious, ECOG 4, scleral and skin icterus noted Laboratory Data: Microbiology 03/28/18 23:30 Urine Culture - Final Urine, Clean Catch Culture exhibits no growth. 03/28/18 23:30 C. difficile DNA Amplification - Final Stool Laboratory Tests 03/31/18 03/31/18 03/30/18 Range/Units 03:40 03:40 05:45 WBC 0.3 L* (4.4-11.0) K/mm3 RBC 2.56 L (4.6-6.2) M/mm3 Hgb 7.2 L (13.0-16.5) g/dl Hct 22.7 L (40-54) % MCV 88.7 (80-94) fL MCH 28.1 (27.0-32.0) pg MCHC 31.7 L (32-36) g/gl RDW 15.6 H (11.6-14.6) % RDW Differential 49.0 H (35.1-43.9) fl Plt Count 35 L* (150-450) K/mm3 MPV TNP Immature Gran % (Auto) 0.000 (0.0-0.9) % Neut % (Auto) 0.0 L (47-70) % Lymph % (Auto) 59.4 H (19-41) % [place] % (Auto) 37.5 H (0-10) % Eos % (Auto) 0.0 (0-5) % Baso % (Auto) 3.1 H (0-1) % Absolute Neuts (auto) 0.0 L (2.0-7.7) X10^3/uL Absolute Lymphs (auto) 0.19 L (0.83-4.51) X10^3/ul Total Counted Not Reportable Differential Comment SEE COMMENTS Diff Path Review May foll Reviewed Platelet Estimate MKD DEC (ADEQ) Hypochromasia 1+ Tear Drop Cells RARE Ovalocytes RARE Sodium 145 (136-145) mmol/L Potassium 5.1 (3.5-5.1) mmol/L Chloride 117 H (98-107) mmol/L Carbon Dioxide 18.0 L (21.0-32.0) mmol/L Anion Gap 10 (5-15) BUN 49 H (7-18) mg/dL Creatinine 2.34 H (0.70-1.30) mg/dL Estim Creat Clear Calc 29.02 ml/min Est GFR (MDRD) Af Amer 35 L (>60) mL/min Est GFR (MDRD) Non-Af 29 L (>60) mL/min BUN/Creatinine Ratio 20.9 H (10-20) RATIO Glucose 161 H (74-106) mg/dL Calcium 7.2 L (8.5-10.1) mg/dL Total Bilirubin 3.50 H (0.20-1.00) mg/dL AST 161 H (15-37) U/L ALT 132 H (16-61) U/L Alkaline Phosphatase 187 H (45-117) U/L Total Protein 4.5 L (6.4-8.2) g/dL Albumin 1.2 L (3.2-5.0) g/dL Globulin 3.3 (2.2-4.2) g/dL Albumin/Globulin Ratio 0.4 L (0.9-2.4) RATIO // Range/Units 04:40 WBC (4.4-11.0) K/mm3 RBC (4.6-6.2) M/mm3 Hgb (13.0-16.5) g/dl Hct (40-54) % MCV (80-94) fL MCH (27.0-32.0) pg MCHC (32-36) g/gl RDW (11.6-14.6) % RDW Differential (35.1-43.9) fl Plt Count (150-450) K/mm3 MPV Immature Gran % (Auto) (0.0-0.9) % Neut % (Auto) (47-70) % Lymph % (Auto) (19-41) % [place] % (Auto) (0-10) % Eos % (Auto) (0-5) % Baso % (Auto) (0-1) % Absolute Neuts (auto) (2.0-7.7) X10^3/uL Absolute Lymphs (auto) (0.83-4.51) X10^3/ul Total Counted Differential Comment Diff Path Review Reviewed Platelet Estimate (ADEQ) Hypochromasia Tear Drop Cells Ovalocytes Sodium (136-145) mmol/L Potassium (3.5-5.1) mmol/L Chloride (98-107) mmol/L Carbon Dioxide (21.0-32.0) mmol/L Anion Gap (5-15) BUN (7-18) mg/dL Creatinine (0.70-1.30) mg/dL Estim Creat Clear Calc ml/min Est GFR (MDRD) Af Amer (>60) mL/min Est GFR (MDRD) Non-Af (>60) mL/min BUN/Creatinine Ratio (10-20) RATIO Glucose (74-106) mg/dL Calcium (8.5-10.1) mg/dL Total Bilirubin (0.20-1.00) mg/dL AST (15-37) U/L ALT (16-61) U/L Alkaline Phosphatase (45-117) U/L Total Protein (6.4-8.2) g/dL Albumin (3.2-5.0) g/dL Globulin (2.2-4.2) g/dL Albumin/Globulin Ratio (0.9-2.4) RATIO Laboratory Tests 03/19/18 03/22/18 03/23/18 16:50 05:50 04:52 WBC 4.0 L Plt Count 100 L Creatinine 1.37 H Total Bilirubin 0.90 03/23/18 03/28/18 03/28/18 04:52 10:20 10:20 WBC 0.3 L* Plt Count 64 L Creatinine 1.47 H 1.80 H Total Bilirubin 4.30 H 03/29/18 03/29/18 03/30/18 04:40 04:40 05:45 WBC 0.1 L* Plt Count 59 L Creatinine 1.46 H 1.67 H Total Bilirubin 3.20 H 03/30/18 03/30/18 03/31/18 05:45 05:45 03:40 WBC 0.1 L* 0.3 L* Plt Count 43 L* 35 L* Creatinine Total Bilirubin 2.60 H 03/31/18 03:40 WBC Plt Count Creatinine 2.34 H Total Bilirubin 3.50 H Diagnostic Data: Diagnostic Data Chest X-Ray 03/28/18 10:03 IMPRESSION: Adequately inflated lungs with continued prominent lung markings throughout with questionable superimposed pulmonary micronodules. Metastatic involvement of the lungs cannot be excluded. Continued left lower lobe airspace disease with small effusion. Electronically Signed: Ole Ramirez DO at 10:23 EDT Tel , Service support , Abdomen/Pelvis CT 03/28/18 10:57 IMPRESSION: 1. Multiple pulmonary nodules consistent with metastases increased in size and number since the previous exam. 2. Metastatic liver lesions again in size and number since previous exam. 3. Pancreatic mass increased in size. 4. Diffuse thickening of the colon particularly of the sigmoid colon which could be due to underdistention. Colitis cannot be excluded. 5. Persistent nonobstructing stone in the left kidney with mild prominence of the collecting system unchanged. Electronically Signed: Shai Sousa MD at 12:24 EDT Tel , Service support , Assessment and Plan 77-year-old gentleman with: #1 newly diagnosed metastatic pancreas cancer to liver and lungs. Patient was able only to tolerate days 1 and 8 of the first cycle of systemic chemotherapy and hospitalized with severe bone marrow suppression complicated with sepsis. Within the short span from diagnosis and start of systemic chemotherapy he had definite rapid progression of his disease Indicative of a quite aggressive cancer. #2 severe pancytopenia secondary to systemic chemotherapy even though he was not able to complete the first cycle of treatment (3 weekly treatments of 4 weeks cycles) indicative of poor tolerance of standard palliative therapy. #3 Gram-negative sepsis. #4 Severe mucositis postchemotherapy. #5 Acute diarrhea probably secondary to mucositis plus or minus GI infection. #6 Acute renal failure most likely secondary to low perfusion from sepsis. #7 New onset jaundice most likely hepatocellular failure from progression of cancer and low perfusion. Overall prognosis is quite poor with a rather aggressive rapidly progressive cancer and intolerance to standard systemic chemotherapy with excessive toxicities. He continues to decline now requiring fluid boluses and pressor support with worsening hepatic and kidney functions. I met with the patient's and daughter and updated them on the patient's continued rapid decline. Discussed advanced directives and living well again. Patient's has his living will at home and stated she provided a copy to the unit community mental health social worker. She reported that she has power of environmental attorney for health for her . Since family wish for continued maximum support short of resuscitation (DO NOT RESUSCITATE) hoping that he may improve enough to go home on the home hospice program. My recommendations are to continue to treat his infection and support him through the pancytopenia (growth factor, blood product transfusion if needed). If he were to recover he can go home on the home hospice program to spend the last days of his life surrounded by his family at his own home. If he were to continue to decline I advice comfort measures only. Medications: Medications Added to Medication List This Visit Category Date Time Status Bmx Liquid Med 03/31/18 14:00 Active 20 ml PO Q4 Dext 5%-0.45% NS 1,000 ml Med 03/31/18 06:52 Active IV 15 mls/hr Famotidine [Pepcid (equivalent)] 20 mg Med 03/31/18 10:00 Active 0.9% Normal Saline [Sodium Chloride] 8 ml IV Q24 Hydrocortisone Sod Succinate [Solu-Cortef] Med 03/31/18 06:00 Active 100 mg IV Q8 Meropenem [Merrem] 1 gm Med 03/31/18 22:00 Active 0.9% Normal Saline 100 ml IV Q12 Nystatin Med 03/31/18 14:00 Active 500,000 unit PO 5X/DAY fentaNYL (100mcg ampule) [Sublimaze (100mcg ampule)] Med 03/31/18 09:34 Active 50 mcg IV Q2H PRN PRN Primary Care Provider: Daniel Samayoa Referring Provider:
--- NOTE | 2018-03-31 10:46 | PN_ITS ---
- Problem List (1) Pancreas cancer Status: Acute Qualifiers: Pancreatic malignancy location: unspecified Qualified Code(s): C25.9 - Malignant neoplasm of pancreas, unspecified (2) Lung metastases Status: Acute (3) Liver metastases Status: Acute (4) Pancytopenia Status: Acute (5) Fever Status: Acute Qualifiers: Fever type: due to other condition Qualified Code(s): R50.81 - Fever presenting with conditions classified elsewhere (6) Jaundice Status: Acute (7) WENDY (acute kidney injury) Status: Acute (8) Severe sepsis Status: Acute Subjective Date of Service:: 03/31/18 Fever 77-year-old gentleman who presented with abdominal pain and unprovoked pulmonary embolism in December 2017. Abdominal imaging reveals a pancreatic mass and multiple lesions involving both lobes of the liver. 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 Systemic chemotherapy gemcitabine and Abraxane) with a palliative and a modest survival intent was started March 17, 2018 (scheduled days 1, 8, 15 of a 28 day cycle). He was hospitalized following days 1 with a low-grade fever, was not neutropenic and cultures were negative for any infections and was discharged. He was able to receive day 8 of the cycle on March 24, 2018. However he was rehospitalized on March 28 with recurrent fevers, severe pancytopenia and sepsis. CT scan of the chest at this admission revealed progressive metastatic disease in the liver and progressive metastatic disease in the chest. His past medical history is notable for lung cancer status post resection in 2016, coronary artery disease, obesity, and DJD. Subjectively appears more comfortable and in no pain. Overnight required IV fluid boluses and is on pressor support to sustain his blood pressure 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 angina pectoris (Chronic ) CAD (coronary artery disease) (Chronic) 02/16/99 x 2 MARTINEZ to LAD, SVG to diagonal HTN (hypertension) (Chronic) Hyperlipidemia (Chronic) Obesity (Chronic) CAD (coronary artery disease) (Chronic) History of lung cancer (Chronic) s/p left lower lobectomy Past Medical History - Most Recent Inpatient Visit Past Medical History Start: 03/28/18 14: 16 Text: Status: Complete Freq: ONCE Protocol: Document 03/28/18 14:25 JAKI (Rec: 03/28/18 14:28 JAKI [id number]) BMI Required to complete PMH What is Patient's BMI 32.4 Neurologic Medical History Hx Stroke/TIA No Hx Dementia/Alzheimer's No Hx Parkinson's Disease No Hx Seizures No Hx Multiple Sclerosis No Hx Migraines No Cardiac Medical History VTE Present on Admission No Hx of Deep Vein Thrombosis/VTE/PE Yes Hx Hypertension Yes: ON MEDS, CONTROLLED Hx Chest Pain/Angina No Hx Heart Attack Yes Hx Cardiac Surgery/Stents/Etc. Yes: CABG 1998, STENTS 2005 Hx Heart Failure No Hx Pacemaker/AICD No Hx Irregular Heartbeat and/or Afib Yes: Frederick MOTA [id number] Hx Anticoagulant Therapy Yes: xarelto Query Text:(Coumadin, Aspirin, Plavix, Xarelto, etc.) Hx Pain in Legs when Walking/Leg Cramps No Respiratory Medical History Hx COPD No: left lower lobectomy Hx Emphysema No Hx Smoking No: pt denies Smoking Status Never smoker Tobacco Use Non-smoker Hx Tobacco Use in last 12 months No Hx Sleep Apnea No Do you snore loudly (louder than talking No or can be heard through closed doors)? Do you often feel tired/ fatigued/ No sleepy during daytime? Has anyone observed you stop breathing No during sleep? STOP Results Negative GI Medical History Hx Ulcer No Hx Hepatitis No Hx Cirrhosis No Hx GI Bleed Yes: PER HISTORY Hx Unplanned Weight Loss Yes: 10 pounds Genitourinary Medical History Indwelling Catheter in Place on Arrival/ No Admission Hx Renal Disease No Hx Dialysis No Musculoskeletal History Hx Arthritis Yes: OA Hx Rheumatoid Arthritis No Endocrine Medical History Hx Diabetes No Hx Thyroid Disease Yes: ON MED Hematologic Medical History Hx of Blood Transfusion No Hx of Transfusion in last 3 Months No Ever experience any problems with No transfusion(s)? Hx of Preganancy in last 3 Months N/A Nurse Filling Out Transfusion & JLENDON Questions: Date: 03/28/18 Time: 14:27 Psycho/Social Medical History Hx Depression No Hx Anxiety No Hx Behavior Disorder No Hx Alcohol Use No Hx Substance Use No Other Medical History Hx Blood Disorders No Hx Anemia Yes: PER HX Hx Cancer Yes: pancreatic w/ liver mets- lung cancer w/ lobectomy Hx Drug Resistant Organism No Wound/Pressure Injury Present on Arrival Yes /Admission Query Text:If yes, chart assessment in Shift/Clinical Findings Central Line/PICC/VAD Present on Arrival Yes /Admission Antibiotics within last 7 days? 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 pectoris (Chronic ) CAD (coronary artery disease) (Chronic) HTN (hypertension) (Chronic) Hyperlipidemia (Chronic) History of lung cancer (Chronic) GI bleed (Acute) Hx of myocardial infarction (Acute) Lung cancer (Acute) Abnormal pulmonary function test (Chronic) Anemia (Chronic) BMI 32.0-32.9,adult (Chronic) BPH (benign prostatic hyperplasia) (Chronic) Chest pain, unspecified (Chronic) Iatrogenic hypothyroidism (Chronic) Ischemic colitis (Chronic) Malignant neoplasm (Chronic) Nonspecific abnormal unspecified cardiovascular function study (Chronic) Obesity (Chronic) Osteoarthritis (Chronic) Pulmonary interstitial fibrosis (Chronic) Pulmonary nodule (Chronic) Renal disease (Chronic) Renal insufficiency (Chronic) Restrictive lung disease (Chronic) Past Surgical History (Last Reviewed 03/24/18 @ 09:19 by Smita Barth) History of liver biopsy (Resolved) Aortocoronary bypass status (Resolved) H/O angioplasty (Resolved) H/O coronary angioplasty (Resolved) Hx of CABG (Resolved) S/P cholecystectomy (Resolved) S/P lobectomy of lung (Resolved) - Social History Smoking Status: Never smoker Tobacco Use: Non-smoker Alcohol: None Drugs: None Review of Systems Comment: When seen was delirious but denied being in pain Vital Signs Height 6 ft Weight: 115.7 kg Weight in Pounds 255.1 lbs Pulse Ox 96 Temperature 98 F Pulse Rate 125 Respiratory Rate 27 Blood Pressure [BP] 127/57 Blood Pressure 100/49 Blood Pressure Position [BP] Semi-Fowlers Blood Pressure Position Semi-Fowlers - Physical Exam General: - - Delirious, ECOG 4, scleral and skin icterus noted Laboratory Data: Microbiology 03/28/18 23:30 Urine Culture - Final Urine, Clean Catch Culture exhibits no growth. 03/28/18 23:30 C. difficile DNA Amplification - Final Stool Laboratory Tests 3 09/18/18 09/18/18 09/17/18 Range/Units 03:40 03:40 05:45 WBC 0.3 L* (4.4-11.0) K/mm3 RBC 2.56 L (4.6-6.2) M/mm3 Hgb 7.2 L (13.0-16.5) g/dl Hct 22.7 L (40-54) % MCV 88.7 (80-94) fL MCH 28.1 (27.0-32.0) pg MCHC 31.7 L (32-36) g/gl RDW 15.6 H (11.6-14.6) % RDW Differential 49.0 H (35.1-43.9) fl Plt Count 35 L* (150-450) K/mm3 MPV TNP Immature Gran % (Auto) 0.000 (0.0-0.9) % Neut % (Auto) 0.0 L (47-70) % Lymph % (Auto) 59.4 H (19-41) % [place] % (Auto) 37.5 H (0-10) % Eos % (Auto) 0.0 (0-5) % Baso % (Auto) 3.1 H (0-1) % Absolute Neuts (auto) 0.0 L (2.0-7.7) X10^3/uL Absolute Lymphs (auto) 0.19 L (0.83-4.51) X10^3/ul Total Counted Not Reportable Differential Comment SEE COMMENTS Diff Path Review May foll Reviewed Platelet Estimate MKD DEC (ADEQ) Hypochromasia 1+ Tear Drop Cells RARE Ovalocytes RARE Sodium 145 (136-145) mmol/L Potassium 5.1 (3.5-5.1) mmol/L Chloride 117 H (98-107) mmol/L Carbon Dioxide 18.0 L (21.0-32.0) mmol/L Anion Gap 10 (5-15) BUN 49 H (7-18) mg/dL Creatinine 2.34 H (0.70-1.30) mg/dL Estim Creat Clear Calc 29.02 ml/min Est GFR (MDRD) Af Amer 35 L (>60) mL/min Est GFR (MDRD) Non-Af 29 L (>60) mL/min BUN/Creatinine Ratio 20.9 H (10-20) RATIO Glucose 161 H (74-106) mg/dL Calcium 7.2 L (8.5-10.1) mg/dL Total Bilirubin 3.50 H (0.20-1.00) mg/dL AST 161 H (15-37) U/L ALT 132 H (16-61) U/L Alkaline Phosphatase 187 H (45-117) U/L Total Protein 4.5 L (6.4-8.2) g/dL Albumin 1.2 L (3.2-5.0) g/dL Globulin 3.3 (2.2-4.2) g/dL Albumin/Globulin Ratio 0.4 L (0.9-2.4) RATIO 3 03/29/18 Range/Units 04:40 WBC (4.4-11.0) K/mm3 RBC (4.6-6.2) M/mm3 Hgb (13.0-16.5) g/dl Hct (40-54) % MCV (80-94) fL MCH (27.0-32.0) pg MCHC (32-36) g/gl RDW (11.6-14.6) % RDW Differential (35.1-43.9) fl Plt Count (150-450) K/mm3 MPV Immature Gran % (Auto) (0.0-0.9) % Neut % (Auto) (47-70) % Lymph % (Auto) (19-41) % [place] % (Auto) (0-10) % Eos % (Auto) (0-5) % Baso % (Auto) (0-1) % Absolute Neuts (auto) (2.0-7.7) X10^3/uL Absolute Lymphs (auto) (0.83-4.51) X10^3/ul Total Counted Differential Comment Diff Path Review Reviewed Platelet Estimate (ADEQ) Hypochromasia Tear Drop Cells Ovalocytes Sodium (136-145) mmol/L Potassium (3.5-5.1) mmol/L Chloride (98-107) mmol/L Carbon Dioxide (21.0-32.0) mmol/L Anion Gap (5-15) BUN (7-18) mg/dL Creatinine (0.70-1.30) mg/dL Estim Creat Clear Calc ml/min Est GFR (MDRD) Af Amer (>60) mL/min Est GFR (MDRD) Non-Af (>60) mL/min BUN/Creatinine Ratio (10-20) RATIO Glucose (74-106) mg/dL Calcium (8.5-10.1) mg/dL Total Bilirubin (0.20-1.00) mg/dL AST (15-37) U/L ALT (16-61) U/L Alkaline Phosphatase (45-117) U/L Total Protein (6.4-8.2) g/dL Albumin (3.2-5.0) g/dL Globulin (2.2-4.2) g/dL Albumin/Globulin Ratio (0.9-2.4) RATIO Laboratory Tests 03/19/18 03/22/18 03/23/18 16:50 05:50 04:52 WBC 4.0 L Plt Count 100 L Creatinine 1.37 H Total Bilirubin 0.90 03/23/18 03/28/18 03/28/18 04:52 10:20 10:20 WBC 0.3 L* Plt Count 64 L Creatinine 1.47 H 1.80 H Total Bilirubin 4.30 H 03/29/18 03/29/18 03/30/18 04:40 04:40 05:45 WBC 0.1 L* Plt Count 59 L Creatinine 1.46 H 1.67 H Total Bilirubin 3.20 H 03/30/18 03/30/18 03/31/18 05:45 05:45 03:40 WBC 0.1 L* 0.3 L* Plt Count 43 L* 35 L* Creatinine Total Bilirubin 2.60 H 03/31/18 03:40 WBC Plt Count Creatinine 2.34 H Total Bilirubin 3.50 H Diagnostic Data: Diagnostic Data Chest X-Ray 03/28/18 10:03 IMPRESSION: Adequately inflated lungs with continued prominent lung markings throughout with questionable superimposed pulmonary micronodules. Metastatic involvement of the lungs cannot be excluded. Continued left lower lobe airspace disease with small effusion. Electronically Signed: Ole Ramirez DO at 10:23 EDT Tel , Service support , Abdomen/Pelvis CT 03/28/18 10:57 IMPRESSION: 1. Multiple pulmonary nodules consistent with metastases increased in size and number since the previous exam. 2. Metastatic liver lesions again in size and number since previous exam. 3. Pancreatic mass increased in size. 4. Diffuse thickening of the colon particularly of the sigmoid colon which could be due to underdistention. Colitis cannot be excluded. 5. Persistent nonobstructing stone in the left kidney with mild prominence of the collecting system unchanged. Electronically Signed: Shai Sousa MD at 12:24 EDT Tel , Service support , Assessment and Plan 77-year-old gentleman with: #1 newly diagnosed metastatic pancreas cancer to liver and lungs. Patient was able only to tolerate days 1 and 8 of the first cycle of systemic chemotherapy and hospitalized with severe bone marrow suppression complicated with sepsis. Within the short span from diagnosis and start of systemic chemotherapy he had definite rapid progression of his disease Indicative of a quite aggressive cancer. #2 severe pancytopenia secondary to systemic chemotherapy even though he was not able to complete the first cycle of treatment (3 weekly treatments of 4 weeks cycles) indicative of poor tolerance of standard palliative therapy. #3 Gram-negative sepsis. #4 Severe mucositis postchemotherapy. #5 Acute diarrhea probably secondary to mucositis plus or minus GI infection. #6 Acute renal failure most likely secondary to low perfusion from sepsis. #7 New onset jaundice most likely hepatocellular failure from progression of cancer and low perfusion. Overall prognosis is quite poor with a rather aggressive rapidly progressive cancer and intolerance to standard systemic chemotherapy with excessive toxicities. He continues to decline now requiring fluid boluses and pressor support with worsening hepatic and kidney functions. I met with the patient's and daughter and updated them on the patient's continued rapid decline. Discussed advanced directives and living well again. Patient's has his living will at home and stated she provided a copy to the unit social services counselor. She reported that she has power of commercial litigation attorney for health for her . Since family wish for continued maximum support short of resuscitation (DO NOT RESUSCITATE) hoping that he may improve enough to go home on the home hospice program. My recommendations are to continue to treat his infection and support him through the pancytopenia (growth factor, blood product transfusion if needed). If he were to recover he can go home on the home hospice program to spend the last days of his life surrounded by his family at his own home. If he were to continue to decline I advice comfort measures only. Medications: Medications Added to Medication List This Visit Category Date Time Status Bmx Liquid Med 03/31/18 14:00 Active 20 ml PO Q4 Dext 5%-0.45% NS 1,000 ml Med 03/31/18 06:52 Active IV 15 mls/hr Famotidine [Pepcid (equivalent)] 20 mg Med 03/31/18 10:00 Active 0.9% Normal Saline [Sodium Chloride] 8 ml IV Q24 Hydrocortisone Sod Succinate [Solu-Cortef] Med 03/31/18 06:00 Active 100 mg IV Q8 Meropenem [Merrem] 1 gm Med 03/31/18 22:00 Active 0.9% Normal Saline 100 ml IV Q12 Nystatin Med 03/31/18 14:00 Active 500,000 unit PO 5X/DAY fentaNYL (100mcg ampule) [Sublimaze (100mcg ampule)] Med 03/31/18 09:34 Active 50 mcg IV Q2H PRN PRN Primary Care Provider: Daniel Samayoa Referring Provider:
--- NOTE | 2018-03-31 13:06 | CASEMGMT ---
LEE REICH in room to talk with pt's . had many questions re: hospice. Questions answered. Offered to pt for hospice to come in to speak with her re: any further questions/concerns she may have and is agreeable to talking with them. She states she would like for her daughter to be present during hospice consult as well. RNLima, made aware of above. also given list of Private Duty Agencies for Home Care Aides per her request. CM to follow for any further discharge planning needs that may arise. Branden CLEMENTE RN CM
[2018-03-31 13:38] LABS: Pathologist Review Reviewed
--- NOTE | 2018-03-31 17:57 | PCM.PN.CARD ---
Subjectve: The patient remains in the ICU. He appears to be tired and fatigued. His main concern is his sore throat . Objective: Vital Signs Temp Pulse Resp BP Pulse Ox 97.6 F L 118 H 25 H 138/36 H 95 03/31/18 12:00 03/31/18 16:00 03/31/18 16:00 03/31/18 16:00 03/31/18 16:00 Oxygen Flow Rate (L/min) 4 Oxygen Delivery Method Nasal Cannula Weight: 255 lb 1.197 oz Body Mass Index (BMI) 32.4 Intake and Output for Last 24 Hours 03/29/18 03/30/18 03/31/18 23:59 23:59 23:59 Intake Total 4223.5 / 4223.5 3132 / 3132 2351.6 / 2351.6 Output Total 1525 / 1525 225 / 225 195 / 195 Balance 2698.5 / 2698.5 2907 / 2907 2156.6 / 2156.6 General: Awake, Alert, Oriented x 3, Ill Appearing Lungs: - - Scattered upper airway sounds Cardiovascular: Irregular Rhythm, Normal S1, Normal S2 Abdomen: Bowel Sounds Present, Soft, Non Tender Extremities: Moderate RLE Edema, Moderate LLE Edema 03/31/18 03:40: WBC 0.3 L*, RBC 2.56 L, Hgb 7.2 L, Hct 22.7 L, MCV 88.7, MCH 28.1, MCHC 31.7 L, RDW 15.6 H, RDW Differential 49.0 H, Plt Count 35 L*, MPV TNP, Immature Gran % (Auto) 0.000, Neut % (Auto) 0.0 L, Lymph % (Auto) 59.4 H, [place] % (Auto) 37.5 H, Eos % (Auto) 0.0, Baso % (Auto) 3.1 H, Absolute Neuts (auto) 0.0 L, Total Counted Not Reportable 03/31/18 03:40: Sodium 145, Potassium 5.1, Chloride 117 H, Carbon Dioxide 18.0 L, Anion Gap 10, BUN 49 H, Creatinine 2.34 H, Est GFR (MDRD) Af Amer 35 L, Est GFR (MDRD) Non-Af 29 L, BUN/Creatinine Ratio 20.9 H, Glucose 161 H, Calcium 7.2 L, Total Bilirubin 3.50 H Rhythm: Atrial fibrillation; PVCs; nonsustained wide complex tachydysrhythmia potentially compatible with aberrancy versus nonsustained VT Medical Necessity - Tobacco Use Smoking Status: Never smoker Tobacco Use: Non-smoker Assessment/Plan 1. Atrial fibrillation with rapid ventricular response At the present time the patient remains in atrial fibrillation with rapid ventricular response. He will continue attempts at rate control therapy. This may include IV beta-blockers or IV diltiazem. IV amiodarone may be beneficial with respect to assisting with rate control. Hopefully when he is able to resume oral intake comfortably he can be changed back to oral medications. 2. Nonsustained wide complex tachycardia The patient has had nonsustained wide complex tachycardia. This may be compatible with his atrial fibrillation with aberrancy versus nonsustained ventricular tachycardia. At the present time the patient will continue attempts at medical management. This will include attempts at beta-lula therapy. Based upon his difficulty swallowing this will include IV beta-blockers at this time. He can continue IV amiodarone as deemed appropriate. 3. CAD status post CABG The patient, ideally, would continue his combined medical management as best as tolerated based upon his ongoing acute noncardiovascular issues superimposed on his chronic noncardiovascular issues. 4. Hyperlipidemia The patient can continue lipid-lowering therapy as he is able. 5. Hypertension The patient's blood pressure can be followed. His medications can be adjusted as deemed appropriate. 6. Pancreatic carcinoma with metastatic disease The patient continues under the care of hematology and oncology. His overall prognosis is poor. Comment: The above was discussed with the patient and his daughter. This note was generated with [employer] software. It may contain incorrect words, spelling, and punctuation that were not noted in checking the note before signing.
--- NOTE | 2018-03-31 18:02 | PN.CARD_ITS ---
Subjectve: The patient remains in the ICU. He appears to be tired and fatigued. His main concern is his sore throat . Objective: Vital Signs Temp Pulse Resp BP Pulse Ox 97.6 F L 118 H 25 H 138/36 H 95 03/31/18 12:00 03/31/18 16:00 03/31/18 16:00 03/31/18 16:00 03/31/18 16:00 Oxygen Flow Rate (L/min) 4 Oxygen Delivery Method Nasal Cannula Weight: 255 lb 1.197 oz Body Mass Index (BMI) 32.4 Intake and Output for Last 24 Hours 03/29/18 03/30/18 03/31/18 23:59 23:59 23:59 Intake Total 4223.5 / 4223.5 3132 / 3132 2351.6 / 2351.6 Output Total 1525 / 1525 225 / 225 195 / 195 Balance 2698.5 / 2698.5 2907 / 2907 2156.6 / 2156.6 General: Awake, Alert, Oriented x 3, Ill Appearing Lungs: - - Scattered upper airway sounds Cardiovascular: Irregular Rhythm, Normal S1, Normal S2 Abdomen: Bowel Sounds Present, Soft, Non Tender Extremities: Moderate RLE Edema, Moderate LLE Edema 03/31/18 03:40: WBC 0.3 L*, RBC 2.56 L, Hgb 7.2 L, Hct 22.7 L, MCV 88.7, MCH 28.1, MCHC 31.7 L, RDW 15.6 H, RDW Differential 49.0 H, Plt Count 35 L*, MPV TNP , Immature Gran % (Auto) 0.000, Neut % (Auto) 0.0 L, Lymph % (Auto) 59.4 H, [place] % (Auto) 37.5 H, Eos % (Auto) 0.0, Baso % (Auto) 3.1 H, Absolute Neuts ( auto) 0.0 L, Total Counted Not Reportable 03/31/18 03:40: Sodium 145, Potassium 5.1, Chloride 117 H, Carbon Dioxide 18.0 L , Anion Gap 10, BUN 49 H, Creatinine 2.34 H, Est GFR (MDRD) Af Amer 35 L, Est GFR (MDRD) Non-Af 29 L, BUN/Creatinine Ratio 20.9 H, Glucose 161 H, Calcium 7.2 L, Total Bilirubin 3.50 H Rhythm: Atrial fibrillation; PVCs; nonsustained wide complex tachydysrhythmia potentially compatible with aberrancy versus nonsustained VT Medical Necessity - Tobacco Use Smoking Status: Never smoker Tobacco Use: Non-smoker Assessment/Plan 1. Atrial fibrillation with rapid ventricular response At the present time the patient remains in atrial fibrillation with rapid ventricular response. He will continue attempts at rate control therapy. This may include IV beta-blockers or IV diltiazem. IV amiodarone may be beneficial with respect to assisting with rate control. Hopefully when he is able to resume oral intake comfortably he can be changed back to oral medications. 2. Nonsustained wide complex tachycardia The patient has had nonsustained wide complex tachycardia. This may be compatible with his atrial fibrillation with aberrancy versus nonsustained ventricular tachycardia. At the present time the patient will continue attempts at medical management. This will include attempts at beta-lula therapy. Based upon his difficulty swallowing this will include IV beta-blockers at this time. He can continue IV amiodarone as deemed appropriate. 3. CAD status post CABG The patient, ideally, would continue his combined medical management as best as tolerated based upon his ongoing acute noncardiovascular issues superimposed on his chronic noncardiovascular issues. 4. Hyperlipidemia The patient can continue lipid-lowering therapy as he is able. 5. Hypertension The patient's blood pressure can be followed. His medications can be adjusted as deemed appropriate. 6. Pancreatic carcinoma with metastatic disease The patient continues under the care of hematology and oncology. His overall prognosis is poor. Comment: The above was discussed with the patient and his daughter. This note was generated with [employer] software. It may contain incorrect words, spelling, and punctuation that were not noted in checking the note before signing.
[2018-03-31] MEDS: Metoprolol Tartrate 5 MG/5 ML Vial IV (19:19)
[2018-03-31] MEDS: Cefazolin 2 GM in 0.9% Normal Saline 100 ML IV (22:18)
[2018-04-01] VITALS (66 sets, daily range): BP systolic 68–148; BP diastolic 25–93; PULSE 85–115; RESP 17–37; TEMP 35.7–37.1; O2SAT 19–98
[2018-04-01] MEDS: BMX LIQUID 180 ML 20 ML PO ×6 (00:50→22:02)
[2018-04-01] MEDS: Metoprolol Tartrate 5 MG/5 ML Vial IV ×2 (00:50→05:55)
[2018-04-01] MEDS: fentaNYL 100 MCG/2 ML Ampul 50 MCG IV ×3 (00:50→05:56)
[2018-04-01] MEDS: 0.9% NaCl Peripheral Flush Adult/Peds IV ×9 (00:51→21:01)
[2018-04-01] MEDS: Haloperidol Lactate 5 MG/ML Vial IV (01:33)
[2018-04-01] MEDS: NYSTATIN 500,000 UNIT/5 ML UDC 500000 UNIT PO ×5 (05:55→22:01)
--- NOTE | 2018-04-01 05:55 | EKGRS_ITS ---
Test Reason : AM EKG Blood Pressure : / mmHG Vent. Rate : 093 BPM Atrial Rate : 147 BPM P-R Int : 000 ms QRS Dur : 076 ms QT Int : 338 ms P-R-T Axes : 000 -01 055 degrees QTc Int : 420 ms Atrial fibrillation Low voltage QRS Abnormal ECG When compared with ECG of 30-MAR-2018 09:16, MANUAL COMPARISON REQUIRED, DATA IS UNCONFIRMED Confirmed by KINGS HOOVER, NIKKI ([id number]), senior editor HERIBERTO MELTON ([id number]) on 04/10/2018 3:03:42 PM Referred By: Daniel Samayoa Confirmed By:NIKKI KU MD
[2018-04-01] MEDS: Hydrocortisone Sod Succinate 100 MG/2 ML Vial IV ×3 (05:56→22:01)
[2018-04-01] MEDS: CHLORHEXIDINE GLUC 2% CLOTH 1 EACH TOWELETTE TOPICAL (05:57)
[2018-04-01 06:43] LABS: Absolute Lymphocyte Count 0.25 X10^3/ul (0.83-4.51); Absolute Neutrophil Count 0.7 X10^3/uL (2.0-7.7); Basophil# 0.04 X10^3/uL; Hematocrit 23.3 % (40-54); Hemoglobin 7.6 g/dl (13.0-16.5); Lymphocyte # 0.25 X10^3/ul (4.0); Lymphocyte % 18.5 % (19-41); Mean Corp Hgb Conc 32.6 g/gl (32-36); Mean Corpuscular Hgb 28.1 pg (27.0-32.0); Mean Corpuscular Volume 86.3 fL (80-94); Monocyte# 0.14 X10^3/uL; Monocyte% 10.4 % (0-10); Neutrophil # 0.74 X10^3/uL (2.7-7.7); Neutrophil % 54.8 % (47-70); Platelet Count 32 K/mm3 (150-450); RBC Distribution Width CV 16.4 % (11.6-14.6); RBC Distribution Width SD 51.7 fl (35.1-43.9)
[2018-04-01 06:47] LABS: Anion Gap 14 (5-15); BUN 62 mg/dL (7-18); BUN/Creat Ratio 19.7 RATIO (10-20); Calcium,Total 7.4 mg/dL (8.5-10.1); Chloride 115 mmol/L (98-107); Creatinine, Serum 3.15 mg/dL (0.70-1.30); EST Glomerular Filtration Rate 21 mL/min (>60); Est Glom Filt Rate - Afr Amer 25 mL/min (>60); Estimated Creatinine Clearance 21.56 ml/min; Glucose 144 mg/dL (74-106); Magnesium 2.4 mg/dL (1.6-2.6); Phosphorus 4.1 mg/dL (2.5-4.9); Potassium 5.3 mmol/L (3.5-5.1); Sodium Level 144 mmol/L (136-145)
--- NOTE | 2018-04-01 07:40 | PCM.PN.INT ---
Subjective: Patient continues to report significant pain in multiple locations, including throat. Patient is refusing to take anything by mouth. Patient has remained on Levophed overnight to maintain appropriate blood pressures. Oxygenation is slightly worse compared to previous and patient is requiring 6 L nasal cannula to maintain saturations. Patient did have confusion overnight, so daughter has been at the bedside for most of the evening. Urine output remains marginal. General: Alert, - - Mild discomfort. Confused. Obese. HEENT: Atraumatic, PERRLA, EOMI, Normocephalic, - - No scleral icterus. Some injection noted. Oral: No Gingival or Mucosal Lesions/ Ulcerations, Dry Mucosa, - - Thrush appears to be improving Neck: Supple, No JVD, No Nodes, Trachea Midline Lungs: No rhonchi, No wheeze, Diminished, Rales, - - Symmetric expansion. No dullness to percussion. Cardiovascular: Normal S1, Normal S2, No murmurs, Irregular Rate, No rub noted, No Gallop Abdomen: Soft, Non Tender, Hypoactive Bowel Sounds, Distended Extremities: No clubbing, No cyanosis, Capillary Refill Less than 3 Seconds, Edema - Anasarca Skin: - - No significant change compared to previous Musculoskeletal: No Tenderness to Palpation of Joints or Extremities Lymphatic: No Cervical, Supraclavicular, or Inguinal Adenopathy Neurological: Cranial nerves II-XII grossly intact, Neuro grossly intact Psych/Mental Status: Anxious, Impulsive, Restless Vital Signs Temp Pulse Resp BP Pulse Ox 36.4 C L 103 H 28 H 119/58 L 95 04/01/18 04:00 04/01/18 07:15 04/01/18 07:00 04/01/18 07:15 04/01/18 07:00 Oxygen Flow Rate (L/min) 6 Oxygen Delivery Method Nasal Cannula Weight: 116.5 kg Body Mass Index (BMI) 32.4 Intake and Output for Last 24 Hours 03/30/18 03/31/18 04/01/18 23:59 23:59 23:59 Intake Total 3132 / 3132 2803.6 / 2803.6 601.2 / 601.2 Output Total 225 / 225 245 / 245 80 / 80 Balance 2907 / 2907 2558.6 / 2558.6 521.2 / 521.2 Laboratory Results - last 24 hr 03/31/18 04/01/18 04/01/18 03:40 06:15 06:15 WBC 1.4 L* RBC 2.70 L Hgb 7.6 L Hct 23.3 L MCV 86.3 MCH 28.1 MCHC 32.6 RDW 16.4 H RDW Differential 51.7 H Plt Count 32 L* Immature Gran % (Auto) 13.300 H Neut % (Auto) 54.8 Lymph % (Auto) 18.5 L [place] % (Auto) 10.4 H Eos % (Auto) 0.0 Baso % (Auto) 3.0 H Absolute Neuts (auto) 0.7 L Absolute Lymphs (auto) 0.25 L Diff Path Review Reviewed Sodium 144 Potassium 5.3 H Chloride 115 H Carbon Dioxide 15.0 L Anion Gap 14 BUN 62 H Creatinine 3.15 H Estim Creat Clear Calc 21.56 Est GFR (MDRD) Af Amer 25 L Est GFR (MDRD) Non-Af 21 L BUN/Creatinine Ratio 19.7 Glucose 144 H Calcium 7.4 L Phosphorus 4.1 Magnesium 2.4 Microbiology 03/28/18 23:30 Urine, Clean Catch Urine Culture - Final Culture exhibits no growth. Medical Necessity - Tobacco Use Smoking Status: Never smoker Tobacco Use: Non-smoker Assessment/Plan All Active Problems (Last Updated 03/30/18 @ 13:13 by Randall Pederson MD) Pancytopenia (Acute) Jaundice (Acute) Lung metastases (Acute) Fever (Acute) Metastasis from pancreatic cancer (Acute) WENDY (acute kidney injury) (Acute) Severe sepsis (Acute) Atrial fibrillation with rapid ventricular response (Acute) Liver metastases (Acute) Pancreas cancer (Acute) History of liver biopsy (Resolved) Liver lesion (Acute) Hypoxia (Resolved) RECOMMENDATIONS: 1. Obtain EKG daily to evaluate QT while on fluconazole 2. Continue amiodarone and beta-lula per cardiology 3. Continue with antibiotics as ordered 4. Await results of hospice discussion 5. Continue pressor therapy, limit additional IV fluids. 6. Increase fentanyl IMPRESSIONS: 1. Septic shock secondary to E. coli UTI/thrush Patient remains on pressor therapy to maintain appropriate saturations. Patient does have anasarca at this time, likely secondary to poor nutritional status and low oncotic pressures. Urine output has been marginal and creatinine continues to increase. Patient continues to refuse p.o. intake despite improvement of thrush clinically. 2. A. fib with RVR Patient currently on amiodarone and Lopressor with good rate control. Defer to cardiology. Recent echocardiogram did show stage I diastolic dysfunction, which will be exacerbated by elevated heart rates. Patient also with elevated right ventricular systolic pressures previously. 3. Stage IV pancreatic cancer, not responding to chemotherapy/elevated transaminases/thrombocytopenia Patient last received chemotherapy on March 24. Patient has multiple enlarging masses in multiple organs, including the primary site. Patient was seen by oncology yesterday, but no notes are available for review. Patient is confused at this time, but is requesting palliative measures. Family to meet with hospice around 530 tonight. 4. Acute hypoxic respiratory insufficiency Patient's oxygen requirements have been increasing slowly. Likely secondary to fluid status. IV fluids have been minimized. Patient remains on Levophed therapy. Attempting not to diuresis given patient's worsening renal function. 5. Coronary artery disease/hypertension/hyperlipidemia/obesity Complicates care, management, recovery and prognosis. Hold antihypertensives for now given patient's need for rate control and gram-negative infection. Will hold statin therapy if patient's hepatic function continues to deteriorate. Patient is on heparin DVT prophylaxis. 6. Acute kidney injury Likely secondary to septic shock and prerenal etiology. Patient does have a poor nutritional status with extravasation of fluids leading to total body positive with intravascular depletion. Patient is not taking anything by mouth at this time. Family is clear that they would not accept hemodialysis at this time. TIME: 40 minutes critical care time spent addressing patient's A. fib with RVR, acute hypoxic respiratory insufficiency, septic shock, thrush, review of all data and collaboration with care team. (7 AM to 8 AM) Code Visit [id number]: [id number] Critical care first hour
[2018-04-01 07:49] LABS: Differential Indicated SCAN CRITERIA MET; POSITIVE COUNT YES; POSITIVE DIFFERENTIAL YES; POSITIVE MORPHOLOGY YES
[2018-04-01 07:58] LABS: Absolute Nucleated RBC Count 0.05 10^3/uL (0-5); NRBC Flagged by Analyzer 3.7 % (0-5)
[2018-04-01 07:59] LABS: White Blood Count 1.4 K/mm3 (4.4-11.0)
[2018-04-01] MEDS: fentaNYL 100 MCG/2 ML Ampul 75 MCG IV ×7 (08:10→23:01)
--- NOTE | 2018-04-01 08:55 | CASEMGMT ---
SW called [facility], confirmed they are meeting with family at 5:30pm. ALYSA Chaney, FILTRATION SUPERVISOR
[2018-04-01] MEDS: Cefazolin 2 GM in 0.9% Normal Saline 100 ML IV ×2 (10:03→22:01)
--- NOTE | 2018-04-01 10:22 | PN.CARD_ITS ---
Subjectve: The patient states he continues to feel poorly. He is tired and fatigued. He continues with concerns of pharyngitis/esophagitis. Objective: Vital Signs Temp Pulse Resp BP Pulse Ox 96.3 F L 106 H 24 H 132/56 H 95 04/01/18 08:00 04/01/18 08:00 04/01/18 08:00 04/01/18 10:07 04/01/18 08:00 Oxygen Flow Rate (L/min) 6 Oxygen Delivery Method Nasal Cannula Weight: 256 lb 13.416 oz Body Mass Index (BMI) 32.4 Intake and Output for Last 24 Hours 03/30/18 03/31/18 04/01/18 23:59 23:59 23:59 Intake Total 3132 / 3132 2803.6 / 2803.6 601.2 / 601.2 Output Total 225 / 225 245 / 245 80 / 80 Balance 2907 / 2907 2558.6 / 2558.6 521.2 / 521.2 General: Awake, Cooperative, Ill Appearing Neck: No JVD Lungs: - - Scattered upper airway sounds Cardiovascular: Irregular Rhythm, Normal S1, Normal S2 Abdomen: Bowel Sounds Present, Soft, Non Tender Extremities: Moderate RLE Edema, Moderate LLE Edema 04/01/18 06:15: WBC 1.4 L*, RBC 2.70 L, Hgb 7.6 L, Hct 23.3 L, MCV 86.3, MCH 28.1, MCHC 32.6, RDW 16.4 H, RDW Differential 51.7 H, Plt Count 32 L*, Immature Gran % (Auto) 13.300 H, Neut % (Auto) 54.8, Lymph % (Auto) 18.5 L, [place] % (Auto ) 10.4 H, Eos % (Auto) 0.0, Baso % (Auto) 3.0 H, Absolute Neuts (auto) 0.7 L, Total Counted Not Reportable, Nucleated RBC % 3.7 04/01/18 06:15: Sodium 144, Potassium 5.3 H, Chloride 115 H, Carbon Dioxide 15.0 L, Anion Gap 14, BUN 62 H, Creatinine 3.15 H, Est GFR (MDRD) Af Amer 25 L, Est GFR (MDRD) Non-Af 21 L, BUN/Creatinine Ratio 19.7, Glucose 144 H, Calcium 7.4 L, Phosphorus 4.1, Magnesium 2.4 Rhythm: Atrial fibrillation Medical Necessity - Tobacco Use Smoking Status: Never smoker Tobacco Use: Non-smoker Assessment/Plan 1. Atrial fibrillation with rapid ventricular response At the present time the patient remains in atrial fibrillation with rapid ventricular response. He did have an attempt at rate control therapy with low-dose IV metoprolol in addition to his IV amiodarone, however, he also continued with concerns with hypotension despite being on IV vasopressor support. Thus his IV metoprolol has been discontinued. He continues with IV amiodarone. Based upon concerns of his hypotension he does not appear to be an ideal candidate for another attempt at diltiazem therapy. Also based upon concerns of his elevated creatinine levels he does not appear to be an ideal candidate for digitalis therapy. 2. Nonsustained wide complex tachycardia The patient has had nonsustained wide complex tachycardia. This may be compatible with his atrial fibrillation with aberrancy versus nonsustained ventricular tachycardia. At the present time he will continue his IV amiodarone therapy. 3. CAD status post CABG The patient, ideally, would continue his combined medical management as best as tolerated based upon his ongoing acute noncardiovascular issues superimposed on his chronic noncardiovascular issues. 4. Hyperlipidemia The patient can continue lipid-lowering therapy as he is able. 5. Hypertension The patient is still having issues with his blood pressure being low. He continues with IV vasopressor support. Hopefully this will improve once his WBC count improves which may benefit his underlying concerns of infectious disease/sepsis. 6. Pancreatic carcinoma with metastatic disease The patient continues under the care of hematology and oncology. His overall prognosis is poor. Based upon his diagnosis and his ongoing issues he is to be evaluated by hospice later today. This note was generated with [employer] software. It may contain incorrect words, spelling, and punctuation that were not noted in checking the note before signing.
[2018-04-01 13:53] LABS: Pathologist Review Reviewed
[2018-04-01] MEDS: Bumetanide 1 MG/4 ML Vial IV (18:23)
[2018-04-01] MEDS: 0.9% NaCl VAD Flush 10 ML IV (23:02)
[2018-04-02] VITALS (27 sets, daily range): BP systolic 45–128; BP diastolic 23–76; PULSE 0–104; RESP 13–42; TEMP 35.7–36.1; O2SAT 70–97
[2018-04-02] MEDS: fentaNYL 100 MCG/2 ML Ampul 75 MCG IV ×3 (01:00→05:27)
[2018-04-02] MEDS: 0.9% NaCl VAD Flush 10 ML IV ×2 (01:01→05:10)
[2018-04-02] MEDS: BMX LIQUID 180 ML 20 ML PO ×2 (01:04→05:11)
[2018-04-02] MEDS: 0.9% NaCl Peripheral Flush Adult/Peds IV ×3 (03:08→09:42)
[2018-04-02] MEDS: CHLORHEXIDINE GLUC 2% CLOTH 1 EACH TOWELETTE TOPICAL (03:10)
[2018-04-02] MEDS: Dext 5%-0.45% NS 1,000 ML 15 ML IV (05:10)
[2018-04-02] MEDS: NYSTATIN 500,000 UNIT/5 ML UDC 500000 UNIT PO (05:11)
[2018-04-02] MEDS: Hydrocortisone Sod Succinate 100 MG/2 ML Vial IV (05:11)
[2018-04-02 05:32] LABS: Hematocrit 26.2 % (40-54); Hemoglobin 8.4 g/dl (13.0-16.5); Mean Corp Hgb Conc 32.1 g/gl (32-36); Mean Corpuscular Hgb 27.5 pg (27.0-32.0); Mean Corpuscular Volume 85.6 fL (80-94); RBC Distribution Width CV 16.6 % (11.6-14.6); RBC Distribution Width SD 52.6 fl (35.1-43.9); Red Blood Count 3.06 M/mm3 (4.6-6.2); White Blood Count 9.1 K/mm3 (4.4-11.0)
[2018-04-02 05:35] LABS: ALB/GLOB Ratio 0.3 RATIO (0.9-2.4); AST(SGOT) 294 U/L (15-37); Alanine Aminotransfer ALT/SGPT 79 U/L (16-61); Albumin, Serum 1.1 g/dL (3.2-5.0); Alkaline Phosphatase 241 U/L (45-117); Anion Gap 15 (5-15); BUN 76 mg/dL (7-18); BUN/Creat Ratio 19.6 RATIO (10-20); Calcium,Total 7.7 mg/dL (8.5-10.1); Chloride 114 mmol/L (98-107); Creatinine, Serum 3.87 mg/dL (0.70-1.30); Differential Indicated MANUAL DIFF; EST Glomerular Filtration Rate 16 mL/min (>60); Est Glom Filt Rate - Afr Amer 20 mL/min (>60); Estimated Creatinine Clearance 17.55 ml/min; Globulin 3.7 g/dL (2.2-4.2); Glucose 139 mg/dL (74-106); Magnesium 2.9 mg/dL (1.6-2.6); POSITIVE COUNT YES; POSITIVE DIFFERENTIAL NO; POSITIVE MORPHOLOGY YES; Phosphorus 5.3 mg/dL (2.5-4.9); Potassium 5.5 mmol/L (3.5-5.1); Protein, Total 4.8 g/dL (6.4-8.2); Sodium Level 143 mmol/L (136-145)
[2018-04-02 05:37] LABS: Platelet Count 48 K/mm3 (150-450)
[2018-04-02 05:45] LABS: Absolute Nucleated RBC Count 0.23 10^3/uL (0-5); NRBC Flagged by Analyzer 2.5 % (0-5)
[2018-04-02 07:20] LABS: Lymphocyte 15 % (19-41); Metamyelocyte 11 % (0-1); Monocyte 4 % (0-10); Myelocyte 5 (0-0); Neutrophil-Band 12 % (0-5); Neutrophil-Segmented 52 % (47-70); Promyelocyte 1 (0-0); Total Cells Counted 100 (MANUAL DIFF)
[2018-04-02 07:21] LABS: Anisocytosis 1+; Hypochromasia 1+; Platelet Estimate MKD DEC (ADEQ)
[2018-04-02 07:22] LABS: Microcytosis 1+
[2018-04-02 07:23] LABS: Absolute Lymphocyte Count 1.37 X10^3/ul (0.83-4.51); Absolute Neutrophil Count 5.8 X10^3/uL (2.0-7.7)
--- NOTE | 2018-04-02 07:23 | PN_ITS ---
Subjective: Patient did okay overnight. Patient's pain appears to be better controlled on 75 mcg of fentanyl every 2 hours. Patient unable to be weaned from Levophed therapy. Patient continues to have marginal to no urine output. Patient appears to be less responsive and appropriate today. Patient is still requiring 5 L nasal cannula to maintain saturations. General: - - RASS -1. Anasarca. Obese. Less clear speech today compared to previous. HEENT: Atraumatic, PERRLA, EOMI, Normocephalic, - - No scleral icterus or injection noted. Oral: Moist Mucosa, No Gingival or Mucosal Lesions/ Ulcerations Neck: Supple, No JVD, No Nodes, Trachea Midline Lungs: No rhonchi, No wheeze, Diminished, Rales, - - Symmetric expansion. No dullness to percussion Cardiovascular: Regular rate, Regular Rhythm, Normal S1, Normal S2, No murmurs, No rub noted, No Gallop Abdomen: Bowel Sounds Present, Soft, Non Tender, Distended, Obese Extremities: No clubbing, No cyanosis, Capillary Refill Less than 3 Seconds, Edema - Anasarca Skin: No rashes, No breakdown Musculoskeletal: No Tenderness to Palpation of Joints or Extremities Lymphatic: No Cervical, Supraclavicular, or Inguinal Adenopathy Neurological: Neuro grossly intact Psych/Mental Status: Flat Affect, Restless Vital Signs Temp Pulse Resp BP Pulse Ox 36.1 C L 90 26 H 112/76 94 04/02/18 04:00 04/02/18 06:45 04/02/18 06:00 04/02/18 06:45 04/02/18 06:00 Oxygen Flow Rate (L/min) 5 Oxygen Delivery Method Nasal Cannula Weight: 118 kg Body Mass Index (BMI) 32.4 Intake and Output for Last 24 Hours 03/31/18 04/01/18 04/02/18 23:59 23:59 23:59 Intake Total 2803.6 / 2803.6 1738.7 / 1738.7 234.7 / 234.7 Output Total 245 / 245 160 / 160 10 / 10 Balance 2558.6 / 2558.6 1578.7 / 1578.7 224.7 / 224.7 Labs (Last 48 Hours) 03/31/18 04/01/18 04/01/18 03:40 06:15 06:15 WBC 1.4 L* RBC 2.70 L Hgb 7.6 L Hct 23.3 L MCV 86.3 MCH 28.1 MCHC 32.6 RDW 16.4 H RDW Differential 51.7 H Plt Count 32 L* Immature Gran % (Auto) 13.300 H Neut % (Auto) 54.8 Lymph % (Auto) 18.5 L [place] % (Auto) 10.4 H Eos % (Auto) 0.0 Baso % (Auto) 3.0 H Absolute Neuts (auto) 0.7 L Absolute Lymphs (auto) 0.25 L Total Counted Not Reportable Nucleated RBC % 3.7 Differential Comment Diff Path Review Reviewed Reviewed Absolute Retic 0.05 Sodium 144 Potassium 5.3 H Chloride 115 H Carbon Dioxide 15.0 L Anion Gap 14 BUN 62 H Creatinine 3.15 H Estim Creat Clear Calc 21.56 Est GFR (MDRD) Af Amer 25 L Est GFR (MDRD) Non-Af 21 L BUN/Creatinine Ratio 19.7 Glucose 144 H Calcium 7.4 L Phosphorus 4.1 Magnesium 2.4 Total Bilirubin AST ALT Alkaline Phosphatase Total Protein Albumin Globulin Albumin/Globulin Ratio 04/02/18 04/02/18 05:05 05:05 WBC 9.1 RBC 3.06 L Hgb 8.4 L Hct 26.2 L MCV 85.6 MCH 27.5 MCHC 32.1 RDW 16.6 H RDW Differential 52.6 H Plt Count 48 L* Immature Gran % (Auto) Neut % (Auto) Not Reportable Lymph % (Auto) [place] % (Auto) Eos % (Auto) Baso % (Auto) Absolute Neuts (auto) Not Reportable Absolute Lymphs (auto) Total Counted Pending Nucleated RBC % Pending Differential Comment Diff Path Review Absolute Retic Pending Sodium 143 Potassium 5.5 H Chloride 114 H Carbon Dioxide 14.0 L Anion Gap 15 BUN 76 H Creatinine 3.87 H Estim Creat Clear Calc 17.55 Est GFR (MDRD) Af Amer 20 L Est GFR (MDRD) Non-Af 16 L BUN/Creatinine Ratio 19.6 Glucose 139 H Calcium 7.7 L Phosphorus 5.3 H Magnesium 2.9 H Total Bilirubin 4.30 H AST 294 H ALT 79 H Alkaline Phosphatase 241 H Total Protein 4.8 L Albumin 1.1 L Globulin 3.7 Albumin/Globulin Ratio 0.3 L Microbiology 03/28/18 23:30 Urine, Clean Catch Urine Culture - Final Culture exhibits no growth. Medical Necessity - Tobacco Use Smoking Status: Never smoker Tobacco Use: Non-smoker Assessment/Plan All Active Problems (Last Updated 03/30/18 @ 13:13 by Randall Pederson MD) Pancytopenia (Acute) Jaundice (Acute) Hyperkalemia (Acute) Metabolic acidemia (Acute) Lung metastases (Acute) Fever (Acute) Metastasis from pancreatic cancer (Acute) WENDY (acute kidney injury) (Acute) Severe sepsis (Acute) Atrial fibrillation with rapid ventricular response (Acute) Liver metastases (Acute) Pancreas cancer (Acute) History of liver biopsy (Resolved) Liver lesion (Acute) Hypoxia (Resolved) RECOMMENDATIONS: 1. Wean oxygen as tolerated 2. Continue amiodarone and beta-lula per cardiology 3. Continue with antibiotics as ordered 4. Obtain renal consultation, possible diuretic challenge 5. Continue pressor therapy, limit additional IV fluids. 6. Continue fentanyl IMPRESSIONS: 1. Septic shock secondary to E. coli UTI/thrush Patient remains on pressor therapy to maintain appropriate saturations. Patient does have anasarca at this time, likely secondary to poor nutritional status and low oncotic pressures. Total body fluid up, but intravascularly depleted. Urine output has been marginal and creatinine continues to increase. Patient continues to refuse p.o. intake despite resolution of thrush clinically. 2. A. fib with RVR Patient currently on amiodarone and Lopressor with good rate control. Defer to cardiology. Recent echocardiogram did show stage I diastolic dysfunction, which will be exacerbated by elevated heart rates. Patient also with elevated right ventricular systolic pressures previously. 3. Stage IV pancreatic cancer, not responding to chemotherapy/elevated transaminases/thrombocytopenia Patient last received chemotherapy on March 24. Patient has multiple enlarging masses in multiple organs, including the primary site. Patient was seen by oncology yesterday, but no notes are available for review. Patient is confused at this time, but is requesting palliative measures. Family met with hospice yesterday, but does not appear ready for palliative measures. Will obtain a renal consult, but interventions for renal failure outside of dialysis are likely not to be successful. 4. Acute hypoxic respiratory insufficiency Patient's oxygen requirements have been increasing slowly. Likely secondary to fluid status. IV fluids have been minimized. Patient remains on Levophed therapy. Defer to nephrology on whether diuretic challenge would be appropriate. 5. Coronary artery disease/hypertension/hyperlipidemia/obesity Complicates care, management, recovery and prognosis. Hold antihypertensives for now given patient's need for rate control and E. coli infection. Will hold statin therapy if patient's hepatic function continues to deteriorate. Patient is on heparin DVT prophylaxis. 6. Acute kidney injury Likely secondary to septic shock and prerenal etiology. Patient does have a poor nutritional status with extravasation of fluids leading to total body positive with intravascular depletion. Patient is not taking anything by mouth at this time. Family is clear that they would not accept hemodialysis at this time. Will consult nephrology, but anticipate palliative measures being most appropriate Addendum 11:02 AM: Long discussion with patient's at the bedside about patient's renal failure and progression of somnolence. Family is aware the patient likely only has hours to live. Nephrology was consulted to determine appropriateness of hemodialysis. Spoke with nephrology personally and patient was deemed not appropriate for hemodialysis. After complete review of patient's current status and options moving forward, family has decided palliative measures. Family is wishing not to transfer the patient if it is not necessary. Multiple family members at the bedside. Pressor therapy was just discontinued. Will discontinue labs and nonessential medications. Patient will have Ativan and fentanyl as needed. Addendum 2:22 PM: Patient at 1:25 PM. Patient was pronounced by myself. Because of was E. coli sepsis secondary to UTI. Secondary causes of include stage IV pancreatic cancer unresponsive to chemotherapy, acute renal failure. TIME: 77 minutes critical care time spent addressing patient's A. fib with RVR, acute hypoxic respiratory insufficiency, septic shock, thrush, review of all data and collaboration with care team. (6:30 AM to 7:30 AM, 9 AM to 11 AM) Code Visit Procedures: 25352 Critial Care Addl 30 Min [id number]: [id number] Critical care first hour
[2018-04-02] MEDS: Cefazolin 2 GM in 0.9% Normal Saline 100 ML IV (09:43)
--- NOTE | 2018-04-02 10:18 | PCM.CONS.R ---
Problem List (1) Hyperkalemia Status: Acute (2) Metabolic acidemia Status: Acute (3) WENDY (acute kidney injury) Status: Acute Consultation - Renal PCP/ Referring MD: Requesting physician: [] Primary care physician: Daniel Samayoa - History of Present Illness History of Present Illness: The patient is a 77 year old M past medical history of stage IV pancreatic cancer. She started on chemotherapy on March 24. Patient presented on March 28 with fever and sepsis which progressed to septic shock. Patient currently in ICU. Patient developed acute kidney injury. Initially, creatinine improved with IV fluid but then started again to rise today creatinine 3.8 mg deciliter. Potassium 5.5. Bicarb 14. Patient is an uric overnight. Renal team was consulted for AK I management. Patient's daughter and are at bedside. Patient is confused but arousable. Not oriented. On high oxygen demand via nasal cannula. Patient is requiring Levophed support. Currently on 13 MCG per minute dose. Also the patient on amiodarone for A. fib with RVR Review of system: 12 systems cannot be done due to the patient's condition. Patient is confused but oriented - Allergies Allergies: Allergies niacin Allergy (Mild, Verified 03/28/18 09:54) Rash atorvastatin calcium [From Lipitor] Adverse Reaction (Intermediate, Verified 03/28/18 09:54) Swelling - Current Medications Current Medications: Current Medications Acetaminophen (Tylenol) 650 mg PO Q6H PRN PRN PRN Reason: Fever Last Admin: 03/28/18 17:47 Dose: 650 mg Hydrocodone Bitart/Acetaminophen ([place] 5mg-325mg) 1 tablet PO Q6H PRN PRN PRN Reason: PAIN Last Admin: 03/29/18 00:18 Dose: 1 tablet Chlorhexidine Gluconate () 1 each TOPICAL DAILY ANH Last Admin: 04/02/18 03:10 Dose: 1 each Fentanyl Citrate (Sublimaze (100mcg Ampule)) 75 mcg IV Q2H PRN PRN PRN Reason: PAIN Last Admin: 04/02/18 05:27 Dose: 75 mcg Hydrocortisone Sodium Succinate (Solu-Cortef) 100 mg IV Q8 ANH Last Admin: 04/02/18 05:11 Dose: 100 mg Fluconazole (Diflucan) 200 mg in 100 mls @ 50 mls/hr IV Q48 ANH Stop: 04/03/18 11:59 Last Admin: 04/01/18 11:00 Dose: 50 mls/hr Norepinephrine Bitartrate 8 mg (/ Dextrose) 258 mls @ 9.67 mls/hr IV .[id number] [facility] PRN Reason: 5 MCG/MIN Last Admin: 04/02/18 01:03 Dose: Not Given Amiodarone HCl/Dextrose (Nexterone 360 Mg/200 Ml Bag) 360 mg in 200 mls @ 16.667 mls/hr CONT INF .Q12H [facility] PRN Reason: 0.5 MG/MIN Last Admin: 04/01/18 23:12 Dose: 16.667 mls/hr Dextrose/Sodium Chloride () 1,000 mls @ 15 mls/hr IV .Q48H [facility] Last Admin: 04/02/18 05:10 Dose: 15 mls/hr Famotidine 20 mg/ Sodium (Chloride) 10 mls @ 300 mls/hr IV Q24 [facility] Last Admin: 04/02/18 09:42 Dose: 300 mls/hr Cefazolin Sodium 2 gm/ Sodium (Chloride) 110 mls @ 150 mls/hr IV Q12 [facility] Last Admin: 04/02/18 09:43 Dose: 150 mls/hr Levothyroxine Sodium (Synthroid) 50 mcg PO DAILY@0600 [facility] Last Admin: 04/02/18 05:11 Dose: Not Given Lidocaine/Diphenhydr/Alum/Mg/Simeth () 20 ml PO Q4H PRN PRN PRN Reason: SORE MOUTH/THRUSH Loperamide HCl (Imodium) 2 mg PO Q2H PRN PRN PRN Reason: Diarrhea Magnesium Hydroxide (Milk Of Magnesia) 30 ml PO DAILY PRN PRN Reason: Constipation Nutritional Formula (Lactose Free) (Ensure Enlive) 120 ml PO 4X/DAY [facility] Last Admin: 04/02/18 09:33 Dose: Not Given Ondansetron HCl (Zofran) 4 mg IV Q6H PRN PRN PRN Reason: NAUSEA Sodium Chloride () 5 - 30 ml IV UD PRN PRN Reason: SALINE FLUSH Last Admin: 04/02/18 09:42 Dose: 10 ml Sodium Chloride () 10 ml IV UD PRN PRN Reason: VAD FLUSH Last Admin: 04/02/18 05:10 Dose: 10 ml - Past Medical History Past Medical History (Chronic Problems): Chronic Problems (Last Updated 03/30/18 @ 13:13 by Randall Pederson MD) Educational circumstance (Chronic) A-fib (Chronic) Atherosclerosis of coronary artery bypass graft without angina pectoris (Chronic) CAD (coronary artery disease) (Chronic) 02/16/99 x 2 MARTINEZ to LAD, SVG to diagonal HTN (hypertension) (Chronic) Hyperlipidemia (Chronic) Obesity (Chronic) CAD (coronary artery disease) (Chronic) History of lung cancer (Chronic) s/p left lower lobectomy - Past Surgical History Surgical History: coronary bypass surgery - Social History Smoking Status: Never smoker Alcohol: None Drugs: None Patient Problems: Active and Suspected Problems (Last Updated 03/30/18 @ 13:13 by Randall Pederson MD) Pancytopenia (Acute) Jaundice (Acute) Hyperkalemia (Acute) Metabolic acidemia (Acute) WENDY (acute kidney injury) (Acute) Severe sepsis (Acute) Atrial fibrillation with rapid ventricular response (Acute) - Physical Exam General: Lethargic HEENT: Atraumatic Oral: Dry Mucosa Neck: No JVD Lungs: Short of Breath, Tachypneic, Using Accessory Muscles, - - Bilateral lungs crackles Cardiovascular: Regular rate, Regular Rhythm, Normal S1, Normal S2 Abdomen: Bowel Sounds Present, Non-Distended Extremities: Edema - +3 edema of lower extremities with anasarca Neurological: - - Patient is confused. Not oriented. Moving his limbs. Vital Signs Temp Pulse Resp BP Pulse Ox 96.2 F L 81 24 H 90/31 L 87 04/02/18 08:15 04/02/18 09:00 04/02/18 09:00 04/02/18 09:00 04/02/18 09:00 Oxygen Flow Rate (L/min) 5 Oxygen Delivery Method Nasal Cannula Weight: 118 kg Body Mass Index (BMI) 32.4 Intake and Output for Last 24 Hours 03/31/18 04/01/18 04/02/18 23:59 23:59 23:59 Intake Total 2803.6 / 2803.6 1738.7 / 1738.7 234.7 / 234.7 Output Total 245 / 245 160 / 160 Balance 2558.6 / 2558.6 1578.7 / 1578.7 224.7 / 224.7 Microbiology Past 72 Hours 03/28/18 23:30 Urine Culture - Final Urine, Clean Catch Culture exhibits no growth. Laboratory Tests Past 24 Hrs 04/01/18 04/02/18 04/02/18 06:15 05:05 05:05 WBC 9.1 RBC 3.06 L Hgb 8.4 L Hct 26.2 L MCV 85.6 MCH 27.5 MCHC 32.1 RDW 16.6 H RDW Differential 52.6 H Plt Count 48 L* Neut % (Auto) Not Reportable Absolute Neuts (auto) 5.8 Absolute Lymphs (auto) 1.37 Total Counted 100 Neutrophils % (Manual) 52 Band Neutrophils % 12 H Lymphocytes % (Manual) 15 L Monocytes % (Manual) 4 Metamyelocytes % 11 H Myelocytes % 5 H Promyelocytes % 1 H Nucleated RBC % 2.5 Diff Path Review Reviewed November foll Platelet Estimate MKD DEC Hypochromasia 1+ Anisocytosis 1+ Microcytosis 1+ Absolute Retic 0.23 Sodium 143 Potassium 5.5 H Chloride 114 H Carbon Dioxide 14.0 L Anion Gap 15 BUN 76 H Creatinine 3.87 H Estim Creat Clear Calc 17.55 Est GFR (MDRD) Af Amer 20 L Est GFR (MDRD) Non-Af 16 L BUN/Creatinine Ratio 19.6 Glucose 139 H Calcium 7.7 L Phosphorus 5.3 H Magnesium 2.9 H Total Bilirubin 4.30 H AST 294 H ALT 79 H Alkaline Phosphatase 241 H Total Protein 4.8 L Albumin 1.1 L Globulin 3.7 Albumin/Globulin Ratio 0.3 L Assessment/Plan All Active Problems (Last Updated 03/30/18 @ 13:13 by Randall Pederson MD) Pancytopenia (Acute) Jaundice (Acute) Hyperkalemia (Acute) Metabolic acidemia (Acute) Lung metastases (Acute) Fever (Acute) Metastasis from pancreatic cancer (Acute) WENDY (acute kidney injury) (Acute) Severe sepsis (Acute) Atrial fibrillation with rapid ventricular response (Acute) Liver metastases (Acute) Pancreas cancer (Acute) History of liver biopsy (Resolved) Liver lesion (Acute) Hypoxia (Resolved) Acute kidney injury. Most probably related to ischemic ATN from septic shock. Patient is anuric, hyperkalemic and acidotic. Creatinine is rising. Ideally, patient requires hemodialysis for the above reasons but given his comorbidities of advanced pancreatic cancer, septic shock, patient is not a candidate for hemodialysis. I discussed this issue with the family and explained to them that dialysis is not going to help his situation and the best management for now would be hospice care. Patient's daughter and verbalized understanding and they want to pursue hospice care for him. 2-hyperkalemia most probably due to a acute kidney injury. Please see above for management. 3-septic shock due to E. coli septicemia. Currently on levophed and antibiotics. Family wants to pursue hospice care. 4-advanced stage IV pancreatic cancer with metastasis to the liver and lungs. Hospice care. Thank you for the consult. Justin Christensen MD
--- NOTE | 2018-04-02 10:23 | CON.PCM_ITS ---
Problem List (1) Hyperkalemia Status: Acute (2) Metabolic acidemia Status: Acute (3) WENDY (acute kidney injury) Status: Acute Consultation - Renal PCP/ Referring MD: Requesting physician: [] Primary care physician: Daniel Samayoa - History of Present Illness History of Present Illness: The patient is a 77 year old M past medical history of stage IV pancreatic cancer. She started on chemotherapy on March 24. Patient presented on March 28 with fever and sepsis which progressed to septic shock. Patient currently in ICU. Patient developed acute kidney injury. Initially, creatinine improved with IV fluid but then started again to rise today creatinine 3.8 mg deciliter. Potassium 5.5. Bicarb 14. Patient is an uric overnight. Renal team was consulted for AK I management. Patient's daughter and are at bedside. Patient is confused but arousable. Not oriented. On high oxygen demand via nasal cannula. Patient is requiring Levophed support. Currently on 13 MCG per minute dose. Also the patient on amiodarone for A. fib with RVR Review of system: 12 systems cannot be done due to the patient's condition. Patient is confused but oriented - Allergies Allergies: Allergies niacin Allergy (Mild, Verified 03/28/18 09:54) Rash atorvastatin calcium [From Lipitor] Adverse Reaction (Intermediate, Verified 09:54) Swelling - Current Medications Current Medications: Current Medications Acetaminophen (Tylenol) 650 mg PO Q6H PRN PRN PRN Reason: Fever Last Admin: 03/28/18 17:47 Dose: 650 mg Hydrocodone Bitart/Acetaminophen ([place] 5mg-325mg) 1 tablet PO Q6H PRN PRN PRN Reason: PAIN Last Admin: 03/29/18 00:18 Dose: 1 tablet Chlorhexidine Gluconate () 1 each TOPICAL DAILY ANH Last Admin: 04/02/18 03:10 Dose: 1 each Fentanyl Citrate (Sublimaze (100mcg Ampule)) 75 mcg IV Q2H PRN PRN PRN Reason: PAIN Last Admin: 04/02/18 05:27 Dose: 75 mcg Hydrocortisone Sodium Succinate (Solu-Cortef) 100 mg IV Q8 NAH Last Admin: 04/02/18 05:11 Dose: 100 mg Fluconazole (Diflucan) 200 mg in 100 mls @ 50 mls/hr IV Q48 ANH Stop: 04/03/18 11:59 Last Admin: 04/01/18 11:00 Dose: 50 mls/hr Norepinephrine Bitartrate 8 mg (/ Dextrose) 258 mls @ 9.67 mls/hr IV .[id number] [facility] PRN Reason: 5 MCG/MIN Last Admin: 04/02/18 01:03 Dose: Not Given Amiodarone HCl/Dextrose (Nexterone 360 Mg/200 Ml Bag) 360 mg in 200 mls @ 16.667 mls/hr CONT INF .Q12H [facility] PRN Reason: 0.5 MG/MIN Last Admin: 04/01/18 23:12 Dose: 16.667 mls/hr Dextrose/Sodium Chloride () 1,000 mls @ 15 mls/hr IV .Q48H [facility] Last Admin: 04/02/18 05:10 Dose: 15 mls/hr Famotidine 20 mg/ Sodium (Chloride) 10 mls @ 300 mls/hr IV Q24 [facility] Last Admin: 04/02/18 09:42 Dose: 300 mls/hr Cefazolin Sodium 2 gm/ Sodium (Chloride) 110 mls @ 150 mls/hr IV Q12 [facility] Last Admin: 04/02/18 09:43 Dose: 150 mls/hr Levothyroxine Sodium (Synthroid) 50 mcg PO DAILY@0600 [facility] Last Admin: 04/02/18 05:11 Dose: Not Given Lidocaine/Diphenhydr/Alum/Mg/Simeth () 20 ml PO Q4H PRN PRN PRN Reason: SORE MOUTH/THRUSH Loperamide HCl (Imodium) 2 mg PO Q2H PRN PRN PRN Reason: Diarrhea Magnesium Hydroxide (Milk Of Magnesia) 30 ml PO DAILY PRN PRN Reason: Constipation Nutritional Formula (Lactose Free) (Ensure Enlive) 120 ml PO 4X/DAY [facility] Last Admin: 04/02/18 09:33 Dose: Not Given Ondansetron HCl (Zofran) 4 mg IV Q6H PRN PRN PRN Reason: NAUSEA Sodium Chloride () 5 - 30 ml IV UD PRN PRN Reason: SALINE FLUSH Last Admin: 04/02/18 09:42 Dose: 10 ml Sodium Chloride () 10 ml IV UD PRN PRN Reason: VAD FLUSH Last Admin: 04/02/18 05:10 Dose: 10 ml - Past Medical History Past Medical History (Chronic Problems): Chronic Problems (Last Updated 03/30/18 @ 13:13 by Randall Pederson MD) Educational circumstance (Chronic) A-fib (Chronic) Atherosclerosis of coronary artery bypass graft without angina pectoris (Chronic ) CAD (coronary artery disease) (Chronic) 02/16/99 x 2 MARTINEZ to LAD, SVG to diagonal HTN (hypertension) (Chronic) Hyperlipidemia (Chronic) Obesity (Chronic) CAD (coronary artery disease) (Chronic) History of lung cancer (Chronic) s/p left lower lobectomy - Past Surgical History Surgical History: coronary bypass surgery - Social History Smoking Status: Never smoker Alcohol: None Drugs: None Patient Problems: Active and Suspected Problems (Last Updated 03/30/18 @ 13:13 by Randall Pederson MD) Pancytopenia (Acute) Jaundice (Acute) Hyperkalemia (Acute) Metabolic acidemia (Acute) WENDY (acute kidney injury) (Acute) Severe sepsis (Acute) Atrial fibrillation with rapid ventricular response (Acute) - Physical Exam General: Lethargic HEENT: Atraumatic Oral: Dry Mucosa Neck: No JVD Lungs: Short of Breath, Tachypneic, Using Accessory Muscles, - - Bilateral lungs crackles Cardiovascular: Regular rate, Regular Rhythm, Normal S1, Normal S2 Abdomen: Bowel Sounds Present, Non-Distended Extremities: Edema - +3 edema of lower extremities with anasarca Neurological: - - Patient is confused. Not oriented. Moving his limbs. Vital Signs Temp Pulse Resp BP Pulse Ox 96.2 F L 81 24 H 90/31 L 87 04/02/18 08:15 04/02/18 09:00 04/02/18 09:00 04/02/18 09:00 04/02/18 09:00 Oxygen Flow Rate (L/min) 5 Oxygen Delivery Method Nasal Cannula Weight: 118 kg Body Mass Index (BMI) 32.4 Intake and Output for Last 24 Hours 03/31/18 04/01/18 04/02/18 23:59 23:59 23:59 Intake Total 2803.6 / 2803.6 1738.7 / 1738.7 234.7 / 234.7 Output Total 245 / 245 160 / 160 Balance 2558.6 / 2558.6 1578.7 / 1578.7 224.7 / 224.7 Microbiology Past 72 Hours 03/28/18 23:30 Urine Culture - Final Urine, Clean Catch Culture exhibits no growth. Laboratory Tests Past 24 Hrs 04/01/18 04/02/18 04/02/18 06:15 05:05 05:05 WBC 9.1 RBC 3.06 L Hgb 8.4 L Hct 26.2 L MCV 85.6 MCH 27.5 MCHC 32.1 RDW 16.6 H RDW Differential 52.6 H Plt Count 48 L* Neut % (Auto) Not Reportable Absolute Neuts (auto) 5.8 Absolute Lymphs (auto) 1.37 Total Counted 100 Neutrophils % (Manual) 52 Band Neutrophils % 12 H Lymphocytes % (Manual) 15 L Monocytes % (Manual) 4 Metamyelocytes % 11 H Myelocytes % 5 H Promyelocytes % 1 H Nucleated RBC % 2.5 Diff Path Review Reviewed November foll Platelet Estimate MKD DEC Hypochromasia 1+ Anisocytosis 1+ Microcytosis 1+ Absolute Retic 0.23 Sodium 143 Potassium 5.5 H Chloride 114 H Carbon Dioxide 14.0 L Anion Gap 15 BUN 76 H Creatinine 3.87 H Estim Creat Clear Calc 17.55 Est GFR (MDRD) Af Amer 20 L Est GFR (MDRD) Non-Af 16 L BUN/Creatinine Ratio 19.6 Glucose 139 H Calcium 7.7 L Phosphorus 5.3 H Magnesium 2.9 H Total Bilirubin 4.30 H AST 294 H ALT 79 H Alkaline Phosphatase 241 H Total Protein 4.8 L Albumin 1.1 L Globulin 3.7 Albumin/Globulin Ratio 0.3 L Assessment/Plan All Active Problems (Last Updated 03/30/18 @ 13:13 by Randall Pederson MD) Pancytopenia (Acute) Jaundice (Acute) Hyperkalemia (Acute) Metabolic acidemia (Acute) Lung metastases (Acute) Fever (Acute) Metastasis from pancreatic cancer (Acute) WENDY (acute kidney injury) (Acute) Severe sepsis (Acute) Atrial fibrillation with rapid ventricular response (Acute) Liver metastases (Acute) Pancreas cancer (Acute) History of liver biopsy (Resolved) Liver lesion (Acute) Hypoxia (Resolved) Acute kidney injury. Most probably related to ischemic ATN from septic shock. Patient is anuric, hyperkalemic and acidotic. Creatinine is rising. Ideally, patient requires hemodialysis for the above reasons but given his comorbidities of advanced pancreatic cancer, septic shock, patient is not a candidate for hemodialysis. I discussed this issue with the family and explained to them that dialysis is not going to help his situation and the best management for now would be hospice care. Patient's daughter and verbalized understanding and they want to pursue hospice care for him. 2-hyperkalemia most probably due to a acute kidney injury. Please see above for management. 3-septic shock due to E. coli septicemia. Currently on levophed and antibiotics. Family wants to pursue hospice care. 4-advanced stage IV pancreatic cancer with metastasis to the liver and lungs. Hospice care. Thank you for the consult. Justin Christensen MD
--- NOTE | 2018-04-02 10:29 | CASEMGMT ---
It is this SW's understanding that the plan is to keep pt here on hospice, due to prognosis. SW called [facility], spoke w/RN Neda to see if they will come in to manage pt from a hospice perspective if pt cannot be moved. As per Neda, they do not manage patients on hospice here in the hospital any longer. Someone from hospice can come to assess the pt for the inpt unit and if pt cannot be moved, they can offer bereavement services to the family. SW spoke w/Dr. Dyer, let him know the above. He states can manage the pt if the pt stays here. SW spoke w/the and daughter in the room, explained that hospice cannot come into the hospital to manage the pt. SW explained hospice can come to assess pt to see if he can be moved to the hospice unit, and/or offer bereavement services. and daughter state they would like pt to just stay here, SW explained Dr. Dyer can manage the pt while here. SW offered the bereavement services offered by hospice, they declined for now. SW let family know if they need anything, SW is available. SW made RN aware also that pt will stay here, and let Dr. Dyer know also that pt will stay here. DARRIAN remains available to family for support. ALYSA Chaney, SOFTBALL PLAYER
--- NOTE | 2018-04-02 11:00 | NURSING ---
Dr. Dyer at bedside spoke with family and palliative care measures initiated. , son and daughter at bedside. Levophed and Amio turned off at 1058.
[2018-04-02 12:35] LABS: Pathologist Review Reviewed
--- NOTE | 2018-04-02 13:41 | NURSING ---
Time of confirmed at 1325 by Shayna RN and LEE Daley. Strip placed on chart. Dr. Ayden hernandez. Marguerite Bell called to comfort family at bedside.
--- NOTE | 2018-04-02 15:03 | CHAPLAIN ---
Type of Pastoral Visit _x__ Initial Visit ___ Follow-up Visit ___ On-call Visit ___ General Patient Visit ___ Spiritual Assessment ___ Family Conference ___ Bereavement ___ Rapid Response ___ Code Blue ___ Other (describe below) Pastoral Care Referral From ___ Patient _x__ Family ___ Nurse ___ Physician ___ Junior Accounting Clerk ___ Urban Planning Professor ___ Other (describe below) Sacrament/Intervention ___ Active listening ___ Anointing ___ Nondenominational ___ Bereavement ___ Communion _x__ Bettina exploration ___ ___ Life review _x__ Prayer ___ Reconciliation ___ Sacrament of Sick _x__ Supportive presence ___ Wedding ___ Other (describe below) Pastoral Comments End of life; patient only able to barely nod head to acknowledge he could hear; family requests prayer and spiritual support for patient as he nears ; family members have connection to local [employer] and believe that pt is ready to ; pt accepts scripture readings and prayer; ongoing support offered to family and staff as needed
--- NOTE | 2018-04-02 15:06 | CHAPLAIN ---
Type of Pastoral Visit ___ Initial Visit ___ Follow-up Visit ___ On-call Visit ___ General Patient Visit ___ Spiritual Assessment ___ Family Conference _x__ Bereavement ___ Rapid Response ___ Code Blue ___ Other (describe below) Pastoral Care Referral From ___ Patient ___ Family _x__ Nurse ___ Physician ___ Glost Kiln Operator ___ Dust Puller ___ Other (describe below) Sacrament/Intervention ___ Active listening ___ Anointing ___ Hindu _x__ Bereavement ___ Communion ___ Bettina exploration ___ ___ Life review _x__ Prayer ___ Reconciliation ___ Sacrament of Sick _x__ Supportive presence ___ Wedding ___ Other (describe below) Pastoral Comments RN called to notify this solder deposit operator that patient has and family is in room with him; came to offer acknowledgement of , support, and prayer to family; returned later with nura martínez as gift to family from hospital bereavement team; a lap blanket was previously given today to patient as extra measure of personal comfort; made communication between family and RN for care of the body
--- NOTE | 2018-04-02 15:38 | NURSING ---
Selvin with [facility] came to clam picker the body.
--- NOTE | 2018-04-05 17:25 | EXP.PCM_ITS ---
Preliminary Cause of Asystole secondary to septic shock from E. coli cystitis Date of Admission: 03/28/18 Date of : 04/02/18 - Principle Diagnosis #1 septic shock secondary to E. coli from acute cystitis #2 stage IV pancreatic cancer with metastases to the liver and lungs #3 acute hypoxic respiratory failure #4 coronary artery disease #5 severe pancytopenia secondary to systemic chemotherapy #6 severe mucositis postchemotherapy #7 acute kidney injury #8 atrial fibrillation with RVR Hospital Course This 77-year-old white male with history of metastatic pancreatic cancer presented to the emergency department at [facility] with fever chills myalgias, he just finished chemotherapy on 24 March 2018. Workup in the emergency room included an EKG which showed the patient to be in atrial fibrillation with a rapid ventricular response, patient was given IV fluid, blood cultures were obtained, labs showed abnormal liver function tests and a lactic acidosis of 4. Patient was pancytopenic. CT scan of the abdomen and pelvis was obtained, there is no evidence of obstruction the biliary tree but there was evidence of worsening metastases. There was a question of colitis but this was not confirmed. Patient was started on meropenem and spontaneously converted to sinus rhythm in the emergency room. Patient was admitted to the ICU and seen by critical care and cardiology, he continued to remain pancytopenic he was also seen by oncology. Patient's blood culture was positive for E. coli, patient underwent an unstable course in the ICU and finally had septic shock and required pressor agents. Conversations were carried out with the family members who consented to hospice care, on 04/02/18, all pressor agents were stopped and the patient went into asystole shortly thereafter and . Family members did not want an autopsy. Minutes spent on this discharge summary: 32 minutes Code Visit Inpatient E&M: [id number] Disch Hosp
== END 2018-04-02 13:25 | DRG 871 ==
LOC: ED 10:14 → PCU 14:10 → ICU 18:04
PROVIDERS: Internal Medicine Critical Care Medicine; Admitting Provider Internal Medicine; Emergency Provider Emergency Medicine; Family Provider Family Medicine Geriatric Medicine; PCP Family Medicine Geriatric Medicine; Visit Provider Internal Medicine
DX: A41.51 Sepsis due to Escherichia coli [E. coli] (principal); R65.21 Severe sepsis with septic shock; D61.810 Antineoplastic chemotherapy induced pancytopenia; J96.01 Acute respiratory failure with hypoxia; C25.9 Malignant neoplasm of pancreas, unspecified; C78.7 Secondary malignant neoplasm of liver and intrahepatic bile duct; C78.00 Secondary malignant neoplasm of unspecified lung; N30.00 Acute cystitis without hematuria; N17.9 Acute kidney failure, unspecified; I25.10 Atherosclerotic heart disease of native coronary artery without angina pectoris; T45.1X5A Adverse effect of antineoplastic and immunosuppressive drugs, initial encounter; I48.91 Unspecified atrial fibrillation; I10 Essential (primary) hypertension; E78.5 Hyperlipidemia, unspecified; Z90.2 Acquired absence of lung [part of]; Z51.5 Encounter for palliative care; Z86.711 Personal history of pulmonary embolism; K12.30 Oral mucositis (ulcerative), unspecified; Z79.01 Long term (current) use of anticoagulants
CPT/HCPCS: 36415; 36591; 71045; 74177; 80048; 80053; 80076; 81002; 83605; 83735; 84100; 84484; 85025; 85379; 85384; 85610; 85730; 87040; 87086; 87186; 87493; 87641; 92526; 93005; 97802; 99283; J0885; J2185; J7030; J7040; J7050; Q9967; A4216; J1447; J1940; J2405; J3490; J7799